=== PATIENT | female | born 1960 ===

== ENCOUNTER 2016-10-30 20:51 | Inpatient (IN) | payer OTHER ==
[2016-10-30 22:09] LABS: BASO % 0.5 % (0.0-2.0); EOS # 0.1 K/uL (0.0-0.7); EOS % 1.3 % (0.0-4.0); HEMATOCRIT 30.5 % (34.0-47.0); LYMPH # 2.3 K/uL (1.0-4.3); LYMPH % 34.3 % (20.0-40.0); MEAN CELL VOLUME 107.1 fl (81.0-99.0); MEAN CORPUSCULAR HEMOGLOBIN 36.2 pg (27.0-31.0); MEAN CORPUSCULAR HGB CONC 33.8 g/dL (33.0-37.0); MEAN PLATELET VOLUME 8.4 fl (7.2-11.7); MONO # 0.5 K/uL (0.0-0.8); MONO % 7.3 % (0.0-10.0); NEUT # 3.8 K/uL (1.8-7.0); NEUT % 56.6 % (50.0-75.0); NRBC % 0.1 % (0.0-0.0); RED CELL DISTRIBUTION WIDTH 16.8 % (11.5-14.5); WHITE BLOOD COUNT 6.7 K/uL (4.8-10.8)
[2016-10-30 22:13] LABS: RBC URINE 2 /hpf (0-3); URINE BACTERIA RARE (<OCC); URINE BILIRUBIN NEGATIVE (NEGATIVE); URINE BLOOD SMALL (NEGATIVE); URINE COLOR YELLOW (YELLOW); URINE GLUCOSE (UA) NEG (Normal); URINE KETONE NEGATIVE (NEGATIVE); URINE LEUKOCYTE ESTERASE NEG Leu/uL (Negative); URINE PROTEIN 30 mg/dL (NEGATIVE); URINE UROBILINOGEN 0.2-1.0 mg/dL (0.2-1.0); WBC URINE 1 /hpf (0-5)
[2016-10-30 22:21] LABS: ALB/GLOB RATIO 0.9 (1.0-2.1); ALCOHOL SERUM < 10 mg/dl (0-10); ALKALINE PHOSPHATASE 126 U/L (38-126); ALT/SGPT 53 U/L (9-52); AST/SGOT 69 U/L (14-36); BILIRUBIN,TOTAL 0.7 mg/dl (0.2-1.3); BLOOD UREA NITROGEN 9 mg/dl (7-17); CARBON DIOXIDE 21 mmol/L (22-30); CHLORIDE 108 mmol/L (98-107); GFR AFRICAN-AMERICAN > 60; GLUCOSE,RANDOM 104 mg/dL (65-105); POTASSIUM 3.1 MMOL/L (3.6-5.0); SODIUM 142 mmol/l (132-148); TOTAL PROTEIN 8.4 G/DL (6.3-8.2)
--- NOTE | 2016-10-30 22:58 | CT ---
EXAM: CT Head Without Intravenous Contrast CLINICAL HISTORY: 56 years old, female; Signs and symptoms; Other: Hallucinations, HX of CVA; Additional info: Hallucinations, HX of CVA TECHNIQUE: Axial computed tomography images of the head/brain without intravenous contrast. This CT exam was performed using one or more of the following dose reduction techniques: automated exposure control, adjustment of the mA and/or kV according to patient size, and/or use of iterative reconstruction technique. Coronal and sagittal reformatted images were created and reviewed. COMPARISON: No relevant prior studies available. FINDINGS: Brain: Atrophy. Large areas of encephalomalacia noted bilaterally involving the right frontal, parietal and temporal lobes as well as predominantly the left parietal and temporal lobes. No hemorrhage. No edema. Ventricles: No hydrocephalus. Bones: Skull is intact. Sinuses: No acute sinusitis. Mastoid air cells: No mastoid effusion. IMPRESSION: No CT evidence of acute intracranial abnormality. Atrophy. Large areas of encephalomalacia are noted bilaterally, correlate with history.
[2016-10-30] MEDS ORDERED: Potassium Chloride 20 mEq/15 ml LIQ UD PO ONE (23:12)
--- NOTE | 2016-10-30 23:31 | ED PDOC ---
HPI: Psych/Substance Abuse <Matt Swan Aston - Last Filed: 10/31/16 06:55> Chief Complaint (Provider): pysch eval Additional Complaint(s): 56yo F with hx of DM and CVA in ED with for eval of hallucinations- visual. no SI/HI. 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 Pt denies: abdominal pain, RANGEL, fever, chills, cough dysruia, hematuira, back pain, dizziness.no recent head injury <Cherelle Dueñas - Last Filed: 10/31/16 21:00> Time Seen by Provider: 10/30/16 21:30 Chief Complaint (Nursing): Psychiatric Evaluation Past Medical History Vital Signs: Last Vital Signs Temp 97.8 F 10/30/16 20:52 Pulse 90 10/30/16 20:52 Resp 22 10/30/16 20:52 BP 162/82 H 10/30/16 20:52 Pulse Ox 100 10/31/16 02:37 <StevopauljohnKamilahnuris Clancy - Last Filed: 10/31/16 06:55> Reviewed: Historical Data, Nursing Documentation, Vital Signs Vital Signs: Last Vital Signs Temp 97.8 F 10/30/16 20:52 Pulse 90 10/30/16 20:52 Resp 10/30/16 20:52 BP 162/82 H 10/30/16 20:52 Pulse Ox 100 10/30/16 20:52 - Medical History PMH: HTN (not currently on meds) - Family History Family History: States: No Known Family Hx <Cherelle Dueñas - Last Filed: 10/31/16 21:00> - Home Medications Home Medications: Ambulatory Orders Medication Instructions Recorded No Known Home Med 10/31/16 - Allergies Allergies/Adverse Reactions: Allergies Allergy/AdvReac Type Severity Reaction Status Date / Time No Known Allergies Allergy Verified 10/30/16 20:52 Review of Systems ROS Statement: Except As Marked, All Systems Reviewed And Found Negative Constitutional: Negative for: Fever, Chills, Weakness, Malaise Cardiovascular: Negative for: Chest Pain, Palpitations Respiratory: Negative for: Cough, Shortness of Breath Gastrointestinal: Negative for: Nausea, Vomiting, Abdominal Pain Genitourinary Female: Negative for: Dysuria, Frequency Skin: Negative for: Rash, Lesions <VeronicaomarCherelle - Last Filed: 10/31/16 21:00> Physical Exam - Reviewed Nursing Documentation Reviewed: Yes Vital Signs Reviewed: Yes - Physical Exam Appears: Positive for: Well, Non-toxic, No Acute Distress Head Exam: Positive for: ATRAUMATIC, NORMAL INSPECTION, NORMOCEPHALIC Skin: Positive for: Normal Color, Warm, DRY Eye Exam: Positive for: EOMI, Normal appearance, PERRL ENT: Positive for: Normal ENT Inspection Cardiovascular/Chest: Positive for: Regular Rate, Rhythm Respiratory: Positive for: CNT, Normal Breath Sounds Gastrointestinal/Abdominal: Positive for: Normal Exam, Bowel Sounds, Soft. Negative for: Tenderness Back: Positive for: Normal Inspection. Negative for: L CVA Tenderness, R CVA Tenderness Extremity: Positive for: Normal ROM Neurologic/Psych: Positive for: Alert, Oriented <Cherelle Dueñas - Last Filed: 10/31/16 21:00> - Laboratory Results Result Diagrams: 10/30/16 21:23 10/30/16 21:23 <Matt Swan - Last Filed: 10/31/16 06:55> - Laboratory Results Result Diagrams: 10/30/16 21:23 10/30/16 21:23 - ECG O2 Sat by Pulse Oximetry: 100 - Progress ED Course And Treament: Pt will be medically cleared-for crisis evaluation. pt is stable and well appearing. Re-evaluation Time: 23:33 Condition: Re-examined (pt with low K+- will be given Kdur) <Cherelle Dueñas - Last Filed: 10/31/16 21:00> Medical Decision Making Medical Decision Making: PT will be will be screened by [facility] dx with psychosis-MD Kareem <Cherelle Dueñas - Last Filed: 10/31/16 21:00> Disposition - Patient ED Disposition Is Patient to be Admitted: Transfer of Care - Disposition Disposition: Transfer of Care Disposition Time: 07:00 Patient Signed Over To: Jeet Cain Handoff Comments: Transfer pending [facility] screening <Matt Swan - Last Filed: 10/31/16 06:55> - Patient ED Disposition Is Patient to be Admitted: Transfer of Care - Disposition Disposition: Transfer of Care <Cherelle Dueñas - Last Filed: 10/31/16 21:00> - Clinical Impression Clinical Impression: Altered mental status - Disposition Condition: FAIR
[2016-10-30] MEDS ORDERED: Potassium Chloride 20 mEq ER Tab PO ONE ×2 (23:48→23:54)
--- NOTE | 2016-10-31 07:32 | ED PDOC ---
- Laboratory Results Result Diagrams: 10/30/16 21:23 10/30/16 21:23 - ECG O2 Sat by Pulse Oximetry: 100 (rA) Pulse Ox Interpretation: Normal Medical Decision Making Medical Decision Making: Receivign Sign Out: Patient signed out to me by Dr. Swan at 0700, awaiting [facility] screening. Scribe Attestation: Documented by Anastasia Smart acting as a scribe for Jeet Cain MD. Provider Attestation: All medical record entries made by the Scribe were at my direction and personally dictated by me. I have reviewed the chart and agree that the record accurately reflects my personal performance of the history, physical exam, medical decision making, and the department course for this patient. I have also personally directed, reviewed, and agree with the discharge instructions and disposition. Disposition - Disposition Condition: FAIR
--- NOTE | 2016-10-31 09:30 | CARD ---
APPROVED REPORT EKG Measurement Heart [id number] HI [id number] <Conclusion> Normal sinus rhythm Minimal voltage criteria for LVH, may be normal variant Borderline ECG
--- NOTE | 2016-10-31 15:56 | ED PDOC ---
- Laboratory Results Result Diagrams: 11/01/16 05:40 11/01/16 05:40 - ECG O2 Sat by Pulse Oximetry: 99 (RA) Medical Decision Making Medical Decision Making: Receiving sign out: Pt signed over to me by Dr. Cain pending screen from [facility] [place]. Scribe Attestation: Documented by Anastasia Smart acting as a scribe for Richa De La Vega MD. Provider Attestation: All medical record entries made by the Scribe were at my direction and personally dictated by me. I have reviewed the chart and agree that the record accurately reflects my personal performance of the history, physical exam, medical decision making, and the department course for this patient. I have also personally directed, reviewed, and agree with the discharge instructions and disposition. Disposition - Clinical Impression Clinical Impression: Altered mental status - POA Present On Arrival: None - Disposition Disposition: Admitted as In-Patient Disposition Time: 02:30 Condition: FAIR ED OBSERVATION Date of observation admission: 10/31/16 - Observation admission statement Patient is being placed in observation because:: Pt awaiting [facility] screening. - Goals of Observation Goals of observation are:: [facility] screen and final ED dispo. - Progress Note Progress Note: 10/31/16 16:10 Pt sleeping in room. Patient not accepted for possibility of acute medical condition. Reviewed patient's history: Pt had CVA 5 years ago. Prior to this, it seems pt's baseline mental ability was already poor due to lack of education, very poor cognitive ability. She had also had severe hearing loss from complications during a hernia surgery 6 years ago. After CVA, pt had speech impairment and never followed up with regular medical care or neurology due to insurance and immigration status (undocumented) . Therefore symptoms of low functioning persisted after CVA with no improvement , and five days prior to arrival started to report paranoid thoughts that people were watching her and started to hide under bed. (Refer to PES notes for collateral from [facility] worker and .) Labs taken thus far demonstrated hypokalemia and mild anemia, otherwise no clinically significant abnormalities. Accession No. : [id number] Patient Name / ID : GRADY SIMPSON / [id number] Exam Date : 10/30/2016 22:30:48 ( Approved ) Study Comment : Sex / Age : F / 56Y Creator : Bette Campos MD Dictator : Weight Inspector : Hide And Skin Colerer : Bette Campos MD Approver2 : Report Date : 10/30/2016 22:58:00 My Comment : [facility] Division of Radiology [address] [place] [address] Tel. no. Patient Name: ABHISHEK RASMUSSEN Pt. Address: [address] [place] [address] Rec #: [id number] [place] [id number]: Cherelle Dueñas PA-C Pt CELL Order Location: [facility] : 1960 Female Age: 56 Order #: [id number] Reason for exam: hallucinations, hx of CVA CT Scan HEAD W/O CONTRAST Exam Date: 10/30/16 This imaging exam was performed at [facility] EXAM: CT Head Without Intravenous Contrast CLINICAL HISTORY: 56 years old, female; Signs and symptoms; Other: Hallucinations, HX of CVA; Additional info: Hallucinations, HX of CVA TECHNIQUE: Axial computed tomography images of the head/brain without intravenous contrast. This CT exam was performed using one or more of the following dose reduction techniques: automated exposure control, adjustment of the mA and/or kV according to patient size, and/or use of iterative reconstruction technique. Coronal and sagittal reformatted images were created and reviewed. COMPARISON: No relevant prior studies available. FINDINGS: Brain: Atrophy. Large areas of encephalomalacia noted bilaterally involving the right frontal, parietal and temporal lobes as well as predominantly the left parietal and temporal lobes. No hemorrhage. No edema. Ventricles: No hydrocephalus. Bones: Skull is intact. Sinuses: No acute sinusitis. Mastoid air cells: No mastoid effusion. IMPRESSION: No CT evidence of acute intracranial abnormality. Atrophy. Large areas of encephalomalacia are noted bilaterally, correlate with history. Dictated By: Bette Campos MD Dictated Date/Time: 10/30/162257 Signed By: Bette Campos Date Signed: 2257 Transcribed By: REBECA Transcribe Date/Time : 10/30/162257 MICHAEL/RADHA EKG unremarkable as well. On my evaluation of pt, she is confused, difficult to determine if pt has receptive or expressive aphasia, even when speaking in macedonian. Has anxious affect but pleasant, with unintelligible speech. Most history was obtained from through [employer] worker who speaks macedonian. Ddx include CVA (frontal), metabolic encephalopathy, acute delirum, ischemic dementia, new onset schizophrenia. JOSEPH Atkinson Hospitalist.
--- NOTE | 2016-10-31 19:55 | CP.PCM.HP ---
History of Present Illness - History of Present Illness History of Present Illness: 56 yo female with low mental ability as her baseline due to lack of education and previous CVA 5 yrs ago brought in by because of further deterioration of mental status and cognitive ability. Pt also has baseline speech and hearing impairment secondary to previous CVA. claimed, as per ER physician's note, patient becoming more paranoid thinking people were watching her and started hiding underneath the bed. Present on Admission - Present on Admission Any Indicators Present on Admission: No History of DVT/PE: No History of Uncontrolled Diabetes: No Urinary Catheter: No Decubitus Ulcer Present: No Review of Systems - Review of Systems Systems not reviewed;Unavailable: Altered Mental Status, Language Barrier Past Patient History - Past Social History Smoking Status: Never Smoked - CARDIAC Hx Cardiac Disorders: No Hx Hypertension: Yes (not currently on meds) - PULMONARY Hx Tuberculosis: No - NEUROLOGICAL HX Cerebrovascular Accident: No Hx Seizures: No - HEENT Hx Deafness: Yes (Hx Hearing loss seconday to CVA) - HEMATOLOGICAL/ONCOLOGICAL Hx Cancer: No Hx Human Immunodeficiency Virus (HIV): No - GASTROINTESTINAL Hx Bowel Surgery: Yes Other/Comment: Hx Ventral Hernia - GENITOURINARY/GYNECOLOGICAL Hx Sexually Transmitted Disorders: No - PSYCHIATRIC Hx Substance Use: No - SURGICAL HISTORY Hx Herniorrhaphy: Yes - ANESTHESIA Hx Anesthesia: Yes Hx Anesthesia Reactions: No Hx Malignant Hyperthermia: No Meds Allergies/Adverse Reactions: Allergies Allergy/AdvReac Type Severity Reaction Status Date / Time No Known Allergies Allergy Verified 10/30/16 20:52 Physical Exam - Constitutional Appears: No Acute Distress - Head Exam Head Exam: ATRAUMATIC - Eye Exam Eye Exam: absent: Scleral icterus - ENT Exam ENT Exam: Mucous Membranes Moist - Neck Exam Neck exam: Negative for: Meningismus - Respiratory Exam Respiratory Exam: absent: Rhonchi, Wheezes, Respiratory Distress - Cardiovascular Exam Cardiovascular Exam: REGULAR RHYTHM, +S1, +S2 - GI/Abdominal Exam GI & Abdominal Exam: Soft. absent: Tenderness - Rectal Exam Rectal Exam: Deferred - Extremities Exam Extremities exam: Negative for: pedal edema - Neurological Exam Neurological exam: Altered - Psychiatric Exam Psychiatric exam: Flat Affect - Skin Skin Exam: Dry, Intact Results - Vital Signs Recent Vital Signs: Last Vital Signs Temp 97.9 F 10/31/16 13:31 Pulse 82 10/31/16 13:31 Resp 16 10/31/16 13:31 BP 138/85 10/31/16 13:31 Pulse Ox 99 10/31/16 19:44 - Labs Result Diagrams: 10/30/16 21:23 10/30/16 21:23 Assessment & Plan (1) Altered mental status Status: Acute Comment: admit to telemetry. Psyche consult with Dr Jones. Neurology consult with Dr Desir. Vit B12, Ammonia level, TSH, Folate level. one to one observation
[2016-10-31 21:14] LABS: BASO % 0.4 % (0.0-2.0); EOS # 0.1 K/uL (0.0-0.7); EOS % 0.6 % (0.0-4.0); HEMATOCRIT 33.1 % (34.0-47.0); LYMPH # 2.4 K/uL (1.0-4.3); LYMPH % 27.6 % (20.0-40.0); MEAN CELL VOLUME 107.8 fl (81.0-99.0); MEAN CORPUSCULAR HGB CONC 33.4 g/dL (33.0-37.0); MEAN PLATELET VOLUME 9.1 fl (7.2-11.7); MONO # 0.6 K/uL (0.0-0.8); MONO % 7.4 % (0.0-10.0); NEUT # 5.5 K/uL (1.8-7.0); NRBC % 0.2 % (0.0-0.0); RED CELL DISTRIBUTION WIDTH 16.9 % (11.5-14.5); WHITE BLOOD COUNT 8.7 K/uL (4.8-10.8)
[2016-10-31 21:31] LABS: ALB/GLOB RATIO 0.9 (1.0-2.1); ALKALINE PHOSPHATASE 124 U/L (38-126); ALT/SGPT 30 U/L (9-52); AST/SGOT 88 U/L (14-36); BILIRUBIN,TOTAL 1.5 mg/dl (0.2-1.3); BLOOD UREA NITROGEN 13 mg/dl (7-17); CALCIUM 9.1 mg/dL (8.4-10.2); CARBON DIOXIDE 21 mmol/L (22-30); CHLORIDE 106 mmol/L (98-107); GFR AFRICAN-AMERICAN > 60; GLUCOSE,RANDOM 102 mg/dL (65-105); SODIUM 140 mmol/l (132-148); TOTAL PROTEIN 9.6 G/DL (6.3-8.2)
[2016-10-31 21:32] LABS: POTASSIUM 5.2 MMOL/L (3.6-5.0)
[2016-10-31 21:37] LABS: PARTIAL THROMBOPLASTIN TIME 20.2 SECONDS (23.3-32.5)
[2016-10-31 22:01] LABS: THYROID STIMULATING HORMONE 2.19 mIU/ML (0.46-4.68)
[2016-11-01 06:55] LABS: BASO % 0.2 % (0.0-2.0); EOS # 0.1 K/uL (0.0-0.7); EOS % 1.2 % (0.0-4.0); HEMATOCRIT 33.6 % (34.0-47.0); LYMPH # 2.4 K/uL (1.0-4.3); LYMPH % 30.2 % (20.0-40.0); MEAN CORPUSCULAR HEMOGLOBIN 36.7 pg (27.0-31.0); MEAN PLATELET VOLUME 8.8 fl (7.2-11.7); MONO # 0.6 K/uL (0.0-0.8); MONO % 7.5 % (0.0-10.0); NEUT # 4.9 K/uL (1.8-7.0); NEUT % 60.9 % (50.0-75.0); NRBC % 0.2 % (0.0-0.0); RED CELL DISTRIBUTION WIDTH 16.9 % (11.5-14.5)
[2016-11-01 07:23] LABS: BLOOD UREA NITROGEN 12 mg/dl (7-17); CALCIUM 9.3 mg/dL (8.4-10.2); CARBON DIOXIDE 23 mmol/L (22-30); CHLORIDE 106 mmol/L (98-107); GFR AFRICAN-AMERICAN > 60; GLUCOSE,RANDOM 107 mg/dL (65-105); POTASSIUM 3.5 MMOL/L (3.6-5.0); SODIUM 142 mmol/l (132-148)
[2016-11-01] MEDS: Pantoprazole 40 mg EC Tab PO SCH (08:18)
[2016-11-01] MEDS: Enoxaparin 40 mg Syringe SC SCH (08:18)
[2016-11-01 08:27] LABS: MEAN CELL VOLUME 107.4 fl (81.0-99.0)
[2016-11-01] MEDS ORDERED: Potassium Chloride 20 mEq ER Tab PO STA (12:08)
--- NOTE | 2016-11-01 12:11 | CP.PCM.PN ---
Subjective - Date & Time of Evaluation Date of Evaluation: 11/01/16 Time of Evaluation: 11:45 - Subjective Subjective: Pt seen and examined. Still very much confused talking always about immigration. Objective - Vital Signs/Intake and Output Vital Signs (last 24 hours): Temp Pulse Resp BP Pulse Ox 98.3 F 82 18 170/87 H 100 11/01/16 11:47 11/01/16 11:47 11/01/16 11:47 11/01/16 11:47 11/01/16 11:47 - Medications Medications: Current Medications Enoxaparin Sodium (Lovenox) 40 mg SC DAILY [facility] PRN Reason: Protocol Last Admin: 11/01/16 08:18 Dose: 40 mg Pantoprazole Sodium (Protonix Ec Tab) 40 mg PO DAILY [facility] Last Admin: 11/01/16 08:18 Dose: 40 mg Potassium Chloride (K-Dur 20 Meq Er Tab) 20 meq PO STAT STA Stop: 11/01/16 12:09 - Labs Labs: 11/01/16 05:40 11/01/16 05:40 PT 11.4 SECONDS (9.6-11.2) H 10/31/16 19:26 INR 1.10 (0.92-1.08) H 10/31/16 19:26 APTT 20.2 SECONDS (23.3-32.5) L 10/31/16 19:26 - Constitutional Appears: Confused - Head Exam Head Exam: ATRAUMATIC - Eye Exam Eye Exam: absent: Scleral icterus - ENT Exam ENT Exam: Mucous Membranes Moist - Neck Exam Neck Exam: absent: Meningismus - Respiratory Exam Respiratory Exam: absent: Rhonchi, Wheezes, Respiratory Distress - Cardiovascular Exam Cardiovascular Exam: REGULAR RHYTHM, +S1, +S2 - GI/Abdominal Exam GI & Abdominal Exam: Soft. absent: Tenderness - Rectal Exam Rectal Exam: Deferred - Extremities Exam Extremities Exam: Normal Inspection - Neurological Exam Neurological Exam: Altered - Psychiatric Exam Psychiatric exam: Anxious - Skin Skin Exam: Dry, Intact Assessment and Plan (1) Altered mental status Status: Acute - Assessment and Plan (Free Text) Assessment: 56 yo female with low mental ability with previous CVA brought in because of further deterioration in mental status and cognitive ability. 1. Altered Mental Status patient probably demented secondary to CVA with large areas of encephalomacia on CT scan patient probably psychotic with increasing anxiety to her immigration status she was originally for admission to psyche but plate put in worker deduced that her mental deterioration might be neurological psyche consult with Dr Jones
--- NOTE | 2016-11-01 13:37 | CON ---
DATE: 11/01/2016 REASON FOR CONSULTATION: Acute delirium. HISTORY OF PRESENTING ILLNESS: The patient is a 56-year-old female who was brought by parmjit jacobo of deterioration of her mental status. The patient has a hearing impairment secondary to previous CVA and speech disturbance. Apparently, patient is having paranoia, thinking people are watching her and started hiding underneath the bed. The patient unable to give a reasonable history. REVIEW OF SYSTEMS: Denies any headache, dizziness, chest pain, shortness of breath, abdominal pain, constipation, diarrhea, dysuria, cough, sputum production. PAST MEDICAL HISTORY: Includes cerebrovascular accident. MEDICATIONS AT HOME: None. CURRENT MEDICATIONS: Include Protonix and Lovenox. ALLERGIES: No known drug allergies. SOCIAL HISTORY: Denies smoking, use of alcohol or illicit drugs. FAMILY HISTORY: Unknown. PHYSICAL EXAMINATION: GENERAL: The patient is an elderly female, sitting, in no acute distress. VITAL SIGNS: Her blood pressure is 161/83, heart rate is 105 per minute, breathing at a rate of 16 p er minute, temperature is 97.9 degrees Fahrenheit. HEENT: Head is normocephalic, atraumatic. NECK: Supple. There are no carotid bruits. LUNGS: Clear. CARDIOVASCULAR: S1, S2 audible. No murmurs. ABDOMEN: Soft, nontender. Bowel sounds present. NEUROLOGIC EXAMINATION: MENTAL STATUS: The patient is awake, alert. She follows simple commands. CRANIAL NERVES: Pupils 3 mm bilaterally, reactive to light. Visual miguel are full. There is sligh t decreased nasolabial fold on the right side. Her palate is upgoing bilaterally and tongue is midli ne. MOTOR: Tone is normal. Power is 5/5 bilaterally in all extremities. Reflexes +1 and symmetrical. Plantars downgoing bilaterally. CEREBELLAR: [id number] shows no dysmetria. LABORATORIES: Reviewed. CT scan of the head: No CT evidence of acute intracranial abnormality. At [facility], large area of encephalomalacia noted bilaterally. WBC is 8.0, hemoglobin 11.4, hematocrit 33. 6, platelets of 217. INR is 1.1. Sodium is 142, potassium 3.5, chloride 106, carbon dioxide 23, BUN of 12, creatinine 0.2 and glucose of 107. Her vitamin B12 is pending. IMPRESSION: 1. Altered mental status with paranoid ideation. 2. History of cerebrovascular accident. RECOMMENDATIONS: 1. The patient to have MRI of the brain without contrast. 2. The patient to have an electroencephalogram. 3. The patient to have psychiatric evaluation. 4. With her history of stroke in the past, consider starting patient on aspirin. 5. Please continue supportive care and other treatment. Thank you for the opportunity to participate in the care of this patient. Marla Desir MD cc: [id number] TT: 11/01/2016 13:37:08 Confirmation # [id number] Dictation # [id number]
--- NOTE | 2016-11-01 16:39 | CP.PCM.CON ---
History of Present Illness - History of Present Illness History of Present Illness: This is a 56 yr old female with no h/o prior psychiatric illness and medical h/ o DM and CVA 5 years ago and limited cognitive ability admitted for change in mental status and psych consult requested as pt has been reported to be having visual hallucinations and paranoid ideationtrying to hide from people.pt is also referred for neuro and dementia workup ordered. pt has been watching news and worried about her being deported by president raegan and when someone comes to house she is hiding under the bed Review of Systems - Review of Systems All systems: reviewed and no additional remarkable complaints except Past Patient History - Past Medical History & Family History Past Medical History?: Yes - Past Social History Smoking Status: Never Smoked - CARDIAC Hx Cardiac Disorders: No - PULMONARY Hx Respiratory Disorders: No Hx Tuberculosis: No - NEUROLOGICAL Hx Neurological Disorder: Yes - HEENT Hx HEENT Problems: Yes - RENAL Hx Chronic Kidney Disease: No - ENDOCRINE/METABOLIC Hx Endocrine Disorders: Yes Hx Diabetes Mellitus Type 2: Yes - HEMATOLOGICAL/ONCOLOGICAL Hx Blood Disorders: No Hx Cancer: No Hx Human Immunodeficiency Virus (HIV): No - INTEGUMENTARY Hx Dermatological Problems: No - MUSCULOSKELETAL/RHEUMATOLOGICAL Hx Musculoskeletal Disorders: No Hx Falls: No - GASTROINTESTINAL Hx Gastrointestinal Disorders: Yes Hx Bowel Surgery: Yes Other/Comment: Ventral Hernia - GENITOURINARY/GYNECOLOGICAL Hx Genitourinary Disorders: No Hx Sexually Transmitted Disorders: No - PSYCHIATRIC Hx Psychophysiologic Disorder: No Hx Substance Use: No - SURGICAL HISTORY Hx Surgeries: Yes Hx Herniorrhaphy: Yes - ANESTHESIA Hx Anesthesia: Yes Hx Anesthesia Reactions: No Hx Malignant Hyperthermia: No Meds Allergies/Adverse Reactions: Allergies Allergy/AdvReac Type Severity Reaction Status Date / Time No Known Allergies Allergy Verified 10/30/16 20:52 - Medications Medications: Current Medications Aspirin (Ecotrin) 81 mg PO DAILY [facility] Enoxaparin Sodium (Lovenox) 40 mg SC DAILY [facility] PRN Reason: Protocol Last Admin: 11/01/16 08:18 Dose: 40 mg Pantoprazole Sodium (Protonix Ec Tab) 40 mg PO DAILY [facility] Last Admin: 11/01/16 08:18 Dose: 40 mg Physical Exam - Constitutional Appears: Confused - Psychiatric Exam Psychiatric exam: Anxious, Flat Affect Additional comments: pt has significant impairment in receptive speech and cant comprehend questions asked in lebanese and gives wrong answers pt is alert but confused and disorganized 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 pt 's fears about immigration and deportation could be realistic and may not be attributed to psychosis.pt is not expressing suicidal ideation.mood is irritible and affect is labile at times.poor insight and poor judgement Results - Vital Signs Recent Vital Signs: Last Vital Signs Temp 97.9 F 11/01/16 15:38 Pulse 87 11/01/16 15:38 Resp 20 11/01/16 15:38 BP 174/84 H 11/01/16 15:38 Pulse Ox 100 11/01/16 15:38 - Labs Result Diagrams: 11/01/16 05:40 11/01/16 05:40 Labs: Laboratory Results - last 24 hr 10/31/16 10/31/16 10/31/16 19:26 19:26 19:26 WBC 8.7 RBC 3.07 L Hgb 11.0 L Hct 33.1 L MCV 107.8 H MCH 36.0 H MCHC 33.4 RDW 16.9 H Plt Count 251 MPV 9.1 Neut % (Auto) 64.0 Lymph % (Auto) 27.6 [place] % (Auto) 7.4 Eos % (Auto) 0.6 Baso % (Auto) 0.4 Neut # 5.5 Lymph # 2.4 [place] # 0.6 Eos # 0.1 Baso # 0.0 PT INR APTT Sodium 140 Potassium 5.2 H Chloride 106 Carbon Dioxide 21 L Anion Gap 18 BUN 13 Creatinine 0.9 Est GFR ( Amer) > 60 Est GFR (Non-Af Amer) > 60 Random Glucose 102 Lactic Acid 2.1 Calcium 9.1 Phosphorus 3.0 Magnesium 2.0 Total Bilirubin 1.5 H AST 88 H D ALT 30 Alkaline Phosphatase 124 Ammonia Troponin I 0.0210 Total Protein 9.6 H Albumin 4.6 Globulin 5.0 H Albumin/Globulin Ratio 0.9 L TSH 3rd Generation 2.19 10/31/16 10/31/16 11/01/16 19:26 19:26 05:40 WBC 8.0 RBC 3.11 L Hgb 11.4 L Hct 33.6 L MCV 107.4 H MCH 36.7 H MCHC 34.0 RDW 16.9 H Plt Count 217 MPV 8.8 Neut % (Auto) 60.9 Lymph % (Auto) 30.2 [place] % (Auto) 7.5 Eos % (Auto) 1.2 Baso % (Auto) 0.2 Neut # 4.9 Lymph # 2.4 [place] # 0.6 Eos # 0.1 Baso # 0.0 PT 11.4 H INR 1.10 H APTT 20.2 L Sodium Potassium Chloride Carbon Dioxide Anion Gap BUN Creatinine Est GFR ( Amer) Est GFR (Non-Af Amer) Random Glucose Lactic Acid Calcium Phosphorus Magnesium Total Bilirubin AST ALT Alkaline Phosphatase Ammonia 26 Troponin I Total Protein Albumin Globulin Albumin/Globulin Ratio TSH 3rd Generation 11/01/16 05:40 WBC RBC Hgb Hct MCV MCH MCHC RDW Plt Count MPV Neut % (Auto) Lymph % (Auto) [place] % (Auto) Eos % (Auto) Baso % (Auto) Neut # Lymph # [place] # Eos # Baso # PT INR APTT Sodium 142 Potassium 3.5 L Chloride 106 Carbon Dioxide 23 Anion Gap 17 BUN 12 Creatinine 0.9 Est GFR ( Amer) > 60 Est GFR (Non-Af Amer) > 60 Random Glucose 107 H Lactic Acid Calcium 9.3 Phosphorus Magnesium Total Bilirubin AST ALT Alkaline Phosphatase Ammonia Troponin I Total Protein Albumin Globulin Albumin/Globulin Ratio TSH 3rd Generation Assessment & Plan (1) Adjustment disorder with anxious mood Status: Acute Comment: A/P : Adjustment disorder with anxiety. neurocognitive disorder due to stroke. r/o psychotic disorder. plan ; continue clodse observation. ativan 1 mg q6 hr prn severe anxiety and agitation. neuro work up for dementia. treat the pt for medical issues. supportive therapy and reassurance. follow up with psychiatry if worsening of anxiety and agitation or new psychotic symptoms.
[2016-11-01 17:07] LABS: FOLATE > 20.0 ng/mL
[2016-11-01] MEDS ORDERED: Dextrose 50% SYRINGE Inj (50 ml) IV PRN (20:38)
[2016-11-01] MEDS ORDERED: Glucagon Recombinant 1 mg Inj IM PRN (20:38)
[2016-11-01] MEDS: Insulin Regular 100 units/ml SC SCH (23:00)
[2016-11-02] MEDS: Insulin Regular 100 units/ml SC SCH ×4 (06:52→21:57)
[2016-11-02 07:36] LABS: BLOOD UREA NITROGEN 13 mg/dl (7-17); CALCIUM 9.8 mg/dL (8.4-10.2); CARBON DIOXIDE 25 mmol/L (22-30); CHLORIDE 104 mmol/L (98-107); GFR AFRICAN-AMERICAN > 60; GLUCOSE,RANDOM 102 mg/dL (65-105); SODIUM 144 mmol/l (132-148)
[2016-11-02] MEDS: Enoxaparin 40 mg Syringe SC SCH (08:44)
[2016-11-02] MEDS: Pantoprazole 40 mg EC Tab PO SCH (08:45)
--- NOTE | 2016-11-02 11:43 | CP.PCM.DIS ---
Provider - Provider Date of Admission: 10/31/16 02:38 Attending physician: Juan Atkinson MD Time Spent in preparation of Discharge (in minutes): 30 Hospital Course - Lab Results Lab Results: Most Recent Lab Values WBC 8.0 K/uL (4.8-10.8) 11/01/16 05:40 RBC 3.11 Mil/uL (3.80-5.20) L 11/01/16 05:40 Hgb 11.4 g/dL (12.0-16.0) L 11/01/16 05:40 Hct 33.6 % (34.0-47.0) L 11/01/16 05:40 MCV 107.4 fl (81.0-99.0) H 11/01/16 05:40 MCH 36.7 pg (27.0-31.0) H 11/01/16 05:40 MCHC 34.0 g/dL (33.0-37.0) 11/01/16 05:40 RDW 16.9 % (11.5-14.5) H 11/01/16 05:40 Plt Count 217 K/uL (130-400) 11/01/16 05:40 MPV 8.8 fl (7.2-11.7) 11/01/16 05:40 Neut % (Auto) 60.9 % (50.0-75.0) 11/01/16 05:40 Lymph % (Auto) 30.2 % (20.0-40.0) 11/01/16 05:40 [place] % (Auto) 7.5 % (0.0-10.0) 11/01/16 05:40 Eos % (Auto) 1.2 % (0.0-4.0) 11/01/16 05:40 Baso % (Auto) 0.2 % (0.0-2.0) 11/01/16 05:40 Neut # 4.9 K/uL (1.8-7.0) 11/01/16 05:40 Lymph # 2.4 K/uL (1.0-4.3) 11/01/16 05:40 [place] # 0.6 K/uL (0.0-0.8) 11/01/16 05:40 Eos # 0.1 K/uL (0.0-0.7) 11/01/16 05:40 Baso # 0.0 K/uL (0.0-0.2) 11/01/16 05:40 PT 11.4 SECONDS (9.6-11.2) H 10/31/16 19:26 INR 1.10 (0.92-1.08) H 10/31/16 19:26 APTT 20.2 SECONDS (23.3-32.5) L 10/31/16 19:26 Sodium 144 mmol/l (132-148) 11/02/16 06:15 Potassium 4.0 MMOL/L (3.6-5.0) 11/02/16 06:15 Chloride 104 mmol/L (98-107) 11/02/16 06:15 Carbon Dioxide 25 mmol/L (22-30) 11/02/16 06:15 Anion Gap 18 (10-20) 11/02/16 06:15 BUN 13 mg/dl (7-17) 11/02/16 06:15 Creatinine 1.0 mg/dL (0.7-1.2) 11/02/16 06:15 Est GFR ( Amer) > 60 11/02/16 06:15 Est GFR (Non-Af Amer) 57 11/02/16 06:15 POC Glucose (mg/dL) 177 mg/dL (65-110) H 11/02/16 10:51 Random Glucose 102 mg/dL (65-105) 11/02/16 06:15 Lactic Acid 2.1 MMOL/L (0.7-2.1) 10/31/16 19:26 Calcium 9.8 mg/dL (8.4-10.2) 11/02/16 06:15 Phosphorus 3.0 mg/dl (2.5-4.5) 10/31/16 19:26 Magnesium 2.0 MG/DL (1.6-2.3) 10/31/16 19:26 Total Bilirubin 1.5 mg/dl (0.2-1.3) H 10/31/16 19:26 AST 88 U/L (14-36) H D 10/31/16 19:26 ALT 30 U/L (9-52) 10/31/16 19:26 Alkaline Phosphatase 124 U/L (38-126) 10/31/16 19:26 Ammonia 26 umo/L (11-51) 10/31/16 19:26 Troponin I 0.0210 ng/mL (0.00-0.120) 10/31/16 19:26 Total Protein 9.6 G/DL (6.3-8.2) H 10/31/16 19:26 Albumin 4.6 g/dL (3.5-5.0) 10/31/16 19:26 Globulin 5.0 gm/dL (2.2-3.9) H 10/31/16 19:26 Albumin/Globulin Ratio 0.9 (1.0-2.1) L 10/31/16 19:26 Folate > 20.0 ng/mL 10/31/16 19: TSH 3rd Generation 2.19 mIU/ML (0.46-4.68) 10/31/16 19:26 Urine Color Yellow (YELLOW) 10/30/16 21:23 Urine Clarity Clear (Clear) 10/30/16 21: Urine pH 6.0 (5.0-8.0) 10/30/16 21:23 Ur Specific [place] 1.006 (1.003-1.030) 10/30/16 21:23 Urine Protein 30 mg/dL (NEGATIVE) 10/30/16 21:23 Urine Glucose (UA) Neg mg/dL (Normal) 10/30/16 21: Urine Ketones Negative mg/dL (NEGATIVE) 10/30/16 21:23 Urine Blood Small (NEGATIVE) 10/30/16 21:23 Urine Nitrate Negative (NEGATIVE) 10/30/16 21: Urine Bilirubin Negative (NEGATIVE) 10/30/16 21:23 Urine Urobilinogen 0.2-1.0 mg/dL (0.2-1.0) 10/30/16 21:23 Ur Leukocyte Esterase Neg Jani/uL (Negative) 10/30/16 21:23 Urine RBC (Auto) 2 /hpf (0-3) 10/30/16 21:23 Urine Microscopic WBC 1 /hpf (0-5) 10/30/16 21:23 Ur Squamous Epith Cells 1 /hpf (0-5) 10/30/16 21:23 Urine Bacteria Rare (<OCC) 10/30/16 21:23 Urine Opiates Screen Negative (NEGATIVE) 10/30/16 21:23 Urine Methadone Screen Negative (NEGATIVE) 10/30/16 21:23 Ur Barbiturates Screen Negative (NEGATIVE) 10/30/16 21:23 Ur Phencyclidine Scrn Negative (NEGATIVE) 10/30/16 21:23 Ur Amphetamines Screen Negative (NEGATIVE) 10/30/16 21:23 U Benzodiazepines Scrn Negative (NEGATIVE) 10/30/16 21:23 U Oth Cocaine Metabols Negative (NEGATIVE) 10/30/16 21:23 U Cannabinoids Screen Negative (NEGATIVE) 10/30/16 21:23 Alcohol, Quantitative < 10 mg/dl (0-10) 10/30/16 21:23 Discharge Exam - Head Exam Head Exam: ATRAUMATIC Discharge Plan - Follow Up Plan Condition: FAIR Disposition: HOME/ ROUTINE
--- NOTE | 2016-11-02 15:50 | CP.PCM.PN ---
Subjective - Date & Time of Evaluation Date of Evaluation: 11/02/16 Time of Evaluation: 15:48 - Subjective Subjective: Patient seen and examined at bedside, continues to be paranoid and confused. Pt was screened by [facility] and did not meet criteria. hangs up phone when called. Will request re-screen as patient continues to be psychotic. Has no other complaints, denies cp sob. Vitals are stable, no acute distress. Objective - Vital Signs/Intake and Output Vital Signs (last 24 hours): Temp Pulse Resp BP Pulse Ox 98.1 F 78 20 136/73 96 11/02/16 15:35 11/02/16 15:35 11/02/16 15:35 11/02/16 15:35 11/02/16 15:35 - Medications Medications: Current Medications Amlodipine Besylate (Norvasc) [address] [facility] Aspirin (Ecotrin) [address] [facility] Last Admin: 11/02/16 08:44 Dose: 81 mg Dextrose (Dextrose 50% Inj) 0 ml IV STAT PRN; Protocol PRN Reason: Hyglycemia Protocol Dextrose (Glutose 15) 0 gm PO ONCE PRN; Protocol PRN Reason: Hypoglycemia Protocol Enoxaparin Sodium (Lovenox) 40 mg SC DAILY [facility] PRN Reason: Protocol Last Admin: 11/02/16 08:44 Dose: 40 mg Glucagon (Glucagen Diagnostic Kit) 0 mg IM STAT PRN; Protocol PRN Reason: Hypoglycemia Protocol Insulin Human Regular (Humulin R) 0 units SC ACHS [facility] PRN Reason: Protocol Last Admin: 11/02/16 11:30 Dose: 2 u Lorazepam (Ativan) 1 mg PO Q6 PRN PRN Reason: Agitation Pantoprazole Sodium (Protonix Ec Tab) [address] [facility] Last Admin: 11/02/16 08:45 Dose: 40 mg - Labs Labs: 11/01/16 05:40 11/02/16 06:15 PT 11.4 SECONDS (9.6-11.2) H 10/31/16 19:26 INR 1.10 (0.92-1.08) H 10/31/16 19:26 APTT 20.2 SECONDS (23.3-32.5) L 10/31/16 19:26 - Constitutional Appears: Non-toxic, No Acute Distress - Head Exam Head Exam: ATRAUMATIC, NORMOCEPHALIC - Eye Exam Eye Exam: EOMI, Normal appearance, PERRL Pupil Exam: NORMAL ACCOMODATION - ENT Exam ENT Exam: Mucous Membranes Moist, Normal Oropharynx - Neck Exam Neck Exam: Full ROM, Normal Inspection - Respiratory Exam Respiratory Exam: Clear to Ausculation Bilateral, NORMAL BREATHING PATTERN - Cardiovascular Exam Cardiovascular Exam: RRR, +S1, +S2 - GI/Abdominal Exam GI & Abdominal Exam: Soft. absent: Mass, Normal Bowel Sounds, Organomegaly - Extremities Exam Extremities Exam: Normal Capillary Refill, Normal Inspection - Back Exam Back Exam: absent: CVA tenderness (L), CVA tenderness (R) - Neurological Exam Neurological Exam: Alert, Awake - Psychiatric Exam Psychiatric exam: Normal Affect, Normal Mood - Skin Skin Exam: Dry, Warm Assessment and Plan - Assessment and Plan (Free Text) Plan: 56 year old female with hx of CVA 5 years ago, was initially brought to the hospital by the for worsening mental status, confusion and paranoia. Altered Mental Status with Paranoia Neurology consult appreciated Psych consult appreciated Patient refused MRI and EEG today She is medically stable for admission to psychiatric unit, however patient is confused and unable to sign at this time. Attempted to reach , however does not answer or hangs up phone immediately. Patient to be re-referred for [facility] screen again tomorrow. Hx CVA residual speech disturbance and hearing impairment Neuro consult appreciated and followed Pt on ASA 81 mg po daily
[2016-11-03] MEDS: Insulin Regular 100 units/ml SC SCH ×4 (06:38→21:48)
[2016-11-03] MEDS: Enoxaparin 40 mg Syringe SC SCH (09:11)
[2016-11-03] MEDS: Pantoprazole 40 mg EC Tab PO SCH (09:12)
--- NOTE | 2016-11-03 10:55 | CP.PCM.PN ---
Subjective - Date & Time of Evaluation Date of Evaluation: 11/03/16 Time of Evaluation: 09:00 - Subjective Subjective: No fever pt is confused denies CP no SOB no abd pain Per 1:1 - pt has good appetite refused MRI and EEG yesterday Screened by [facility] for Involuntary admission last night and was denied- they would like pt to have the MRI of the brain and EEG done first Objective - Vital Signs/Intake and Output Vital Signs (last 24 hours): Temp Pulse Resp BP Pulse Ox 97.9 F 85 20 153/84 H 100 11/03/16 04:31 11/03/16 09:12 11/03/16 04:31 11/03/16 09:12 11/03/16 04:31 - Medications Medications: Current Medications Amlodipine Besylate (Norvasc) 10 mg PO DAILY [facility] Last Admin: 11/03/16 09:12 Dose: 10 mg Aspirin (Ecotrin) 81 mg PO DAILY [facility] Last Admin: 11/03/16 09:13 Dose: 81 mg Cyanocobalamin (Vitamin B12 1000 Mcg/Ml Inj) 1,000 mcg IM DAILY [facility] Stop: 11/05/16 09:01 Last Admin: 11/03/16 09:12 Dose: 1,000 mcg Dextrose (Dextrose 50% Inj) 0 ml IV STAT PRN; Protocol PRN Reason: Hyglycemia Protocol Dextrose (Glutose 15) 0 gm PO ONCE PRN; Protocol PRN Reason: Hypoglycemia Protocol Enoxaparin Sodium (Lovenox) 40 mg SC DAILY [facility] PRN Reason: Protocol Last Admin: 11/03/16 09:11 Dose: 40 mg Glucagon (Glucagen Diagnostic Kit) 0 mg IM STAT PRN; Protocol PRN Reason: Hypoglycemia Protocol Insulin Human Regular (Humulin R) 0 units SC ACHS [facility] PRN Reason: Protocol Last Admin: 11/03/16 06:38 Dose: Not Given Lorazepam (Ativan) 1 mg PO Q6 PRN PRN Reason: Agitation Pantoprazole Sodium (Protonix Ec Tab) 40 mg PO DAILY [facility] Last Admin: 11/03/16 09:12 Dose: 40 mg - Labs Labs: 11/01/16 05:40 11/02/16 06:15 PT 11.4 SECONDS (9.6-11.2) H 10/31/16 19:26 INR 1.10 (0.92-1.08) H 10/31/16 19:26 APTT 20.2 SECONDS (23.3-32.5) L 10/31/16 19:26 - Constitutional Appears: No Acute Distress - Head Exam Head Exam: NORMAL INSPECTION, NORMOCEPHALIC - Eye Exam Eye Exam: EOMI, Normal appearance Pupil Exam: NORMAL ACCOMODATION - ENT Exam ENT Exam: Mucous Membranes Moist, Normal External Ear Exam - Neck Exam Neck Exam: Full ROM. absent: Meningismus - Respiratory Exam Respiratory Exam: NORMAL BREATHING PATTERN. absent: Respiratory Distress - Cardiovascular Exam Cardiovascular Exam: REGULAR RHYTHM, +S1, +S2 - GI/Abdominal Exam GI & Abdominal Exam: Soft, Normal Bowel Sounds. absent: Tenderness - Extremities Exam Extremities Exam: Full ROM, Normal Capillary Refill. absent: Calf Tenderness, Pedal Edema - Back Exam Back Exam: Full ROM. absent: CVA tenderness (L), CVA tenderness (R) - Neurological Exam Neurological Exam: Alert, Awake. absent: Oriented x3 Additional comments: disoriented moves all extremities does not follow commands - Psychiatric Exam Psychiatric exam: Flat Affect - Skin Skin Exam: Dry, Normal Color, Warm Assessment and Plan (1) Altered mental status Status: Acute (2) Psychosis Status: Acute (3) HTN (hypertension) Status: Chronic (4) History of CVA (cerebrovascular accident) Status: Chronic (5) DVT prophylaxis Status: Acute - Assessment and Plan (Free Text) Assessment: 56 y/o lady with hx of HTN, CVA, was brought in because of behavioral changes - pt has been very confused for the past [address] of head negative - unable to do MRI bec pt uncooperative (1) Altered mental status unclear etiology Status: Acute CT of head: negative Neurology consulted EEG MRI of the brain - will sedate pt prior to the exam RPR,B12 level pending Drug screen : negative alcohol level : neg folate: normal TSH : normal (2) Psychosis ? etiology Status: Acute Psych consulted- Dr Jones (3) HTN (hypertension) Status: Chronic cont Norvasc (4) History of CVA (cerebrovascular accident) Status: Chronic Hx of CVA cont ASA, check lipid panel, start statin if elevated (5) Abn LFT Normal Ammonia level will rpt LFT in am (6) DVT prophylaxis Status: Acute Lovenox
--- NOTE | 2016-11-03 15:19 | MRI ---
PROCEDURE: MRI BRAIN WITHOUT CONTRAST HISTORY: Altered mental status COMPARISON: Comparison is made to the previous noncontrast CT dated 10/30/2016 TECHNIQUE: Multiplanar, multisequence MR images of the brain were obtained without intravenous contrast enhancement. FINDINGS: HEMORRHAGE: None DWI: No evidence of an acute or early subacute infarction. BRAIN PARENCHYMA: Foci of encephalomalacia are seen at the left posterior parietal and right temporal frontal lobe suggestive of old infarcts. Moderate atrophy is noted. [id number] white matter changes are also seen. VENTRICLES: Unremarkable. No hydrocephalus. CRANIUM: Unremarkable. ORBITS: Grossly unremarkable. PARANASAL SINUSES/MASTOIDS: Clear VASCULAR SYSTEM: Skull base flow voids intact. OTHER FINDINGS: None. IMPRESSION: No evidence of acute infarct or acute intracranial pathology. Moderate size foci of encephalomalacia at the left posterior parietal and right temporal frontal lobes suggestive of old infarcts. Moderate atrophy.
[2016-11-03] MEDS ORDERED: Sodium Chloride 0.9% 500 ML IV ONE (16:03)
[2016-11-03] MEDS ORDERED: Dextrose 50% SYRINGE Inj (50 ml) IVP ONE (16:10)
[2016-11-04 07:15] LABS: BASO % 0.3 % (0.0-2.0); EOS # 0.1 K/uL (0.0-0.7); EOS % 1.2 % (0.0-4.0); HEMATOCRIT 32.4 % (34.0-47.0); LYMPH # 2.7 K/uL (1.0-4.3); LYMPH % 36.5 % (20.0-40.0); MEAN CELL VOLUME 109.5 fl (81.0-99.0); MEAN CORPUSCULAR HGB CONC 32.9 g/dL (33.0-37.0); MEAN PLATELET VOLUME 8.9 fl (7.2-11.7); MONO # 0.6 K/uL (0.0-0.8); MONO % 8.1 % (0.0-10.0); NEUT % 53.9 % (50.0-75.0); RED CELL DISTRIBUTION WIDTH 17.7 % (11.5-14.5); WHITE BLOOD COUNT 7.4 K/uL (4.8-10.8)
[2016-11-04 07:26] LABS: ALKALINE PHOSPHATASE 91 U/L (38-126); ALT/SGPT 41 U/L (9-52); AST/SGOT 38 U/L (14-36); BILIRUBIN,TOTAL 0.6 mg/dl (0.2-1.3); BLOOD UREA NITROGEN 21 mg/dl (7-17); CARBON DIOXIDE 26 mmol/L (22-30); CHLORIDE 104 mmol/L (98-107); GFR AFRICAN-AMERICAN > 60; GLUCOSE,RANDOM 85 mg/dL (65-105); SODIUM 143 mmol/l (132-148); TOTAL PROTEIN 8.1 G/DL (6.3-8.2)
[2016-11-04] MEDS: Insulin Regular 100 units/ml SC SCH ×3 (07:38→16:36)
[2016-11-04] MEDS: Enoxaparin 40 mg Syringe SC SCH (08:52)
[2016-11-04] MEDS: Pantoprazole 40 mg EC Tab PO SCH (08:53)
--- NOTE | 2016-11-04 10:48 | CP.PCM.PN ---
Objective - Vital Signs/Intake and Output Vital Signs (last 24 hours): Temp Pulse Resp BP Pulse Ox 98.1 F 89 18 118/79 99 11/04/16 08:20 11/04/16 08:53 11/04/16 08:20 11/04/16 08:53 11/04/16 08:20 - Medications Medications: Current Medications Amlodipine Besylate (Norvasc) 10 mg PO DAILY [facility] Last Admin: 11/04/16 08:53 Dose: 10 mg Aspirin (Ecotrin) 81 mg PO DAILY [facility] Last Admin: 11/04/16 08:52 Dose: 81 mg Cyanocobalamin (Vitamin B12 1000 Mcg/Ml Inj) 1,000 mcg IM DAILY [facility] Stop: 11/05/16 09:01 Last Admin: 11/04/16 08:54 Dose: 1,000 mcg Dextrose (Dextrose 50% Inj) 0 ml IV STAT PRN; Protocol PRN Reason: Hyglycemia Protocol Dextrose (Glutose 15) 0 gm PO ONCE PRN; Protocol PRN Reason: Hypoglycemia Protocol Enoxaparin Sodium (Lovenox) 40 mg SC DAILY [facility] PRN Reason: Protocol Last Admin: 11/04/16 08:52 Dose: 40 mg Folic Acid (Folic Acid) 1 mg PO DAILY [facility] Glucagon (Glucagen Diagnostic Kit) 0 mg IM STAT PRN; Protocol PRN Reason: Hypoglycemia Protocol Insulin Human Regular (Humulin R) 0 units SC ACHS [facility] PRN Reason: Protocol Last Admin: 11/04/16 07:38 Dose: Not Given Lorazepam (Ativan) 1 mg PO Q6 PRN PRN Reason: Agitation Pantoprazole Sodium (Protonix Ec Tab) 40 mg PO DAILY [facility] Last Admin: 11/04/16 08:53 Dose: 40 mg - Labs Labs: 11/04/16 05:15 11/04/16 05:15 PT 11.4 SECONDS (9.6-11.2) H 10/31/16 19:26 INR 1.10 (0.92-1.08) H 10/31/16 19:26 APTT 20.2 SECONDS (23.3-32.5) L 10/31/16 19:26 Assessment and Plan (1) Altered mental status Status: Acute (2) Psychosis Status: Acute (3) HTN (hypertension) Status: Chronic (4) History of CVA (cerebrovascular accident) Status: Chronic (5) DVT prophylaxis Status: Acute
--- NOTE | 2016-11-04 11:25 | PCM.PYCHPN ---
Psychiatric Progress Note - Psychiatric Progress Note Patient seen today, length of contact: Psychiatry follow-up note, patient evaluated, chart reviewed Patient Chief Complaint: "Can you send a letter to my kids" Problems Identified/Issues Discussed: Patient is only oriented to self. She can not state her current location/date/ reason for being in the hospital. She can not explain her medical condition. She does not answer questions linearly about mood. Denies hallucinations. She does reports feelings worried about president Trump and immigration issues when asked directly. Patient could not engage in a coherent, linear, conversation with the television script writer. Diagnostic Results: MRI brain 11/03/16: No evidence of acute infarct or acute intracranial pathology. Moderate size foci of encephalomalacia at the left posterior parietal and right temporal frontal lobes suggestive of old infarcts. Moderate atrophy. Medication Change: No Medical Record Reviewed: Yes Mental Status Examination - Cognitive Function Orientation: Person Memory: Impaired Attention: Poor Concentration: Poor Association: Loose Fund of Knowledge: Poor Decription of patient's judgement and insights: Poor insight/judgment - Mood Mood: Anxious - Affect Affect: Constricted - Speech Speech: Stammering - Formal Thought Process Formal Thought Process: Loosening of associations Psychotic Thoughts and Behaviors: Denies hallucinations - Suicidal Ideation Suicidal Ideation: No - Homicidal Ideation Homicidal Ideation: No Goal/Treatment Plan - Goal/Treatment Plan Need for Continued Stay: Severe functional impairment Progress Toward Problem(s) and Goals/Treatment Plan: 56 yo female w/ neurocognitive impairment, initially presented w/ paranoia, now only oriented x 1. Presentation is likely secondary to acute medical issues s/ p CVA, not a primary psychiatric illness. -Patient does NOT have capacity to make medical decisions or to sign into a voluntary psychiatry unit; she also would not likely meet criteria for involuntary admission -Can start low dose antipsychotic, such a Risperdal 0.5 mg PO Daily @1700 or Seroquel 25 or 50 mg PO Daily @1700 and titrate as clinically appropriate -Would avoid Ativan (and other benzos) at this point, as it may lead to worsening confusion -Recommend neurological follow-up -Contact w/ further questions, Dr. Mireles [id number]
--- NOTE | 2016-11-04 11:44 | CP.PCM.CON ---
History of Present Illness - History of Present Illness History of Present Illness: Cardiology Consult 56 y/o h/f admitted for Dementia 56 yo female with low mental ability as her baseline due to lack of education and previous CVA 5 yrs ago brought in by because of further deterioration of mental status and cognitive ability. Pt also has baseline speech and hearing impairment secondary to previous CVA. claimed, as per ER physician's note, patient becoming more paranoid thinking people were watching her and started hiding underneath the bed. Pt had a run of self limiting V Tach last night she was asymptomatic pt has no prior cardiac Hx Past Patient History - Past Medical History & Family History Past Medical History?: Yes - Past Social History Smoking Status: Never Smoked - CARDIAC Hx Cardiac Disorders: No - PULMONARY Hx Respiratory Disorders: No Hx Tuberculosis: No - NEUROLOGICAL Hx Neurological Disorder: Yes - HEENT Hx HEENT Problems: Yes - RENAL Hx Chronic Kidney Disease: No - ENDOCRINE/METABOLIC Hx Endocrine Disorders: Yes Hx Diabetes Mellitus Type 2: Yes - HEMATOLOGICAL/ONCOLOGICAL Hx Blood Disorders: No Hx Cancer: No Hx Human Immunodeficiency Virus (HIV): No - INTEGUMENTARY Hx Dermatological Problems: No - MUSCULOSKELETAL/RHEUMATOLOGICAL Hx Musculoskeletal Disorders: No Hx Falls: No - GASTROINTESTINAL Hx Gastrointestinal Disorders: Yes Hx Bowel Surgery: Yes Other/Comment: Ventral Hernia - GENITOURINARY/GYNECOLOGICAL Hx Genitourinary Disorders: No Hx Sexually Transmitted Disorders: No - PSYCHIATRIC Hx Psychophysiologic Disorder: No Hx Substance Use: No - SURGICAL HISTORY Hx Surgeries: Yes Hx Herniorrhaphy: Yes - ANESTHESIA Hx Anesthesia: Yes Hx Anesthesia Reactions: No Hx Malignant Hyperthermia: No Meds Allergies/Adverse Reactions: Allergies Allergy/AdvReac Type Severity Reaction Status Date / Time No Known Allergies Allergy Verified 10/30/16 20:52 - Medications Medications: Current Medications Amlodipine Besylate (Norvasc) 10 mg PO DAILY [facility] Last Admin: 11/04/16 08:53 Dose: 10 mg Aspirin (Ecotrin) 81 mg PO DAILY [facility] Last Admin: 11/04/16 08:52 Dose: 81 mg Cyanocobalamin (Vitamin B12 1000 Mcg/Ml Inj) 1,000 mcg IM DAILY [facility] Stop: 11/05/16 09:01 Last Admin: 11/04/16 08:54 Dose: 1,000 mcg Dextrose (Dextrose 50% Inj) 0 ml IV STAT PRN; Protocol PRN Reason: Hyglycemia Protocol Dextrose (Glutose 15) 0 gm PO ONCE PRN; Protocol PRN Reason: Hypoglycemia Protocol Enoxaparin Sodium (Lovenox) 40 mg SC DAILY [facility] PRN Reason: Protocol Last Admin: 11/04/16 08:52 Dose: 40 mg Folic Acid (Folic Acid) 1 mg PO DAILY [facility] Last Admin: 11/04/16 11:21 Dose: 1 mg Glucagon (Glucagen Diagnostic Kit) 0 mg IM STAT PRN; Protocol PRN Reason: Hypoglycemia Protocol Insulin Human Regular (Humulin R) 0 units SC ACHS [facility] PRN Reason: Protocol Last Admin: 11/04/16 07:38 Dose: Not Given Lorazepam (Ativan) 1 mg PO Q6 PRN PRN Reason: Agitation Pantoprazole Sodium (Protonix Ec Tab) 40 mg PO DAILY [facility] Last Admin: 11/04/16 08:53 Dose: 40 mg Results - Vital Signs Recent Vital Signs: Last Vital Signs Temp 98.1 F 11/04/16 08:20 Pulse 89 11/04/16 08:53 Resp 18 11/04/16 08:20 BP 118/79 11/04/16 08:53 Pulse Ox 99 11/04/16 08:20 - Labs Result Diagrams: 11/04/16 05:15 11/04/16 05:15 Labs: Laboratory Results - last 24 hr 10/31/16 11/03/16 11/03/16 19:26 09:10 11:24 WBC RBC Hgb Hct MCV MCH MCHC RDW Plt Count MPV Neut % (Auto) Lymph % (Auto) [place] % (Auto) Eos % (Auto) Baso % (Auto) Neut # Lymph # [place] # Eos # Baso # Sodium Potassium Chloride Carbon Dioxide Anion Gap BUN Creatinine Est GFR ( Amer) Est GFR (Non-Af Amer) POC Glucose (mg/dL) 175 H Random Glucose Calcium Total Bilirubin AST ALT Alkaline Phosphatase Total Protein Albumin Globulin Albumin/Globulin Ratio Vitamin B12 Cancelled > 1000 H RPR 11/03/16 11/03/16 11/03/16 13:05 15:40 21:16 WBC RBC Hgb Hct MCV MCH MCHC RDW Plt Count MPV Neut % (Auto) Lymph % (Auto) [place] % (Auto) Eos % (Auto) Baso % (Auto) Neut # Lymph # [place] # Eos # Baso # Sodium Potassium Chloride Carbon Dioxide Anion Gap BUN Creatinine Est GFR ( Amer) Est GFR (Non-Af Amer) POC Glucose (mg/dL) 93 83 Random Glucose Calcium Total Bilirubin AST ALT Alkaline Phosphatase Total Protein Albumin Globulin Albumin/Globulin Ratio Vitamin B12 RPR Nonreactive 11/04/16 11/04/16 11/04/16 05:13 05:15 05:15 WBC 7.4 RBC 2.96 L Hgb 10.7 L Hct 32.4 L MCV 109.5 H D MCH 36.0 H MCHC 32.9 L RDW 17.7 H Plt Count 212 MPV 8.9 Neut % (Auto) 53.9 Lymph % (Auto) 36.5 [place] % (Auto) 8.1 Eos % (Auto) 1.2 Baso % (Auto) 0.3 Neut # 4.0 Lymph # 2.7 [place] # 0.6 Eos # 0.1 Baso # 0.0 Sodium 143 Potassium 4.0 Chloride 104 Carbon Dioxide 26 Anion Gap 17 BUN 21 H Creatinine 1.0 Est GFR ( Amer) > 60 Est GFR (Non-Af Amer) 57 POC Glucose (mg/dL) 97 Random Glucose 85 Calcium 9.0 Total Bilirubin 0.6 AST 38 H D ALT 41 Alkaline Phosphatase 91 Total Protein 8.1 Albumin 4.1 Globulin 4.0 H Albumin/Globulin Ratio 1.0 Vitamin B12 RPR Assessment & Plan (1) Abnormal EKG Assessment and Plan: Pt had a self limiting V Tach one episode will no treat for now get Echo and observe Status: Acute (2) Abnormal EKG Status: Acute
--- NOTE | 2016-11-04 13:25 | CARD ---
APPROVED REPORT EKG Measurement Heart [id number] NH 156P35 [id number] <Conclusion> Normal sinus rhythm Moderate voltage criteria for LVH, may be normal variant Borderline ECG
--- NOTE | 2016-11-04 15:30 | CP.PCM.DIS ---
Provider - Provider Date of Admission: 10/31/16 02:38 Attending physician: Juan Atkinson MD Consults: Psych Dr Mireles Neurology: Dr Desir Cardio : Dr Ba Time Spent in preparation of Discharge (in minutes): 40 Diagnosis - Discharge Diagnosis (1) Altered mental status Status: Acute (2) Psychosis Status: Acute (3) HTN (hypertension) Status: Chronic (4) History of CVA (cerebrovascular accident) Status: Chronic (5) DVT prophylaxis Status: Acute (6) Ventral hernia Status: Chronic Hospital Course - Lab Results Lab Results: Most Recent Lab Values WBC 7.4 K/uL (4.8-10.8) 11/04/16 05:15 RBC 2.96 Mil/uL (3.80-5.20) L 11/04/16 05:15 Hgb 10.7 g/dL (12.0-16.0) L 11/04/16 05:15 Hct 32.4 % (34.0-47.0) L 11/04/16 05:15 MCV 109.5 fl (81.0-99.0) H D 11/04/16 05:15 MCH 36.0 pg (27.0-31.0) H 11/04/16 05:15 MCHC 32.9 g/dL (33.0-37.0) L 11/04/16 05:15 RDW 17.7 % (11.5-14.5) H 11/04/16 05:15 Plt Count 212 K/uL (130-400) 11/04/16 05:15 MPV 8.9 fl (7.2-11.7) 11/04/16 05:15 Neut % (Auto) 53.9 % (50.0-75.0) 11/04/16 05:15 Lymph % (Auto) 36.5 % (20.0-40.0) 11/04/16 05:15 [place] % (Auto) 8.1 % (0.0-10.0) 11/04/16 05:15 Eos % (Auto) 1.2 % (0.0-4.0) 11/04/16 05:15 Baso % (Auto) 0.3 % (0.0-2.0) 11/04/16 05:15 Neut # 4.0 K/uL (1.8-7.0) 11/04/16 05:15 Lymph # 2.7 K/uL (1.0-4.3) 11/04/16 05:15 [place] # 0.6 K/uL (0.0-0.8) 11/04/16 05:15 Eos # 0.1 K/uL (0.0-0.7) 11/04/16 05:15 Baso # 0.0 K/uL (0.0-0.2) 11/04/16 05:15 PT 11.4 SECONDS (9.6-11.2) H 10/31/16 19:26 INR 1.10 (0.92-1.08) H 10/31/16 19:26 APTT 20.2 SECONDS (23.3-32.5) L 10/31/16 19:26 Sodium 143 mmol/l (132-148) 11/04/16 05:15 Potassium 4.0 MMOL/L (3.6-5.0) 11/04/16 05:15 Chloride 104 mmol/L (98-107) 11/04/16 05:15 Carbon Dioxide 26 mmol/L (22-30) 11/04/16 05:15 Anion Gap 17 (10-20) 11/04/16 05:15 BUN 21 mg/dl (7-17) H 11/04/16 05:15 Creatinine 1.0 mg/dL (0.7-1.2) 11/04/16 05:15 Est GFR ( Amer) > 60 11/04/16 05:15 Est GFR (Non-Af Amer) 57 11/04/16 05:15 POC Glucose (mg/dL) 138 mg/dL (65-110) H 11/04/16 11:24 Random Glucose 85 mg/dL (65-105) 11/04/16 05:15 Lactic Acid 2.1 MMOL/L (0.7-2.1) 10/31/16 19:26 Calcium 9.0 mg/dL (8.4-10.2) 11/04/16 05:15 Phosphorus 3.0 mg/dl (2.5-4.5) 10/31/16 19:26 Magnesium 2.0 MG/DL (1.6-2.3) 11/04/16 05:00 Total Bilirubin 0.6 mg/dl (0.2-1.3) 11/04/16 05:15 AST 38 U/L (14-36) H D 11/04/16 05:15 ALT 41 U/L (9-52) 11/04/16 05:15 Alkaline Phosphatase 91 U/L (38-126) 11/04/16 05:15 Ammonia 26 umo/L (11-51) 10/31/16 19:26 Troponin I 0.0210 ng/mL (0.00-0.120) 10/31/16 19:26 Total Protein 8.1 G/DL (6.3-8.2) 11/04/16 05:15 Albumin 4.1 g/dL (3.5-5.0) 11/04/16 05:15 Globulin 4.0 gm/dL (2.2-3.9) H 11/04/16 05:15 Albumin/Globulin Ratio 1.0 (1.0-2.1) 11/04/16 05:15 Vitamin B12 > 1000 pg/mL (239-931) H 11/03/16 09:10 Folate > 20.0 ng/mL 10/31/16 19:26 TSH 3rd Generation 2.19 mIU/ML (0.46-4.68) 10/31/16 19:26 Urine Color Yellow (YELLOW) 10/30/16 21:23 Urine Clarity Clear (Clear) 10/30/16 21:23 Urine pH 6.0 (5.0-8.0) 10/30/16 21:23 Ur Specific Seltzer 1.006 (1.003-1.030) 10/30/16 21:23 Urine Protein 30 mg/dL (NEGATIVE) 10/30/16 21:23 Urine Glucose (UA) Neg mg/dL (Normal) 10/30/16 21:23 Urine Ketones Negative mg/dL (NEGATIVE) 10/30/16 21:23 Urine Blood Small (NEGATIVE) 10/30/16 21:23 Urine Nitrate Negative (NEGATIVE) 10/30/16 21:23 Urine Bilirubin Negative (NEGATIVE) 10/30/16 21:23 Urine Urobilinogen 0.2-1.0 mg/dL (0.2-1.0) 10/30/16 21:23 Ur Leukocyte Esterase Neg Jani/uL (Negative) 10/30/16 21:23 Urine RBC (Auto) 2 /hpf (0-3) 10/30/16 21:23 Urine Microscopic WBC 1 /hpf (0-5) 10/30/16 21:23 Ur Squamous Epith Cells 1 /hpf (0-5) 10/30/16 21:23 Urine Bacteria Rare (<OCC) 10/30/16 21:23 Urine Opiates Screen Negative (NEGATIVE) 10/30/16 21:23 Urine Methadone Screen Negative (NEGATIVE) 10/30/16 21:23 Ur Barbiturates Screen Negative (NEGATIVE) 10/30/16 21:23 Ur Phencyclidine Scrn Negative (NEGATIVE) 10/30/16 21:23 Ur Amphetamines Screen Negative (NEGATIVE) 10/30/16 21:23 U Benzodiazepines Scrn Negative (NEGATIVE) 10/30/16 21:23 U Oth Cocaine Metabols Negative (NEGATIVE) 10/30/16 21:23 U Cannabinoids Screen Negative (NEGATIVE) 10/30/16 21:23 Alcohol, Quantitative < 10 mg/dl (0-10) 10/30/16 21:23 RPR Nonreactive (NONREACTIVE) 11/03/16 13:05 - Hospital Course Hospital Course: 56 y/o lady with hx of HTN, CVA, was brought in because of behavioral changes - pt has been very confused for the past few weeks. Pt has been worked up for the AMS. MRI of brain showed Ecephalomalacia from previous CVA, no acute changes. Psychiatry and Neurology were consulted. TSH, B12, Folate, RPR were normal. No signs of infection. Pt is confused and cannot sign consent for In-patient Psych admission. Psych - Dr Mireles rec starting Seroquel. Neurology - Dr Desir felt that AMS likely due to Vascular Dementia. (1) Altered mental status likely due to Dementia with Behavioral changes Status: Acute likely due to the large Encephalomalacia due to previous CVA CT of head: negative Neurology consulted- DR Torres , discussed case - behavioral changes likely due to Dementia EEG MRI of the brain - Encephalomalacia RPR,B12 level : negative Drug screen : negative alcohol level : neg folate: normal TSH : normal will d/c home with family - pt would need 24 hour care by family (2) Psychosis sec to Dementia Status: Acute Psych consulted started on Seroquel as rec by Psych (3) HTN (hypertension) Status: Chronic cont Norvasc (4) History of CVA (cerebrovascular accident) Status: Chronic Hx of CVA cont ASA (5) Abn LFT improved Normal Ammonia level (6) Episode of Tachycardia unclear if VT or artifact ( nonsustained one episode ) Cardio consulted: Dr Ba ECHO; normal no further abn rhythm seen on Tele monitor electrolytes normal (7) Ventral Hernia no signs of incarcertation abd : soft, nontender (8) DVT prophylaxis Status: Acute Lovenox Discharge Exam - Head Exam Head Exam: ATRAUMATIC, NORMAL INSPECTION, NORMOCEPHALIC - Eye Exam Eye Exam: EOMI, Normal appearance Pupil Exam: NORMAL ACCOMODATION - ENT Exam ENT Exam: Mucous Membranes Moist, Normal External Ear Exam - Neck Exam Neck exam: Full Rom - Respiratory Exam Respiratory Exam: NORMAL BREATHING PATTERN. absent: Respiratory Distress - Cardiovascular Exam Cardiovascular Exam: REGULAR RHYTHM, +S1, +S2 - GI/Abdominal Exam GI & Abdominal Exam: Normal Bowel Sounds, Soft. absent: Tenderness Additional comments: ventral hernia - Extremities Exam Extremities exam: full ROM, normal capillary refill, pedal pulses present - Back Exam Back exam: FULL ROM. absent: CVA tenderness (L), CVA tenderness (R), paraspinal tenderness - Neurological Exam Neurological exam: Alert, CN II-XII Intact, Reflexes Normal Additional comments: oriented to person - Psychiatric Exam Psychiatric exam: Normal Mood Additional comments: confused - Skin Skin Exam: Normal Color, Warm Discharge Plan - Discharge Medications Prescriptions: amLODIPine [Norvasc] 5 mg PO DAILY #30 tab Cyanocobalamin (Vitamin B-12) [B-12] 1,000 mcg PO DAILY #100 tablet.er QUEtiapine [Seroquel] 25 mg PO DAILY #30 tab - Follow Up Plan Condition: IMPROVED Disposition: HOME/ ROUTINE Additional Instructions: ff up FP clinic in 1 wk needs 24 hour care by family Referrals: [facility] [Outside] [facility] [Outside]
[2016-11-04 15:45] VITALS: BP 122/73; PULSE 82; RESP 20; TEMP 99.2; O2SAT 98
--- NOTE | 2016-11-04 17:37 | CARD ---
APPROVED REPORT EXAM: Two-dimensional and M-mode echocardiogram with Doppler and color Doppler. Other Information Quality : AverageRhythm : NSR INDICATION Abnormal EKG/Arrhythmia Tachycardia 2D DIMENSIONS IVSd1.22 (0.7-1.1cm)LVDd4.43 (3.9-5.9cm) PWd1.04 (0.7-1.1cm)IVSs1.41 (0.8-1.2cm) LVDs2.54 (2.5-4.0cm)FS (%) 42.7 % PWs1.61 (0.8-1.2cm) M-Mode DIMENSIONS Left Atrium (MM)3.70 (2.5-4.0cm)Aortic Root3.29 (2.2-3.7cm) Aortic Cusp Exc.1.74 (1.5-2.0cm) Aortic Valve AoV Peak Qvmgvhcx389.2cm/Alyssa Peak GR.11mmHgLVOT Peak Oxytlzxv865.3cm/s Mitral Valve MV E Cobstdgg93.0cm/sMV DECEL [id number] A Kfnmvhno29.8cm/s MV UDA01alC/A ratio0.7MVA (PHT)4.58cm2 TDI Lateral E' Peak V10.07cm/sMedial E' Peak V7.33cm/sE/Lateral E'4.3 E/Medial E'5.9 Pulmonary Valve PV Peak Fhkcssnu711.7cm/s Tricuspid Valve TR Peak Dpmgquwo260ky/sTR Peak Gr.7tbImUUOV57asLj LEFT VENTRICLE The left ventricle is normal size. There is normal left ventricular wall thickness. The left ventricular function is normal. The left ventricular ejection fraction is - 70%. There is normal LV segmental wall motion. Transmitral Doppler flow pattern is Grade I-abnormal relaxation pattern. No left ventricle thrombus noted on this study. There is no ventricular septal defect visualized. There is no left ventricular aneurysm. There is no mass noted in the left ventricle. RIGHT VENTRICLE The right ventricle is normal size. There is normal right ventricular wall thickness. The right ventricular systolic function is normal. ATRIA The left atrium size is normal. There is no thrombus suspected in the left atrium. The right atrium size is normal. The interatrial septum is intact with no evidence for an atrial septal defect. AORTIC VALVE The aortic valve is normal in structure and function. No aortic regurgitation is present. There is no aortic valvular stenosis. MITRAL VALVE The mitral valve mildly thickened but not stenotic. There is no evidence of mitral valve prolapse. There is no mitral valve stenosis. There is no mitral valve regurgitation noted. TRICUSPID VALVE The tricuspid valve is normal in structure and function. There is no tricuspid valve regurgitation noted. There is no tricuspid valve prolapse or vegetation. There is no tricuspid valve stenosis. PULMONIC VALVE The pulmonic valve is not well visualized. There is no pulmonic valvular regurgitation. GREAT VESSELS The aortic root is normal in size. The IVC is normal in size and collapses >50% with inspiration. PERICARDIAL EFFUSION The pericardium appears normal. There is no pleural effusion. <Conclusion> The study is only of fair quality. The left ventricle is normal in size and wall thickness. The left ventricular function is normal. The left ventricular ejection fraction is - 70%. The left atrium, right ventricle and right atrium are normal in size. The mitral, aortic and tricuspid valves are normal.
== END 2016-11-04 18:40 | disposition home or self-care (01) | DRG 429 ==
LOC: H.ER 20:51 → H.ERHOLD 10-31 02:38 → H.EROBSV 10-31 02:38 → OBSVTOIN 10-31 02:38 → H.TEL 10-31 21:50
DX: F01.51 Vascular dementia, unspecified severity, with behavioral disturbance (principal); I47.2 Ventricular tachycardia; E11.9 Type 2 diabetes mellitus without complications; F43.22 Adjustment disorder with anxiety; K43.9 Ventral hernia without obstruction or gangrene; R23.4 Changes in skin texture; I69.318 Other symptoms and signs involving cognitive functions following cerebral infarction; I69.323 Fluency disorder following cerebral infarction; I69.398 Other sequelae of cerebral infarction; H91.90 Unspecified hearing loss, unspecified ear; G93.89 Other specified disorders of brain; I10 Essential (primary) hypertension; I69.319 Unspecified symptoms and signs involving cognitive functions following cerebral infarction; R79.89 Other specified abnormal findings of blood chemistry

== ENCOUNTER 2016-12-06 16:39 | Inpatient (IN) | payer MEDICAID, OTHER ==
[2016-12-06] MEDS ORDERED: ACETYLCYSTEINE IVPB STA ×2 (17:29→19:00)
[2016-12-06] MEDS ORDERED: DEXTROSE 5% IVPB STA ×2 (17:29→19:00)
[2016-12-06] MEDS ORDERED: WATER IVPB STA ×2 (17:29→19:00)
--- NOTE | 2016-12-06 17:46 | RAD ---
PROCEDURE: CHEST RADIOGRAPH, 1 VIEW HISTORY: apap overdose COMPARISON: None available. FINDINGS: LUNGS: Clear. PLEURA: No pneumothorax or pleural fluid seen. CARDIOVASCULAR: Normal. OSSEOUS STRUCTURES: No significant abnormalities. VISUALIZED UPPER ABDOMEN: Normal. OTHER FINDINGS: None. IMPRESSION: No active disease.
[2016-12-06 18:00] LABS: BASO % 0.7 % (0.0-2.0); EOS # 0.1 K/uL (0.0-0.7); EOS % 1.2 % (0.0-4.0); HEMOGLOBIN 10.1 g/dL (12.0-16.0); LYMPH % 29.8 % (20.0-40.0); MEAN CELL VOLUME 103.6 fl (81.0-99.0); MEAN CORPUSCULAR HEMOGLOBIN 33.3 pg (27.0-31.0); MEAN CORPUSCULAR HGB CONC 32.1 g/dL (33.0-37.0); MEAN PLATELET VOLUME 8.4 fl (7.2-11.7); MONO # 0.7 K/uL (0.0-0.8); MONO % 10.4 % (0.0-10.0); NEUT % 57.9 % (50.0-75.0); RBC 3.04 Mil/uL (3.80-5.20); RED CELL DISTRIBUTION WIDTH 15.5 % (11.5-14.5); WHITE BLOOD COUNT 6.9 K/uL (4.8-10.8)
[2016-12-06] MEDS ORDERED: Activated Charcoal/Sorbitol 25 GM/120 ML PO ONE ×2 (18:12)
[2016-12-06 18:15] LABS: ALB/GLOB RATIO 1.1 (1.0-2.1); ALBUMIN 4.3 g/dL (3.5-5.0); ALT/SGPT 46 U/L (9-52); AST/SGOT 36 U/L (14-36); BLOOD UREA NITROGEN 19 mg/dl (7-17); CALCIUM 8.9 mg/dL (8.4-10.2); GFR AFRICAN-AMERICAN > 60; GFR NON-AFRICAN AMERICAN > 60
[2016-12-06 18:19] LABS: VENOUS BLOOD GAS BASE EXCESS -6.8 mmol/L (0.0-2.0); VENOUS BLOOD GAS PCO2 32 mmHg (40-60); VENOUS BLOOD GAS PO2 64 mm/Hg (30-55); VENOUS BLOOD PH 7.35 (7.32-7.43)
[2016-12-06] MEDS ORDERED: Potassium Chloride 20 mEq ER Tab PO ONE ×2 (18:24→19:18)
[2016-12-06 18:25] LABS: SALICYLATE < 1.0 mg/dl
[2016-12-06 18:25] LABS: SQUAMOUS EPITHIAL 3 /hpf (0-5); URINE BACTERIA RARE (<OCC); URINE BILIRUBIN NEGATIVE (NEGATIVE); URINE BLOOD SMALL (NEGATIVE); URINE CALCIUM OXALATE CRYSTALS FEW /hpf (<OCC); URINE CLARITY SLIGHTY-CLOUDY (Clear); URINE COLOR YELLOW (YELLOW); URINE GLUCOSE (UA) NEG (Normal); URINE LEUKOCYTE ESTERASE NEG Leu/uL (Negative); URINE NITRATE NEGATIVE (NEGATIVE); URINE PROTEIN 100 mg/dL (NEGATIVE); URINE UROBILINOGEN 0.2-1.0 mg/dL (0.2-1.0)
[2016-12-06 18:26] LABS: BARBITURATES, UR NEGATIVE (NEGATIVE); BENZODIAZEPINES, UR NEGATIVE (NEGATIVE); OPIATES, UR NEGATIVE (NEGATIVE); PHENCYCLIDINE, UR NEGATIVE (NEGATIVE)
[2016-12-06] MEDS ORDERED: ACETYLCYSTEINE IVPB SCH ×2 (18:30→20:30)
[2016-12-06] MEDS ORDERED: DEXTROSE 5% IVPB SCH ×2 (18:30→20:30)
[2016-12-06] MEDS ORDERED: WATER IVPB SCH ×2 (18:30→20:30)
[2016-12-06] MEDS ORDERED: Potassium CL 10mEq/100ml 100 ML IVPB ONE (18:32)
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
[2016-12-06] MEDS ORDERED: K-Lyte 25meq EF Tab PO ONE ×2 (19:21→19:31)
[2016-12-06] MEDS ORDERED: Sodium Chloride 0.9% 1,000 ML IV SCH (19:30)
[2016-12-06 19:39] LABS: PARTIAL THROMBOPLASTIN TIME 29.8 Seconds (25.6-37.1); PROTHROMBIN TIME 11.2 Seconds (9.8-13.1)
--- NOTE | 2016-12-06 19:39 | CP.PCM.HP ---
History of Present Illness - History of Present Illness History of Present Illness: CC: tylenol overdose History per ER staff and family as patient is unable to provide any coherent information HPI: This is a 56 y/o female with MHx significant for cognitive deficiency due to multiple reasons including prior CVA who is brought in for tylenol overdose. Per family and ER, patient was acting as her usual self (which is somewhat abnormal at baseline). She was sitting in front of the family and took twenty- three 500 mg tabs of tylenol at around 430-5 PM. She was immediately brought in , activated charcoal was given, and acetadote was started as per poison control. Cannot obtain any other information from patient at this time. ROS: unable to perform as patient cannot answer questions MHx: CVA in past, HTN, cognitive deficits SHx: None found Allergies: NKDA Medications: Pending Family Hx: Cannot obtain due to mental status Social Hx: Lives with family, no tobacco, no EtOH Surrogate: , ; daughter, Present on Admission - Present on Admission Any Indicators Present on Admission: No Past Patient History - Past Medical History & Family History Past Medical History?: Yes - Past Social History Alcohol: None Drugs: Denies - CARDIAC Hx Hypertension: Yes - PULMONARY Hx Respiratory Disorders: No Hx Tuberculosis: No - NEUROLOGICAL Hx Seizures: No Hx Transient Ischemic Attacks (TIA): Yes - HEENT Hx HEENT Problems: Yes Hx Deafness: Yes - RENAL Hx Chronic Kidney Disease: No - ENDOCRINE/METABOLIC Hx Endocrine Disorders: Yes Hx Diabetes Mellitus Type 2: Yes - HEMATOLOGICAL/ONCOLOGICAL Hx Human Immunodeficiency Virus (HIV): No - INTEGUMENTARY Hx Dermatological Problems: No - MUSCULOSKELETAL/RHEUMATOLOGICAL Hx Musculoskeletal Disorders: No Hx Falls: No - GASTROINTESTINAL Hx Gastrointestinal Disorders: Yes Hx Bowel Surgery: Yes Other/Comment: Ventral Hernia - GENITOURINARY/GYNECOLOGICAL Hx Sexually Transmitted Disorders: No - PSYCHIATRIC Hx Psychophysiologic Disorder: No Hx Substance Use: No - SURGICAL HISTORY Hx Surgeries: Yes Hx Herniorrhaphy: Yes - ANESTHESIA Hx Anesthesia: Yes Hx Anesthesia Reactions: No Hx Malignant Hyperthermia: No Meds Allergies/Adverse Reactions: Allergies Allergy/AdvReac Type Severity Reaction Status Date / Time No Known Allergies Allergy Verified 12/06/16 16:43 Physical Exam - Constitutional Appears: No Acute Distress, Agitated, Confused - Head Exam Head Exam: ATRAUMATIC, NORMOCEPHALIC - Eye Exam Eye Exam: EOMI, PERRL - ENT Exam ENT Exam: Mucous Membranes Moist - Neck Exam Neck exam: Positive for: Full Rom - Respiratory Exam Respiratory Exam: Clear to Auscultation Bilateral, NORMAL BREATHING PATTERN - Cardiovascular Exam Cardiovascular Exam: REGULAR RHYTHM, +S1, +S2 - GI/Abdominal Exam GI & Abdominal Exam: Normal Bowel Sounds, Soft - Extremities Exam Extremities exam: Positive for: full ROM, normal inspection - Neurological Exam Neurological exam: Alert, Altered - Psychiatric Exam Psychiatric exam: Agitated - Skin Skin Exam: Dry, Warm Results - Vital Signs Recent Vital Signs: Last Vital Signs Temp 98.1 F 12/06/16 16:44 Pulse 92 H 12/06/16 19:10 Resp 16 12/06/16 19:10 BP 160/84 H 12/06/16 19:10 Pulse Ox 100 12/06/16 19:28 - Labs Result Diagrams: 12/06/16 17:55 12/06/16 17:55 Labs: Laboratory Results - last 24 hr 12/06/16 12/06/16 12/06/16 17:45 17:45 17:55 WBC RBC Hgb Hct MCV MCH MCHC RDW Plt Count MPV Neut % (Auto) Lymph % (Auto) [place] % (Auto) Eos % (Auto) Baso % (Auto) Neut # Lymph # [place] # Eos # Baso # pO2 VBG pH VBG pCO2 VBG HCO3 VBG Total CO2 VBG O2 Sat (Calc) VBG Base Excess VBG Potassium Glucose Lactate FiO2 Sodium Potassium Chloride Carbon Dioxide Anion Gap BUN Creatinine Est GFR ( Amer) Est GFR (Non-Af Amer) Random Glucose Calcium Total Bilirubin AST ALT Alkaline Phosphatase Total Protein Albumin Globulin Albumin/Globulin Ratio Venous Blood Potassium Urine Color Yellow Urine Clarity Slighty-cloudy Urine pH 6.0 Ur Specific [place] 1.017 Urine Protein 100 Urine Glucose (UA) Neg Urine Ketones Negative Urine Blood Small Urine Nitrate Negative Urine Bilirubin Negative Urine Urobilinogen 0.2-1.0 Ur Leukocyte Esterase Neg Urine RBC (Auto) 6 H Urine Microscopic WBC 3 Ur Squamous Epith Cells 3 Calcium Oxalate Crystal Few H Urine Bacteria Rare Salicylates < 1.0 Urine Opiates Screen Negative Urine Methadone Screen Negative Acetaminophen 84.0 H Ur Barbiturates Screen Negative Ur Phencyclidine Scrn Negative Ur Amphetamines Screen Negative U Benzodiazepines Scrn Negative U Oth Cocaine Metabols Negative U Cannabinoids Screen Negative Alcohol, Quantitative 12/06/16 12/06/16 12/06/16 17:55 17:55 18:00 WBC 6.9 RBC 3.04 L Hgb 10.1 L Hct 31.5 L MCV 103.6 H D MCH 33.3 H MCHC 32.1 L RDW 15.5 H Plt Count 239 MPV 8.4 Neut % (Auto) 57.9 Lymph % (Auto) 29.8 [place] % (Auto) 10.4 H Eos % (Auto) 1.2 Baso % (Auto) 0.7 Neut # 4.0 Lymph # 2.0 [place] # 0.7 Eos # 0.1 Baso # 0.0 pO2 64 H VBG pH 7.35 VBG pCO2 32 L VBG HCO3 19.4 VBG Total CO2 18.7 L VBG O2 Sat (Calc) 96.9 H VBG Base Excess -6.8 L VBG Potassium 3.2 L Glucose 121 H Lactate 2.4 H FiO2 21.0 Sodium 142 142.0 Potassium 3.3 L Chloride 112 H 115.0 H Carbon Dioxide 16 L Anion Gap 17 BUN 19 H Creatinine 0.9 Est GFR ( Amer) > 60 Est GFR (Non-Af Amer) > 60 Random Glucose 113 H Calcium 8.9 Total Bilirubin 0.3 AST 36 ALT 46 Alkaline Phosphatase 106 Total Protein 8.3 H Albumin 4.3 Globulin 4.0 H Albumin/Globulin Ratio 1.1 Venous Blood Potassium 3.2 L Urine Color Urine Clarity Urine pH Ur Specific [place] Urine Protein Urine Glucose (UA) Urine Ketones Urine Blood Urine Nitrate Urine Bilirubin Urine Urobilinogen Ur Leukocyte Esterase Urine RBC (Auto) Urine Microscopic WBC Ur Squamous Epith Cells Calcium Oxalate Crystal Urine Bacteria Salicylates Urine Opiates Screen Urine Methadone Screen Acetaminophen Ur Barbiturates Screen Ur Phencyclidine Scrn Ur Amphetamines Screen U Benzodiazepines Scrn U Oth Cocaine Metabols U Cannabinoids Screen Alcohol, Quantitative < 10 - Imaging and Cardiology Chest x-ray Status: Image reviewed by me (no acute findings) Assessment & Plan (1) Acetaminophen overdose Assessment and Plan: 56 y/o female with intentional tylenol overdose in setting of underlying cognitive/psychiatric disorders. -NPO, IVF for now -Continue acetadote IV as per poison control -IVF with K for hypokalemia -Repeat Tylenol level and LFTs ~ 4 hours -Psych consult in AM -SCDs for DVT PPx Status: Acute (2) DVT prophylaxis Status: Acute
[2016-12-06 22:01] LABS: ALB/GLOB RATIO 1.1 (1.0-2.1); ALBUMIN 4.2 g/dL (3.5-5.0); ALT/SGPT 41 U/L (9-52); AST/SGOT 31 U/L (14-36); BLOOD UREA NITROGEN 15 mg/dl (7-17); CALCIUM 8.7 mg/dL (8.4-10.2); GFR AFRICAN-AMERICAN > 60; GFR NON-AFRICAN AMERICAN > 60
[2016-12-07] MEDS ORDERED: Nitroglycerin 50mg in D5W 0 MG/0 ML BOTTLE IV ONE (02:18)
[2016-12-07 05:42] LABS: BASO % 0.6 % (0.0-2.0); EOS # 0.1 K/uL (0.0-0.7); EOS % 1.4 % (0.0-4.0); HEMOGLOBIN 10.2 g/dL (12.0-16.0); LYMPH # 2.2 K/uL (1.0-4.3); LYMPH % 35.3 % (20.0-40.0); MEAN CELL VOLUME 102.8 fl (81.0-99.0); MEAN CORPUSCULAR HEMOGLOBIN 33.7 pg (27.0-31.0); MEAN CORPUSCULAR HGB CONC 32.8 g/dL (33.0-37.0); MEAN PLATELET VOLUME 8.3 fl (7.2-11.7); MONO # 0.6 K/uL (0.0-0.8); MONO % 10.1 % (0.0-10.0); NEUT # 3.3 K/uL (1.8-7.0); NEUT % 52.6 % (50.0-75.0); RBC 3.03 Mil/uL (3.80-5.20); RED CELL DISTRIBUTION WIDTH 15.6 % (11.5-14.5); WHITE BLOOD COUNT 6.2 K/uL (4.8-10.8)
[2016-12-07 05:50] LABS: ALBUMIN 3.7 g/dL (3.5-5.0); ALT/SGPT 39 U/L (9-52); AST/SGOT 33 U/L (14-36); BLOOD UREA NITROGEN 12 mg/dl (7-17); CALCIUM 8.4 mg/dL (8.4-10.2); GFR AFRICAN-AMERICAN > 60; GFR NON-AFRICAN AMERICAN > 60
--- NOTE | 2016-12-07 11:10 | CP.CCUPN ---
CCU Subjective - Physician Review Subjective (Free Text): 56F with schizophrenia, legal deafness, HTN, admitted after suicide attempt with Tylenol ingestion; started on Acetadote, of 3rd portion o infusion, acetaminophen levels re appropriately decreasing an LFTs and coags are WNL. On 1:1, mildly disoriented to time, no distress. CCU Objective - Vital Signs / Intake & Output Vital Signs (Last 4 hours): Vital Signs Temp Pulse Resp BP Pulse Ox 12/07/16 10:00 54 L 15 128/81 100 12/07/16 08:00 97.9 F 47 L 19 147/82 100 Intake and Output (Last 8hrs): Intake & Output 12/06/16 12/07/16 12/07/16 22:59 06:59 14:59 Intake Total 1703 258 Output Total 600 Balance 1103 258 Intake: IV 1703 258 Output: Urine 600 Urine, Voided 600 Other: # Voids Urine, Voided 3 2 - Physical Exam Head: Positive for: Atraumatic, Normocephalic Pupils: Positive for: PERRL Conjunctiva: Positive for: Normal Mouth: Positive for: Moist Mucous Membranes, Normal Tounge Pharnyx: Positive for: Normal Neck: Positive for: Normal Range of Motion Respiratory/Chest: Positive for: Clear to Auscultation Cardiovascular: Positive for: Regular Rate and Rhythm Abdomen: Positive for: Normal Bowel Sounds Lower Extremity: Positive for: Normal Inspection - Medications Active Medications: Active Medications Generic Name Dose Route Start Last Admin Trade Name Freq PRN Reason Stop Dose Admin Acetylcysteine 3.2 gm/ 516 mls @ 129 mls/hr 12/06/16 18:30 Dextrose IVPB STAT FRANCHESKA Acetylcysteine 6.4 gm/ 1,032 mls @ 64.5 mls/hr 12/06/16 20:30 12/07/16 00:30 Dextrose IVPB 64.5 mls/hr STAT FRANCHESKA Administration Ondansetron HCl 4 mg 12/06/16 19:27 Zofran Inj IVP Q6H PRN Nausea/Vomiting - Patient Studies Lab Studies: Lab Studies 12/07/16 12/07/16 12/06/16 Range/Units 04:45 04:45 21:30 WBC 6.2 (4.8-10.8) K/uL RBC 3.03 L (3.80-5.20) Mil/uL Hgb 10.2 L (12.0-16.0) g/dL Hct 31.1 L (34.0-47.0) % MCV 102.8 H (81.0-99.0) fl MCH 33.7 H (27.0-31.0) pg MCHC 32.8 L (33.0-37.0) g/dL RDW 15.6 H (11.5-14.5) % Plt Count 209 (130-400) K/uL MPV 8.3 (7.2-11.7) fl Neut % (Auto) 52.6 (50.0-75.0) % Lymph % (Auto) 35.3 (20.0-40.0) % [place] % (Auto) 10.1 H (0.0-10.0) % Eos % (Auto) 1.4 (0.0-4.0) % Baso % (Auto) 0.6 (0.0-2.0) % Neut # 3.3 (1.8-7.0) K/uL Lymph # 2.2 (1.0-4.3) K/uL [place] # 0.6 (0.0-0.8) K/uL Eos # 0.1 (0.0-0.7) K/uL Baso # 0.0 (0.0-0.2) K/uL Sodium 143 (132-148) mmol/l Potassium 3.5 L (3.6-5.0) MMOL/L Chloride 114 H (98-107) mmol/L Carbon Dioxide 17 L (22-30) mmol/L Anion Gap 16 (10-20) BUN 12 (7-17) mg/dl Creatinine 0.7 (0.7-1.2) mg/dL Est GFR ( Amer) > 60 Est GFR (Non-Af Amer) > 60 Random Glucose 83 (65-105) mg/dL Calcium 8.4 (8.4-10.2) mg/dL Total Bilirubin 0.3 (0.2-1.3) mg/dl AST 33 (14-36) U/L ALT 39 (9-52) U/L Alkaline Phosphatase 66 (38-126) U/L Total Protein 7.4 (6.3-8.2) G/DL Albumin 3.7 (3.5-5.0) g/dL Globulin 3.8 (2.2-3.9) gm/dL Albumin/Globulin Ratio 1.0 (1.0-2.1) Acetaminophen 54.0 H (10.0-30.0) ug/ml 12/06/16 Range/Units 21:30 WBC (4.8-10.8) K/uL RBC (3.80-5.20) Mil/uL Hgb (12.0-16.0) g/dL Hct (34.0-47.0) % MCV (81.0-99.0) fl MCH (27.0-31.0) pg MCHC (33.0-37.0) g/dL RDW (11.5-14.5) % Plt Count (130-400) K/uL MPV (7.2-11.7) fl Neut % (Auto) (50.0-75.0) % Lymph % (Auto) (20.0-40.0) % [place] % (Auto) (0.0-10.0) % Eos % (Auto) (0.0-4.0) % Baso % (Auto) (0.0-2.0) % Neut # (1.8-7.0) K/uL Lymph # (1.0-4.3) K/uL [place] # (0.0-0.8) K/uL Eos # (0.0-0.7) K/uL Baso # (0.0-0.2) K/uL Sodium 144 (132-148) mmol/l Potassium 3.5 L (3.6-5.0) MMOL/L Chloride 112 H (98-107) mmol/L Carbon Dioxide 15 L (22-30) mmol/L Anion Gap 21 H (10-20) BUN 15 (7-17) mg/dl Creatinine 0.8 (0.7-1.2) mg/dL Est GFR ( Amer) > 60 Est GFR (Non-Af Amer) > 60 Random Glucose 130 H (65-105) mg/dL Calcium 8.7 (8.4-10.2) mg/dL Total Bilirubin 0.3 (0.2-1.3) mg/dl AST 31 (14-36) U/L ALT 41 (9-52) U/L Alkaline Phosphatase 23 L D (38-126) U/L Total Protein 8.2 (6.3-8.2) G/DL Albumin 4.2 (3.5-5.0) g/dL Globulin 4.0 H (2.2-3.9) gm/dL Albumin/Globulin Ratio 1.1 (1.0-2.1) Acetaminophen (10.0-30.0) ug/ml Laboratory Results - last 24 hr 12/06/16 12/06/16 12/07/16 21:30 21:30 04:45 WBC 6.2 RBC 3.03 L Hgb 10.2 L Hct 31.1 L MCV 102.8 H MCH 33.7 H MCHC 32.8 L RDW 15.6 H Plt Count 209 MPV 8.3 Neut % (Auto) 52.6 Lymph % (Auto) 35.3 [place] % (Auto) 10.1 H Eos % (Auto) 1.4 Baso % (Auto) 0.6 Neut # 3.3 Lymph # 2.2 [place] # 0.6 Eos # 0.1 Baso # 0.0 Sodium 144 Potassium 3.5 L Chloride 112 H Carbon Dioxide 15 L Anion Gap 21 H BUN 15 Creatinine 0.8 Est GFR ( Amer) > 60 Est GFR (Non-Af Amer) > 60 Random Glucose 130 H Calcium 8.7 Total Bilirubin 0.3 AST 31 ALT 41 Alkaline Phosphatase 23 L D Total Protein 8.2 Albumin 4.2 Globulin 4.0 H Albumin/Globulin Ratio 1.1 Acetaminophen 54.0 H 12/07/16 04:45 WBC RBC Hgb Hct MCV MCH MCHC RDW Plt Count MPV Neut % (Auto) Lymph % (Auto) [place] % (Auto) Eos % (Auto) Baso % (Auto) Neut # Lymph # [place] # Eos # Baso # Sodium 143 Potassium 3.5 L Chloride 114 H Carbon Dioxide 17 L Anion Gap 16 BUN 12 Creatinine 0.7 Est GFR ( Amer) > 60 Est GFR (Non-Af Amer) > 60 Random Glucose 83 Calcium 8.4 Total Bilirubin 0.3 AST 33 ALT 39 Alkaline Phosphatase 66 Total Protein 7.4 Albumin 3.7 Globulin 3.8 Albumin/Globulin Ratio 1.0 Acetaminophen Fingerstick Blood Sugar Results: 125 Review of Systems - Review of Systems All systems: reviewed and no additional remarkable complaints except - EENT Ears: absent: Tinnitus - Cardiovascular Cardiovascular: absent: Chest Pain - Respiratory Respiratory: absent: Dyspnea on Exertion - Gastrointestinal Gastrointestinal: absent: Abdominal Pain Critical Care Progress Note - Ventilator Checklist Head of Bed 30 Degrees: Yes PUD Prophalyxis: Yes DVT Prophylaxis: Yes - Extremities/Vascular Does the Patient have a Central Venous Catheter?: No Does the Patient need a Central Venous Catheter?: No - Prophylaxis GI Prophylaxis GI: Pepsid - Prophylaxis DVT Prophylaxis DVT: SCDs - Nutrition Nutrition: Nutrition Category Date Time Status NPO Diet [DIET] Diets 12/06/16 Breakfast Active Assessment/Plan - Assessment and Plan (Free Text) Assessment: Acetaminophen overdose Suicide attempt Chronic disease Anemia Hypokalemia Plan: - See orders. - maintain 1:1 suicide watch pending Psychiatry eval. - complete Acetadote infusion with repeat acetaminophen level pending as per Poison Control recommendations. - Check repeat LFTs, coags.
--- NOTE | 2016-12-07 14:01 | CARD ---
APPROVED REPORT EKG Measurement Heart [id number] <Conclusion> Normal sinus rhythm Minimal voltage criteria for LVH, may be normal variant Borderline ECG
[2016-12-07 14:40] LABS: ALT/SGPT 44 U/L (9-52); AST/SGOT 38 U/L (14-36); BLOOD UREA NITROGEN 11 mg/dl (7-17); CALCIUM 8.8 mg/dL (8.4-10.2); GFR AFRICAN-AMERICAN > 60; GFR NON-AFRICAN AMERICAN > 60
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
--- NOTE | 2016-12-07 15:25 | CP.PCM.PN ---
Subjective - Date & Time of Evaluation Date of Evaluation: 12/07/16 Time of Evaluation: 15:00 - Subjective Subjective: Patient seen and examined beside. Currently in ICU , on 1:1 for safety. Awake , alert and oriented to place and person. Hemodynamically stable, afebrile. On acetadote infusion. Denies any pain , CP, abdominal pain , SOB, palpitations. Complains of her abdominal hernia and asking for surgical correction but denies any pain. with right facial droop and slurred speech with expressive aphasia and cognitive decline from her CVA in the past Objective - Vital Signs/Intake and Output Vital Signs (last 24 hours): Temp Pulse Resp BP Pulse Ox 98.4 F 52 L 14 125/69 100 12/07/16 12:00 12/07/16 12:00 12/07/16 12:00 12/07/16 12:00 12/07/16 12:00 Intake and Output: 12/07/16 12/07/16 06:59 18:59 Intake Total 1703 387 Output Total 600 Balance 1103 387 - Medications Medications: Current Medications Famotidine (Pepcid) 20 mg IVP Q12 FRANCHESKA Haloperidol (Haldol) 2 mg PO HS FRANCHESKA Acetylcysteine 3.2 gm/ (Dextrose) 516 mls @ 129 mls/hr IVPB STAT FRANCHESKA Acetylcysteine 6.4 gm/ (Dextrose) 1,032 mls @ 64.5 mls/hr IVPB STAT FRANCHESKA Last Admin: 12/07/16 00:30 Dose: 64.5 mls/hr Ondansetron HCl (Zofran Inj) 4 mg IVP Q6H PRN PRN Reason: Nausea/Vomiting - Labs Labs: 12/07/16 04:45 12/07/16 14:22 PT 11.2 Seconds (9.8-13.1) 12/06/16 18:58 INR 1.0 (0.9-1.2) 12/06/16 18:58 APTT 29.8 Seconds (25.6-37.1) 12/06/16 18:58 - Constitutional Appears: Non-toxic, No Acute Distress - Head Exam Head Exam: ATRAUMATIC, NORMAL INSPECTION, NORMOCEPHALIC - Eye Exam Eye Exam: EOMI, Normal appearance, PERRL Pupil Exam: NORMAL ACCOMODATION - ENT Exam ENT Exam: Mucous Membranes Moist, Normal Exam - Neck Exam Neck Exam: Full ROM, Normal Inspection - Respiratory Exam Respiratory Exam: Clear to Ausculation Bilateral, NORMAL BREATHING PATTERN. absent: Rales, Rhonchi, Wheezes - Cardiovascular Exam Cardiovascular Exam: REGULAR RHYTHM, RRR, +S1, +S2. absent: JVD - GI/Abdominal Exam GI & Abdominal Exam: Soft, Hernia (Left lower quadrant abdominal hernia, reducible ,soft ,not tender,overlying dry skin with 1x 1cm open wound with clean base), Normal Bowel Sounds. absent: Distended, Guarding, Tenderness, Rebound - Rectal Exam Rectal Exam: Deferred - Extremities Exam Extremities Exam: Full ROM, Normal Capillary Refill, Normal Inspection. absent : Pedal Edema - Back Exam Back Exam: NORMAL INSPECTION - Neurological Exam Neurological Exam: Alert, Awake Additional comments: right facial droop expressive aphasia? awake . alert , oriented to place and person No motor deficit - Psychiatric Exam Psychiatric exam: Normal Affect - Skin Skin Exam: Dry, Normal Color, Warm Additional comments: small 1 x 1 cm open wound to left lower quadrant abdominal hernia with clean base Assessment and Plan - Assessment and Plan (Free Text) Assessment: 56 y/o female with PMHx significant for cognitive deficiency due to multiple reasons including prior CVA, recent admission for psychosis and persecutory delusions ( her family wants to hurt her),brought in by family for intentional tylenol overdose. Per family patient was acting as her usual self (which is somewhat abnormal at baseline). She was sitting in front of the family and took twenty-three 500 mg tabs of tylenol at around 430-5 PM. She was immediately brought in, activated charcoal was given, and acetadote was started as per poison control. 1.Intentional Acetaminophen overdose Received Acetadote IV Poison control consulted Tylenol levels < 10 at present, LFT-s andcoag -wnl. Will d/c acetadote Transfer to med/surg patient is medically stable for psych admission 2. Cognitive / psychiatric disorder /Suicidal maintain 1:1 for safety psychiatry consult appreciated . Will need to call crisis eval for involuntary psych admission [facility] Patient can not give informed consent for psychiatric admission Haldol PRN 3. History CVA in the past with cognitive problems possible vascular dementia with hearing ,speech and cognitive problems since the stroke 5 years ago 4. Ventral hernia reducible no surgical intervention necessary Wound care for wound over hernia 5. Anemia most likely anemia of chronic disease continue monitoring 6.Hypokalemia replaced with KCl PO 7. DVT prophylaxis SCD
[2016-12-07 15:41] LABS: INR 1.2 (0.9-1.2); PROTHROMBIN TIME 13.8 Seconds (9.8-13.1)
[2016-12-08 06:38] LABS: HEMOGLOBIN 11.6 g/dL (12.0-16.0); MEAN CELL VOLUME 102.9 fl (81.0-99.0); MEAN CORPUSCULAR HEMOGLOBIN 33.4 pg (27.0-31.0); MEAN CORPUSCULAR HGB CONC 32.5 g/dL (33.0-37.0); RBC 3.46 Mil/uL (3.80-5.20); RED CELL DISTRIBUTION WIDTH 15.4 % (11.5-14.5); WHITE BLOOD COUNT 7.4 K/uL (4.8-10.8)
[2016-12-08 06:56] LABS: ALBUMIN 4.4 g/dL (3.5-5.0); ALT/SGPT 44 U/L (9-52); AST/SGOT 41 U/L (14-36); BLOOD UREA NITROGEN 13 mg/dl (7-17); CALCIUM 9.4 mg/dL (8.4-10.2); GFR AFRICAN-AMERICAN > 60; GFR NON-AFRICAN AMERICAN > 60
--- NOTE | 2016-12-08 13:23 | CP.PCM.PN ---
Subjective - Date & Time of Evaluation Date of Evaluation: 12/08/16 Time of Evaluation: 13:30 - Subjective Subjective: Patient seen bedside. pacing in room and worried. Speech is dysarhric. Wants to go home and is worried that somebody will contact the police or immigration complaining that she hit somebody. tried to redirect and clam patient. Does not want to go to psych unit. Hemodynamically stable, afebrile No acute issues overnight maintain 1;1 for safety Objective - Vital Signs/Intake and Output Vital Signs (last 24 hours): Temp Pulse Resp BP Pulse Ox 97.9 F 71 20 138/83 100 12/08/16 08:00 12/08/16 08:00 12/08/16 08:00 12/08/16 08:00 12/08/16 08:00 Intake and Output: 12/08/16 12/08/16 06:59 18:59 Intake Total 244 110 Output Total 200 100 Balance 44 10 - Medications Medications: Current Medications Famotidine (Pepcid) 20 mg PO DAILY [facility] Haloperidol (Haldol) 2 mg PO HS [facility] Last Admin: 12/07/16 22:09 Dose: 2 mg Ondansetron HCl (Zofran Inj) 4 mg IVP Q6H PRN PRN Reason: Nausea/Vomiting Last Admin: 12/07/16 22:10 Dose: 4 mg - Labs Labs: 12/08/16 06:15 12/08/16 06:15 PT 13.8 Seconds (9.8-13.1) H 12/07/16 14:22 INR 1.2 (0.9-1.2) 12/07/16 14:22 APTT 29.8 Seconds (25.6-37.1) 12/06/16 18:58 - Constitutional Appears: Non-toxic, No Acute Distress, Agitated, Confused - Head Exam Head Exam: ATRAUMATIC, NORMOCEPHALIC - Eye Exam Eye Exam: EOMI, Normal appearance, PERRL Pupil Exam: NORMAL ACCOMODATION - ENT Exam ENT Exam: Mucous Membranes Moist, Normal Exam - Neck Exam Neck Exam: Normal Inspection - Respiratory Exam Respiratory Exam: Clear to Ausculation Bilateral, NORMAL BREATHING PATTERN. absent: Rales, Rhonchi, Wheezes - Cardiovascular Exam Cardiovascular Exam: REGULAR RHYTHM, RRR, +S1, +S2. absent: JVD - GI/Abdominal Exam GI & Abdominal Exam: Soft, Hernia (left reducible ventral hernia with smalll 1 x1 skin wound with clean base ), Normal Bowel Sounds. absent: Distended, Guarding, Tenderness, Rebound - Rectal Exam Rectal Exam: Deferred - Extremities Exam Extremities Exam: Full ROM, Normal Capillary Refill, Normal Inspection. absent : Calf Tenderness, Pedal Edema - Back Exam Back Exam: NORMAL INSPECTION - Neurological Exam Neurological Exam: Alert, Awake Additional comments: right facial droop dysarthria confused - Psychiatric Exam Psychiatric exam: Agitated, Anxious - Skin Skin Exam: Dry, Normal Color, Warm Assessment and Plan - Assessment and Plan (Free Text) Assessment: 56 y/o female with PMHx significant for cognitive decline due to multiple reasons including prior CVA - 5 years ago, recent admission for psychosis and persecutory delusions ( her family wants to hurt her),brought in by family for intentional tylenol overdose. Per family patient was acting as her usual self ( which is somewhat abnormal at baseline). She was sitting in front of the family and took twenty-three 500 mg tabs of tylenol at around 430-5 PM. She was immediately brought in, activated charcoal was given, and acetadote was started as per poison control. At present patient is medically stable. Acetadote infusion discontinued, LFT-s and coagulation profile normal. Psychiatry consulted and recommended involuntary admission since patient can not consent for voluntary admission. [facility] crisis [place] contacted and waiting on acceptance. Patient is medically and neurologically cleaaed for discharge to psych 1.Intentional Acetaminophen overdose Received Acetadote IV Poison control consulted Tylenol levels < 10 at present, LFT-s and coag -wnl. Acetadote discontinued patient is medically stable for psych admission 2. Cognitive / psychiatric disorder /Suicidal maintain 1:1 for safety psychiatry consult appreciated . Patient can not give informed consent for psychiatric admission. Called crisis eval for involuntary psych admission to [facility] and waiting on acdeptance Haldol PRN Patient is both neurologically and medically cleared for psych admission 3. History CVA in the past with cognitive problems possible vascular dementia with hearing ,speech and cognitive problems since the stroke 5 years ago No new neuro deficits Neurology consulted and case discussed. patient is cleared for psych admission No imaging is necessary 4. Ventral hernia reducible no surgical intervention necessary Wound care for wound over hernia 5. Anemia most likely anemia of chronic disease continue monitoring 6.Hypokalemia replaced with KCl PO 7. DVT prophylaxis SCD
--- NOTE | 2016-12-08 16:09 | CON ---
DATE: 12/08/2016 CHIEF COMPLAINT: Evaluation for cognition. HISTORY OF PRESENT ILLNESS: This is a 56-year-old woman with past medical history of vascular frances ia from prior CVA with her last MRI on 11/03/2016 showing moderate size of focal encephalomalacia at the left posterior parietal and right temporal frontal lobe suggestive of old infarcts with moderate atrophy who was initially brought to the hospital for Tylenol overdose and was stabilized in the ICU with activated charcoal and Acetadote which was started for poison control. Currently she is walking around. She is alert, oriented to person and place, not much of month or year. Recall after 5 milagros garret is 0/3. Poor attention span. No focal weakness or paresthesias at this time. She has disorgani zed thoughts and loose association. Her judgment is not intact. PAST MEDICAL HISTORY: History of CVA in the past, history of hypertension, dementia. REVIEW OF SYSTEMS: A 14-point review of systems difficult to obtain due to the patient's underlying demented status. FAMILY HISTORY: Noncontributory. ALLERGIES: No known drug allergies. MEDICATIONS: Reviewed via nurse's reconciliation sheet. SOCIAL HISTORY: No illicit drug use, smoking, or ETOH abuse. FAMILY HISTORY: Noncontributory. PHYSICAL EXAMINATION: VITAL SIGNS: Temperature 97.9, pulse rate of 71, blood pressure 138/82, respiratory rate of 20, oxyg en saturation 100% by room air. GENERAL: The patient is sitting up in bed in no acute distress. HEENT: Atraumatic, normocephalic. PERRLA. Extraocular muscles intact. NECK: Supple, no JVD, no adenopathy noted. LUNGS: Clear to auscultation. No adventitious sounds. HEART: S1, S2, normal rate and rhythm. No murmurs, rubs, or gallops. ABDOMEN: Soft, nontender, nondistended. Bowel sounds are present. EXTREMITIES: No clubbing, no cyanosis. Peripheral pulses 2+ felt bilaterally. NEUROLOGIC: The patient is alert, oriented to person and place, not much of month or year. Recall a fter 5 minutes is 0/3. Poor attention span. Slow thought process, loose association, disorganized t hinking, delusional, paranoid. Judgment is poor. Insight is poor. Cranial nerves II-XII intact. MOTOR: Slight increased tone throughout. Moves all extremities equally. No pronator drift seen. SENSORY: Light touch, pinprick, proprioception, vibration is intact. DTRs are 1+ throughout. COORDINATION: Mbplbx-on-wdir intact. GAIT: Wide based, but Romberg is negative. LABORATORY DATA: Sodium is 143, potassium 2.9, chloride of 112, carbon dioxide 18, BUN of 13, creati nine 0.8. Random glucose of 86. ASSESSMENT AND PLAN: A 56-year-old woman with history of hypertension, history of cerebrovascular accident with evidence o f prior cerebrovascular accidents in terms of focal encephalomalacia in the left posterior parietal a nd right temporal frontal lobes consistent with old infarcts from the MRI of brain on 11/03/2016 who was brought into the hospital for psychosis and persecutory delusions, wanting to hurt herself and altamirano d Tylenol overdose, status post activated charcoal and Acetadote stabilized. Currently, she is on th e general medical floor walking around and psychiatry has seen the patient and recommended involuntar y psych admission to get her cognitive decline as well as suicidal thoughts stabilized. There is no need for a newer CAT scan so she had an MRI back last month in 2017 and her EEG which just showed min or diffuse slowing, but no epileptiform activity from her prior EEG which was done in 10/2016. At this time, I agree that she has underlying cognitive impairment from vascular dementia from multi ple strokes in the past, but she is clinically stable from my standpoint and cleared to go to [facility] psych admission at [facility]. Continue with psychiatric medications and she should be on Pepcid 20 m g p.o. daily for GI prophylaxis and continue with current present medical management. No further urbano rological workup needed at this time. We will sign off. She is clinically stable for transfer. Ankit Madison MD cc: [id number] TT: 12/08/2016 16:08:33 Confirmation # [id number] Dictation # [id number] mitzi
--- NOTE | 2016-12-09 07:54 | CP.PCM.DIS ---
Provider - Provider Date of Admission: 12/06/16 19:24 Attending physician: Parvez Daly MD Primary care physician: None Consults: neurology psychiatry consult Time Spent in preparation of Discharge (in minutes): 15 Hospital Course - Lab Results Lab Results: Most Recent Lab Values WBC 7.4 K/uL (4.8-10.8) 12/08/16 06:15 RBC 3.46 Mil/uL (3.80-5.20) L 12/08/16 06:15 Hgb 11.6 g/dL (12.0-16.0) L 12/08/16 06:15 Hct 35.6 % (34.0-47.0) 12/08/16 06:15 MCV 102.9 fl (81.0-99.0) H 12/08/16 06:15 MCH 33.4 pg (27.0-31.0) H 12/08/16 06:15 MCHC 32.5 g/dL (33.0-37.0) L 12/08/16 06:15 RDW 15.4 % (11.5-14.5) H 12/08/16 06:15 Plt Count 240 K/uL (130-400) 12/08/16 06:15 MPV 8.3 fl (7.2-11.7) 12/07/16 04:45 Neut % (Auto) 52.6 % (50.0-75.0) 12/07/16 04:45 Lymph % (Auto) 35.3 % (20.0-40.0) 12/07/16 04:45 [place] % (Auto) 10.1 % (0.0-10.0) H 12/07/16 04:45 Eos % (Auto) 1.4 % (0.0-4.0) 12/07/16 04:45 Baso % (Auto) 0.6 % (0.0-2.0) 12/07/16 04:45 Neut # 3.3 K/uL (1.8-7.0) 12/07/16 04:45 Lymph # 2.2 K/uL (1.0-4.3) 12/07/16 04:45 [place] # 0.6 K/uL (0.0-0.8) 12/07/16 04:45 Eos # 0.1 K/uL (0.0-0.7) 12/07/16 04:45 Baso # 0.0 K/uL (0.0-0.2) 12/07/16 04:45 PT 13.8 Seconds (9.8-13.1) H 12/07/16 14:22 INR 1.2 (0.9-1.2) 12/07/16 14:22 APTT 29.8 Seconds (25.6-37.1) 12/06/16 18:58 pO2 64 mm/Hg (30-55) H 12/06/16 18:00 VBG pH 7.35 (7.32-7.43) 12/06/16 18:00 VBG pCO2 32 mmHg (40-60) L 12/06/16 18:00 VBG HCO3 19.4 mmol/L 12/06/16 18:00 VBG Total CO2 18.7 mmol/L (22-28) L 12/06/16 18:00 VBG O2 Sat (Calc) 96.9 % (40-65) H 12/06/16 18:00 VBG Base Excess -6.8 mmol/L (0.0-2.0) L 12/06/16 18:00 VBG Potassium 3.2 mmol/L (3.6-5.2) L 12/06/16 18:00 Sodium 142.0 mmol/L (132-148) 12/06/16 18:00 Chloride 115.0 mmol/L (98-107) H 12/06/16 18:00 Glucose 121 mg/dL (65-105) H 12/06/16 18:00 Lactate 2.4 mmol/L (0.7-2.1) H 12/06/16 18:00 FiO2 21.0 % 12/06/16 18:00 Sodium 143 mmol/l (132-148) 12/08/16 06:15 Potassium 3.9 MMOL/L (3.6-5.0) 12/08/16 06:15 Chloride 112 mmol/L (98-107) H 12/08/16 06:15 Carbon Dioxide 18 mmol/L (22-30) L 12/08/16 06:15 Anion Gap 17 (10-20) 12/08/16 06:15 BUN 13 mg/dl (7-17) 12/08/16 06:15 Creatinine 0.8 mg/dL (0.7-1.2) 12/08/16 06:15 Est GFR ( Amer) > 60 12/08/16 06:15 Est GFR (Non-Af Amer) > 60 12/08/16 06:15 POC Glucose (mg/dL) 125 mg/dL (65-110) H 12/06/16 17:29 Random Glucose 86 mg/dL (65-105) 12/08/16 06:15 Calcium 9.4 mg/dL (8.4-10.2) 12/08/16 06:15 Total Bilirubin 0.5 mg/dl (0.2-1.3) 12/08/16 06:15 AST 41 U/L (14-36) H 12/08/16 06:15 ALT 44 U/L (9-52) 12/08/16 06:15 Alkaline Phosphatase 125 U/L (38-126) 12/08/16 06:15 Total Protein 8.8 G/DL (6.3-8.2) H 12/08/16 06:15 Albumin 4.4 g/dL (3.5-5.0) 12/08/16 06:15 Globulin 4.4 gm/dL (2.2-3.9) H 12/08/16 06:15 Albumin/Globulin Ratio 1.0 (1.0-2.1) 12/08/16 06:15 Venous Blood Potassium 3.2 mmol/L (3.6-5.2) L 12/06/16 18:00 Urine Color Yellow (YELLOW) 12/06/16 17:45 Urine Clarity Slighty-cloudy (Clear) 12/06/16 17:45 Urine pH 6.0 (5.0-8.0) 12/06/16 17:45 Ur Specific [place] 1.017 (1.003-1.030) 12/06/16 17:45 Urine Protein 100 mg/dL (NEGATIVE) 12/06/16 17:45 Urine Glucose (UA) Neg mg/dL (Normal) 12/06/16 17:45 Urine Ketones Negative mg/dL (NEGATIVE) 12/06/16 17:45 Urine Blood Small (NEGATIVE) 12/06/16 17:45 Urine Nitrate Negative (NEGATIVE) 12/06/16 17:45 Urine Bilirubin Negative (NEGATIVE) 12/06/16 17:45 Urine Urobilinogen 0.2-1.0 mg/dL (0.2-1.0) 12/06/16 17:45 Ur Leukocyte Esterase Neg Jani/uL (Negative) 12/06/16 17:45 Urine RBC (Auto) 6 /hpf (0-3) H 12/06/16 17:45 Urine Microscopic WBC 3 /hpf (0-5) 12/06/16 17:45 Ur Squamous Epith Cells 3 /hpf (0-5) 12/06/16 17:45 Calcium Oxalate Crystal Few /hpf (<OCC) H 12/06/16 17:45 Urine Bacteria Rare (<OCC) 12/06/16 17:45 Salicylates < 1.0 mg/dl 12/06/16 17:55 Urine Opiates Screen Negative (NEGATIVE) 12/06/16 17:45 Urine Methadone Screen Negative (NEGATIVE) 12/06/16 17:45 Acetaminophen < 10.0 ug/ml (10.0-30.0) L 12/07/16 14:22 Ur Barbiturates Screen Negative (NEGATIVE) 12/06/16 17:45 Ur Phencyclidine Scrn Negative (NEGATIVE) 12/06/16 17:45 Ur Amphetamines Screen Negative (NEGATIVE) 12/06/16 17:45 U Benzodiazepines Scrn Negative (NEGATIVE) 12/06/16 17:45 U Oth Cocaine Metabols Negative (NEGATIVE) 12/06/16 17:45 U Cannabinoids Screen Negative (NEGATIVE) 12/06/16 17:45 Alcohol, Quantitative < 10 mg/dl (0-10) 12/06/16 17:55 - Hospital Course Hospital Course: 56 y/o female with PMHx significant for cognitive decline due to multiple reasons including prior CVA - 5 years ago, recent admission for psychosis and persecutory delusions ( her family wants to hurt her),brought in by family for intentional tylenol overdose. Per family patient was acting as her usual self ( which is somewhat abnormal at baseline). She was sitting in front of the family and took twenty-three 500 mg tabs of tylenol at around 430-5 PM. She was immediately brought in, activated charcoal was given, and acetadote was started as per poison control. At present patient is medically stable. Acetadote infusion discontinued, LFT-s and coagulation profile normal. Psychiatry consulted and recommended involuntary admission since patient can not consent for voluntary admission. [facility] crisis eval contacted and waiting on acceptance. Patient is medically and neurologically cleared for discharge to psych 1.Intentional Acetaminophen overdose Received Acetadote IV Poison control consulted Tylenol levels < 10 at present, LFT-s and coag -wnl. Acetadote discontinued patient is medically stable for psych admission 2. Cognitive / psychiatric disorder /Suicidal maintain 1:1 for safety psychiatry consult appreciated . Patient can not give informed consent for psychiatric admission. Called crisis eval for involuntary psych admission to [facility] and waiting on acdeptance Haldol PRN Patient is both neurologically and medically cleared for psych admission will d/c to [facility] psych unit 3. History CVA in the past with cognitive problems possible vascular dementia with hearing ,speech and cognitive problems since the stroke 5 years ago No new neuro deficits Neurology consulted and case discussed. patient is cleared for psych admission No imaging is necessary 4. Ventral hernia reducible no surgical intervention necessary Wound care for wound over hernia 5. Anemia most likely anemia of chronic disease continue monitoring 6.Hypokalemia replaced with KCl PO 7. DVT prophylaxis SCD Discharge Exam - Head Exam Head Exam: ATRAUMATIC, NORMOCEPHALIC Discharge Plan - Follow Up Plan Condition: STABLE Disposition: DISCHARGE TO PSYCH HOSPITAL Patient education suggested?: No
--- NOTE | 2016-12-09 18:34 | CP.PCM.PN ---
Subjective - Date & Time of Evaluation Date of Evaluation: 12/09/16 Time of Evaluation: 17:00 - Subjective Subjective: Patient seen and evaluated . Hemodynamically stable, afebrile.No acute issues overnight. Denies any pain. Asking to be discharged, does not want to go to [facility] hospital. States that will get her passport and go back to [facility] if we leave her to go. As per screener from [facility] patient does not need psychiatric admission but is unsafe to discharge home.As per screener she will need supervision and to leave in a retirement Objective - Vital Signs/Intake and Output Vital Signs (last 24 hours): Temp Pulse Resp BP Pulse Ox 98.4 F 83 20 163/96 H 99 12/09/16 16:00 12/09/16 16:00 12/09/16 16:00 12/09/16 16:00 12/09/16 16:00 Intake and Output: 12/09/16 12/09/16 06:59 18:59 Intake Total 600 Output Total 400 Balance 200 - Medications Medications: Current Medications Famotidine (Pepcid) 20 mg PO DAILY [facility] Last Admin: 12/09/16 08:32 Dose: 20 mg Haloperidol (Haldol) 2 mg PO HS [facility] Last Admin: 12/08/16 21:47 Dose: 2 mg Ondansetron HCl (Zofran Inj) 4 mg IVP Q6H PRN PRN Reason: Nausea/Vomiting Last Admin: 12/07/16 22:10 Dose: 4 mg - Labs Labs: 12/08/16 06:15 12/08/16 06:15 PT 13.8 Seconds (9.8-13.1) H 12/07/16 14:22 INR 1.2 (0.9-1.2) 12/07/16 14:22 APTT 29.8 Seconds (25.6-37.1) 12/06/16 18:58 - Constitutional Appears: Non-toxic, No Acute Distress, Confused - Head Exam Head Exam: ATRAUMATIC, NORMOCEPHALIC - Eye Exam Eye Exam: EOMI, PERRL Pupil Exam: NORMAL ACCOMODATION - ENT Exam ENT Exam: Normal Exam - Neck Exam Neck Exam: Full ROM, Normal Inspection - Respiratory Exam Respiratory Exam: Clear to Ausculation Bilateral, NORMAL BREATHING PATTERN. absent: Rales, Rhonchi, Wheezes - Cardiovascular Exam Cardiovascular Exam: REGULAR RHYTHM, RRR, +S1, +S2. absent: JVD - GI/Abdominal Exam GI & Abdominal Exam: Soft, Normal Bowel Sounds. absent: Guarding, Tenderness, Rebound - Rectal Exam Rectal Exam: Deferred - Extremities Exam Extremities Exam: Full ROM, Normal Capillary Refill, Normal Inspection. absent : Calf Tenderness, Pedal Edema - Back Exam Back Exam: NORMAL INSPECTION - Neurological Exam Neurological Exam: Alert, Awake Additional comments: with some dysarthria confused disorganized thought process right facial droop - Psychiatric Exam Psychiatric exam: Anxious - Skin Skin Exam: Dry, Intact, Normal Color, Warm Assessment and Plan - Assessment and Plan (Free Text) Assessment: 56 y/o female with PMHx significant for cognitive decline due to multiple reasons including prior CVA - 5 years ago, recent admission for psychosis and persecutory delusions ( her family wants to hurt her),brought in by family for intentional tylenol overdose. Per family patient was acting as her usual self ( which is somewhat abnormal at baseline). She was sitting in front of the family and took twenty-three 500 mg tabs of tylenol at around 430-5 PM. She was immediately brought in, activated charcoal was given, and acetadote was started as per poison control. At present patient is medically stable. Acetadote infusion discontinued, LFT-s and coagulation profile normal. Psychiatry consulted and recommended involuntary admission since patient can not consent for voluntary admission.As per [facility] crisis eval patient does not need psych admission but supervision Patient is medically and neurologically cleared for discharge 1.Intentional Acetaminophen overdose Received Acetadote IV Poison control consulted Tylenol levels < 10 at present, LFT-s and coag -wnl. Acetadote discontinued patient is medically stable 2. Cognitive / psychiatric disorder /Suicidal maintain 1:1 for safety psychiatry consult appreciated . Patient can not give informed consent for psychiatric admission. Called crisis eval for involuntary psych admission to [facility]. As per crisis eval patient does not need psych admission but it is unsafe to discharge and will need supervision and a retirement placement Haldol PRN Patient is both neurologically and medically cleared 3. History CVA in the past with cognitive problems possible vascular dementia with hearing ,speech and cognitive problems since the stroke 5 years ago No new neuro deficits Neurology consulted and case discussed. patient is cleared for psych admission No imaging is necessary 4. Ventral hernia reducible no surgical intervention necessary Wound care for wound over hernia 5. Anemia most likely anemia of chronic disease continue monitoring 6.Hypokalemia replaced with KCl PO 7. DVT prophylaxis SCD
--- NOTE | 2016-12-10 14:22 | CP.PCM.PN ---
Subjective - Date & Time of Evaluation Date of Evaluation: 12/10/16 Time of Evaluation: 13:00 - Subjective Subjective: Pt seen and examined Pt is alert, oriented to person and place She answers questions appropriately ambulates around in her room has poor hearing- [facility] [place] came and deemed her not meeting criteria for Involuntary Psych admission- rec supervised treatment preferably in a long term Pt denies CP no SOB no fever no abd pain good PO intake Objective - Vital Signs/Intake and Output Vital Signs (last 24 hours): Temp Pulse Resp BP Pulse Ox 97.9 F 80 18 149/90 98 12/10/16 08:16 12/10/16 08:16 12/10/16 08:16 12/10/16 08:16 12/10/16 08:16 - Medications Medications: Current Medications Famotidine (Pepcid) 20 mg PO DAILY [facility] Last Admin: 12/10/16 08:33 Dose: 20 mg Haloperidol (Haldol) 2 mg PO HS [facility] Last Admin: 12/09/16 21:22 Dose: Not Given Ondansetron HCl (Zofran Inj) 4 mg IVP Q6H PRN PRN Reason: Nausea/Vomiting Last Admin: 12/07/16 22:10 Dose: 4 mg - Labs Labs: 12/08/16 06:15 12/08/16 06:15 PT 13.8 Seconds (9.8-13.1) H 12/07/16 14:22 INR 1.2 (0.9-1.2) 12/07/16 14:22 APTT 29.8 Seconds (25.6-37.1) 12/06/16 18:58 - Constitutional Appears: No Acute Distress - Head Exam Head Exam: ATRAUMATIC, NORMAL INSPECTION, NORMOCEPHALIC - Eye Exam Eye Exam: EOMI, Normal appearance, PERRL Pupil Exam: NORMAL ACCOMODATION - ENT Exam ENT Exam: Mucous Membranes Moist, Normal External Ear Exam Additional comments: decreased hearing acuity - Neck Exam Neck Exam: Full ROM. absent: Meningismus - Respiratory Exam Respiratory Exam: NORMAL BREATHING PATTERN. absent: Rales, Wheezes, Respiratory Distress - Cardiovascular Exam Cardiovascular Exam: REGULAR RHYTHM, +S1, +S2 - GI/Abdominal Exam GI & Abdominal Exam: Soft, Normal Bowel Sounds. absent: Tenderness Additional comments: large ventral hernia - Extremities Exam Extremities Exam: Full ROM, Normal Capillary Refill. absent: Calf Tenderness, Pedal Edema - Back Exam Back Exam: Full ROM. absent: CVA tenderness (L), CVA tenderness (R) - Neurological Exam Neurological Exam: Alert, Awake, CN II-XII Intact, Normal Gait Neuro motor strength exam: Left Upper Extremity: 5, Right Upper Extremity: 5, Left Lower Extremity: 5, Right Lower Extremity: 5 - Psychiatric Exam Psychiatric exam: Normal Affect, Normal Mood - Skin Skin Exam: Dry, Normal Color, Warm Assessment and Plan - Assessment and Plan (Free Text) Assessment: 56 y/o female with PMHx significant for cognitive decline due to multiple reasons including prior CVA - 5 years ago, recent admission for psychosis and persecutory delusions ( her family wants to hurt her),brought in by family for intentional tylenol overdose. Per family patient was acting as her usual self ( which is somewhat abnormal at baseline). She was sitting in front of the family and took twenty-three 500 mg tabs of tylenol at around 430-5 PM. She was immediately brought in, activated charcoal was given, and acetadote was started as per poison control. At present patient is medically stable. Acetadote infusion discontinued, LFT-s and coagulation profile normal. Psychiatry consulted and recommended involuntary admission since patient can not consent for voluntary admission. As per [facility] crisis eval patient does not need psych admission but supervision. Patient is medically and neurologically cleared for discharge. 1.Intentional Acetaminophen overdose Received Acetadote IV Poison control consulted Tylenol levels < 10 at present, LFT-s and coag -wnl. Acetadote discontinued patient is medically stable 2. Cognitive / psychiatric disorder /Suicidal maintain 1:1 for safety psychiatry consult appreciated . Patient can not give informed consent for psychiatric admission. Called crisis eval for involuntary psych admission to [facility]. As per crisis eval patient does not need psych admission but will need supervision - rec long term placement Haldol PRN Patient is both neurologically and medically cleared 3. History CVA in the past with cognitive problems vascular dementia with hearing ,speech and cognitive problems since the stroke 5 years ago No new neuro deficits Neurology consulted and case discussed. patient is cleared for psych admission No imaging is necessary 4. Ventral hernia reducible no surgical intervention necessary Wound care for wound over hernia 5. Anemia most likely anemia of chronic disease continue monitoring 6.Hypokalemia replaced with KCl PO 7. DVT prophylaxis SCD
--- NOTE | 2016-12-11 09:39 | CP.PCM.PN ---
Subjective - Date & Time of Evaluation Date of Evaluation: 12/11/16 Time of Evaluation: 09:34 - Subjective Subjective: psychiatry follow up met with pt along with dk delcid (bruneian speaking sw from step unit) who communicated with pt in bruneian speaking and writing. hpi: pt is stating she did not take the bottle of medication with intent to kill herself and mentions her hernia (pain?) was a problem. she states she feels better and feels comfortable going home. she is directing team to call her family. have spoken to dr. holguin who has been in contact with pt's son and indicates pt will be with family around the clock. mse: pt is alert, she is oriented to self, circumstances. thoughts are more organized, but she still have evident cognitive challenges. she makes fair eye contact and is making efforts to communicate. she apparently does not know sign language. she is denying any a/v hallucinations. no delusional thoughts elicited or expressed at this time. she denies any suicidal or homicidal thoughts. poor i/j. assessment: cognitive impairment secondary to a cva r/o psychotic disorder recommendation: pt is not expressing thoughts to harm self and can be discharged to care of family who is expressing capability to provide around the clock supervision can be referred to access program at [facility] [phone] (mental health treatment for hearing impaired) for assessment/services would consider alerting adult protective services to assess safety in the home Objective - Vital Signs/Intake and Output Vital Signs (last 24 hours): Temp Pulse Resp BP Pulse Ox 98.0 F 78 18 158/95 H 98 12/11/16 07:26 12/11/16 07:26 12/11/16 07:26 12/11/16 07:26 12/11/16 07:26 - Medications Medications: Current Medications Famotidine (Pepcid) 20 mg PO DAILY [facility] Last Admin: 12/11/16 08:51 Dose: 20 mg Haloperidol (Haldol) 2 mg PO HS [facility] Last Admin: 12/10/16 22:14 Dose: Not Given Ondansetron HCl (Zofran Inj) 4 mg IVP Q6H PRN PRN Reason: Nausea/Vomiting Last Admin: 12/07/16 22:10 Dose: 4 mg - Labs Labs: 12/08/16 06:15 12/08/16 06:15 PT 13.8 Seconds (9.8-13.1) H 12/07/16 14:22 INR 1.2 (0.9-1.2) 12/07/16 14:22 APTT 29.8 Seconds (25.6-37.1) 12/06/16 18:58
--- NOTE | 2016-12-11 12:45 | CP.PCM.DIS ---
Provider - Provider Date of Admission: 12/06/16 19:24 Attending physician: Parvez Daly MD Hospital Course - Lab Results Lab Results: Micro Results 12/08/16 07:00 Naris MRSA Culture (Admit) - Final MRSA NOT DETECTED Most Recent Lab Values WBC 7.4 K/uL (4.8-10.8) 12/08/16 06:15 RBC 3.46 Mil/uL (3.80-5.20) L 12/08/16 06:15 Hgb 11.6 g/dL (12.0-16.0) L 12/08/16 06:15 Hct 35.6 % (34.0-47.0) 12/08/16 06:15 MCV 102.9 fl (81.0-99.0) H 12/08/16 06:15 MCH 33.4 pg (27.0-31.0) H 12/08/16 06:15 MCHC 32.5 g/dL (33.0-37.0) L 12/08/16 06:15 RDW 15.4 % (11.5-14.5) H 12/08/16 06:15 Plt Count 240 K/uL (130-400) 12/08/16 06:15 MPV 8.3 fl (7.2-11.7) 12/07/16 04:45 Neut % (Auto) 52.6 % (50.0-75.0) 12/07/16 04:45 Lymph % (Auto) 35.3 % (20.0-40.0) 12/07/16 04:45 Hughes % (Auto) 10.1 % (0.0-10.0) H 12/07/16 04:45 Eos % (Auto) 1.4 % (0.0-4.0) 12/07/16 04:45 Baso % (Auto) 0.6 % (0.0-2.0) 12/07/16 04:45 Neut # 3.3 K/uL (1.8-7.0) 12/07/16 04:45 Lymph # 2.2 K/uL (1.0-4.3) 12/07/16 04:45 Hughes # 0.6 K/uL (0.0-0.8) 12/07/16 04:45 Eos # 0.1 K/uL (0.0-0.7) 12/07/16 04:45 Baso # 0.0 K/uL (0.0-0.2) 12/07/16 04:45 PT 13.8 Seconds (9.8-13.1) H 12/07/16 14:22 INR 1.2 (0.9-1.2) 12/07/16 14:22 APTT 29.8 Seconds (25.6-37.1) 12/06/16 18:58 pO2 64 mm/Hg (30-55) H 12/06/16 18:00 VBG pH 7.35 (7.32-7.43) 12/06/16 18:00 VBG pCO2 32 mmHg (40-60) L 12/06/16 18:00 VBG HCO3 19.4 mmol/L 12/06/16 18:00 VBG Total CO2 18.7 mmol/L (22-28) L 12/06/16 18:00 VBG O2 Sat (Calc) 96.9 % (40-65) H 12/06/16 18:00 VBG Base Excess -6.8 mmol/L (0.0-2.0) L 12/06/16 18:00 VBG Potassium 3.2 mmol/L (3.6-5.2) L 12/06/16 18:00 Sodium 142.0 mmol/L (132-148) 12/06/16 18:00 Chloride 115.0 mmol/L (98-107) H 12/06/16 18:00 Glucose 121 mg/dL (65-105) H 12/06/16 18:00 Lactate 2.4 mmol/L (0.7-2.1) H 12/06/16 18:00 FiO2 21.0 % 12/06/16 18:00 Sodium 143 mmol/l (132-148) 12/08/16 06:15 Potassium 3.9 MMOL/L (3.6-5.0) 12/08/16 06:15 Chloride 112 mmol/L (98-107) H 12/08/16 06:15 Carbon Dioxide 18 mmol/L (22-30) L 12/08/16 06:15 Anion Gap 17 (10-20) 12/08/16 06:15 BUN 13 mg/dl (7-17) 12/08/16 06:15 Creatinine 0.8 mg/dL (0.7-1.2) 12/08/16 06:15 Est GFR ( Amer) > 60 12/08/16 06:15 Est GFR (Non-Af Amer) > 60 12/08/16 06:15 POC Glucose (mg/dL) 125 mg/dL (65-110) H 12/06/16 17:29 Random Glucose 86 mg/dL (65-105) 12/08/16 06:15 Calcium 9.4 mg/dL (8.4-10.2) 12/08/16 06:15 Total Bilirubin 0.5 mg/dl (0.2-1.3) 12/08/16 06:15 AST 41 U/L (14-36) H 12/08/16 06:15 ALT 44 U/L (9-52) 12/08/16 06:15 Alkaline Phosphatase 125 U/L (38-126) 12/08/16 06:15 Total Protein 8.8 G/DL (6.3-8.2) H 12/08/16 06:15 Albumin 4.4 g/dL (3.5-5.0) 12/08/16 06:15 Globulin 4.4 gm/dL (2.2-3.9) H 12/08/16 06:15 Albumin/Globulin Ratio 1.0 (1.0-2.1) 12/08/16 06:15 Venous Blood Potassium 3.2 mmol/L (3.6-5.2) L 12/06/16 18:00 Urine Color Yellow (YELLOW) 12/06/16 17:45 Urine Clarity Slighty-cloudy (Clear) 12/06/16 17:45 Urine pH 6.0 (5.0-8.0) 12/06/16 17:45 Ur Specific Liberty 1.017 (1.003-1.030) 12/06/16 17:45 Urine Protein 100 mg/dL (NEGATIVE) 12/06/16 17:45 Urine Glucose (UA) Neg mg/dL (Normal) 12/06/16 17:45 Urine Ketones Negative mg/dL (NEGATIVE) 12/06/16 17:45 Urine Blood Small (NEGATIVE) 12/06/16 17:45 Urine Nitrate Negative (NEGATIVE) 12/06/16 17:45 Urine Bilirubin Negative (NEGATIVE) 12/06/16 17:45 Urine Urobilinogen 0.2-1.0 mg/dL (0.2-1.0) 12/06/16 17:45 Ur Leukocyte Esterase Neg Jani/uL (Negative) 12/06/16 17:45 Urine RBC (Auto) 6 /hpf (0-3) H 12/06/16 17:45 Urine Microscopic WBC 3 /hpf (0-5) 12/06/16 17:45 Ur Squamous Epith Cells 3 /hpf (0-5) 12/06/16 17:45 Calcium Oxalate Crystal Few /hpf (<OCC) H 12/06/16 17:45 Urine Bacteria Rare (<OCC) 12/06/16 17:45 Salicylates < 1.0 mg/dl 12/06/16 17:55 Urine Opiates Screen Negative (NEGATIVE) 12/06/16 17:45 Urine Methadone Screen Negative (NEGATIVE) 12/06/16 17:45 Acetaminophen < 10.0 ug/ml (10.0-30.0) L 12/07/16 14:22 Ur Barbiturates Screen Negative (NEGATIVE) 12/06/16 17:45 Ur Phencyclidine Scrn Negative (NEGATIVE) 12/06/16 17:45 Ur Amphetamines Screen Negative (NEGATIVE) 12/06/16 17:45 U Benzodiazepines Scrn Negative (NEGATIVE) 12/06/16 17:45 U Oth Cocaine Metabols Negative (NEGATIVE) 12/06/16 17:45 U Cannabinoids Screen Negative (NEGATIVE) 12/06/16 17:45 Alcohol, Quantitative < 10 mg/dl (0-10) 12/06/16 17:55 Discharge Exam - Head Exam Head Exam: ATRAUMATIC, NORMAL INSPECTION, NORMOCEPHALIC Discharge Plan - Discharge Medications Prescriptions: QUEtiapine [SEROquel] 25 mg PO DAILY #30 tab - Follow Up Plan Condition: STABLE Disposition: HOME/ ROUTINE Additional Instructions: Referral to [facility] Program 18/01 Home supervision by family appt FP clininic in 1 wk Referrals: [facility] [Outside]
--- NOTE | 2016-12-11 15:46 | CP.PCM.PN ---
Subjective - Date & Time of Evaluation Date of Evaluation: 12/11/16 Time of Evaluation: 10:30 - Subjective Subjective: Met with the patient several times today. Pt is alert , oriented to person and place. She is calm , pleasant, has a hearing problem but when when you speak louder , she understands simple questions and follows simple commands. She names of her children written on a piece of paper with their telephone numbers and gave them to me. She denies any suicidal ideation. Denies CP, no SOB, no abd pain. Good PO intake. Today, I was able to reach her daughter Bing . Bing is 18y and is a student. She states that her mother has been in the [place] for more than 23yrs. She had no previous Psych hx until after she had her Stroke. Daughter said that pt has 24hour care majority of the time however occasionally she is left unsupervised. Since school is over , daughter states that she and her 3 other siblings can take turns taking care of their mother 18/01. SW had spoken with pt's who stated that the family would not be able to provide 24hr care for the pt. Objective - Vital Signs/Intake and Output Vital Signs (last 24 hours): Temp Pulse Resp BP Pulse Ox 98.0 F 78 18 158/95 H 98 12/11/16 07:26 12/11/16 07:26 12/11/16 07:26 12/11/16 07:26 12/11/16 07:26 Intake and Output: 12/11/16 12/11/16 06:59 18:59 Intake Total 250 Output Total 250 Balance 0 - Medications Medications: Current Medications Famotidine (Pepcid) 20 mg PO DAILY [facility] Last Admin: 12/11/16 08:51 Dose: 20 mg Haloperidol (Haldol) 2 mg PO HS [facility] Last Admin: 12/10/16 22:14 Dose: Not Given Ondansetron HCl (Zofran Inj) 4 mg IVP Q6H PRN PRN Reason: Nausea/Vomiting Last Admin: 12/07/16 22:10 Dose: 4 mg - Labs Labs: 12/08/16 06:15 12/08/16 06:15 PT 13.8 Seconds (9.8-13.1) H 12/07/16 14:22 INR 1.2 (0.9-1.2) 12/07/16 14:22 APTT 29.8 Seconds (25.6-37.1) 12/06/16 18:58 - Constitutional Appears: No Acute Distress - Head Exam Head Exam: ATRAUMATIC, NORMAL INSPECTION, NORMOCEPHALIC - Eye Exam Eye Exam: EOMI, Normal appearance, PERRL Pupil Exam: NORMAL ACCOMODATION - ENT Exam ENT Exam: Mucous Membranes Moist, Normal External Ear Exam Additional comments: decreased hearing acuity - Neck Exam Neck Exam: Full ROM. absent: Meningismus - Respiratory Exam Respiratory Exam: NORMAL BREATHING PATTERN. absent: Rales, Wheezes, Respiratory Distress - Cardiovascular Exam Cardiovascular Exam: REGULAR RHYTHM, +S1, +S2 - GI/Abdominal Exam GI & Abdominal Exam: Soft, Normal Bowel Sounds. absent: Tenderness Additional comments: large ventral hernia, nontender, no signs of incarceration. - Extremities Exam Extremities Exam: Full ROM, Normal Capillary Refill. absent: Calf Tenderness, Pedal Edema - Back Exam Back Exam: Full ROM. absent: CVA tenderness (L), CVA tenderness (R) - Neurological Exam Neurological Exam: Alert, Awake, CN II-XII Intact, Normal Gait Neuro motor strength exam: Left Upper Extremity: 5, Right Upper Extremity: 5, Left Lower Extremity: 5, Right Lower Extremity: 5 - Psychiatric Exam Psychiatric exam: Normal Affect, Normal Mood - Skin S Assessment and Plan - Assessment and Plan (Free Text) Assessment: 56 y/o female with PMHx significant for cognitive decline due to multiple reasons including prior CVA - 5 years ago, recent admission for psychosis and persecutory delusions ( her family wants to hurt her),brought in by family for intentional tylenol overdose. Per family, pt was sitting in front of the family and took twenty-three 500 mg tabs of tylenol . She was immediately brought in, activated charcoal was given, and acetadote was started as per poison control. At present patient is medically stable. Acetadote infusion completed , LFT-s and coagulation profile normal. Psychiatry consulted and recommended involuntary admission since patient cannot consent for voluntary admission. As per [facility] [place] Crisis eval patient does not need psych admission but supervision. Patient is medically and neurologically cleared for discharge. SW/Case Mgt consulted for Safe discharge planning. 1.Intentional Acetaminophen overdose Received Acetadote IV Poison control consulted Tylenol levels < 10 at present, LFT-s and coag -wnl. Acetadote discontinued patient is medically stable 2. Cognitive / psychiatric disorder /Suicidal maintain 1:1 for safety psychiatry consult appreciated Patient can not give informed consent for psychiatric admission. Called crisis eval for involuntary psych admission to [facility] [place] [place]. As per crisis eval patient does not need psych admission but will need supervision - rec jail placement Luz GOETZ I spoke with pt's daughter ( Bnig) who stated that the family will provide 24/7 care kandi now that school is over , she and her siblings will take turns taking care of her however KRZYSZTOF Jackson spoke with pt's who stated that the family will not be able to supervise pt 24hrs/day. Psych reconsulted -discussed case with Dr Mejía Psych reattempted to get consent for Voluntary Inpt Psych admission ( in the hope that pt will get better to be safely discharged home ) however pt refused to sign. Will keep pt for now - start Seroquel , hoping she will be better so she could be safely discharged home DYCS and APS referral 3. History CVA in the past with cognitive problems vascular dementia with hearing ,speech and cognitive problems since the stroke 5 years ago No new neuro deficits Neurology consulted and case discussed. patient is cleared for psych admission No imaging is necessary 4. Ventral hernia reducible no surgical intervention necessary Wound care for wound over hernia 5. Anemia most likely anemia of chronic disease continue monitoring 6.Hypokalemia replaced with KCl PO 7. DVT prophylaxis SCD
[2016-12-12 06:08] LABS: MEAN CELL VOLUME 102.7 fl (81.0-99.0); MEAN CORPUSCULAR HEMOGLOBIN 33.7 pg (27.0-31.0); MEAN CORPUSCULAR HGB CONC 32.8 g/dL (33.0-37.0); RBC 3.27 Mil/uL (3.80-5.20); RED CELL DISTRIBUTION WIDTH 15.3 % (11.5-14.5); WHITE BLOOD COUNT 7.1 K/uL (4.8-10.8)
[2016-12-12 06:09] LABS: BLOOD UREA NITROGEN 22 mg/dl (7-17); CALCIUM 9.1 mg/dL (8.4-10.2); GFR AFRICAN-AMERICAN > 60; GFR NON-AFRICAN AMERICAN 57
--- NOTE | 2016-12-12 12:42 | CP.PCM.PN ---
Subjective - Date & Time of Evaluation Date of Evaluation: 12/12/16 Time of Evaluation: 12:39 - Subjective Subjective: pt seen examined at bedside. patient difficult to redirect today, preoccupied with taking 1 pill. admits to hearing voices, and would like help oriented to person and place. unable to get in touch with family today, left messages. vitals stable no acute distress. Objective - Vital Signs/Intake and Output Vital Signs (last 24 hours): Temp Pulse Resp BP Pulse Ox 98.3 F 71 20 153/72 H 100 12/12/16 08:13 12/12/16 08:13 12/12/16 08:13 12/12/16 08:13 12/12/16 08:13 Intake and Output: 12/12/16 12/12/16 06:59 18:59 Intake Total 250 250 Balance 250 250 - Medications Medications: Current Medications Famotidine (Pepcid) 20 mg PO DAILY [facility] Last Admin: 12/12/16 10:45 Dose: 20 mg Haloperidol (Haldol) 2 mg PO HS [facility] Last Admin: 12/11/16 22:50 Dose: Not Given Ondansetron HCl (Zofran Inj) 4 mg IVP Q6H PRN PRN Reason: Nausea/Vomiting Last Admin: 12/07/16 22:10 Dose: 4 mg Quetiapine Fumarate (Seroquel) 25 mg PO DAILY [facility] Last Admin: 12/12/16 10:45 Dose: 25 mg - Labs Labs: 12/12/16 04:45 12/12/16 04:45 PT 13.8 Seconds (9.8-13.1) H 12/07/16 14:22 INR 1.2 (0.9-1.2) 12/07/16 14:22 APTT 29.8 Seconds (25.6-37.1) 12/06/16 18:58 - Constitutional Appears: Non-toxic, No Acute Distress - Head Exam Head Exam: ATRAUMATIC, NORMOCEPHALIC - Eye Exam Eye Exam: EOMI, Normal appearance, PERRL Pupil Exam: NORMAL ACCOMODATION - ENT Exam ENT Exam: Mucous Membranes Moist, Normal Oropharynx - Respiratory Exam Respiratory Exam: Clear to Ausculation Bilateral, NORMAL BREATHING PATTERN. absent: Rhonchi, Wheezes - Cardiovascular Exam Cardiovascular Exam: RRR, +S1, +S2. absent: Murmur - GI/Abdominal Exam GI & Abdominal Exam: Soft, Normal Bowel Sounds. absent: Tenderness, Mass, Organomegaly - Extremities Exam Extremities Exam: Full ROM, Normal Capillary Refill - Back Exam Back Exam: absent: CVA tenderness (L), CVA tenderness (R) - Neurological Exam Neurological Exam: Alert, Awake - Psychiatric Exam Psychiatric exam: Normal Affect, Normal Mood Additional comments: auditory hallucinations - Skin Skin Exam: Dry, Warm Assessment and Plan - Assessment and Plan (Free Text) Plan: daughter Mario Alberto Smart is 18y and is a student. She states that her mother has been in the [place] for more than 23yrs. She had no previous Psych hx until after she had her Stroke. Daughter said that pt has 24hour care majority of the time however occasionally she is left unsupervised. Since school is over , daughter states that she and her 3 other siblings can take turns taking care of their mother 18/01. SW had spoken with pt's who stated that the family would not be able to provide 24hr care for the pt. 56 y/o female with PMHx significant for cognitive decline due to multiple reasons including prior CVA - 5 years ago, recent admission for psychosis and persecutory delusions ( her family wants to hurt her),brought in by family for intentional tylenol overdose. Per family, pt was sitting in front of the family and took twenty-three 500 mg tabs of tylenol . She was immediately brought in, activated charcoal was given, and acetadote was started as per poison control. At present patient is medically stable. Acetadote infusion completed , LFT-s and coagulation profile normal. Psychiatry consulted and recommended involuntary admission since patient cannot consent for voluntary admission. [place] [facility] [place] patient does not need psych admission but supervision. Patient is medically and neurologically cleared for discharge. KRZYSZTOF/Donal Mgt consulted for Safe discharge planning. 1.Intentional Acetaminophen overdose Received Acetadote IV Poison control consulted Tylenol levels < 10 at present, LFT-s and coag -wnl. Acetadote discontinued patient is medically stable 2. Cognitive / psychiatric disorder /Suicidal maintain 1:1 for safety psychiatry consult appreciated Patient can not give informed consent for psychiatric admission. Called crisis eval [place] [facility] As per crisis eval patient does not need psych admission but will need supervision - rec [facility] placement Haldol PRN Hospitalist team spoke with pt's daughter (Bing ) yesterday who stated that the family will provide 24/7 care kandi now that school is over , she and her siblings will take turns taking care of her however KRZYSZTOF Jackson spoke with pt's who stated that the family will not be able to supervise pt 24hrs/day. Psych reconsulted -discussed case with Dr Mejía Psych reattempted to get consent for Voluntary Inpt Psych admission ( in the hope that pt will get better to be safely discharged home ) however pt refused to sign. Will keep pt for now - start Seroquel , hoping she will be better so she could be safely discharged home DYCS and APS referral 12/12/16 - attempted to call daughter and today, left message. Will continue psych meds so patient may be safe discharge home. patient currently waxing and waning in orientation to both places and time. 3. History CVA in the past with cognitive problems vascular dementia with hearing ,speech and cognitive problems since the stroke 5 years ago No new neuro deficits Neurology consulted and case discussed. patient is cleared for psych admission No imaging is necessary 4. Ventral hernia reducible no surgical intervention necessary Wound care for wound over hernia 5. Anemia most likely anemia of chronic disease continue monitoring 6.Hypokalemia replaced with KCl PO 7. DVT prophylaxis SCD
--- NOTE | 2016-12-13 09:48 | CP.PCM.PN ---
Subjective - Date & Time of Evaluation Date of Evaluation: 12/13/16 Time of Evaluation: 09:45 - Subjective Subjective: patient medically stable this morning preoccupied with hearing voices in her head unclear what the voices are telling her will continue antipsychotic therapy vss nad Objective - Vital Signs/Intake and Output Vital Signs (last 24 hours): Temp Pulse Resp BP Pulse Ox 98.1 F 64 18 123/67 99 12/13/16 08:18 12/13/16 08:18 12/13/16 08:18 12/13/16 08:18 12/13/16 08:18 - Medications Medications: Current Medications Famotidine (Pepcid) 20 mg PO DAILY [facility] Last Admin: 12/13/16 08:25 Dose: 20 mg Haloperidol (Haldol) 2 mg PO HS [facility] Last Admin: 12/12/16 21:00 Dose: 2 mg Ondansetron HCl (Zofran Inj) 4 mg IVP Q6H PRN PRN Reason: Nausea/Vomiting Last Admin: 12/07/16 22:10 Dose: 4 mg Quetiapine Fumarate (Seroquel) 25 mg PO DAILY [facility] Last Admin: 12/13/16 08:25 Dose: 25 mg - Labs Labs: 12/12/16 04:45 12/12/16 04:45 PT 13.8 Seconds (9.8-13.1) H 12/07/16 14:22 INR 1.2 (0.9-1.2) 12/07/16 14:22 APTT 29.8 Seconds (25.6-37.1) 12/06/16 18:58 - Constitutional Appears: Non-toxic, No Acute Distress - Head Exam Head Exam: ATRAUMATIC, NORMOCEPHALIC - Eye Exam Eye Exam: EOMI, Normal appearance, PERRL Pupil Exam: NORMAL ACCOMODATION - ENT Exam ENT Exam: Mucous Membranes Moist, Normal Oropharynx - Neck Exam Neck Exam: Full ROM, Normal Inspection - Respiratory Exam Respiratory Exam: Clear to Ausculation Bilateral, NORMAL BREATHING PATTERN - Cardiovascular Exam Cardiovascular Exam: RRR, +S1, +S2 - GI/Abdominal Exam GI & Abdominal Exam: Soft, Normal Bowel Sounds. absent: Tenderness, Mass, Organomegaly - Extremities Exam Extremities Exam: Full ROM, Normal Capillary Refill - Back Exam Back Exam: absent: CVA tenderness (L), CVA tenderness (R) - Neurological Exam Neurological Exam: Alert, Awake - Psychiatric Exam Psychiatric exam: Anxious Additional comments: auditory hallucinations - Skin Skin Exam: Dry, Warm Assessment and Plan - Assessment and Plan (Free Text) Plan: 56 y/o female with PMHx significant for cognitive decline due to multiple reasons including prior CVA - 5 years ago, recent admission for psychosis and persecutory delusions ( her family wants to hurt her),brought in by family for intentional tylenol overdose. Per family, pt was sitting in front of the family and took twenty-three 500 mg tabs of tylenol . She was immediately brought in, activated charcoal was given, and acetadote was started as per poison control. At present patient is medically stable. Acetadote infusion completed , LFT-s and coagulation profile normal. Psychiatry consulted and recommended involuntary admission since patient cannot consent for voluntary admission. As per [facility] Crisis eval patient does not need psych admission but supervision. Patient is medically and neurologically cleared for discharge. KRZYSZTOF/Donal Mgt consulted for Safe discharge planning. 1.Intentional Acetaminophen overdose Received Acetadote IV Poison control consulted Tylenol levels < 10 at present, LFT-s and coag -wnl. Acetadote discontinued patient is medically stable 2. Cognitive / psychiatric disorder /Suicidal maintain 1:1 for safety psychiatry consult appreciated Patient can not give informed consent for psychiatric admission. Called crisis eval for involuntary psych admission to [facility]. As per crisis eval patient does not need psych admission but will need supervision - rec senior living placement [facility] Hospitalist team spoke with pt's daughter (Bing ) yesterday who stated that the family will provide 24/7 care kandi now that school is over , she and her siblings will take turns taking care of her however KRZYSZTOF Jackson spoke with pt's who stated that the family will not be able to supervise pt 24hrs/day. Psych reconsulted -discussed case with Dr Alfonzo June reattempted to get consent for Voluntary Inpt Psych admission ( in the hope that pt will get better to be safely discharged home ) however pt refused to sign. Will keep pt for now - start Seroquel , hoping she will be better so she could be safely discharged home DYCS and APS referral 12/12/16 - attempted to call daughter and today, left message. Will continue psych meds so patient may be safe discharge home. patient currently waxing and waning in orientation to both places and time. 12/13/16 - message left with daughter. Continue psych meds, for reevaluation by psych team tomorrow. Will work towards a safe discharge with social work and psych team tomorrow. At this time, patient is not a safe discharge, as she requires 24 hour supervision. 3. History CVA in the past with cognitive problems vascular dementia with hearing, speech and cognitive problems since the stroke 5 years ago No new neuro deficits Neurology consulted and case discussed. patient is cleared for psych admission No imaging is necessary 4. Ventral hernia reducible no surgical intervention necessary Wound care for wound over hernia 5. Anemia most likely anemia of chronic disease continue monitoring 6.Hypokalemia replaced with KCl PO 7. DVT prophylaxis SCD
--- NOTE | 2016-12-14 14:45 | PCM.PYCHPN ---
Psychiatric Progress Note - Psychiatric Progress Note Patient seen today, length of contact: Patient evaluated, case discussed with team Problems Identified/Issues Discussed: Patient unable to explain why she is in the hospital, nor the date. She is able to state she is in the "hospital" but can not provide any other information. Patient can not engage in simple conversations. She just keeps stating that the technical publications writer should call the patient's daughter. Mental Status Examination - Cognitive Function Orientation: Person Memory: Impaired Attention: Poor Concentration: Poor Association: Loose Fund of Knowledge: Poor - Mood Mood: Neutral - Affect Affect: Constricted - Speech Speech: Loud, Stammering - Formal Thought Process Formal Thought Process: Loosening of associations Psychotic Thoughts and Behaviors: NO AH/VH/paranoia - Suicidal Ideation Suicidal Ideation: No - Homicidal Ideation Homicidal Ideation: No Goal/Treatment Plan - Goal/Treatment Plan Need for Continued Stay: Severe functional impairment Progress Toward Problem(s) and Goals/Treatment Plan: 56 yo female w/ neurocognitive impairment, 2/2 CVA. -Patient does NOT have capacity to make medical decisions or to sign into a voluntary psychiatry unit; she will not meet criteria for involuntary admission -Continue Haldol 2 mg PO HS -Would avoid Ativan (and other benzos) at this point, as it may lead to worsening confusion
--- NOTE | 2016-12-14 16:14 | CP.PCM.PN ---
Subjective - Date & Time of Evaluation Date of Evaluation: 12/14/16 Time of Evaluation: 16:08 - Subjective Subjective: patient seen examined bedside. also seen alongside Dr. Mireles psychiatrist. Patient unable to answer questions, only oriented to self. Unable to answer any questions and difficult to redirect. Patient has no other complaints other than her reducible hernia. no cp, no sob. vitals are stable no acute distress Objective - Vital Signs/Intake and Output Vital Signs (last 24 hours): Temp Pulse Resp BP Pulse Ox 97.9 F 73 18 119/71 100 12/14/16 07:31 12/14/16 07:31 12/14/16 07:31 12/14/16 07:31 12/14/16 07:31 Exam: GEN: +psychotic. alert HEENT: NCAT, PERRL, EOMI NECK: supple, no JVD, no lymphadenopathy CARDIAC: +S1S2 RRR LUNG: CTAB No WRR ABD: SOFT NT ND BSX4 +++reducible hernia. EXT: +pedal pulses, equal strength NEURO: incoherent. +psychosis. barely follows simple commands. SKIN warm, dry PSYCH: incoherent. +psychosis Intake and Output: 12/14/16 12/14/16 06:59 18:59 Intake Total 200 Balance 200 - Medications Medications: Current Medications Famotidine (Pepcid) 20 mg PO DAILY [facility] Last Admin: 12/14/16 08:28 Dose: 20 mg Haloperidol (Haldol) 2 mg PO HS [facility] Last Admin: 12/13/16 22:04 Dose: 2 mg Ondansetron HCl (Zofran Inj) 4 mg IVP Q6H PRN PRN Reason: Nausea/Vomiting Last Admin: 12/07/16 22:10 Dose: 4 mg Quetiapine Fumarate (Seroquel) 25 mg PO DAILY [facility] Last Admin: 12/14/16 08:28 Dose: 25 mg - Labs Labs: 12/12/16 04:45 12/12/16 04:45 PT 13.8 Seconds (9.8-13.1) H 12/07/16 14:22 INR 1.2 (0.9-1.2) 12/07/16 14:22 APTT 29.8 Seconds (25.6-37.1) 12/06/16 18:58 Assessment and Plan - Assessment and Plan (Free Text) Plan: 56 y/o female with PMHx significant for cognitive decline due to multiple reasons including prior CVA - 5 years ago, recent admission for psychosis and persecutory delusions ( her family wants to hurt her),brought in by family for intentional tylenol overdose. Per family, pt was sitting in front of the family and took twenty-three 500 mg tabs of tylenol . She was immediately brought in, activated charcoal was given, and acetadote was started as per poison control. At present patient is medically stable. Acetadote infusion completed , LFT-s and coagulation profile normal. Psychiatry consulted and recommended involuntary admission since patient cannot consent for voluntary admission. As per [facility] Crisis eval patient does not need psych admission but supervision. Patient is medically and neurologically cleared for discharge. KRZYSZTOF/Donal Mgt consulted for Safe discharge planning. 12/14/16 Discussed extensively with Psychiatry physician as well as social work team. Patient's significant other's phone is currently not accepting calls. Patient's daughter was called and messages have been left. Patient does not have capacity to sign into psychiatric floor. She also does not meet criteria for voluntary or involuntary psychiatric admission. However she does require 24 hour supervision. Will continue to attempt getting in touch with family. 1.Intentional Acetaminophen overdose Received Acetadote IV Poison control consulted Tylenol levels < 10 at present, LFT-s and coag -wnl. Acetadote discontinued patient is medically stable 2. Cognitive / psychiatric disorder /Suicidal maintain 1:1 for safety psychiatry consult appreciated Patient can not give informed consent for psychiatric admission. Called crisis evnv for involuntary psych admission to [facility]. As per crisis eval patient does not need psych admission but will need supervision - rec senior care placement [facility] Hospitalist team spoke with pt's daughter (Bing ) yesterday who stated that the family will provide 24/7 care kandi now that school is over , she and her siblings will take turns taking care of her however KRZYSZTOF Jackson spoke with pt's who stated that the family will not be able to supervise pt 24hrs/day. Psych reconsulted -discussed case with Dr Mejía Psych reattempted to get consent for Voluntary Inpt Psych admission ( in the hope that pt will get better to be safely discharged home ) however pt refused to sign. Will keep pt for now - start Seroquel , hoping she will be better so she could be safely discharged home DYCS and APS referral 12/12/16 - attempted to call daughter and today, left message. Will continue psych meds so patient may be safe discharge home. patient currently waxing and waning in orientation to both places and time. 12/13/16 - message left with daughter. Continue psych meds, for reevaluation by psych team tomorrow. Will work towards a safe discharge with social work and psych team tomorrow. At this time, patient is not a safe discharge, as she requires 24 hour supervision. 3. History CVA in the past with cognitive problems vascular dementia with hearing, speech and cognitive problems since the stroke 5 years ago No new neuro deficits Neurology consulted and case discussed. patient is cleared for psych admission No imaging is necessary 4. Ventral hernia reducible no surgical intervention necessary Wound care for wound over hernia 5. Anemia most likely anemia of chronic disease continue monitoring 6.Hypokalemia replaced with KCl PO 7. DVT prophylaxis SCD
--- NOTE | 2016-12-15 11:43 | CP.PCM.PN ---
Subjective - Date & Time of Evaluation Date of Evaluation: 12/15/16 Time of Evaluation: 11:40 - Subjective Subjective: seen examined bedside crying because pt states she wants to go home, unable to sleep pt given anxiolytic vitals are stable no acute distress calls placed to family, however no answer Objective - Vital Signs/Intake and Output Vital Signs (last 24 hours): Temp Pulse Resp BP Pulse Ox 98.0 F 87 18 164/96 H 100 12/15/16 07:35 12/15/16 07:35 12/15/16 07:35 12/15/16 09:08 12/15/16 09:08 EXAM: Vitals stable and reviewed GEN: alert, crying, difficult to redirect HEENT: NCAT, PERRL, EOMI Neck: supple, no lymphadenopathy CARDIO: +S1S2, RRR, NO M/R/G LUNG: CTAB, NO W/R/R ABD: soft, NT, ND, no masses, no HSM EXT: no edema, pedal pulses Neuro: AAOx1, Strength equal, bilateral UE/LE Psych:pt crying + auditory hallucinations - Medications Medications: Current Medications Famotidine (Pepcid) 20 mg PO DAILY [facility] Last Admin: 12/15/16 08:18 Dose: Not Given Haloperidol (Haldol) 2 mg PO HS [facility] Last Admin: 12/14/16 21:53 Dose: 2 mg Ondansetron HCl (Zofran Inj) 4 mg IVP Q6H PRN PRN Reason: Nausea/Vomiting Last Admin: 12/07/16 22:10 Dose: 4 mg Quetiapine Fumarate (Seroquel) 25 mg PO DAILY [facility] Last Admin: 12/15/16 08:18 Dose: 25 mg Sertraline HCl (Zoloft) 50 mg PO DAILY [facility] - Labs Labs: 12/12/16 04:45 12/12/16 04:45 PT 13.8 Seconds (9.8-13.1) H 12/07/16 14:22 INR 1.2 (0.9-1.2) 12/07/16 14:22 APTT 29.8 Seconds (25.6-37.1) 12/06/16 18:58 Assessment and Plan - Assessment and Plan (Free Text) Plan: 56 y/o female with PMHx significant for cognitive decline due to multiple reasons including prior CVA - 5 years ago, recent admission for psychosis and persecutory delusions ( her family wants to hurt her),brought in by family for intentional tylenol overdose. Per family, pt was sitting in front of the family and took twenty-three 500 mg tabs of tylenol . She was immediately brought in, activated charcoal was given, and acetadote was started as per poison control. At present patient is medically stable. Acetadote infusion completed , LFT-s and coagulation profile normal. Psychiatry consulted and recommended involuntary admission since patient cannot consent for voluntary admission. As per [facility] Crisis eval patient does not need psych admission but supervision. Patient is medically and neurologically cleared for discharge. KRZYSZTOF/Donal Mgt consulted for Safe discharge planning. 12/14/16 Discussed extensively with Psychiatry physician as well as social work team. Patient's significant other's phone is currently not accepting calls. Patient's daughter was called and messages have been left. Patient does not have capacity to sign into psychiatric floor. She also does not meet criteria for voluntary or involuntary psychiatric admission. However she does require 24 hour supervision. Will continue to attempt getting in touch with family. 12/15/16 According to nursing reports, patient's family was here yesterday. Since then patient has been crying and difficult to redirect. Discussed with psychiatry. Patient may benefit from antidepressant, started Zoloft 50 mg today. Calls were placed to eldest daughter and without return. 1.Intentional Acetaminophen overdose Received Acetadote IV Poison control consulted Tylenol levels < 10 at present, LFT-s and coag -wnl. Acetadote discontinued patient is medically stable 2. Cognitive / psychiatric disorder /Suicidal maintain 1:1 for safety psychiatry consult appreciated Patient can not give informed consent for psychiatric admission. Called crisis eval for involuntary psych admission to [facility]. As per crisis eval patient does not need psych admission but will need supervision - rec long-term placement [facility] Hospitalist team spoke with pt's daughter (Bing ) yesterday who stated that the family will provide 24/7 care kandi now that school is over , she and her siblings will take turns taking care of her however KRZYSZTOF Jackson spoke with pt's who stated that the family will not be able to supervise pt 24hrs/day. Psych reconsulted -discussed case with Dr Mejía Psych reattempted to get consent for Voluntary Inpt Psych admission ( in the hope that pt will get better to be safely discharged home ) however pt refused to sign. Will keep pt for now - start Seroquel , hoping she will be better so she could be safely discharged home DYCS and APS referral 12/12/16 - attempted to call daughter and today, left message. Will continue psych meds so patient may be safe discharge home. patient currently waxing and waning in orientation to both places and time. 12/13/16 - message left with daughter. Continue psych meds, for reevaluation by psych team tomorrow. Will work towards a safe discharge with social work and psych team tomorrow. At this time, patient is not a safe discharge, as she requires 24 hour supervision. 3. History CVA in the past with cognitive problems vascular dementia with hearing, speech and cognitive problems since the stroke 5 years ago No new neuro deficits Neurology consulted and case discussed. patient is cleared for psych admission No imaging is necessary 4. Ventral hernia reducible no surgical intervention necessary Wound care for wound over hernia 5. Anemia most likely anemia of chronic disease continue monitoring 6.Hypokalemia replaced with KCl PO 7. DVT prophylaxis SCD
[2016-12-16 07:12] LABS: HEMOGLOBIN 11.5 g/dL (12.0-16.0); MEAN CELL VOLUME 102.7 fl (81.0-99.0); MEAN CORPUSCULAR HEMOGLOBIN 32.9 pg (27.0-31.0); MEAN CORPUSCULAR HGB CONC 32.1 g/dL (33.0-37.0); RBC 3.49 Mil/uL (3.80-5.20); RED CELL DISTRIBUTION WIDTH 15.2 % (11.5-14.5); WHITE BLOOD COUNT 6.2 K/uL (4.8-10.8)
[2016-12-16 07:20] LABS: BLOOD UREA NITROGEN 21 mg/dl (7-17); CALCIUM 9.4 mg/dL (8.4-10.2); GFR AFRICAN-AMERICAN > 60; GFR NON-AFRICAN AMERICAN > 60
--- NOTE | 2016-12-16 15:09 | PCM.PYCHPN ---
Psychiatric Progress Note - Psychiatric Progress Note Patient seen today, length of contact: Patient evaluated, case discussed with team Problems Identified/Issues Discussed: Patient continues to be unable to explain why she is in the hospital, nor the date. Patient can not engage in simple conversations. She just keeps stating that the ticket writer should call the patient's daughter. Medication Change: Yes (Seroquel 50 mg PO TID, Depakote 125 mg PO BID) Medical Record Reviewed: Yes Mental Status Examination - Cognitive Function Orientation: Person Memory: Impaired Attention: Poor Concentration: Poor Association: Loose Fund of Knowledge: Poor Decription of patient's judgement and insights: Poor insight/judgment - Mood Mood: Neutral - Affect Affect: Constricted - Speech Speech: Loud, Stammering - Formal Thought Process Formal Thought Process: Loosening of associations Psychotic Thoughts and Behaviors: NO AH/VH/paranoia - Suicidal Ideation Suicidal Ideation: No - Homicidal Ideation Homicidal Ideation: No Goal/Treatment Plan - Goal/Treatment Plan Need for Continued Stay: Severe functional impairment Progress Toward Problem(s) and Goals/Treatment Plan: 56 yo female w/ neurocognitive impairment, 2/2 CVA. -Patient does NOT have capacity to make medical decisions or to sign into a voluntary psychiatry unit; she will not meet criteria for involuntary admission -Modify medications: Seroquel 50 mg PO TID, Depakote 125 mg PO BID (check VPA level in 5 days)
--- NOTE | 2016-12-16 16:03 | CP.PCM.PN ---
Subjective - Date & Time of Evaluation Date of Evaluation: 12/16/16 Time of Evaluation: 09:00 - Subjective Subjective: Pt is sitted on a chair follows simple commands wants to go home , states she is fine and her Hernia is not bothering her, she is showing me phome numbers of her children written on paper and is asking me to call them up. oriented to person and place poor hearing - need to talk to her really loud walks around her room, 1:1 at bedside denies pain no SOB no CP' no abd pain Objective - Vital Signs/Intake and Output Vital Signs (last 24 hours): Temp Pulse Resp BP Pulse Ox 98.2 F 61 18 126/80 99 12/16/16 07:40 12/16/16 07:40 12/16/16 07:40 12/16/16 07:40 12/16/16 07:40 Intake and Output: 12/16/16 12/16/16 06:59 18:59 Intake Total 240 240 Balance 240 240 - Medications Medications: Current Medications Divalproex Sodium (Depakote Sprinkles) 125 mg PO BID [facility] Famotidine (Pepcid) 20 mg PO DAILY [facility] Last Admin: 12/16/16 09:02 Dose: Not Given Ondansetron HCl (Zofran Inj) 4 mg IVP Q6H PRN PRN Reason: Nausea/Vomiting Last Admin: 12/07/16 22:10 Dose: 4 mg Quetiapine Fumarate (Seroquel) 50 mg PO TID [facility] - Labs Labs: 12/16/16 06:10 12/16/16 06:10 PT 13.8 Seconds (9.8-13.1) H 12/07/16 14:22 INR 1.2 (0.9-1.2) 12/07/16 14:22 APTT 29.8 Seconds (25.6-37.1) 12/06/16 18:58 - Constitutional Appears: No Acute Distress - Head Exam Head Exam: ATRAUMATIC, NORMAL INSPECTION, NORMOCEPHALIC - Eye Exam Eye Exam: EOMI, Normal appearance, PERRL Pupil Exam: NORMAL ACCOMODATION - ENT Exam ENT Exam: Mucous Membranes Moist, Normal External Ear Exam Additional comments: decreased hearing acuity - Neck Exam Neck Exam: Full ROM. absent: Meningismus - Respiratory Exam Respiratory Exam: NORMAL BREATHING PATTERN. absent: Rales, Wheezes, Respiratory Distress - Cardiovascular Exam Cardiovascular Exam: REGULAR RHYTHM, +S1, +S2 - GI/Abdominal Exam GI & Abdominal Exam: Soft, Normal Bowel Sounds. absent: Tenderness Additional comments: large ventral hernia, nontender, no signs of incarceration. - Extremities Exam Extremities Exam: Full ROM, Normal Capillary Refill. absent: Calf Tenderness, Pedal Edema - Back Exam Back Exam: Full ROM. absent: CVA tenderness (L), CVA tenderness (R) - Neurological Exam Neurological Exam: Alert, Awake, CN II-XII Intact, Normal Gait Neuro motor strength exam: Left Upper Extremity: 5, Right Upper Extremity: 5, Left Lower Extremity: 5, Right Lower Extremity: 5 follows simple commands oriented to person and place - Psychiatric Exam Psychiatric exam: Normal Affect, Normal Mood - Skin no active skin lesions, war, dry Assessment and Plan - Assessment and Plan (Free Text) Assessment: 56 y/o female with PMHx significant for cognitive decline due to multiple reasons including prior CVA - 5 years ago, recent admission for psychosis and persecutory delusions ( her family wants to hurt her),brought in by family for intentional tylenol overdose. Per family, pt was sitting in front of the family and took twenty-three 500 mg tabs of tylenol . She was immediately brought in, activated charcoal was given, and acetadote was started as per poison control. At present patient is medically stable. Acetadote infusion completed , LFT-s and coagulation profile normal. Psychiatry consulted and recommended involuntary admission since patient cannot consent for voluntary admission. As per [facility] Crisis eval patient does not need psych admission but supervision. Patient is medically and neurologically cleared for discharge. SW/Case Mgt consulted for Safe discharge planning. Attempted to call pt's family several times to meet with them to formulate a safe discharge plan however , no one is picking up call. 1.Intentional Acetaminophen overdose Received Acetadote IV Poison control consulted Tylenol levels < 10 at present, LFT-s and coag -wnl. Acetadote discontinued patient is medically stable 2. Cognitive / psychiatric disorder /Suicidal maintain 1:1 for safety psychiatry consult appreciated Patient can not give informed consent for psychiatric admission. Called crisis eval for involuntary psych admission to [facility]. As per crisis eval patient does not need psych admission but will need supervision - rec retirement placement cont Haldol and Seroquel I spoke with pt's daughter (Bing) last Wednesday who stated that the family will provide 24/7 care kandi now that school is over , she and her siblings will take turns taking care of her however KRZYSZTOF Jackson spoke with pt's who stated that the family will not be able to supervise pt 24hrs/ day. Awaiting call back from family to come for a meeting to plan for a safe discharge 3. History CVA in the past with cognitive problems vascular dementia with hearing, speech and cognitive problems since the stroke 5 years ago No new neuro deficits Neurology consulted and case discussed. patient is cleared for psych admission No imaging is necessary 4. Ventral hernia reducible no surgical intervention necessary Wound care for wound over hernia 5. Anemia most likely anemia of chronic disease continue monitoring 6.Hypokalemia replaced with KCl PO 7. DVT prophylaxis SCD
[2016-12-16] MEDS: Divalproex 125 mg Sprinkle Capsule PO SCH (16:51)
[2016-12-17] MEDS: Promethazine/Cod 6.25mg-10mg/5ml Syr UD PO STA ×2 (06:07→06:10)
[2016-12-17] MEDS: Divalproex 125 mg Sprinkle Capsule PO SCH ×2 (08:34→16:59)
--- NOTE | 2016-12-17 12:20 | CP.PCM.PN ---
Subjective - Date & Time of Evaluation Date of Evaluation: 12/17/16 Time of Evaluation: 11:45 - Subjective Subjective: Pt seen and examined- on a piece of paper - she wrote down in Romanian to call her son and that his son should be home bec school is over. she is alert, oriented to person and place ambulatory accdg to FRONT OFFICE COORDINATOR doing 1:1 , she is calm most of the time , occasionally talking to herself stating that the IRS are coming for her. denies CP no SOB denies abd pain Objective - Vital Signs/Intake and Output Vital Signs (last 24 hours): Temp Pulse Resp BP Pulse Ox 98.1 F 65 18 123/75 100 12/17/16 07:31 12/17/16 07:31 12/17/16 07:31 12/17/16 07:31 12/17/16 07:31 Intake and Output: 12/17/16 12/17/16 06:59 18:59 Intake Total 240 240 Balance 240 240 - Medications Medications: Current Medications Divalproex Sodium (Depakote Sprinkles) 125 mg PO BID [facility] Last Admin: 12/17/16 08:34 Dose: 125 mg Famotidine (Pepcid) 20 mg PO DAILY [facility] Last Admin: 12/17/16 08:34 Dose: 20 mg Ondansetron HCl (Zofran Inj) 4 mg IVP Q6H PRN PRN Reason: Nausea/Vomiting Last Admin: 12/07/16 22:10 Dose: 4 mg Quetiapine Fumarate (Seroquel) 50 mg PO TID [facility] Last Admin: 12/17/16 08:34 Dose: 50 mg - Labs Labs: 12/16/16 06:10 12/16/16 06:10 PT 13.8 Seconds (9.8-13.1) H 12/07/16 14:22 INR 1.2 (0.9-1.2) 12/07/16 14:22 APTT 29.8 Seconds (25.6-37.1) 12/06/16 18:58 - Constitutional Appears: No Acute Distress - Head Exam Head Exam: ATRAUMATIC, NORMAL INSPECTION, NORMOCEPHALIC - Eye Exam Eye Exam: EOMI, Normal appearance, PERRL Pupil Exam: NORMAL ACCOMODATION - ENT Exam ENT Exam: Mucous Membranes Moist, Normal External Ear Exam Additional comments: decreased hearing acuity - Neck Exam Neck Exam: Full ROM. absent: Meningismus - Respiratory Exam Respiratory Exam: NORMAL BREATHING PATTERN. absent: Rales, Wheezes, Respiratory Distress - Cardiovascular Exam Cardiovascular Exam: REGULAR RHYTHM, +S1, +S2 - GI/Abdominal Exam GI & Abdominal Exam: Soft, Normal Bowel Sounds. absent: Tenderness Additional comments: large ventral hernia, nontender, no signs of incarceration. - Extremities Exam Extremities Exam: Full ROM, Normal Capillary Refill. absent: Calf Tenderness, Pedal Edema - Back Exam Back Exam: Full ROM. absent: CVA tenderness (L), CVA tenderness (R) - Neurological Exam Neurological Exam: Alert, Awake, CN II-XII Intact, Normal Gait Neuro motor strength exam: Left Upper Extremity: 5, Right Upper Extremity: 5, Left Lower Extremity: 5, Right Lower Extremity: 5 follows simple commands oriented to person and place - Psychiatric Exam Psychiatric exam: Normal Affect, Normal Mood answers simple questions appropriately - Skin no active skin lesions, war, dry Assessment and Plan - Assessment and Plan (Free Text) Assessment: 56 y/o female with PMHx significant for cognitive decline due to multiple reasons including prior CVA - 5 years ago, recent admission for psychosis and persecutory delusions ( her family wants to hurt her),brought in by family for intentional tylenol overdose. Per family, pt was sitting in front of the family and took twenty-three 500 mg tabs of tylenol . She was immediately brought in, activated charcoal was given, and acetadote was started as per poison control. At present patient is medically stable. Acetadote infusion completed , LFT-s and coagulation profile normal. Psychiatry consulted and recommended involuntary admission since patient cannot consent for voluntary admission. As per [facility] Crisis eval patient does not need psych admission but supervision. Patient is medically and neurologically cleared for discharge. SW/Case Mgt consulted for Safe discharge planning. Attempted to call pt's family several times to meet with them to formulate a safe discharge plan however , no one is picking up call. 1.Intentional Acetaminophen overdose Received Acetadote IV Poison control consulted Tylenol levels < 10 at present, LFT-s and coag -wnl. Acetadote discontinued patient is medically stable 2. Cognitive / psychiatric disorder /Suicidal maintain 1:1 for safety psychiatry consult appreciated Patient can not give informed consent for psychiatric admission. Called crisis eval for involuntary psych admission to [facility]. As per crisis eval patient does not need psych admission but will need supervision - rec long-term placement cont Haldol and Seroquel . Awaiting family to come for a meeting to plan for a safe discharge 3. History CVA in the past with cognitive problems vascular dementia with hearing, speech and cognitive problems since the stroke 5 years ago No new neuro deficits Neurology consulted and case discussed. patient is cleared for psych admission No imaging is necessary 4. Ventral hernia reducible no surgical intervention necessary Wound care for wound over hernia 5. Anemia most likely anemia of chronic disease continue monitoring 6.Hypokalemia replaced with KCl PO 7. DVT prophylaxis SCD
[2016-12-18] MEDS: Divalproex 125 mg Sprinkle Capsule PO SCH ×2 (08:51→17:56)
--- NOTE | 2016-12-18 12:52 | CP.PCM.PN ---
Subjective - Date & Time of Evaluation Date of Evaluation: 12/18/16 Time of Evaluation: 12:30 - Subjective Subjective: Pt is alert , oriented to person and place and seem better today no episodes of agitation today She wrote down on a piece of paper her address and names and numbers of all her children and wants me to call them bec she wants to go home goo Po intake + BM and good urin output denies abd pain, no N/V no CP no SOB Per staff - no family member came yesterday nor today still awaiting for family to come so we could plan safe discharge Objective - Vital Signs/Intake and Output Vital Signs (last 24 hours): Temp Pulse Resp BP Pulse Ox 98.9 F 77 20 111/68 98 12/18/16 09:00 12/18/16 09:00 12/18/16 09:00 12/18/16 09:00 12/18/16 09:00 Intake and Output: 12/18/16 12/18/16 06:59 18:59 Intake Total 360 Balance 360 - Medications Medications: Current Medications Divalproex Sodium (Depakote Sprinkles) 125 mg PO BID [facility] Last Admin: 12/18/16 08:51 Dose: 125 mg Famotidine (Pepcid) 20 mg PO DAILY [facility] Last Admin: 12/18/16 08:52 Dose: Not Given Ondansetron HCl (Zofran Inj) 4 mg IVP Q6H PRN PRN Reason: Nausea/Vomiting Last Admin: 12/07/16 22:10 Dose: 4 mg Quetiapine Fumarate (Seroquel) 50 mg PO TID [facility] Last Admin: 12/18/16 08:53 Dose: Not Given - Labs Labs: 12/16/16 06:10 12/16/16 06:10 PT 13.8 Seconds (9.8-13.1) H 12/07/16 14:22 INR 1.2 (0.9-1.2) 12/07/16 14:22 APTT 29.8 Seconds (25.6-37.1) 12/06/16 18:58 - Constitutional Appears: No Acute Distress - Head Exam Head Exam: ATRAUMATIC, NORMAL INSPECTION, NORMOCEPHALIC - Eye Exam Eye Exam: EOMI, Normal appearance, PERRL Pupil Exam: NORMAL ACCOMODATION - ENT Exam ENT Exam: Mucous Membranes Moist, Normal External Ear Exam Additional comments: decreased hearing acuity - Neck Exam Neck Exam: Full ROM. absent: Meningismus - Respiratory Exam Respiratory Exam: NORMAL BREATHING PATTERN. absent: Rales, Wheezes, Respiratory Distress - Cardiovascular Exam Cardiovascular Exam: REGULAR RHYTHM, +S1, +S2 - GI/Abdominal Exam GI & Abdominal Exam: Soft, Normal Bowel Sounds. absent: Tenderness Additional comments: large ventral hernia, nontender, no signs of incarceration. - Extremities Exam Extremities Exam: Full ROM, Normal Capillary Refill. absent: Calf Tenderness, Pedal Edema - Back Exam Back Exam: Full ROM. absent: CVA tenderness (L), CVA tenderness (R) - Neurological Exam Neurological Exam: Alert, Awake, CN II-XII Intact, Normal Gait Neuro motor strength exam: Left Upper Extremity: 5, Right Upper Extremity: 5, Left Lower Extremity: 5, Right Lower Extremity: 5 follows simple commands oriented to person and place - Psychiatric Exam Psychiatric exam: Normal Affect, Normal Mood answers simple questions appropriately - Skin no active skin lesions, war, dry Assessment and Plan - Assessment and Plan (Free Text) Assessment: 56 y/o female with PMHx significant for cognitive decline due to multiple reasons including prior CVA - 5 years ago, recent admission for psychosis and persecutory delusions ( her family wants to hurt her),brought in by family for intentional tylenol overdose. Per family, pt was sitting in front of the family and took twenty-three 500 mg tabs of tylenol . She was immediately brought in, activated charcoal was given, and acetadote was started as per poison control. At present patient is medically stable. Acetadote infusion completed , LFT-s and coagulation profile normal. Psychiatry consulted and recommended involuntary admission since patient cannot consent for voluntary admission. As per [facility] [place] Crisis eval patient does not need psych admission but supervision. Patient is medically and neurologically cleared for discharge. SW/Case Mgt consulted for Safe discharge planning. Attempted to call pt's family several times to meet with them to formulate a safe discharge plan however , no one is picking up call. 1.Intentional Acetaminophen overdose Received Acetadote IV Poison control consulted Tylenol levels < 10 at present, LFT-s and coag -wnl. Acetadote discontinued patient is medically stable 2. Cognitive / psychiatric disorder /Suicidal maintain 1:1 for safety psychiatry consult appreciated Patient can not give informed consent for psychiatric admission. Called crisis eval for involuntary psych admission to [facility] [place]. As per crisis eval patient does not need psych admission but will need supervision - recommended [facility] placement cont Luz and Oswaldo . Awaiting family to come for a meeting to plan for a safe discharge- no family has come the past few days and several attempts were made to call them without success 3. History CVA in the past with cognitive problems vascular dementia with hearing, speech and cognitive problems since the stroke 5 years ago No new neuro deficits Neurology consulted and case discussed. patient is cleared for psych admission No imaging is necessary 4. Ventral hernia reducible no surgical intervention necessary Wound care for wound over hernia 5. Anemia most likely anemia of chronic disease continue monitoring 6.Hypokalemia replaced with KCl PO 7. DVT prophylaxis SCD
--- NOTE | 2016-12-19 07:16 | CP.PCM.PN ---
Subjective - Date & Time of Evaluation Date of Evaluation: 12/19/16 Time of Evaluation: 09:00 - Subjective Subjective: Patient was seen and evaluated .Sitting in chair in NAD. Hemodynamically stable , afebrile. No acute issues overnight. oin 1;1 for safety. has baseline expressive aphasia. She is awake, alert , oriented to person, place . Persistently writing down ( with very nice handwriting )name of her son, ex , other family members, their phone numbers and addresses and asking physician to call them because shoe wants to go home. keep complaining of her abdominal hernia. Called one of the phone numbers provided by patient [phone] , the father of her son ,Manual and spoke to him asking that her son ( Jeet who is 22 years old) give a call to physician about his mom. Objective - Vital Signs/Intake and Output Vital Signs (last 24 hours): Temp Pulse Resp BP Pulse Ox 97.9 F 77 18 118/78 99 12/18/16 16:05 12/18/16 16:05 12/18/16 16:05 12/18/16 16:05 12/18/16 16:05 - Medications Medications: Current Medications Divalproex Sodium (Depakote Sprinkles) 125 mg PO BID [facility] Last Admin: 12/18/16 17:56 Dose: 125 mg Famotidine (Pepcid) 20 mg PO DAILY [facility] Last Admin: 12/18/16 08:52 Dose: Not Given Ondansetron HCl (Zofran Inj) 4 mg IVP Q6H PRN PRN Reason: Nausea/Vomiting Last Admin: 12/07/16 22:10 Dose: 4 mg Quetiapine Fumarate (Seroquel) 50 mg PO TID [facility] Last Admin: 12/18/16 20:25 Dose: 50 mg - Labs Labs: 12/16/16 06:10 12/16/16 06:10 PT 13.8 Seconds (9.8-13.1) H 12/07/16 14:22 INR 1.2 (0.9-1.2) 12/07/16 14:22 APTT 29.8 Seconds (25.6-37.1) 12/06/16 18:58 - Constitutional Appears: Non-toxic, No Acute Distress - Head Exam Head Exam: ATRAUMATIC, NORMOCEPHALIC - Eye Exam Eye Exam: EOMI, PERRL Pupil Exam: NORMAL ACCOMODATION - ENT Exam ENT Exam: Mucous Membranes Moist, Normal Exam - Neck Exam Neck Exam: Full ROM, Normal Inspection - Respiratory Exam Respiratory Exam: Clear to Ausculation Bilateral, NORMAL BREATHING PATTERN. absent: Rales, Rhonchi, Wheezes - Cardiovascular Exam Cardiovascular Exam: REGULAR RHYTHM, RRR, +S1, +S2. absent: JVD - GI/Abdominal Exam GI & Abdominal Exam: Soft, Hernia (abdominal hernia), Normal Bowel Sounds. absent: Distended, Guarding, Tenderness, Rebound - Rectal Exam Rectal Exam: Deferred - Extremities Exam Extremities Exam: Full ROM, Normal Capillary Refill, Normal Inspection. absent : Calf Tenderness, Pedal Edema - Back Exam Back Exam: NORMAL INSPECTION - Neurological Exam Neurological Exam: Alert, Awake, Oriented x3 Additional comments: with dysarthria right facial droop some disorganized thought process - Psychiatric Exam Psychiatric exam: Anxious - Skin Skin Exam: Dry, Warm Assessment and Plan - Assessment and Plan (Free Text) Assessment: 56 y/o female with PMHx significant for cognitive decline due to multiple reasons including prior CVA - 5 years ago, recent admission for psychosis and persecutory delusions ( her family wants to hurt her),brought in by family for intentional tylenol overdose. Per family, pt was sitting in front of the family and took twenty-three 500 mg tabs of tylenol . She was immediately brought in, activated charcoal was given, and acetadote was started as per poison control. At present patient is medically stable. Acetadote infusion completed , LFT-s and coagulation profile normal. Psychiatry consulted and recommended involuntary admission since patient cannot consent for voluntary admission. As per [facility] [place] Crisis eval patient does not need psych admission but supervision. Patient is medically and neurologically cleared for discharge. SW/Case Mgt consulted for Safe discharge planning.At present no family members has come to hospital despite several attempts to contact them. *Unable to discharge patient at present due to unsafe discharge 1.Intentional Acetaminophen overdose Received Acetadote IV Poison control consulted Tylenol levels < 10 at present, LFT-s and coag -wnl. Acetadote discontinued patient is medically stable 2. Cognitive / psychiatric disorder /Suicidal maintain 1:1 for safety psychiatry consult appreciated Patient can not give informed consent for psychiatric admission. Called crisis eval for involuntary psych admission to [facility] [place]. As per crisis eval patient does not need psych admission but will need supervision - recommended penitentiary placement on depakote and Seroquel Awaiting family to come for a meeting to plan for a safe discharge- no family has come the past few days and several attempts were made to call them without success 3. History CVA in the past with cognitive problems vascular dementia with hearing, speech and cognitive problems since the stroke 5 years ago No new neuro deficits Neurology consulted and case discussed. Patient is neurologically stable No imaging is necessary 4. Ventral hernia reducible no surgical intervention necessary Wound care for wound over hernia 5. Anemia most likely anemia of chronic disease continue monitoring 6.Hypokalemia resolved 7. DVT prophylaxis SCD
[2016-12-19] MEDS: Divalproex 125 mg Sprinkle Capsule PO SCH ×2 (08:23→17:06)
[2016-12-20] MEDS: Divalproex 125 mg Sprinkle Capsule PO SCH ×2 (08:20→17:24)
--- NOTE | 2016-12-20 08:43 | CP.PCM.PN ---
Subjective - Date & Time of Evaluation Date of Evaluation: 12/20/16 Time of Evaluation: 09:00 - Subjective Subjective: Hemodynamically stable, afebrile No acute issues overnight Still on 1 ;1 for safety. No family members visiting and son did not call back SW will need to try tyo get in touch with her family members by calling all the numbers provided by the patient . Objective - Vital Signs/Intake and Output Vital Signs (last 24 hours): Temp Pulse Resp BP Pulse Ox 97.8 F 62 20 114/72 100 12/20/16 07:50 12/20/16 07:50 12/20/16 07:50 12/20/16 07:50 12/20/16 07:50 - Medications Medications: Current Medications Divalproex Sodium (Depakote Sprinkles) 125 mg PO BID [facility] Last Admin: 12/20/16 08:20 Dose: 125 mg Famotidine (Pepcid) 20 mg PO DAILY [facility] Last Admin: 12/20/16 08:21 Dose: Not Given Ondansetron HCl (Zofran Inj) 4 mg IVP Q6H PRN PRN Reason: Nausea/Vomiting Last Admin: 12/07/16 22:10 Dose: 4 mg Quetiapine Fumarate (Seroquel) 50 mg PO TID [facility] Last Admin: 12/20/16 08:21 Dose: Not Given - Labs Labs: 12/16/16 06:10 12/16/16 06:10 PT 13.8 Seconds (9.8-13.1) H 12/07/16 14:22 INR 1.2 (0.9-1.2) 12/07/16 14:22 APTT 29.8 Seconds (25.6-37.1) 12/06/16 18:58 - Constitutional Appears: Non-toxic, No Acute Distress - Head Exam Head Exam: ATRAUMATIC, NORMAL INSPECTION, NORMOCEPHALIC - Eye Exam Eye Exam: EOMI, Normal appearance, PERRL Pupil Exam: NORMAL ACCOMODATION - ENT Exam ENT Exam: Mucous Membranes Moist, Normal Exam - Neck Exam Neck Exam: Full ROM, Normal Inspection - Respiratory Exam Respiratory Exam: Clear to Ausculation Bilateral, NORMAL BREATHING PATTERN. absent: Rhonchi, Wheezes, Respiratory Distress - Cardiovascular Exam Cardiovascular Exam: REGULAR RHYTHM. absent: JVD - GI/Abdominal Exam GI & Abdominal Exam: Soft, Normal Bowel Sounds. absent: Rebound - Rectal Exam Rectal Exam: Deferred - Extremities Exam Extremities Exam: Full ROM, Normal Capillary Refill, Normal Inspection. absent : Calf Tenderness, Pedal Edema - Back Exam Back Exam: NORMAL INSPECTION - Neurological Exam Neurological Exam: Alert, Awake, Normal Gait Additional comments: right facial droop with dysarthria - Psychiatric Exam Psychiatric exam: Anxious - Skin Skin Exam: Dry, Normal Color, Warm Assessment and Plan - Assessment and Plan (Free Text) Assessment: 56 y/o female with PMHx significant for cognitive decline due to multiple reasons including prior CVA - 5 years ago, recent admission for psychosis and persecutory delusions ( her family wants to hurt her),brought in by family for intentional tylenol overdose. Per family, pt was sitting in front of the family and took twenty-three 500 mg tabs of tylenol . She was immediately brought in, activated charcoal was given, and acetadote was started as per poison control. At present patient is medically stable. Acetadote infusion completed , LFT-s and coagulation profile normal. Psychiatry consulted and recommended involuntary admission since patient cannot consent for voluntary admission. [place] [facility] [place] patient does not need psych admission but supervision. Patient is medically and neurologically cleared for discharge. SW/Case Mgt consulted for Safe discharge planning.At present no family members has come to hospital despite several attempts to contact them. *Unable to discharge patient at present due to unsafe discharge 1.Intentional Acetaminophen overdose Received Acetadote IV Poison control consulted Tylenol levels < 10 at present, LFT-s and coag -wnl. Acetadote discontinued patient is medically stable 2. Cognitive / psychiatric disorder /Suicidal maintain 1:1 for safety psychiatry consult appreciated Patient can not give informed consent for psychiatric admission. Called crisis eval [place] involuntary [place] [facility] As per crisis eval patient does not need psych admission but will need supervision - recommended shelter placement on depakote and Seroquel Awaiting family to come for a meeting to plan for a safe discharge- no family has come the past few days and several attempts were made to call them without success 3. History CVA in the past with cognitive problems vascular dementia with hearing, speech and cognitive problems since the stroke 5 years ago No new neuro deficits Neurology consulted and case discussed. Patient is neurologically stable No imaging is necessary 4. Ventral hernia reducible no surgical intervention necessary Wound care for wound over hernia 5. Anemia most likely anemia of chronic disease continue monitoring 6.Hypokalemia resolved 7. DVT prophylaxis SCD
[2016-12-21] MEDS: Divalproex 125 mg Sprinkle Capsule PO SCH ×2 (08:43→17:40)
--- NOTE | 2016-12-21 14:22 | CP.PCM.PN ---
Subjective - Date & Time of Evaluation Date of Evaluation: 12/21/16 Time of Evaluation: 11:30 - Subjective Subjective: Hemodynamically stable, afebrile. No acute issues overnight on for safety. Ambulating in unit Denies any pain Objective - Vital Signs/Intake and Output Vital Signs (last 24 hours): Temp Pulse Resp BP Pulse Ox 98.6 F 71 20 143/75 100 12/21/16 09:00 12/21/16 09:00 12/21/16 09:00 12/21/16 09:00 12/21/16 09:00 - Medications Medications: Current Medications Divalproex Sodium (Depakote Sprinkles) 125 mg PO BID [facility] Last Admin: 12/21/16 08:43 Dose: 125 mg Famotidine (Pepcid) 20 mg PO DAILY [facility] Last Admin: 12/21/16 08:43 Dose: 20 mg Ondansetron HCl (Zofran Inj) 4 mg IVP Q6H PRN PRN Reason: Nausea/Vomiting Last Admin: 12/07/16 22:10 Dose: 4 mg Quetiapine Fumarate (Seroquel) 50 mg PO TID [facility] Last Admin: 12/21/16 13:40 Dose: 50 mg - Labs Labs: 12/16/16 06:10 12/16/16 06:10 PT 13.8 Seconds (9.8-13.1) H 12/07/16 14:22 INR 1.2 (0.9-1.2) 12/07/16 14:22 APTT 29.8 Seconds (25.6-37.1) 12/06/16 18:58 - Constitutional Appears: Non-toxic, No Acute Distress - Head Exam Head Exam: ATRAUMATIC, NORMAL INSPECTION, NORMOCEPHALIC - Eye Exam Eye Exam: EOMI, Normal appearance, PERRL Pupil Exam: NORMAL ACCOMODATION - ENT Exam ENT Exam: Mucous Membranes Moist, Normal Exam - Neck Exam Neck Exam: Full ROM, Normal Inspection - Respiratory Exam Respiratory Exam: Clear to Ausculation Bilateral, NORMAL BREATHING PATTERN. absent: Rales, Rhonchi, Wheezes - Cardiovascular Exam Cardiovascular Exam: REGULAR RHYTHM, RRR, +S1, +S2. absent: JVD - GI/Abdominal Exam GI & Abdominal Exam: Soft, Normal Bowel Sounds. absent: Distended, Guarding, Tenderness, Rebound - Rectal Exam Rectal Exam: Deferred - Extremities Exam Extremities Exam: Full ROM, Normal Capillary Refill, Normal Inspection. absent : Calf Tenderness, Pedal Edema - Back Exam Back Exam: NORMAL INSPECTION - Neurological Exam Neurological Exam: Alert, Awake, Oriented x3 Additional comments: dysarthria right facial droop - Skin Skin Exam: Dry, Intact, Normal Color, Warm Assessment and Plan - Assessment and Plan (Free Text) Assessment: 56 y/o female with PMHx significant for cognitive decline due to multiple reasons including prior CVA - 5 years ago, recent admission for psychosis and persecutory delusions ( her family wants to hurt her),brought in by family for intentional tylenol overdose. Per family, pt was sitting in front of the family and took twenty-three 500 mg tabs of tylenol . She was immediately brought in, activated charcoal was given, and acetadote was started as per poison control. At present patient is medically stable. Acetadote infusion completed , LFT-s and coagulation profile normal. Psychiatry consulted and recommended involuntary admission since patient cannot consent for voluntary admission. [place] [facility] [place] patient does not need psych admission but supervision. Patient is medically and neurologically cleared for discharge. SW/Case Mgt consulted for Safe discharge planning.At present no family members has come to hospital despite several attempts to contact them. *Unable to discharge patient at present due to unsafe discharge Social hold until safe discharge planning 1.Intentional Acetaminophen overdose Received Acetadote IV Poison control consulted Tylenol levels < 10 at present, LFT-s and coag -wnl. Acetadote discontinued patient is medically stable 2. Cognitive / psychiatric disorder /Suicidal maintain 1:1 for safety psychiatry consult appreciated Patient can not give informed consent for psychiatric admission. Called crisis eval [place] involuntary [place] [facility] As per crisis eval patient does not need psych admission but will need supervision - recommended detention placement on depakote and Seroquel Awaiting family to come for a meeting to plan for a safe discharge- no family has come the past few days and several attempts were made to call them without success 3. History CVA in the past with cognitive problems vascular dementia with hearing, speech and cognitive problems since the stroke 5 years ago No new neuro deficits Neurology consulted and case discussed. Patient is neurologically stable No imaging is necessary 4. Ventral hernia reducible no surgical intervention necessary Wound care for wound over hernia 5. Anemia most likely anemia of chronic disease continue monitoring 6.Hypokalemia resolved 7. DVT prophylaxis SCD
--- NOTE | 2016-12-22 08:40 | CP.PCM.PN ---
Subjective - Date & Time of Evaluation Date of Evaluation: 12/22/16 Time of Evaluation: 09:00 - Subjective Subjective: Patient seen and evaluated bedside.No acute issues overnight. Still with 2 episodes of diarrhea today and some fresh blood in the toilet. Hemodynamically stable, afebrile Denies any pain.Preoccupied with writing down the names, phone numbers and address of her and cousin asking that we get in touch with them so they can come to hospital. Worried that her family, her kids have been deported out of the country Unable to answer where she is , date and why she is here. Preoccupied with her abdominal hernia and asking if she can get [facility] care to have surgical repair of hernia . Objective - Vital Signs/Intake and Output Vital Signs (last 24 hours): Temp Pulse Resp BP Pulse Ox 98.3 F 76 18 132/78 99 12/22/16 08:25 12/22/16 08:25 12/22/16 08:25 12/22/16 08:25 12/22/16 08:25 - Medications Medications: Current Medications Divalproex Sodium (Depakote Sprinkles) 125 mg PO BID [facility] Last Admin: 12/21/16 17:40 Dose: 125 mg Famotidine (Pepcid) 20 mg PO DAILY [facility] Last Admin: 12/21/16 08:43 Dose: 20 mg Quetiapine Fumarate (Seroquel) 50 mg PO TID [facility] Last Admin: 12/21/16 17:40 Dose: 50 mg - Labs Labs: 12/16/16 06:10 12/16/16 06:10 PT 13.8 Seconds (9.8-13.1) H 12/07/16 14:22 INR 1.2 (0.9-1.2) 12/07/16 14:22 APTT 29.8 Seconds (25.6-37.1) 12/06/16 18:58 - Constitutional Appears: Non-toxic, No Acute Distress - Head Exam Head Exam: ATRAUMATIC, NORMAL INSPECTION, NORMOCEPHALIC - Eye Exam Eye Exam: EOMI, Normal appearance, PERRL Pupil Exam: NORMAL ACCOMODATION - ENT Exam ENT Exam: Mucous Membranes Moist, Normal Exam - Neck Exam Neck Exam: Full ROM, Normal Inspection - Respiratory Exam Respiratory Exam: Clear to Ausculation Bilateral, NORMAL BREATHING PATTERN. absent: Rhonchi, Wheezes - Cardiovascular Exam Cardiovascular Exam: REGULAR RHYTHM, RRR, +S1, +S2. absent: JVD - GI/Abdominal Exam GI & Abdominal Exam: Soft, Hernia (Left side venral hernia, reducible ), Normal Bowel Sounds. absent: Distended, Guarding, Tenderness, Rebound - Rectal Exam Rectal Exam: Deferred - Extremities Exam Extremities Exam: Full ROM, Normal Capillary Refill. absent: Pedal Edema - Back Exam Back Exam: NORMAL INSPECTION - Neurological Exam Neurological Exam: Alert, Awake Additional comments: right facial droop dysarthria not oriented to place and time - Psychiatric Exam Psychiatric exam: Anxious - Skin Skin Exam: Dry, Normal Color Assessment and Plan - Assessment and Plan (Free Text) Assessment: 56 y/o female with PMHx significant for cognitive decline due to multiple reasons including prior CVA - 5 years ago, recent admission for psychosis and persecutory delusions ( her family wants to hurt her),brought in by family for intentional tylenol overdose. Per family, pt was sitting in front of the family and took twenty-three 500 mg tabs of tylenol . She was immediately brought in, activated charcoal was given, and acetadote was started as per poison control. At present patient is medically stable. Acetadote infusion completed , LFT-s and coagulation profile normal. Psychiatry consulted and recommended involuntary admission since patient cannot consent for voluntary admission. As per [facility] [place] patient does not need psych admission but supervision. Patient is medically and neurologically cleared for discharge. SW/Case Mgt consulted for Safe discharge planning.At present no family members has come to hospital despite several attempts to contact them. *Unable to discharge patient at present due to unsafe discharge Social hold until safe discharge planning 1.Intentional Acetaminophen overdose Received Acetadote IV Poison control consulted Tylenol levels < 10 at present, LFT-s and coag -wnl. Acetadote discontinued patient is medically stable 2. Cognitive / psychiatric disorder /Suicidal maintain 1:1 for safety psychiatry consult appreciated Patient can not give informed consent for psychiatric admission. Called crisis eval for involuntary psych admission to [facility]. As per crisis eval patient does not need psych admission but will need supervision - recommended long term placement on depakote and Seroquel Awaiting family to come for a meeting to plan for a safe discharge- no family has come the past few days and several attempts were made to call them without success 3. History CVA in the past with cognitive problems vascular dementia with hearing, speech and cognitive problems since the stroke 5 years ago No new neuro deficits Neurology consulted and case discussed. Patient is neurologically stable No imaging is necessary 4. Ventral hernia reducible no surgical intervention necessary Wound care for wound over hernia 5. Anemia most likely anemia of chronic disease continue monitoring 6.Hypokalemia resolved 7. DVT prophylaxis SCD
[2016-12-22] MEDS: Divalproex 125 mg Sprinkle Capsule PO SCH ×3 (08:59→18:40)
--- NOTE | 2016-12-22 09:51 | PCM.PYCHPN ---
Psychiatric Progress Note - Psychiatric Progress Note Patient seen today, length of contact: Patient evaluated, case discussed with team Problems Identified/Issues Discussed: Patient continues to be unable to explain where she is, why she is in the hospital, nor the date. Patient can not engage in simple conversations. Diagnostic Results: 12/22/16- VPA 11.5 Medication Change: Yes (Increase Depakote to 250 mg PO BID) Medical Record Reviewed: Yes Mental Status Examination - Cognitive Function Orientation: Person Memory: Impaired Attention: Poor Concentration: Poor Association: Loose Fund of Knowledge: Poor Decription of patient's judgement and insights: Poor insight/judgment - Mood Mood: Neutral - Affect Affect: Constricted - Speech Speech: Stammering - Formal Thought Process Formal Thought Process: Loosening of associations Psychotic Thoughts and Behaviors: NO AH/VH/paranoia reported, patient not observed to internally preoccupied - Suicidal Ideation Suicidal Ideation: No - Homicidal Ideation Homicidal Ideation: No Goal/Treatment Plan - Goal/Treatment Plan Need for Continued Stay: Severe functional impairment Progress Toward Problem(s) and Goals/Treatment Plan: 56 yo female w/ neurocognitive impairment. -Patient does NOT have capacity to make medical decisions or to sign into a voluntary psychiatry unit; she will not meet criteria for involuntary admission -Modify medications: Seroquel 50 mg PO TID, Depakote 250 mg PO BID (VPA 11.5 on 12/22/16) -Re-consult with further questions
[2016-12-23] MEDS: Divalproex 125 mg Sprinkle Capsule PO SCH ×2 (09:51→17:58)
[2016-12-23 12:10] LABS: BASO % 0.7 % (0.0-2.0); EOS # 0.1 K/uL (0.0-0.7); HEMOGLOBIN 11.1 g/dL (12.0-16.0); LYMPH # 1.7 K/uL (1.0-4.3); LYMPH % 31.9 % (20.0-40.0); MEAN PLATELET VOLUME 8.5 fl (7.2-11.7); MONO # 0.5 K/uL (0.0-0.8); MONO % 9.5 % (0.0-10.0); NEUT % 56.9 % (50.0-75.0); RBC 3.36 Mil/uL (3.80-5.20); RED CELL DISTRIBUTION WIDTH 14.7 % (11.5-14.5); WHITE BLOOD COUNT 5.2 K/uL (4.8-10.8)
[2016-12-23 12:16] LABS: ALBUMIN 4.7 g/dL (3.5-5.0); ALT/SGPT 48 U/L (9-52); AST/SGOT 46 U/L (14-36); BLOOD UREA NITROGEN 17 mg/dl (7-17); CALCIUM 9.3 mg/dL (8.4-10.2); GFR AFRICAN-AMERICAN > 60; GFR NON-AFRICAN AMERICAN > 60
--- NOTE | 2016-12-23 15:30 | CP.PCM.PN ---
Subjective - Date & Time of Evaluation Date of Evaluation: 12/23/16 Time of Evaluation: 13:00 - Subjective Subjective: No fever denies CP no SOB no abdominal pain no further rectal bleeding no N/V ambulatory oriented to person and place and follows simple commands Objective - Vital Signs/Intake and Output Vital Signs (last 24 hours): Temp Pulse Resp BP Pulse Ox 98.4 F 73 20 147/92 H 100 12/23/16 08:02 12/23/16 08:02 12/23/16 08:02 12/23/16 08:02 12/23/16 08:02 - Medications Medications: Current Medications Divalproex Sodium (Depakote Sprinkles) 250 mg PO BID [facility] Last Admin: 12/23/16 09:51 Dose: 250 mg Famotidine (Pepcid) 20 mg PO DAILY [facility] Last Admin: 12/23/16 09:51 Dose: 20 mg Quetiapine Fumarate (Seroquel) 50 mg PO TID [facility] Last Admin: 12/23/16 13:57 Dose: 50 mg - Labs Labs: 12/23/16 11:50 12/23/16 11:50 PT 13.8 Seconds (9.8-13.1) H 12/07/16 14:22 INR 1.2 (0.9-1.2) 12/07/16 14:22 APTT 29.8 Seconds (25.6-37.1) 12/06/16 18:58 - Constitutional Appears: No Acute Distress - Head Exam Head Exam: ATRAUMATIC, NORMAL INSPECTION, NORMOCEPHALIC - Eye Exam Eye Exam: EOMI, Normal appearance, PERRL Pupil Exam: NORMAL ACCOMODATION - ENT Exam ENT Exam: Mucous Membranes Moist, Normal External Ear Exam Additional comments: decreased hearing acuity - Neck Exam Neck Exam: Full ROM. absent: Meningismus - Respiratory Exam Respiratory Exam: NORMAL BREATHING PATTERN. absent: Rales, Wheezes, Respiratory Distress - Cardiovascular Exam Cardiovascular Exam: REGULAR RHYTHM, +S1, +S2 - GI/Abdominal Exam GI & Abdominal Exam: Soft, Normal Bowel Sounds. absent: Tenderness Additional comments: large ventral hernia, nontender, no signs of incarceration. - Extremities Exam Extremities Exam: Full ROM, Normal Capillary Refill. absent: Calf Tenderness, Pedal Edema - Back Exam Back Exam: Full ROM. absent: CVA tenderness (L), CVA tenderness (R) - Neurological Exam Neurological Exam: Alert, Awake, CN II-XII Intact, Normal Gait Neuro motor strength exam: Left Upper Extremity: 5, Right Upper Extremity: 5, Left Lower Extremity: 5, Right Lower Extremity: 5 follows simple commands oriented to person and place - Psychiatric Exam Psychiatric exam: Normal Affect, Normal Mood answers simple questions appropriately - Skin no active skin lesions, war, dry Assessment and Plan - Assessment and Plan (Free Text) Assessment: 56 y/o female with PMHx significant for cognitive decline due to multiple reasons including prior CVA - 5 years ago, recent admission for psychosis and persecutory delusions ( her family wants to hurt her),brought in by family for intentional tylenol overdose. Per family, pt was sitting in front of the family and took twenty-three 500 mg tabs of tylenol . She was immediately brought in, activated charcoal was given, and acetadote was started as per poison control. At present patient is medically stable. Acetadote infusion completed , LFT-s and coagulation profile normal. Psychiatry consulted and recommended involuntary admission since patient cannot consent for voluntary admission. As per [facility] Crisis eval patient does not need psych admission but supervision. Patient is medically and neurologically cleared for discharge. SW/Case Mgt consulted for Safe discharge planning.At present no family members has come to hospital despite several attempts to contact them. *Unable to discharge patient at present due to unsafe discharge Social hold until safe discharge planning . Had episode of rectal bleed yesterday- GI consulted 1.Intentional Acetaminophen overdose Received Acetadote IV Poison control consulted Tylenol levels < 10 at present, LFT-s and coag -wnl. Acetadote discontinued patient is medically stable 2. Cognitive / psychiatric disorder /Suicidal maintain 1:1 for safety psychiatry consult appreciated Patient can not give informed consent for psychiatric admission. Called crisis evak for involuntary psych admission to [facility]. As per crisis eval patient does not need psych admission but will need supervision - recommended long-term placement on depakote and Seroquel Awaiting family to come for a meeting to plan for a safe discharge- no family has come the past few days and several attempts were made to call them without success 3. History CVA in the past with cognitive problems vascular dementia with hearing, speech and cognitive problems since the stroke 5 years ago No new neuro deficits Neurology consulted and case discussed. Patient is neurologically stable No imaging is necessary 4. Ventral hernia reducible Surgery consulted- dr Mckeon- rec outpt ff up for elective repair Wound care for wound over hernia Abd binder 5. Anemia most likely anemia of chronic disease continue monitoring 6. Rectal Bleed likely sec to Hemorrhoids stable H/H - GI consulted- discussed with dr Arteaga - bleed likely hemorrhoids - rec Surgery consult for the Ventral hernia and abd binder 7. DVT prophylaxis SCD
[2016-12-23] MEDS ORDERED: Chlorhexidine Gluconate 1 APPL/PKT TP ONE (15:33)
--- NOTE | 2016-12-23 16:10 | CP.PCM.CON ---
<Africa Martinez - Last Filed: 12/23/16 16:21> History of Present Illness - History of Present Illness History of Present Illness: General Surgery consult note for Dr. Mckeon Consulted for: ventral hernia, rectal bleeding Patient is mostly non-verbal during interview and no family is present so history and ROS is greatly limited Patient is a 56 y/o female with PMH of cognitive impairment, CVA, DM, deafness, and extensive psychiatric history and PSH of and possible history of ventral hernia repair. Patient was admitted a couple weeks ago for tylenol overdose and is staying as inpatient currently due to social issues. Per primary and nursing, patient had streaks of bright red blood in the toilet bowl yesterday after her bowel movement. Patient has also been witnessed applying cream to her rectum. Per nursing patient does not have any nausea and is tolerating diet well without vomiting, does not have any diarrhea or constipation, fevers, chills, or any other symptoms. Patient has a large ventral hernia with overlying skin breakdown which appears to be very distressing to her but not actually symptomatic. Hemoglobin has been low but stable since admit with no tachycardia and no leukocytosis PMH: HTN, DM2, CVA, cognitive impairment, ventral hernia, chronic anemia, extensive psychiatric history PSH: , possible ventral hernia repair All: NKDA Social: lives with family but family has not responded to contact attempts from hospital staff Review of Systems - Review of Systems Systems not reviewed;Unavailable: Altered Mental Status, Language Barrier - Gastrointestinal Gastrointestinal: As Per HPI. absent: Diarrhea Additional comments: hematochezia, rectal pain, ventral hernia Past Patient History - Past Medical History & Family History Past Medical History?: Yes - Past Social History Alcohol: None Drugs: Denies - CARDIAC Hx Hypertension: Yes - PULMONARY Hx Respiratory Disorders: No - NEUROLOGICAL Hx Seizures: No Hx Transient Ischemic Attacks (TIA): Yes - HEENT Hx HEENT Problems: Yes - RENAL Hx Chronic Kidney Disease: No - ENDOCRINE/METABOLIC Hx Endocrine Disorders: Yes - HEMATOLOGICAL/ONCOLOGICAL Hx Human Immunodeficiency Virus (HIV): No - INTEGUMENTARY Hx Dermatological Problems: No - MUSCULOSKELETAL/RHEUMATOLOGICAL Hx Musculoskeletal Disorders: No - GASTROINTESTINAL Hx Gastrointestinal Disorders: Yes Hx Bowel Surgery: Yes Other/Comment: Ventral Hernia - GENITOURINARY/GYNECOLOGICAL Hx Sexually Transmitted Disorders: No - PSYCHIATRIC Hx Psychophysiologic Disorder: No - SURGICAL HISTORY Hx Surgeries: Yes Hx Herniorrhaphy: Yes - ANESTHESIA Hx Anesthesia: Yes Hx Anesthesia Reactions: No Hx Malignant Hyperthermia: No Meds Home Medications: Home Medication List Medication Instructions Recorded Confirmed Type QUEtiapine [SEROquel] 25 mg PO DAILY #30 tab 12/11/16 Rx Allergies/Adverse Reactions: Allergies Allergy/AdvReac Type Severity Reaction Status Date / Time No Known Allergies Allergy Verified 12/06/16 16:43 - Medications Medications: Current Medications Divalproex Sodium (Depakote Sprinkles) 250 mg PO BID [facility] Last Admin: 12/23/16 09:51 Dose: 250 mg Famotidine (Pepcid) 20 mg PO DAILY [facility] Last Admin: 12/23/16 09:51 Dose: 20 mg Quetiapine Fumarate (Seroquel) 50 mg PO TID [facility] Last Admin: 12/23/16 13:57 Dose: 50 mg Physical Exam - Constitutional Appears: Well, Non-toxic, No Acute Distress - Head Exam Head Exam: ATRAUMATIC, NORMOCEPHALIC - Eye Exam Eye Exam: Normal appearance. absent: Conjunctival injection, Scleral icterus - ENT Exam ENT Exam: Mucous Membranes Moist, Normal Oropharynx - Respiratory Exam Respiratory Exam: NORMAL BREATHING PATTERN. absent: Accessory Muscle Use, Respiratory Distress - Cardiovascular Exam Cardiovascular Exam: RRR - GI/Abdominal Exam GI & Abdominal Exam: Hernia (large ventral hernia in the lower abdomen with superficial overlying skin breakdown. Hernia contents are soft, non-tender), Soft. absent: Guarding, Rebound, Tenderness - Rectal Exam Rectal Exam: Hemorrhoids (posterior external hemorroid without erythema, discoloration, or active bleeding. Severely tender to palpation) Additional comments: normal sphincter tone, no gross blood - Extremities Exam Extremities exam: Negative for: calf tenderness, pedal edema, tenderness Additional comments: Old scars in the skin of the right upper and lower leg of unknown origin - Back Exam Back exam: NORMAL INSPECTION. absent: CVA tenderness (L), CVA tenderness (R), rash noted - Neurological Exam Neurological exam: Alert, Altered, Normal Gait Additional comments: unable to assess orientation - Psychiatric Exam Psychiatric exam: Anxious, Normal Affect - Skin Skin Exam: Dry, Normal Color, Warm Additional comments: superficial skin breakdown approximately 5cm in circumference over the ventral hernia with no active bleeding or discharge Results - Vital Signs Recent Vital Signs: Last Vital Signs Temp 98.4 F 12/23/16 08:02 Pulse 73 12/23/16 08:02 Resp 20 12/23/16 08:02 BP 147/92 H 12/23/16 08:02 Pulse Ox 100 12/23/16 08:02 - Labs Result Diagrams: 12/23/16 11:50 12/23/16 11:50 Labs: Laboratory Results - last 24 hr 12/23/16 12/23/16 11:50 11:50 WBC 5.2 RBC 3.36 L Hgb 11.1 L Hct 33.6 L MCV 100.0 H D MCH 33.0 H MCHC 33.0 RDW 14.7 H Plt Count 217 MPV 8.5 Neut % (Auto) 56.9 Lymph % (Auto) 31.9 [place] % (Auto) 9.5 Eos % (Auto) 1.0 Baso % (Auto) 0.7 Neut # 3.0 Lymph # 1.7 [place] # 0.5 Eos # 0.1 Baso # 0.0 Sodium 143 Potassium 4.3 Chloride 105 Carbon Dioxide 25 Anion Gap 17 BUN 17 Creatinine 0.9 Est GFR ( Amer) > 60 Est GFR (Non-Af Amer) > 60 Random Glucose 103 Calcium 9.3 Total Bilirubin 0.4 AST 46 H ALT 48 Alkaline Phosphatase 116 Total Protein 9.1 H Albumin 4.7 Globulin 4.5 H Albumin/Globulin Ratio 1.0 Assessment & Plan - Assessment and Plan (Free Text) Assessment: 56F with PMH of impaired cognition, CVA, DM2 and PSH of admitted for tylenol overdose who developed bright red blood per rectum yesterday Chronic anemic, hgb stable this admission No abdominal pain, ventral hernia asymptomatic, external hemorrhoid appreciated Plan: -No indication for surgical intervention this admission--no sign of incarceration or strangulation of the hernia. Hemorrhoid likely cause of hematochezia -Patient should follow up wiparminder Mckeon at the [facility] regarding hernia and hemorrhoid if patient desires -Hemorroidal cream, stool softeners -Follow GI recs -Continue to trend H/H -continue medical care per primary team Thank you for this consult. Please reach out to the surgery team again for further questions or concerns Discussed with Dr. Linda Martinez, PGY1 <Aditya Mckeon - Last Filed: 01/03/17 16:47> Meds - Medications Medications: Current Medications Acetaminophen (Tylenol 325mg Tab) 650 mg PO Q6 PRN PRN Reason: Pain, moderate (4-7) Last Admin: 01/03/17 15:04 Dose: 650 mg Divalproex Sodium (Depakote Sprinkles) 250 mg PO TID [facility] Last Admin: 01/03/17 12:10 Dose: Not Given Haloperidol (Haldol) 5 mg PO Q6 PRN PRN Reason: Agitation Haloperidol Lactate (Haldol) 5 mg IM Q6 PRN PRN Reason: agitation/refusing oral meds Hydrocortisone (Anusol-Hc) 1 applic [place] BID PRN PRN Reason: Pain, moderate (4-7) Last Admin: 12/30/16 08:31 Dose: 1 applic Loperamide HCl (Imodium) 2 mg PO QID PRN PRN Reason: Diarrhea Last Admin: 12/27/16 13:00 Dose: 2 mg Olanzapine (Zyprexa Zydis) 5 mg PO DAILY [facility] Last Admin: 01/03/17 09:26 Dose: Not Given Results - Vital Signs Recent Vital Signs: Last Vital Signs Temp 97.9 F 01/03/17 16:27 Pulse 67 01/03/17 16:27 Resp 20 01/03/17 16:27 BP 122/76 01/03/17 16:27 Pulse Ox 96 01/03/17 16:27 - Labs Result Diagrams: 12/27/16 09:30 12/27/16 09:30 Attending/Attestation - Attestation I have personally seen and examined this patient.: Yes I have fully participated in the care of the patient.: Yes I have reviewed all pertinent clinical information: Yes Notes (Text): 01/03/17 16:44 Pt was seen and examined at bedside on 12/24/16 Agree with above note and assessment Pt with reducible Ventral hernia and intermittent rectal bleed GI consult for colonoscopy Conservative mx for Hemorrhoid at present F.u as outpt for Ventral hernia repair Plan d/w pt and primary team in detail Risk and benefit explained in detail.
--- NOTE | 2016-12-23 18:08 | CP.PCM.CON ---
History of Present Illness - History of Present Illness History of Present Illness: 56 yo female admitted after observed acetaminophen overdose . Was given antidote immediately and never had any elevation of liver enzymes. Patient most concerned about ventral abdominal hernia. Consultation requested after observed blood in bowel movement yesterday. No bleeding since.. Review of Systems - Constitutional Constitutional: absent: Chills - EENT Eyes: absent: Blurred Vision Ears: absent: Decreased Hearing Nose/Mouth/Throat: absent: Epistaxis - Cardiovascular Cardiovascular: absent: Chest Pain - Respiratory Respiratory: absent: Dyspnea - Gastrointestinal Gastrointestinal: As Per HPI Past Patient History - Past Medical History & Family History Past Medical History?: Yes - Past Social History Alcohol: None Drugs: Denies - CARDIAC Hx Hypertension: Yes - PULMONARY Hx Respiratory Disorders: No - NEUROLOGICAL Hx Seizures: No Hx Transient Ischemic Attacks (TIA): Yes - HEENT Hx HEENT Problems: Yes - RENAL Hx Chronic Kidney Disease: No - ENDOCRINE/METABOLIC Hx Endocrine Disorders: Yes - HEMATOLOGICAL/ONCOLOGICAL Hx Human Immunodeficiency Virus (HIV): No - INTEGUMENTARY Hx Dermatological Problems: No - MUSCULOSKELETAL/RHEUMATOLOGICAL Hx Musculoskeletal Disorders: No - GASTROINTESTINAL Hx Gastrointestinal Disorders: Yes Hx Bowel Surgery: Yes Other/Comment: Ventral Hernia - GENITOURINARY/GYNECOLOGICAL Hx Sexually Transmitted Disorders: No - PSYCHIATRIC Hx Psychophysiologic Disorder: No - SURGICAL HISTORY Hx Surgeries: Yes Hx Herniorrhaphy: Yes - ANESTHESIA Hx Anesthesia: Yes Hx Anesthesia Reactions: No Hx Malignant Hyperthermia: No Meds Home Medications: Home Medication List Medication Instructions Recorded Confirmed Type QUEtiapine [SEROquel] 25 mg PO DAILY #30 tab 12/11/16 Rx Allergies/Adverse Reactions: Allergies Allergy/AdvReac Type Severity Reaction Status Date / Time No Known Allergies Allergy Verified 12/06/16 16:43 - Medications Medications: Current Medications Divalproex Sodium (Depakote Sprinkles) 250 mg PO BID [facility] Last Admin: 12/23/16 17:58 Dose: 250 mg Famotidine (Pepcid) 20 mg PO DAILY [facility] Last Admin: 12/23/16 09:51 Dose: 20 mg Quetiapine Fumarate (Seroquel) 50 mg PO TID [facility] Last Admin: 12/23/16 13:57 Dose: 50 mg Physical Exam - Head Exam Head Exam: ATRAUMATIC - Eye Exam Eye Exam: PERRL - ENT Exam ENT Exam: Mucous Membranes Moist - Neck Exam Neck exam: Positive for: Normal Inspection - Respiratory Exam Respiratory Exam: Clear to Auscultation Bilateral - Cardiovascular Exam Cardiovascular Exam: REGULAR RHYTHM, +S1, +S2 - GI/Abdominal Exam GI & Abdominal Exam: Normal Bowel Sounds, Soft Additional comments: LLQ abdominal wall hernia with absent muscle tone. Reducible and no bowel strangulation. Results - Vital Signs Recent Vital Signs: Last Vital Signs Temp 97.8 F 12/23/16 16:14 Pulse 66 12/23/16 16:14 Resp 20 12/23/16 16:14 BP 120/70 12/23/16 16:14 Pulse Ox 100 12/23/16 16:14 - Labs Result Diagrams: 12/23/16 11:50 12/23/16 11:50 Labs: Laboratory Results - last 24 hr 12/23/16 12/23/16 11:50 11:50 WBC 5.2 RBC 3.36 L Hgb 11.1 L Hct 33.6 L MCV 100.0 H D MCH 33.0 H MCHC 33.0 RDW 14.7 H Plt Count 217 MPV 8.5 Neut % (Auto) 56.9 Lymph % (Auto) 31.9 [place] % (Auto) 9.5 Eos % (Auto) 1.0 Baso % (Auto) 0.7 Neut # 3.0 Lymph # 1.7 [place] # 0.5 Eos # 0.1 Baso # 0.0 Sodium 143 Potassium 4.3 Chloride 105 Carbon Dioxide 25 Anion Gap 17 BUN 17 Creatinine 0.9 Est GFR ( Amer) > 60 Est GFR (Non-Af Amer) > 60 Random Glucose 103 Calcium 9.3 Total Bilirubin 0.4 AST 46 H ALT 48 Alkaline Phosphatase 116 Total Protein 9.1 H Albumin 4.7 Globulin 4.5 H Albumin/Globulin Ratio 1.0 Assessment & Plan (1) GI bleed Assessment and Plan: Likely GI bleed from hemorrhoid. No ongoing bleeding and Hgb is stable. Will follow clinically. Abdominal binder for abdominal discomfort and ventral hernia. Appreciate surgical input. Status: Acute
[2016-12-24] MEDS: Divalproex 125 mg Sprinkle Capsule PO SCH ×2 (08:24→16:20)
--- NOTE | 2016-12-24 10:18 | CP.PCM.PN ---
Subjective - Date & Time of Evaluation Date of Evaluation: 12/24/16 Time of Evaluation: 10:20 - Subjective Subjective: Hemodynamically stable, afebrile. Pacing up and down in the room. No acute issues overnight. No more episodes of rectal bleeding H& H stable Still agitated , chatty as soon as sees physician, asking to go home Over concerned with her hernia Objective - Vital Signs/Intake and Output Vital Signs (last 24 hours): Temp Pulse Resp BP Pulse Ox 98.5 F 69 19 125/69 100 12/24/16 07:58 12/24/16 07:58 12/24/16 07:58 12/24/16 07:58 12/24/16 07:58 - Medications Medications: Current Medications Divalproex Sodium (Depakote Sprinkles) 250 mg PO BID [facility] Last Admin: 12/24/16 08:24 Dose: 250 mg Quetiapine Fumarate (Seroquel) 50 mg PO TID [facility] Last Admin: 12/24/16 08:25 Dose: 50 mg - Labs Labs: 12/23/16 11:50 12/23/16 11:50 PT 13.8 Seconds (9.8-13.1) H 12/07/16 14:22 INR 1.2 (0.9-1.2) 12/07/16 14:22 APTT 29.8 Seconds (25.6-37.1) 12/06/16 18:58 - Constitutional Appears: Non-toxic, No Acute Distress - Head Exam Head Exam: ATRAUMATIC, NORMAL INSPECTION, NORMOCEPHALIC - Eye Exam Eye Exam: EOMI, Normal appearance, PERRL Pupil Exam: NORMAL ACCOMODATION - ENT Exam ENT Exam: Mucous Membranes Moist, Normal Exam - Neck Exam Neck Exam: Full ROM, Normal Inspection - Respiratory Exam Respiratory Exam: Clear to Ausculation Bilateral. absent: Rales, Rhonchi, Wheezes, Respiratory Distress - Cardiovascular Exam Cardiovascular Exam: REGULAR RHYTHM, +S1, +S2. absent: JVD - GI/Abdominal Exam GI & Abdominal Exam: Soft, Hernia (ventral hernia with overlying skin breakdown) , Normal Bowel Sounds. absent: Distended, Rebound - Rectal Exam Rectal Exam: Deferred - Extremities Exam Extremities Exam: Full ROM, Normal Capillary Refill, Normal Inspection. absent : Pedal Edema - Neurological Exam Neurological Exam: Alert, Awake. absent: Oriented x3 Additional comments: right facial droop - Psychiatric Exam Psychiatric exam: Agitated, Anxious - Skin Skin Exam: Dry, Normal Color, Warm Assessment and Plan - Assessment and Plan (Free Text) Assessment: 56 y/o female with PMHx significant for cognitive decline due to multiple reasons including prior CVA - 5 years ago, recent admission for psychosis and persecutory delusions ( her family wants to hurt her),brought in by family for intentional tylenol overdose. She was immediately brought in, activated charcoal was given, and acetadote was started as per poison control. At present patient is medically stable. Acetadote infusion completed , LFT-s and coagulation profile normal. Psychiatry consulted and recommended involuntary admission since patient cannot consent for voluntary admission. As per [facility] Crisis eval patient does not need psych admission but supervision. Patient is medically and neurologically cleared for discharge. SW/Case Mgt consulted for Safe discharge planning.At present no family members has come to hospital despite several attempts to contact them. *Unable to discharge patient at present due to unsafe discharge Social hold until safe discharge planning . Had episode of rectal bleed yesterday- GI consulted 1.Intentional Acetaminophen overdose Received Acetadote IV Poison control consulted Tylenol levels < 10 at present, LFT-s and coag -wnl. Acetadote discontinued patient is medically stable 2. Cognitive / psychiatric disorder /Suicidal maintain 1:1 for safety psychiatry consult appreciated Patient can not give informed consent for psychiatric admission. Called crisis eval for involuntary psych admission to [facility]. As per crisis eval patient does not need psych admission but will need supervision - recommended [facility] placement on depakote and Seroquel Awaiting family to come for a meeting to plan for a safe discharge- no family has come the past few days and several attempts were made to call them without success 3. History CVA in the past with cognitive problems vascular dementia with hearing, speech and cognitive problems since the stroke 5 years ago No new neuro deficits Neurology consulted and case discussed. Patient is neurologically stable No imaging is necessary 4. Ventral hernia reducible Surgery consulted- Dr Mckeon- rec outpt ff up for elective repair Wound care for wound over hernia Abd binder 5. Anemia most likely anemia of chronic disease continue monitoring 6. Rectal Bleed likely sec to Hemorrhoids stable H/H GI consulted- bleed likely secondary to hemorrhoids 7. DVT prophylaxis SCD
[2016-12-24 16:47] VITALS: BMI 27.3
--- NOTE | 2016-12-25 07:49 | CP.PCM.PN ---
Subjective - Date & Time of Evaluation Date of Evaluation: 12/25/16 Time of Evaluation: 09:30 - Subjective Subjective: Hemodynamically stable, afebrile With episodes of agitation on and off , refusing meds at times. No acute issues overnight Continues to complain of her ventral hernia and asking for soo care and surgery Objective - Vital Signs/Intake and Output Vital Signs (last 24 hours): Temp Pulse Resp BP Pulse Ox 97.5 F L 68 18 117/69 100 12/25/16 07:31 12/25/16 07:31 12/25/16 07:31 12/25/16 07:31 12/25/16 07:31 - Medications Medications: Current Medications Acetaminophen (Tylenol 325mg Tab) 650 mg PO Q6 PRN PRN Reason: Pain, moderate (4-7) Last Admin: 12/24/16 18:26 Dose: 650 mg Divalproex Sodium (Depakote Sprinkles) 250 mg PO BID [facility] Last Admin: 12/24/16 16:20 Dose: 250 mg Quetiapine Fumarate (Seroquel) 50 mg PO TID [facility] Last Admin: 12/24/16 16:19 Dose: 50 mg - Labs Labs: 12/23/16 11:50 12/23/16 11:50 PT 13.8 Seconds (9.8-13.1) H 12/07/16 14:22 INR 1.2 (0.9-1.2) 12/07/16 14:22 APTT 29.8 Seconds (25.6-37.1) 12/06/16 18:58 - Constitutional Appears: Non-toxic, No Acute Distress - Head Exam Head Exam: ATRAUMATIC, NORMAL INSPECTION, NORMOCEPHALIC - Eye Exam Eye Exam: EOMI, Normal appearance, PERRL Pupil Exam: NORMAL ACCOMODATION - ENT Exam ENT Exam: Mucous Membranes Moist, Normal Exam - Neck Exam Neck Exam: Full ROM, Normal Inspection - Respiratory Exam Respiratory Exam: Clear to Ausculation Bilateral, NORMAL BREATHING PATTERN. absent: Rales, Rhonchi, Wheezes - Cardiovascular Exam Cardiovascular Exam: REGULAR RHYTHM, RRR, +S1, +S2. absent: JVD - GI/Abdominal Exam GI & Abdominal Exam: Soft, Hernia (ventral ), Normal Bowel Sounds. absent: Distended, Guarding, Tenderness, Rebound - Extremities Exam Extremities Exam: Normal Capillary Refill, Normal Inspection. absent: Calf Tenderness, Pedal Edema - Back Exam Back Exam: NORMAL INSPECTION - Neurological Exam Neurological Exam: Alert, Awake, Normal Gait. absent: Oriented x3 Additional comments: right facial droop cognitive impairment - Psychiatric Exam Psychiatric exam: Anxious - Skin Skin Exam: Dry, Warm Additional comments: ventral hernia overlying skin wound appears dry , not infected Assessment and Plan - Assessment and Plan (Free Text) Assessment: 56 y/o female with PMHx significant for cognitive decline due to multiple reasons including prior CVA - 5 years ago, recent admission for psychosis and persecutory delusions ( her family wants to hurt her),brought in by family for intentional tylenol overdose. She was immediately brought in, activated charcoal was given, and acetadote was started as per poison control. At present patient is medically stable. Acetadote infusion completed , LFT-s and coagulation profile normal. Psychiatry consulted and recommended involuntary admission since patient cannot consent for voluntary admission. As per [facility] Crisis eval patient does not need psych admission but supervision. Patient is medically and neurologically cleared for discharge. SW/Case Mgt consulted for Safe discharge planning.At present no family members has come to hospital despite several attempts to contact them. *Unable to discharge patient at present due to unsafe discharge Social hold until safe discharge planning . 1.Intentional Acetaminophen overdose Received Acetadote IV Poison control consulted Tylenol levels < 10 at present, LFT-s and coag -wnl. Acetadote discontinued patient is medically stable 2. Cognitive / psychiatric disorder /Suicidal maintain 1:1 for safety psychiatry consult appreciated Patient can not give informed consent for psychiatric admission. Called crisis eval for involuntary psych admission to [facility]. As per crisis eval patient does not need psych admission but will need supervision - recommended custodial placement on depakote and Seroquel Awaiting family to come for a meeting to plan for a safe discharge- no family has come the past few days and several attempts were made to call them without success 3. History CVA in the past with cognitive problems vascular dementia with hearing, speech and cognitive problems since the stroke 5 years ago No new neuro deficits Neurology consulted and case discussed. Patient is neurologically stable No imaging is necessary 4. Ventral hernia reducible Surgery consulted- Dr Mckeon- rec outpt ff up for elective repair Wound care for wound over hernia Abd binder pain management PRN 5. Anemia most likely anemia of chronic disease continue monitoring 6. Rectal Bleed likely sec to Hemorrhoids stable H/H GI consulted- bleed likely secondary to hemorrhoids 7. DVT prophylaxis SCD
[2016-12-25] MEDS: Divalproex 125 mg Sprinkle Capsule PO SCH ×2 (09:05→17:00)
[2016-12-26] MEDS ORDERED: Divalproex 250 mg DR(BID formulation) PO ONE (09:00)
[2016-12-26] MEDS ORDERED: Anusol Suppository ONE (09:00)
[2016-12-26] MEDS: Divalproex 125 mg Sprinkle Capsule PO SCH (09:25)
[2016-12-26] MEDS: Hydrocortisone 2.5% (Rectal) CREAM PR PRN (23:56)
[2016-12-27] MEDS: Hydrocortisone 2.5% (Rectal) CREAM PR PRN ×2 (08:56→16:20)
[2016-12-27] MEDS: Divalproex 125 mg Sprinkle Capsule PO SCH ×2 (08:57→16:42)
[2016-12-27 10:30] LABS: HEMOGLOBIN 11.2 g/dL (12.0-16.0); MEAN CELL VOLUME 99.7 fl (81.0-99.0); MEAN CORPUSCULAR HEMOGLOBIN 33.1 pg (27.0-31.0); MEAN CORPUSCULAR HGB CONC 33.2 g/dL (33.0-37.0); RBC 3.4 Mil/uL (3.80-5.20); RED CELL DISTRIBUTION WIDTH 14.8 % (11.5-14.5); WHITE BLOOD COUNT 6.3 K/uL (4.8-10.8)
[2016-12-27 10:45] LABS: BLOOD UREA NITROGEN 15 mg/dl (7-17); CALCIUM 9.5 mg/dL (8.4-10.2); GFR AFRICAN-AMERICAN > 60; GFR NON-AFRICAN AMERICAN > 60
--- NOTE | 2016-12-27 11:55 | CP.PCM.PN ---
Subjective - Date & Time of Evaluation Date of Evaluation: 12/27/16 Time of Evaluation: 11:30 - Subjective Subjective: Progress note 12/26/16- please see paper chrt as MEDITECH was down today pt is seen walking around the unit alert, oriented to person and place had diarrhea yesterday, better today no abd pain no fever no CP no SOB Objective - Vital Signs/Intake and Output Vital Signs (last 24 hours): Temp Pulse Resp BP Pulse Ox 98.5 F 72 20 129/66 100 12/27/16 08:22 12/27/16 08:22 12/27/16 08:22 12/27/16 08:22 12/27/16 08:22 Intake and Output: 12/27/16 12/27/16 06:59 18:59 Intake Total 300 Balance 300 - Medications Medications: Current Medications Acetaminophen (Tylenol 325mg Tab) 650 mg PO Q6 PRN PRN Reason: Pain, moderate (4-7) Last Admin: 12/24/16 18:26 Dose: 650 mg Divalproex Sodium (Depakote Sprinkles) 250 mg PO BID [facility] Last Admin: 12/27/16 08:57 Dose: 250 mg Hydrocortisone (Anusol-Hc) 1 applic [place] BID PRN PRN Reason: Pain, moderate (4-7) Last Admin: 12/27/16 08:56 Dose: 1 applic Loperamide HCl (Imodium) 2 mg PO QID PRN PRN Reason: Diarrhea Last Admin: 12/26/16 22:05 Dose: 2 mg Quetiapine Fumarate (Seroquel) 50 mg PO TID [facility] Last Admin: 12/27/16 08:57 Dose: 50 mg - Labs Labs: 12/27/16 09:30 12/27/16 09:30 PT 13.8 Seconds (9.8-13.1) H 12/07/16 14:22 INR 1.2 (0.9-1.2) 12/07/16 14:22 APTT 29.8 Seconds (25.6-37.1) 12/06/16 18:58 - Constitutional Appears: No Acute Distress - Head Exam Head Exam: ATRAUMATIC, NORMAL INSPECTION, NORMOCEPHALIC - Eye Exam Eye Exam: EOMI, Normal appearance, PERRL Pupil Exam: NORMAL ACCOMODATION - ENT Exam ENT Exam: Mucous Membranes Moist, Normal External Ear Exam Additional comments: decreased hearing acuity - Neck Exam Neck Exam: Full ROM. absent: Meningismus - Respiratory Exam Respiratory Exam: NORMAL BREATHING PATTERN. absent: Rales, Wheezes, Respiratory Distress - Cardiovascular Exam Cardiovascular Exam: REGULAR RHYTHM, +S1, +S2 - GI/Abdominal Exam GI & Abdominal Exam: Soft, Normal Bowel Sounds. absent: Tenderness Additional comments: large ventral hernia, nontender, no signs of incarceration. - Extremities Exam Extremities Exam: Full ROM, Normal Capillary Refill. absent: Calf Tenderness, Pedal Edema - Back Exam Back Exam: Full ROM. absent: CVA tenderness (L), CVA tenderness (R) - Neurological Exam Neurological Exam: Alert, Awake, CN II-XII Intact, Normal Gait Neuro motor strength exam: Left Upper Extremity: 5, Right Upper Extremity: 5, Left Lower Extremity: 5, Right Lower Extremity: 5 follows simple commands oriented to person and place - Psychiatric Exam Psychiatric exam: Normal Affect, Normal Mood answers simple questions appropriately - Skin no active skin lesions, war, dry Assessment and Plan - Assessment and Plan (Free Text) Assessment: 56 y/o female with PMHx significant for cognitive decline due to multiple reasons including prior CVA - 5 years ago, recent admission for psychosis and persecutory delusions ( her family wants to hurt her),brought in by family for intentional tylenol overdose. She was immediately brought in, activated charcoal was given, and acetadote was started as per poison control. At present patient is medically stable. Acetadote given , LFT-s and coagulation profile normal. Psychiatry consulted and recommended involuntary admission since patient cannot consent for voluntary admission. As per [facility] Crisis eval patient does not need psych admission but supervision. Patient is medically and neurologically cleared for discharge. SW/Case Mgt consulted for Safe discharge planning.At present no family members has come to hospital despite several attempts to contact them. *Unable to discharge patient at present due to unsafe discharge Social hold until safe discharge planning . 1.Intentional Acetaminophen overdose Received Acetadote IV Poison control consulted Tylenol levels < 10 at present, LFT-s and coag -wnl. Acetadote discontinued patient is medically stable 2. Cognitive / psychiatric disorder /Suicidal maintain 1:1 for safety psychiatry consult appreciated Patient can not give informed consent for psychiatric admission. Called crisis evmo for involuntary psych admission to [facility]. As per crisis eval patient does not need psych admission but will need supervision - recommended [facility] placement on depakote and Seroquel Awaiting family to come for a meeting to plan for a safe discharge- no family has come the past few days and several attempts were made to call them without success 3. History CVA in the past with cognitive problems vascular dementia with hearing, speech and cognitive problems since the stroke 5 years ago No new neuro deficits Neurology consulted and case discussed. Patient is neurologically stable No imaging is necessary 4. Ventral hernia reducible Surgery consulted- Dr Mckeon- rec outpt ff up for elective repair Wound care for wound over hernia Abd binder ordered however pt refused to wear it pain management PRN 5. Anemia most likely anemia of chronic disease continue monitoring 6. Rectal Bleed likely sec to Hemorrhoids stable H/H GI consulted- bleed likely secondary to hemorrhoids 7. Diarrhea C diff negative Stool c/s, Ova/Parasite Imodium prn DVT prophylaxis SCD
[2016-12-28] MEDS: Divalproex 125 mg Sprinkle Capsule PO SCH ×5 (09:23→20:03)
[2016-12-28] MEDS: Hydrocortisone 2.5% (Rectal) CREAM PR PRN ×2 (09:23→20:03)
--- NOTE | 2016-12-28 10:34 | CP.PCM.PN ---
Subjective - Date & Time of Evaluation Date of Evaluation: 12/28/16 Time of Evaluation: 10:30 - Subjective Subjective: Patient seen and evaluated .Hemodynamically stable, afebrile. No acute issues overnight. No diarrhea With cognitive impairment , expressive aphasia/ dysarthria, right facial droop , hard on hearing Getting agitated while talking to physician requesting to be discharged from hospital or be transferred to another hospital for hernia repair. Refusing some of her medications.Insisting that her cousin , Jeanna ,from [facility] will be coming soon and wants to leave the hospital. Objective - Vital Signs/Intake and Output Vital Signs (last 24 hours): Temp Pulse Resp BP Pulse Ox 98.7 F 67 18 104/62 96 12/28/16 08:21 12/28/16 08:21 12/28/16 08:21 12/28/16 08:21 12/28/16 08:21 - Medications Medications: Current Medications Acetaminophen (Tylenol 325mg Tab) 650 mg PO Q6 PRN PRN Reason: Pain, moderate (4-7) Last Admin: 12/24/16 18:26 Dose: 650 mg Divalproex Sodium (Depakote Sprinkles) 250 mg PO BID [facility] Last Admin: 12/28/16 09:23 Dose: 250 mg Hydrocortisone (Anusol-Hc) 1 applic [place] BID PRN PRN Reason: Pain, moderate (4-7) Last Admin: 12/28/16 09:23 Dose: 1 applic Loperamide HCl (Imodium) 2 mg PO QID PRN PRN Reason: Diarrhea Last Admin: 12/27/16 13:00 Dose: 2 mg Quetiapine Fumarate (Seroquel) 50 mg PO TID [facility] Last Admin: 12/28/16 09:23 Dose: 50 mg - Labs Labs: 12/27/16 09:30 12/27/16 09:30 PT 13.8 Seconds (9.8-13.1) H 12/07/16 14:22 INR 1.2 (0.9-1.2) 12/07/16 14:22 APTT 29.8 Seconds (25.6-37.1) 12/06/16 18:58 - Constitutional Appears: Non-toxic, No Acute Distress, Agitated - Head Exam Head Exam: ATRAUMATIC, NORMAL INSPECTION, NORMOCEPHALIC - Eye Exam Eye Exam: EOMI, Normal appearance, PERRL Pupil Exam: NORMAL ACCOMODATION - ENT Exam ENT Exam: Mucous Membranes Moist, Normal Exam - Neck Exam Neck Exam: Full ROM, Normal Inspection - Respiratory Exam Respiratory Exam: Clear to Ausculation Bilateral. absent: Accessory Muscle Use , Respiratory Distress - Cardiovascular Exam Cardiovascular Exam: REGULAR RHYTHM, RRR, +S1, +S2. absent: JVD - GI/Abdominal Exam GI & Abdominal Exam: Hernia (ventral hernia with overlying skin wound). absent : Distended, Guarding, Rebound - Rectal Exam Rectal Exam: Deferred - Extremities Exam Extremities Exam: Full ROM, Normal Inspection. absent: Pedal Edema - Back Exam Back Exam: NORMAL INSPECTION - Neurological Exam Neurological Exam: Alert, Awake. absent: Oriented x3 Additional comments: right facial droop dysarthria, expressive aphasia - Psychiatric Exam Psychiatric exam: Agitated, Anxious Additional comments: cognitive impairment - Skin Skin Exam: Dry, Normal Color, Warm Assessment and Plan - Assessment and Plan (Free Text) Assessment: 56 y/o female with PMHx significant for cognitive decline due to multiple reasons including prior CVA - 5 years ago, recent admission for psychosis and persecutory delusions ( her family wants to hurt her),brought in by family for intentional tylenol overdose. She was immediately brought in, activated charcoal was given, and acetadote was started as per poison control. At present patient is medically stable. Acetadote given , LFT-s and coagulation profile normal. Psychiatry consulted and recommended involuntary admission since patient cannot consent for voluntary admission. [place] [facility] [place] patient does not need psych admission but supervision. Patient is medically and neurologically cleared for discharge. SW/Case Mgt consulted for Safe discharge planning.At present no family members has come to hospital despite several attempts to contact them. *Unable to discharge patient at present due to unsafe discharge Social hold until safe discharge planning . 1.Intentional Acetaminophen overdose Received Acetadote IV Poison control consulted Tylenol levels < 10 at present, LFT-s and coag -wnl. Acetadote discontinued patient is medically stable 2. Cognitive / psychiatric disorder /Suicidal maintain 1:1 for safety psychiatry consult appreciated Patient can not give informed consent for psychiatric admission. Called crisis evsd for involuntary [place] [facility] As per crisis eval patient does not need psych admission but will need supervision - recommended [facility] placement on depakote and Seroquel Awaiting family to come for a meeting to plan for a safe discharge- no family has come the past few days and several attempts were made to call them without success 3. History CVA in the past with cognitive problems vascular dementia with hearing, speech and cognitive problems since the stroke 5 years ago No new neuro deficits Neurology consulted and case discussed. Patient is neurologically stable No imaging is necessary 4. Ventral hernia reducible Surgery consulted- Dr Mckeon- rec outpt ff up for elective repair Wound care for wound over hernia Abd binder ordered however pt refused to wear it pain management PRN 5. Anemia most likely anemia of chronic disease continue monitoring 6. Rectal Bleed likely sec to Hemorrhoids stable H/H GI consulted- bleed likely secondary to hemorrhoids 7. Diarrhea C diff negative Stool c/s, Ova/Parasite Imodium prn DVT prophylaxis SCD
[2016-12-29] MEDS: Divalproex 125 mg Sprinkle Capsule PO SCH ×3 (09:00→16:15)
--- NOTE | 2016-12-29 11:43 | CP.PCM.PN ---
Subjective - Date & Time of Evaluation Date of Evaluation: 12/29/16 Time of Evaluation: 10:00 - Subjective Subjective: Patient seen and examined .Hemodfynamically stable, afebrile. No acute issues overnight On 1:1 for safety. With cognitive impairment , delusions , agitated at times. Asking persistently for her ventral hernia repair, discharge home and not to be sent to the hospital for crazy people. With dyarthria, and expressive aphasia, episodes of agitation on and off, hard on hearing As peer staff refusing medications at times, refusing abdominal binder Family present , visiting : her 3 daughters and domestic partner of 23 years . Family very interested in assisting with her care. Discussed at length with 18 year old daughter and domestic partner need for getting legal POA since patient can not make any decisions for self. Family agree with plan as well as need for psych admission for management of her behavioral problems and delusions. Advised daughter to reach out to social sciences research scientist department for help with the process Will inform SW to reach out to daughter to assist with the process. Objective - Vital Signs/Intake and Output Vital Signs (last 24 hours): Temp Pulse Resp BP Pulse Ox 97.9 F 74 18 144/78 99 12/29/16 08:11 12/29/16 08:11 12/29/16 08:11 12/29/16 08:11 12/29/16 08:11 - Medications Medications: Current Medications Acetaminophen (Tylenol 325mg Tab) 650 mg PO Q6 PRN PRN Reason: Pain, moderate (4-7) Last Admin: 12/24/16 18:26 Dose: 650 mg Divalproex Sodium (Depakote Sprinkles) 250 mg PO BID [facility] Last Admin: 12/29/16 09:03 Dose: Not Given Hydrocortisone (Anusol-Hc) 1 applic [place] BID PRN PRN Reason: Pain, moderate (4-7) Last Admin: 12/28/16 20:03 Dose: 1 applic Loperamide HCl (Imodium) 2 mg PO QID PRN PRN Reason: Diarrhea Last Admin: 12/27/16 13:00 Dose: 2 mg Quetiapine Fumarate (Seroquel) 50 mg PO TID [facility] Last Admin: 12/29/16 09:00 Dose: 50 mg - Labs Labs: 12/27/16 09:30 12/27/16 09:30 PT 13.8 Seconds (9.8-13.1) H 12/07/16 14:22 INR 1.2 (0.9-1.2) 12/07/16 14:22 APTT 29.8 Seconds (25.6-37.1) 12/06/16 18:58 - Constitutional Appears: Non-toxic, No Acute Distress, Agitated, Other (cognitive impairment, hard on hearing, dysarthric , expressive aphasia) - Head Exam Head Exam: ATRAUMATIC, NORMOCEPHALIC Additional comments: right facial droop - Eye Exam Eye Exam: EOMI, Normal appearance, PERRL - ENT Exam ENT Exam: Mucous Membranes Moist, Normal Exam - Neck Exam Neck Exam: Full ROM, Normal Inspection - Respiratory Exam Respiratory Exam: Clear to Ausculation Bilateral, NORMAL BREATHING PATTERN. absent: Rhonchi, Wheezes - Cardiovascular Exam Cardiovascular Exam: REGULAR RHYTHM, RRR, +S1, +S2. absent: JVD - GI/Abdominal Exam GI & Abdominal Exam: Soft, Hernia (large soft ventral hernia with overlying skin wound), Normal Bowel Sounds. absent: Distended, Guarding, Tenderness - Rectal Exam Rectal Exam: Deferred - Extremities Exam Extremities Exam: Calf Tenderness, Normal Capillary Refill, Pedal Edema. absent : Normal Inspection - Back Exam Back Exam: NORMAL INSPECTION - Neurological Exam Neurological Exam: Alert, Awake Additional comments: right facial droop oriented to place and person, knows all her family members and their names, knows she is in hospital and taht has been here 1 month - Psychiatric Exam Psychiatric exam: Agitated - Skin Skin Exam: Normal Color, Warm Assessment and Plan - Assessment and Plan (Free Text) Assessment: 56 y/o female with PMHx significant for cognitive decline due to multiple reasons including prior CVA - 5 years ago, recent admission for psychosis and persecutory delusions ( her family wants to hurt her),brought in by family for intentional tylenol overdose. She was immediately brought in, activated charcoal was given, and acetadote was started as per poison control. At present patient is medically stable. Acetadote given , LFT-s and coagulation profile normal. Psychiatry consulted and recommended involuntary admission since patient cannot consent for voluntary admission. As per [facility] [place] patient does not need psych admission but supervision. Patient is medically and neurologically cleared for discharge. SW/Case Mgt consulted for Safe discharge planning.At present family can not provide 24 hour supervision for patient and 3 of the children are underage. Patient has cognitive impairment with behavioral problems and needs more psychiatric management . Family ( daughter and domestic partner) will pursue getting legal POA over patient in basis that patient is not competent and can not make decisions for self Social hold until safe discharge planning . 1.Intentional Acetaminophen overdose Received Acetadote IV Poison control consulted Tylenol levels < 10 at present, LFT-s and coag -wnl. Acetadote discontinued patient is medically stable 2. Cognitive / psychiatric disorder /Suicidal / behavioral problems maintain 1:1 for safety psychiatry on consult patient is not competent to make her own decisions unsafe discharge since family can not provide 24 hour supervision Continue seroquel , depakote.Patient keeps refsuing meds 3. History CVA in the past with cognitive problems vascular dementia with hearing, speech and cognitive problems since the stroke 5 years ago No new neuro deficits Neurology consulted and case discussed. Patient is neurologically stable No imaging is necessary 4. Ventral hernia reducible Surgery consulted- Dr Mckeon- rec outpt ff up for elective repair Wound care for wound over hernia Abd binder ordered however pt refused to wear it pain management PRN 5. Anemia most likely anemia of chronic disease continue monitoring 6. Rectal Bleed likely sec to Hemorrhoids stable H/H GI consulted- bleed likely secondary to hemorrhoids 7. Diarrhea C diff negative Stool c/s, Ova/Parasite Imodium prn DVT prophylaxis SCD
[2016-12-29] MEDS: Hydrocortisone 2.5% (Rectal) CREAM PR PRN ×2 (16:20→19:25)
--- NOTE | 2016-12-30 07:57 | CP.PCM.PN ---
Subjective - Date & Time of Evaluation Date of Evaluation: 12/30/16 Time of Evaluation: 10:00 - Subjective Subjective: Patient seen and examined .Hemodynamically stable, afebrile. No acute issues overnight On 1:1 for safety. With cognitive impairment , delusions , agitated at times. Asking persistently for her ventral hernia repair, to be discharged home or sent back to [facility] where she has family . Does not want to be sent to the hospital for crazy people. With dyarthria, and expressive aphasia, episodes of agitation on and off, hard on hearing As per staff refusing medications at times, refusing abdominal binder Objective - Vital Signs/Intake and Output Vital Signs (last 24 hours): Temp Pulse Resp BP Pulse Ox 97.7 F 71 18 136/83 99 12/30/16 07:22 12/30/16 07:22 12/30/16 07:22 12/30/16 07:22 12/30/16 07:22 - Medications Medications: Current Medications Acetaminophen (Tylenol 325mg Tab) 650 mg PO Q6 PRN PRN Reason: Pain, moderate (4-7) Last Admin: 12/24/16 18:26 Dose: 650 mg Divalproex Sodium (Depakote Sprinkles) 250 mg PO BID [facility] Last Admin: 12/29/16 16:15 Dose: 250 mg Hydrocortisone (Anusol-Hc) 1 applic [place] BID PRN PRN Reason: Pain, moderate (4-7) Last Admin: 12/29/16 19:25 Dose: 1 applic Loperamide HCl (Imodium) 2 mg PO QID PRN PRN Reason: Diarrhea Last Admin: 12/27/16 13:00 Dose: 2 mg Quetiapine Fumarate (Seroquel) 50 mg PO TID [facility] Last Admin: 12/29/16 19:24 Dose: 50 mg - Labs Labs: 12/27/16 09:30 12/27/16 09:30 PT 13.8 Seconds (9.8-13.1) H 12/07/16 14:22 INR 1.2 (0.9-1.2) 12/07/16 14:22 APTT 29.8 Seconds (25.6-37.1) 12/06/16 18:58 - Constitutional Appears: Agitated, Other (with cognitive impairment, dysarthria, expressive aphasia) - Head Exam Head Exam: ATRAUMATIC, NORMOCEPHALIC Additional comments: right facial droop - Eye Exam Eye Exam: EOMI, PERRL Pupil Exam: NORMAL ACCOMODATION - ENT Exam ENT Exam: Mucous Membranes Moist, Normal Exam - Neck Exam Neck Exam: Full ROM, Normal Inspection - Respiratory Exam Respiratory Exam: Clear to Ausculation Bilateral, NORMAL BREATHING PATTERN. absent: Accessory Muscle Use, Wheezes, Respiratory Distress - Cardiovascular Exam Cardiovascular Exam: REGULAR RHYTHM, RRR, +S1, +S2. absent: JVD - GI/Abdominal Exam GI & Abdominal Exam: Hernia (ventral hernia,soft.withoverlying skin wound). absent: Distended, Rigid, Tenderness, Rebound - Rectal Exam Rectal Exam: Deferred - Extremities Exam Extremities Exam: Normal Inspection. absent: Pedal Edema - Back Exam Back Exam: NORMAL INSPECTION - Neurological Exam Neurological Exam: Alert, Awake, Normal Gait Additional comments: oriented to person and place agiated with expressive aphasia and dysarthria hard on hearing - Psychiatric Exam Psychiatric exam: Agitated, Anxious - Skin Skin Exam: Normal Color, Warm Assessment and Plan - Assessment and Plan (Free Text) Assessment: 56 y/o female with PMHx significant for cognitive decline due to multiple reasons including prior CVA - 5 years ago, recent admission for psychosis and persecutory delusions ( her family wants to hurt her),brought in by family for intentional tylenol overdose. She was immediately brought in, activated charcoal was given, and acetadote was started as per poison control. At present patient is medically stable. Acetadote given , LFT-s and coagulation profile normal. Psychiatry consulted and recommended involuntary admission since patient cannot consent for voluntary admission. [place] per [facility] [place] patient does not need psych admission but supervision. Patient is medically and neurologically cleared for discharge. SW/Case Mgt consulted for Safe discharge planning.At present family can not provide 24 hour supervision for patient and 3 of the children are underage. Patient has cognitive impairment with behavioral problems, delusions and needs more psychiatric management . Family ( daughter and domestic partner) will pursue getting legal POA in basis that patient is not competent and can not make decisions for self Social hold until safe discharge planning . 1.Intentional Acetaminophen overdose Received Acetadote IV Poison control consulted Tylenol levels < 10 at present, LFT-s and coag -wnl. Acetadote discontinued patient is medically stable 2. Cognitive / psychiatric disorder /Suicidal / behavioral problems maintain 1:1 for safety psychiatry on consult patient is not competent to make her own decisions unsafe discharge since family can not provide 24 hour supervision Continue radha starr.Patient keeps refusing meds 3. History CVA in the past with cognitive problems vascular dementia with hearing, speech and cognitive problems since the stroke 5 years ago No new neuro deficits Neurology consulted and case discussed. Patient is neurologically stable No imaging is necessary 4. Ventral hernia reducible Surgery consulted- Dr Mckeon- rec outpt ff up for elective repair Wound care for wound over hernia Abd binder ordered however pt refused to wear it pain management PRN 5. Anemia most likely anemia of chronic disease continue monitoring 6. Rectal Bleed likely sec to Hemorrhoids stable H/H GI consulted- bleed likely secondary to hemorrhoids 7. Diarrhea C diff negative Stool c/s, Ova/Parasite Imodium prn DVT prophylaxis SCD
[2016-12-30] MEDS: Hydrocortisone 2.5% (Rectal) CREAM PR PRN (08:31)
[2016-12-30] MEDS: Divalproex 125 mg Sprinkle Capsule PO SCH ×2 (08:31→17:19)
[2016-12-31] MEDS: Divalproex 125 mg Sprinkle Capsule PO SCH ×2 (09:49→17:49)
--- NOTE | 2016-12-31 11:42 | CP.PCM.PN ---
Subjective - Date & Time of Evaluation Date of Evaluation: 12/31/16 Time of Evaluation: 11:40 - Subjective Subjective: pt seen and examined at bedside currently at baseline, cognitive impairment s/p CVA, mild agitation at times, with expressive aphasia as well as dysarthria in combination with hard of hearing she is preoccupied with getting her hernia repaired today on 1:1, refusing abdominal binder, PO meds at times. vss, nad. no acute events overnight. Objective - Vital Signs/Intake and Output Vital Signs (last 24 hours): Temp Pulse Resp BP Pulse Ox 98.2 F 56 L 20 129/76 100 12/31/16 08:11 12/31/16 08:11 12/31/16 08:11 12/31/16 08:11 12/31/16 08:11 - Medications Medications: Current Medications Acetaminophen (Tylenol 325mg Tab) 650 mg PO Q6 PRN PRN Reason: Pain, moderate (4-7) Last Admin: 12/30/16 08:32 Dose: 650 mg Divalproex Sodium (Depakote Sprinkles) 250 mg PO BID [facility] Last Admin: 12/30/16 17:19 Dose: 250 mg Hydrocortisone (Anusol-Hc) 1 applic [place] BID PRN PRN Reason: Pain, moderate (4-7) Last Admin: 12/30/16 08:31 Dose: 1 applic Loperamide HCl (Imodium) 2 mg PO QID PRN PRN Reason: Diarrhea Last Admin: 12/27/16 13:00 Dose: 2 mg Quetiapine Fumarate (Seroquel) 50 mg PO TID [facility] Last Admin: 12/30/16 17:24 Dose: 50 mg - Labs Labs: 12/27/16 09:30 12/27/16 09:30 PT 13.8 Seconds (9.8-13.1) H 12/07/16 14:22 INR 1.2 (0.9-1.2) 12/07/16 14:22 APTT 29.8 Seconds (25.6-37.1) 12/06/16 18:58 - Constitutional Appears: Non-toxic, No Acute Distress - Head Exam Head Exam: ATRAUMATIC, NORMOCEPHALIC - Eye Exam Eye Exam: EOMI, Normal appearance, PERRL - ENT Exam ENT Exam: Mucous Membranes Moist, Normal Exam - Neck Exam Neck Exam: Normal Inspection - Respiratory Exam Respiratory Exam: Clear to Ausculation Bilateral, NORMAL BREATHING PATTERN - Cardiovascular Exam Cardiovascular Exam: RRR, +S1, +S2 - GI/Abdominal Exam GI & Abdominal Exam: Soft, Hernia, Normal Bowel Sounds. absent: Mass, Organomegaly - Extremities Exam Extremities Exam: Full ROM, Normal Capillary Refill - Back Exam Back Exam: absent: CVA tenderness (L), CVA tenderness (R) - Neurological Exam Neurological Exam: Alert, Awake - Psychiatric Exam Psychiatric exam: Normal Affect, Normal Mood - Skin Skin Exam: Dry, Normal Color, Warm Assessment and Plan - Assessment and Plan (Free Text) Plan: 56 y/o female with PMHx significant for cognitive decline due to multiple reasons including prior CVA - 5 years ago, recent admission for psychosis and persecutory delusions ( her family wants to hurt her),brought in by family for intentional tylenol overdose. She was immediately brought in, activated charcoal was given, and acetadote was started as per poison control. At present patient is medically stable. Acetadote given , LFT-s and coagulation profile normal. Psychiatry consulted and recommended involuntary admission since patient cannot consent for voluntary admission. As per [facility] Crisis eval patient does not need psych admission but supervision. Patient is medically and neurologically cleared for discharge. SW/Case Mgt consulted for Safe discharge planning.At present family can not provide 24 hour supervision for patient and 3 of the children are underage. Patient has cognitive impairment with behavioral problems, delusions and needs more psychiatric management . Family ( daughter and domestic partner) will pursue getting legal POA on basis that patient is not competent and can not make decisions for self Social hold until safe discharge planning . 1.Intentional Acetaminophen overdose Received Acetadote IV Poison control consulted Tylenol levels < 10 at present, LFT-s and coag -wnl. Acetadote discontinued patient is medically stable 2. Cognitive / psychiatric disorder /Suicidal / behavioral problems maintain 1:1 for safety psychiatry on consult patient is not competent to make her own decisions unsafe discharge since family can not provide 24 hour supervision Continue seroquel depakote.Patient keeps refusing meds 3. History CVA in the past with cognitive problems vascular dementia with hearing, speech and cognitive problems since the stroke 5 years ago No new neuro deficits Neurology consulted and case discussed. Patient is neurologically stable No imaging is necessary 4. Ventral hernia reducible Surgery consulted- Dr Mckeon- rec outpt ff up for elective repair Wound care for wound over hernia Abd binder ordered however pt refused to wear it pain management PRN 5. Anemia most likely anemia of chronic disease continue monitoring 6. Rectal Bleed likely sec to Hemorrhoids stable H/H GI consulted- bleed likely secondary to hemorrhoids 7. Diarrhea C diff negative Stool c/s, Ova/Parasite Imodium prn DVT prophylaxis SCD
[2017-01-01] MEDS: Divalproex 125 mg Sprinkle Capsule PO SCH ×2 (09:13→17:27)
--- NOTE | 2017-01-01 13:13 | CP.PCM.PN ---
Subjective - Date & Time of Evaluation Date of Evaluation: 01/01/17 Time of Evaluation: 13:13 - Subjective Subjective: pt calm today, reading newspaper. +hard of hearing, dysarthric, aphasia vitals stable no acute distress. Objective - Vital Signs/Intake and Output Vital Signs (last 24 hours): Temp Pulse Resp BP Pulse Ox 98 F 63 18 123/78 100 01/01/17 08:44 01/01/17 08:44 01/01/17 08:44 01/01/17 08:44 01/01/17 08:44 - Medications Medications: Current Medications Acetaminophen (Tylenol 325mg Tab) 650 mg PO Q6 PRN PRN Reason: Pain, moderate (4-7) Last Admin: 12/31/16 21:41 Dose: 650 mg Divalproex Sodium (Depakote Sprinkles) 250 mg PO BID [facility] Last Admin: 01/01/17 09:13 Dose: 250 mg Hydrocortisone (Anusol-Hc) 1 applic [place] BID PRN PRN Reason: Pain, moderate (4-7) Last Admin: 12/30/16 08:31 Dose: 1 applic Loperamide HCl (Imodium) 2 mg PO QID PRN PRN Reason: Diarrhea Last Admin: 12/27/16 13:00 Dose: 2 mg - Labs Labs: 12/27/16 09:30 12/27/16 09:30 PT 13.8 Seconds (9.8-13.1) H 12/07/16 14:22 INR 1.2 (0.9-1.2) 12/07/16 14:22 APTT 29.8 Seconds (25.6-37.1) 12/06/16 18:58 - Constitutional Appears: Non-toxic, No Acute Distress - Head Exam Head Exam: ATRAUMATIC, NORMOCEPHALIC - Eye Exam Eye Exam: EOMI, Normal appearance, PERRL - Neck Exam Neck Exam: Full ROM, Normal Inspection - Respiratory Exam Respiratory Exam: Clear to Ausculation Bilateral, NORMAL BREATHING PATTERN - Cardiovascular Exam Cardiovascular Exam: RRR - GI/Abdominal Exam GI & Abdominal Exam: Soft, Normal Bowel Sounds. absent: Tenderness, Organomegaly - Extremities Exam Extremities Exam: Full ROM, Normal Capillary Refill - Back Exam Back Exam: absent: CVA tenderness (L), CVA tenderness (R) - Neurological Exam Neurological Exam: Alert, Awake - Psychiatric Exam Psychiatric exam: Normal Affect, Normal Mood - Skin Skin Exam: Dry, Warm Assessment and Plan - Assessment and Plan (Free Text) Plan: 56 y/o female with PMHx significant for cognitive decline due to multiple reasons including prior CVA - 5 years ago, recent admission for psychosis and persecutory delusions ( her family wants to hurt her),brought in by family for intentional tylenol overdose. She was immediately brought in, activated charcoal was given, and acetadote was started as per poison control. At present patient is medically stable. Acetadote given , LFT-s and coagulation profile normal. Psychiatry consulted and recommended involuntary admission since patient cannot consent for voluntary admission. As per [facility] Crisis eval patient does not need psych admission but supervision. Patient is medically and neurologically cleared for discharge. SW/Case Mgt consulted for Safe discharge planning.At present family can not provide 24 hour supervision for patient and 3 of the children are underage. Patient has cognitive impairment with behavioral problems, delusions and needs more psychiatric management . Family ( daughter and domestic partner) will pursue getting legal POA on basis that patient is not competent and can not make decisions for self Social hold until safe discharge planning . 1.Intentional Acetaminophen overdose Received Acetadote IV Poison control consulted Tylenol levels < 10 at present, LFT-s and coag -wnl. Acetadote discontinued patient is medically stable 2. Cognitive / psychiatric disorder /Suicidal / behavioral problems maintain 1:1 for safety psychiatry on consult patient is not competent to make her own decisions unsafe discharge since family can not provide 24 hour supervision Continue seroquel , depakote.Patient keeps refusing meds 3. History CVA in the past with cognitive problems vascular dementia with hearing, speech and cognitive problems since the stroke 5 years ago No new neuro deficits Neurology consulted and case discussed. Patient is neurologically stable No imaging is necessary 4. Ventral hernia reducible Surgery consulted- Dr Mckeon- rec outpt ff up for elective repair Wound care for wound over hernia Abd binder ordered however pt refused to wear it pain management PRN 5. Anemia most likely anemia of chronic disease continue monitoring 6. Rectal Bleed likely sec to Hemorrhoids stable H/H GI consulted- bleed likely secondary to hemorrhoids 7. Diarrhea C diff negative Stool c/s, Ova/Parasite Imodium prn DVT prophylaxis SCD
[2017-01-02] MEDS: Divalproex 125 mg Sprinkle Capsule PO SCH ×3 (10:05→18:52)
--- NOTE | 2017-01-02 11:12 | CP.PCM.PN ---
Subjective - Date & Time of Evaluation Date of Evaluation: 01/02/17 Time of Evaluation: 11:10 - Subjective Subjective: psychiatry follow up cc: no c/o hpi: staff reports pt is not taking meds. pt seems more agitated and confused in the morning. family cannot take pt home. mse: alert, oriented to self. anxious. pt without current agitation or aggression. remains confused. poor i/j. assessment: neurocognitive impairment plan: change seroquel to zydis prn haldol for agiation increase depakote- can open cap and mix with food Objective - Vital Signs/Intake and Output Vital Signs (last 24 hours): Temp Pulse Resp BP Pulse Ox 98.5 F 75 18 138/85 100 01/02/17 07:26 01/02/17 07:26 01/02/17 07:26 01/02/17 07:26 01/02/17 07:26 - Medications Medications: Current Medications Acetaminophen (Tylenol 325mg Tab) 650 mg PO Q6 PRN PRN Reason: Pain, moderate (4-7) Last Admin: 12/31/16 21:41 Dose: 650 mg Divalproex Sodium (Depakote Sprinkles) 250 mg PO TID [facility] Haloperidol (Haldol) 5 mg PO Q6 PRN PRN Reason: Agitation Haloperidol Lactate (Haldol) 5 mg IM Q6 PRN PRN Reason: agitation/refusing oral meds Hydrocortisone (Anusol-Hc) 1 applic [place] BID PRN PRN Reason: Pain, moderate (4-7) Last Admin: 12/30/16 08:31 Dose: 1 applic Loperamide HCl (Imodium) 2 mg PO QID PRN PRN Reason: Diarrhea Last Admin: 12/27/16 13:00 Dose: 2 mg Olanzapine (Zyprexa Zydis) 5 mg PO DAILY [facility] - Labs Labs: 12/27/16 09:30 12/27/16 09:30 PT 13.8 Seconds (9.8-13.1) H 12/07/16 14:22 INR 1.2 (0.9-1.2) 12/07/16 14:22 APTT 29.8 Seconds (25.6-37.1) 12/06/16 18:58
--- NOTE | 2017-01-02 12:40 | CP.PCM.PN ---
Subjective - Date & Time of Evaluation Date of Evaluation: 01/02/17 Time of Evaluation: 09:00 - Subjective Subjective: Patient seen in the floor. Very agitated today . Persistently asking to leave the hospital , with disorganized thought process. Hemodynamically stable, afebrile. Refusing to take her meds on 1 : 1 for safety Hard on hearing with dysarthria nad expressive aphasia Objective - Vital Signs/Intake and Output Vital Signs (last 24 hours): Temp Pulse Resp BP Pulse Ox 98.5 F 75 18 138/85 100 01/02/17 07:26 01/02/17 07:26 01/02/17 07:26 01/02/17 07:26 01/02/17 07:26 - Medications Medications: Current Medications Acetaminophen (Tylenol 325mg Tab) 650 mg PO Q6 PRN PRN Reason: Pain, moderate (4-7) Last Admin: 12/31/16 21:41 Dose: 650 mg Divalproex Sodium (Depakote Sprinkles) 250 mg PO TID [facility] Haloperidol (Haldol) 5 mg PO Q6 PRN PRN Reason: Agitation Haloperidol Lactate (Haldol) 5 mg IM Q6 PRN PRN Reason: agitation/refusing oral meds Hydrocortisone (Anusol-Hc) 1 applic [place] BID PRN PRN Reason: Pain, moderate (4-7) Last Admin: 12/30/16 08:31 Dose: 1 applic Loperamide HCl (Imodium) 2 mg PO QID PRN PRN Reason: Diarrhea Last Admin: 12/27/16 13:00 Dose: 2 mg Olanzapine (Zyprexa Zydis) 5 mg PO DAILY [facility] - Labs Labs: 12/27/16 09:30 12/27/16 09:30 PT 13.8 Seconds (9.8-13.1) H 12/07/16 14:22 INR 1.2 (0.9-1.2) 12/07/16 14:22 APTT 29.8 Seconds (25.6-37.1) 12/06/16 18:58 - Constitutional Appears: Non-toxic, No Acute Distress, Agitated - Head Exam Head Exam: NORMOCEPHALIC - Eye Exam Eye Exam: EOMI, PERRL - ENT Exam ENT Exam: Mucous Membranes Moist, Normal Exam - Neck Exam Neck Exam: Normal Inspection - Respiratory Exam Respiratory Exam: absent: Accessory Muscle Use, Respiratory Distress - Cardiovascular Exam Cardiovascular Exam: RRR. absent: JVD, Murmur - GI/Abdominal Exam GI & Abdominal Exam: Hernia (LLQ ventral hernia, soft ), Normal Bowel Sounds. absent: Tenderness, Rebound - Rectal Exam Rectal Exam: Deferred - Extremities Exam Extremities Exam: Normal Inspection. absent: Pedal Edema - Back Exam Back Exam: CVA tenderness (L) - Neurological Exam Neurological Exam: Alert, Awake. absent: Oriented x3 Additional comments: agitated , with disorganized thought process hard on hearing cognitive dysfunction right facial droop dysarthria and expressive aphasia - Psychiatric Exam Psychiatric exam: Agitated, Anxious - Skin Skin Exam: Normal Color, Warm Assessment and Plan - Assessment and Plan (Free Text) Assessment: 56 y/o female with PMHx significant for cognitive decline due to multiple reasons including prior CVA - 5 years ago, recent admission for psychosis and persecutory delusions ( her family wants to hurt her),brought in by family for intentional tylenol overdose. She was immediately brought in, activated charcoal was given, and acetadote was started as per poison control. At present patient is medically stable. Acetadote given , LFT-s and coagulation profile normal. Psychiatry consulted and recommended involuntary admission since patient cannot consent for voluntary admission. As per [facility] Crisis eval patient does not need psych admission but supervision. Patient is medically and neurologically cleared for discharge. SW/Case Mgt consulted for Safe discharge planning.At present family can not provide 24 hour supervision for patient and 3 of the children are underage. Patient has cognitive impairment with behavioral problems, delusions and needs more psychiatric management . Family ( daughter and domestic partner) will pursue getting legal POA on basis that patient is not competent and can not make decisions for self Social hold until safe discharge planning . Today patient very agitated , refusing to take meds . Psych re consulted for management 1.Intentional Acetaminophen overdose Received Acetadote IV Poison control consulted Tylenol levels < 10 at present, LFT-s and coag -wnl. Acetadote discontinued patient is medically stable 2. Cognitive / psychiatric disorder /Suicidal / behavioral problems maintain 1:1 for safety psychiatry on consult patient is not competent to make her own decisions unsafe discharge since family can not provide 24 hour supervision Patient very agitated today. As per staff has been refusing her meds. psych reconsulted and meds adjusted today Continue Haldol IM pRN , increase Depakote dose and changes seroquel to Zydis 3. History CVA in the past with cognitive problems vascular dementia with hearing, speech and cognitive problems since the stroke 5 years ago No new neuro deficits Neurology consulted and case discussed. Patient is neurologically stable No imaging is necessary 4. Ventral hernia reducible Surgery consulted- Dr Mckeon- rec outpt ff up for elective repair Wound care for wound over hernia Abd binder ordered however pt refused to wear it pain management PRN 5. Anemia most likely anemia of chronic disease continue monitoring 6. Rectal Bleed likely sec to Hemorrhoids stable H/H GI consulted- bleed likely secondary to hemorrhoids 7. Diarrhea C diff negative Stool c/s, Ova/Parasite Imodium prn 8.DVT prophylaxis SCD
[2017-01-02] MEDS: OLANZapine 5 mg Disintegrating Tab PO SCH (13:17)
[2017-01-03] MEDS: OLANZapine 5 mg Disintegrating Tab PO SCH ×2 (09:25→09:26)
[2017-01-03] MEDS: Divalproex 125 mg Sprinkle Capsule PO SCH ×4 (09:26→17:00)
--- NOTE | 2017-01-03 10:31 | CP.PCM.PN ---
Subjective - Date & Time of Evaluation Date of Evaluation: 01/03/17 Time of Evaluation: 10:00 - Subjective Subjective: Patient was seen. Again agitated and anxious. .Hemodynamically stable, afebrile. Refusing to take her medson 1 : 1 for safety Hard on hearing with dysarthria and expressive aphasia Objective - Vital Signs/Intake and Output Vital Signs (last 24 hours): Temp Pulse Resp BP Pulse Ox 97.7 F 55 L 18 103/60 100 01/03/17 07:42 01/03/17 07:42 01/03/17 07:42 01/03/17 07:42 01/03/17 07:42 - Medications Medications: Current Medications Acetaminophen (Tylenol 325mg Tab) 650 mg PO Q6 PRN PRN Reason: Pain, moderate (4-7) Last Admin: 01/03/17 06:42 Dose: 650 mg Divalproex Sodium (Depakote Sprinkles) 250 mg PO TID [facility] Last Admin: 01/03/17 09:26 Dose: 250 mg Haloperidol (Haldol) 5 mg PO Q6 PRN PRN Reason: Agitation Haloperidol Lactate (Haldol) 5 mg IM Q6 PRN PRN Reason: agitation/refusing oral meds Hydrocortisone (Anusol-Hc) 1 applic [place] BID PRN PRN Reason: Pain, moderate (4-7) Last Admin: 12/30/16 08:31 Dose: 1 applic Loperamide HCl (Imodium) 2 mg PO QID PRN PRN Reason: Diarrhea Last Admin: 12/27/16 13:00 Dose: 2 mg Olanzapine (Zyprexa Zydis) 5 mg PO DAILY [facility] Last Admin: 01/03/17 09:25 Dose: 5 mg - Labs Labs: 12/27/16 09:30 12/27/16 09:30 PT 13.8 Seconds (9.8-13.1) H 12/07/16 14:22 INR 1.2 (0.9-1.2) 12/07/16 14:22 APTT 29.8 Seconds (25.6-37.1) 12/06/16 18:58 - Constitutional Appears: Non-toxic, No Acute Distress, Agitated - Head Exam Head Exam: ATRAUMATIC, NORMAL INSPECTION, NORMOCEPHALIC - Eye Exam Eye Exam: EOMI, Normal appearance, PERRL Pupil Exam: NORMAL ACCOMODATION - ENT Exam ENT Exam: Mucous Membranes Moist, Normal Exam - Neck Exam Neck Exam: Full ROM, Normal Inspection - Respiratory Exam Respiratory Exam: Clear to Ausculation Bilateral, NORMAL BREATHING PATTERN. absent: Rales, Rhonchi, Wheezes - Cardiovascular Exam Cardiovascular Exam: REGULAR RHYTHM, RRR, +S1, +S2. absent: JVD - GI/Abdominal Exam GI & Abdominal Exam: Soft, Hernia (LLQ ventral hernia with overlying open wound) , Normal Bowel Sounds. absent: Distended, Guarding, Tenderness, Rebound - Rectal Exam Rectal Exam: Deferred - Extremities Exam Extremities Exam: Full ROM, Normal Capillary Refill, Normal Inspection. absent : Pedal Edema - Back Exam Back Exam: NORMAL INSPECTION - Neurological Exam Neurological Exam: Alert Additional comments: agitated and anxious dysarthria, expressive aphasia right facial droop - Psychiatric Exam Psychiatric exam: Agitated, Anxious - Skin Skin Exam: Dry, Normal Color, Warm Assessment and Plan - Assessment and Plan (Free Text) Assessment: 56 y/o female with PMHx significant for cognitive decline due to multiple reasons including prior CVA - 5 years ago, recent admission for psychosis and persecutory delusions ( her family wants to hurt her),brought in by family for intentional tylenol overdose. She was immediately brought in, activated charcoal was given, and acetadote was started as per poison control. At present patient is medically stable. Acetadote given , LFT-s and coagulation profile normal. Psychiatry consulted and recommended involuntary admission since patient cannot consent for voluntary admission. As per [facility] Crisis eval patient does not need psych admission but supervision. Patient is medically and neurologically cleared for discharge. SW/Case Mgt consulted for Safe discharge planning.At present family can not provide 24 hour supervision for patient and 3 of the children are underage. Patient has cognitive impairment with behavioral problems, delusions and needs more psychiatric management . Family ( daughter and domestic partner) will pursue getting legal POA on basis that patient is not competent and can not make decisions for self Social hold until safe discharge planning . Patient is agitated , refusing to take meds . Psych re consulted for management and her medications were changed 1.Intentional Acetaminophen overdose Received Acetadote IV Poison control consulted Tylenol levels < 10 at present, LFT-s and coag -wnl. Acetadote discontinued patient is medically stable 2. Cognitive / psychiatric disorder /Suicidal / behavioral problems maintain 1:1 for safety psychiatry on consult patient is not competent to make her own decisions unsafe discharge since family can not provide 24 hour supervision Patient very agitated today. As per staff has been refusing her meds. psych reconsulted and meds adjusted today Continue Haldol IM pRN , increase Depakote dose and changes seroquel to Zydis 3. History CVA in the past with cognitive problems vascular dementia with hearing, speech and cognitive problems since the stroke 5 years ago No new neuro deficits Neurology consulted and case discussed. Patient is neurologically stable No imaging is necessary 4. Ventral hernia reducible Surgery consulted- Dr Mckeon- rec outpt ff up for elective repair Wound care for wound over hernia Abd binder ordered however pt refused to wear it pain management PRN 5. Anemia most likely anemia of chronic disease continue monitoring 6. Rectal Bleed likely sec to Hemorrhoids stable H/H GI consulted- bleed likely secondary to hemorrhoids 7. Diarrhea C diff negative Stool c/s, Ova/Parasite Imodium prn 8.DVT prophylaxis SCD
[2017-01-04] MEDS: OLANZapine 5 mg Disintegrating Tab PO SCH (08:30)
[2017-01-04] MEDS: Divalproex 125 mg Sprinkle Capsule PO SCH ×3 (08:30→16:42)
--- NOTE | 2017-01-04 12:06 | CP.PCM.PN ---
Subjective - Date & Time of Evaluation Date of Evaluation: 01/04/17 Time of Evaluation: 11:30 - Subjective Subjective: Pt seen walking around the unit refused to take her am meds denies CP no SOB no abd pain refuses to use abd binder tolerating PO diet oriented to person and place Objective - Vital Signs/Intake and Output Vital Signs (last 24 hours): Temp Pulse Resp BP Pulse Ox 97.8 F 103 H 20 103/70 95 01/04/17 09:00 01/04/17 09:00 01/04/17 09:00 01/04/17 09:00 01/04/17 09:00 - Medications Medications: Current Medications Acetaminophen (Tylenol 325mg Tab) 650 mg PO Q6 PRN PRN Reason: Pain, moderate (4-7) Last Admin: 01/03/17 15:04 Dose: 650 mg Divalproex Sodium (Depakote Sprinkles) 250 mg PO TID [facility] Last Admin: 01/04/17 08:30 Dose: 250 mg Haloperidol (Haldol) 5 mg PO Q6 PRN PRN Reason: Agitation Last Admin: 01/04/17 02:58 Dose: 5 mg Haloperidol Lactate (Haldol) 5 mg IM Q6 PRN PRN Reason: agitation/refusing oral meds Hydrocortisone (Anusol-Hc) 1 applic NC BID PRN PRN Reason: Pain, moderate (4-7) Last Admin: 12/30/16 08:31 Dose: 1 applic Loperamide HCl (Imodium) 2 mg PO QID PRN PRN Reason: Diarrhea Last Admin: 12/27/16 13:00 Dose: 2 mg Olanzapine (Zyprexa Zydis) 5 mg PO DAILY [facility] Last Admin: 01/04/17 08:30 Dose: 5 mg - Labs Labs: 12/27/16 09:30 12/27/16 09:30 PT 13.8 Seconds (9.8-13.1) H 12/07/16 14:22 INR 1.2 (0.9-1.2) 12/07/16 14:22 APTT 29.8 Seconds (25.6-37.1) 12/06/16 18:58 - Constitutional Appears: No Acute Distress - Head Exam Head Exam: ATRAUMATIC, NORMAL INSPECTION, NORMOCEPHALIC - Eye Exam Eye Exam: EOMI, Normal appearance, PERRL Pupil Exam: NORMAL ACCOMODATION - ENT Exam ENT Exam: Mucous Membranes Moist, Normal External Ear Exam Additional comments: decreased hearing acuity - Neck Exam Neck Exam: Full ROM. absent: Meningismus - Respiratory Exam Respiratory Exam: NORMAL BREATHING PATTERN. absent: Rales, Wheezes, Respiratory Distress - Cardiovascular Exam Cardiovascular Exam: REGULAR RHYTHM, +S1, +S2 - GI/Abdominal Exam GI & Abdominal Exam: Soft, Normal Bowel Sounds. absent: Tenderness Additional comments: large ventral hernia, nontender, no signs of incarceration. - Extremities Exam Extremities Exam: Full ROM, Normal Capillary Refill. absent: Calf Tenderness, Pedal Edema - Back Exam Back Exam: Full ROM. absent: CVA tenderness (L), CVA tenderness (R) - Neurological Exam Neurological Exam: Alert, Awake, CN II-XII Intact, Normal Gait Neuro motor strength exam: Left Upper Extremity: 5, Right Upper Extremity: 5, Left Lower Extremity: 5, Right Lower Extremity: 5 follows simple commands oriented to person and place - Psychiatric Exam Psychiatric exam: Normal Affect, Normal Mood answers simple questions appropriately - Skin no active skin lesions, war, dry Assessment and Plan - Assessment and Plan (Free Text) Assessment: 56 y/o female with PMHx significant for cognitive decline due to multiple reasons including prior CVA - 5 years ago, recent admission for psychosis and persecutory delusions ( her family wants to hurt her),brought in by family for intentional tylenol overdose. She was immediately brought in, activated charcoal was given, and acetadote was started as per poison control. At present patient is medically stable. Acetadote given , LFT-s and coagulation profile normal. Psychiatry consulted and recommended involuntary admission since patient cannot consent for voluntary admission. As per [facility] [place] patient does not need psych admission but supervision. Patient is medically and neurologically cleared for discharge. SW/Case Mgt consulted for Safe discharge planning.At present family can not provide 24 hour supervision for patient and 3 of the children are underage. Patient has cognitive impairment with behavioral problems, delusions and needs more psychiatric management . Family ( daughter and domestic partner) will pursue getting legal POA on basis that patient is not competent and can not make decisions for self Social hold until safe discharge planning . Patient is agitated , refusing to take meds . Psych re consulted for management and her medications were changed 1.Intentional Acetaminophen overdose Received Acetadote IV Poison control consulted Tylenol levels < 10 at present, LFT-s and coag -wnl. Acetadote discontinued patient is medically stable 2. Cognitive / psychiatric disorder /Suicidal / behavioral problems maintain 1:1 for safety psychiatry on consult patient is not competent to make her own decisions unsafe discharge since family can not provide 24 hour supervision Patient very agitated today. As per staff has been refusing her meds. psych reconsulted and meds adjusted today Continue Haldol IM pRN , increase Depakote dose and changed seroquel to Zydis 3. History CVA in the past with cognitive problems vascular dementia with hearing, speech and cognitive problems since the stroke 5 years ago No new neuro deficits Neurology consulted and case discussed. Patient is neurologically stable No imaging is necessary 4. Ventral hernia reducible Surgery consulted- Dr Mckeon- rec outpt ff up for elective repair Wound care for wound over hernia Abd binder ordered however pt refused to wear it pain management PRN 5. Anemia most likely anemia of chronic disease continue monitoring 6. Rectal Bleed likely sec to Hemorrhoids stable H/H GI consulted- bleed likely secondary to hemorrhoids 7. Diarrhea C diff negative Stool c/s, Ova/Parasite Imodium prn 8.DVT prophylaxis SCD
[2017-01-05] MEDS: Divalproex 125 mg Sprinkle Capsule PO SCH ×3 (09:21→16:48)
[2017-01-05] MEDS: OLANZapine 5 mg Disintegrating Tab PO SCH (09:22)
--- NOTE | 2017-01-05 12:13 | CP.PCM.PN ---
Subjective - Date & Time of Evaluation Date of Evaluation: 01/12/17 Time of Evaluation: 12:00 - Subjective Subjective: Pt seen walking around unit - was following me around bec she wanted me to call up her niece Randi- handed me Randi's phone number refuses to take Psych meds - stating she is not crazy but says she'll take if its antibiotics denies abd pain tolerating PO diet no CP no SOB Objective - Vital Signs/Intake and Output Vital Signs (last 24 hours): Temp Pulse Resp BP Pulse Ox 98.2 F 61 20 139/83 100 01/05/17 08:09 01/05/17 08:09 01/05/17 08:09 01/05/17 08:09 01/05/17 08:09 - Medications Medications: Current Medications Acetaminophen (Tylenol 325mg Tab) 650 mg PO Q6 PRN PRN Reason: Pain, moderate (4-7) Last Admin: 01/04/17 21:20 Dose: 650 mg Divalproex Sodium (Depakote Sprinkles) 250 mg PO TID [facility] Last Admin: 01/05/17 09:21 Dose: 250 mg Haloperidol (Haldol) 5 mg PO Q6 PRN PRN Reason: Agitation Last Admin: 01/04/17 02:58 Dose: 5 mg Haloperidol Lactate (Haldol) 5 mg IM Q6 PRN PRN Reason: agitation/refusing oral meds Hydrocortisone (Anusol-Hc) 1 applic IN BID PRN PRN Reason: Pain, moderate (4-7) Last Admin: 12/30/16 08:31 Dose: 1 applic Loperamide HCl (Imodium) 2 mg PO QID PRN PRN Reason: Diarrhea Last Admin: 12/27/16 13:00 Dose: 2 mg Olanzapine (Zyprexa Zydis) 5 mg PO DAILY [facility] Last Admin: 01/05/17 09:22 Dose: 5 mg - Labs Labs: 12/27/16 09:30 12/27/16 09:30 PT 13.8 Seconds (9.8-13.1) H 12/07/16 14:22 INR 1.2 (0.9-1.2) 12/07/16 14:22 APTT 29.8 Seconds (25.6-37.1) 12/06/16 18:58 - Constitutional Appears: No Acute Distress - Head Exam Head Exam: ATRAUMATIC, NORMAL INSPECTION, NORMOCEPHALIC - Eye Exam Eye Exam: EOMI, Normal appearance, PERRL Pupil Exam: NORMAL ACCOMODATION - ENT Exam ENT Exam: Mucous Membranes Moist, Normal External Ear Exam Additional comments: decreased hearing acuity - Neck Exam Neck Exam: Full ROM. absent: Meningismus - Respiratory Exam Respiratory Exam: NORMAL BREATHING PATTERN. absent: Rales, Wheezes, Respiratory Distress - Cardiovascular Exam Cardiovascular Exam: REGULAR RHYTHM, +S1, +S2 - GI/Abdominal Exam GI & Abdominal Exam: Soft, Normal Bowel Sounds. absent: Tenderness Additional comments: large ventral hernia, nontender, no signs of incarceration. - Extremities Exam Extremities Exam: Full ROM, Normal Capillary Refill. absent: Calf Tenderness, Pedal Edema - Back Exam Back Exam: Full ROM. absent: CVA tenderness (L), CVA tenderness (R) - Neurological Exam Neurological Exam: Alert, Awake, CN II-XII Intact, Normal Gait Neuro motor strength exam: Left Upper Extremity: 5, Right Upper Extremity: 5, Left Lower Extremity: 5, Right Lower Extremity: 5 follows simple commands oriented to person and place - Psychiatric Exam Psychiatric exam: Normal Affect, Normal Mood answers simple questions appropriately - Skin no active skin lesions, war, dry Assessment and Plan - Assessment and Plan (Free Text) Assessment: 56 y/o female with PMHx significant for cognitive decline due to multiple reasons including prior CVA - 5 years ago, recent admission for psychosis and persecutory delusions ( her family wants to hurt her),brought in by family for intentional tylenol overdose. She was immediately brought in, activated charcoal was given, and acetadote was started as per poison control. At present patient is medically stable. Acetadote given , LFT-s and coagulation profile normal. Psychiatry consulted and recommended involuntary admission since patient cannot consent for voluntary admission. [place] [facility] [place] does not need psych admission but supervision. Patient is medically and neurologically cleared for discharge. SW/Case Mgt consulted for Safe discharge planning.At present family can not provide 24 hour supervision for patient and 3 of the children are underage. Patient has cognitive impairment with behavioral problems, delusions and needs more psychiatric management . Family ( daughter and domestic partner) will pursue getting legal POA on basis that patient is not competent and can not make decisions for self Social hold until safe discharge planning . Patient refusing to take meds at times . Psych re consulted for management and her medications were changed 1.Intentional Acetaminophen overdose Received Acetadote IV Poison control consulted Tylenol levels < 10 at present, LFT-s and coag -wnl. Acetadote discontinued patient is medically stable 2. Cognitive / psychiatric disorder /Suicidal / behavioral problems maintain 1:1 for safety psychiatry on consult patient is not competent to make her own decisions unsafe discharge since family can not provide 24 hour supervision Patient very agitated today. As per staff has been refusing her meds. psych reconsulted and meds adjusted today Continue Haldol IM pRN , increase Depakote dose and changed seroquel to Zydis 3. History CVA in the past with cognitive problems vascular dementia with hearing, speech and cognitive problems since the stroke 5 years ago No new neuro deficits Neurology consulted and case discussed. Patient is neurologically stable No imaging is necessary 4. Ventral hernia reducible Surgery consulted- Dr Mckeon- rec outpt ff up for elective repair Wound care for wound over hernia Abd binder ordered however pt refused to wear it pain management PRN 5. Anemia most likely anemia of chronic disease continue monitoring 6. Rectal Bleed likely sec to Hemorrhoids stable H/H GI consulted- bleed likely secondary to hemorrhoids 7. Diarrhea C diff negative Stool c/s, Ova/Parasite Imodium prn 8.DVT prophylaxis SCD
[2017-01-06 07:09] LABS: HEMOGLOBIN 10.6 g/dL (12.0-16.0); MEAN CELL VOLUME 98.7 fl (81.0-99.0); MEAN CORPUSCULAR HEMOGLOBIN 32.6 pg (27.0-31.0); RBC 3.26 Mil/uL (3.80-5.20); RED CELL DISTRIBUTION WIDTH 14.6 % (11.5-14.5); WHITE BLOOD COUNT 6.1 K/uL (4.8-10.8)
[2017-01-06 07:28] LABS: BLOOD UREA NITROGEN 16 mg/dl (7-17); CALCIUM 9.2 mg/dL (8.4-10.2); GFR AFRICAN-AMERICAN > 60; GFR NON-AFRICAN AMERICAN > 60
[2017-01-06] MEDS: Divalproex 125 mg Sprinkle Capsule PO SCH ×3 (09:16→18:13)
[2017-01-06] MEDS: OLANZapine 5 mg Disintegrating Tab PO SCH (09:16)
--- NOTE | 2017-01-06 13:15 | CP.PCM.PN ---
Subjective - Date & Time of Evaluation Date of Evaluation: 01/06/17 Time of Evaluation: 12:00 - Subjective Subjective: No fever pt is walking around the unit very inconsistent with medication intake - takes only when she wants to tolerating Po diet denies abd pain oriented to person an place and answers simple questions appropriately Objective - Vital Signs/Intake and Output Vital Signs (last 24 hours): Temp Pulse Resp BP Pulse Ox 98.2 F 62 20 129/82 100 01/06/17 08:15 01/06/17 08:15 01/06/17 08:15 01/06/17 08:15 01/06/17 08:15 - Medications Medications: Current Medications Acetaminophen (Tylenol 325mg Tab) 650 mg PO Q6 PRN PRN Reason: Pain, moderate (4-7) Last Admin: 01/04/17 21:20 Dose: 650 mg Divalproex Sodium (Depakote Sprinkles) 250 mg PO TID [facility] Last Admin: 01/06/17 12:35 Dose: Not Given Haloperidol (Haldol) 5 mg PO Q6 PRN PRN Reason: Agitation Last Admin: 01/04/17 02:58 Dose: 5 mg Haloperidol Lactate (Haldol) 5 mg IM Q6 PRN PRN Reason: agitation/refusing oral meds Hydrocortisone (Anusol-Hc) [address] BID PRN PRN Reason: Pain, moderate (4-7) Last Admin: 12/30/16 08:31 Dose: 1 applic Loperamide HCl (Imodium) 2 mg PO QID PRN PRN Reason: Diarrhea Last Admin: 12/27/16 13:00 Dose: 2 mg Olanzapine (Zyprexa Zydis) 5 mg PO DAILY [facility] Last Admin: 01/06/17 09:16 Dose: 5 mg - Labs Labs: 01/06/17 05:20 01/06/17 05:20 PT 13.8 Seconds (9.8-13.1) H 12/07/16 14:22 INR 1.2 (0.9-1.2) 12/07/16 14:22 APTT 29.8 Seconds (25.6-37.1) 12/06/16 18:58 - Constitutional Appears: No Acute Distress - Head Exam Head Exam: ATRAUMATIC, NORMAL INSPECTION, NORMOCEPHALIC - Eye Exam Eye Exam: EOMI, Normal appearance, PERRL Pupil Exam: NORMAL ACCOMODATION - ENT Exam ENT Exam: Mucous Membranes Moist, Normal External Ear Exam Additional comments: decreased hearing acuity - Neck Exam Neck Exam: Full ROM. absent: Meningismus - Respiratory Exam Respiratory Exam: NORMAL BREATHING PATTERN. absent: Rales, Wheezes, Respiratory Distress - Cardiovascular Exam Cardiovascular Exam: REGULAR RHYTHM, +S1, +S2 - GI/Abdominal Exam GI & Abdominal Exam: Soft, Normal Bowel Sounds. absent: Tenderness Additional comments: large ventral hernia, nontender, no signs of incarceration. - Extremities Exam Extremities Exam: Full ROM, Normal Capillary Refill. absent: Calf Tenderness, Pedal Edema - Back Exam Back Exam: Full ROM. absent: CVA tenderness (L), CVA tenderness (R) - Neurological Exam Neurological Exam: Alert, Awake, CN II-XII Intact, Normal Gait Neuro motor strength exam: Left Upper Extremity: 5, Right Upper Extremity: 5, Left Lower Extremity: 5, Right Lower Extremity: 5 follows simple commands oriented to person and place - Psychiatric Exam Psychiatric exam: Normal Affect, Normal Mood answers simple questions appropriately - Skin no active skin lesions, war, dry Assessment and Plan - Assessment and Plan (Free Text) Assessment: 56 y/o female with PMHx significant for cognitive decline due to multiple reasons including prior CVA - 5 years ago, recent admission for psychosis and persecutory delusions ( her family wants to hurt her),brought in by family for intentional tylenol overdose. She was immediately brought in, activated charcoal was given, and acetadote was started as per poison control. At present patient is medically stable. Acetadote given , LFT-s and coagulation profile normal. Psychiatry consulted and recommended involuntary admission since patient cannot consent for voluntary admission. As per [facility] [place] patient does not need psych admission but supervision. Patient is medically and neurologically cleared for discharge. SW/Case Mgt consulted for Safe discharge planning.At present family can not provide 24 hour supervision for patient and 3 of the children are underage. Patient has cognitive impairment with behavioral problems, delusions and needs more psychiatric management . Family ( daughter and domestic partner) will pursue getting legal POA on basis that patient is not competent and can not make decisions for self Social hold until safe discharge planning . Patient refusing to take meds at times . Psych re consulted for management and her medications were changed 1.Intentional Acetaminophen overdose Received Acetadote IV Poison control consulted Tylenol levels < 10 at present, LFT-s and coag -wnl. Acetadote discontinued patient is medically stable 2. Cognitive / psychiatric disorder /Suicidal / behavioral problems maintain 1:1 for safety psychiatry on consult patient is not competent to make her own decisions unsafe discharge since family can not provide 24 hour supervision Patient very agitated today. As per staff has been refusing her meds. psych reconsulted and meds adjusted today Continue Haldol IM pRN , increase Depakote dose and changed seroquel to Zydis 3. History CVA in the past with cognitive problems vascular dementia with hearing, speech and cognitive problems since the stroke 5 years ago No new neuro deficits Neurology consulted and case discussed. Patient is neurologically stable No imaging is necessary 4. Ventral hernia reducible Surgery consulted- Dr Mckeon- rec outpt ff up for elective repair Wound care for wound over hernia Abd binder ordered however pt refused to wear it pain management PRN 5. Anemia most likely anemia of chronic disease continue monitoring 6. Rectal Bleed likely sec to Hemorrhoids stable H/H GI consulted- bleed likely secondary to hemorrhoids 7. Diarrhea C diff negative Stool c/s, Ova/Parasite Imodium prn 8.DVT prophylaxis SCD
[2017-01-07] MEDS: Divalproex 125 mg Sprinkle Capsule PO SCH ×3 (08:51→17:16)
[2017-01-07] MEDS: OLANZapine 5 mg Disintegrating Tab PO SCH (08:52)
--- NOTE | 2017-01-07 14:29 | CP.PCM.PN ---
Subjective - Date & Time of Evaluation Date of Evaluation: 01/07/17 Time of Evaluation: 14:00 - Subjective Subjective: Patient seen in unit.Hemodynamically stable, afebrile. No acute issues overnight. Ambulating in unit.As per staff not taking all her medications. With expressive aphasia and dysarthria , persistently asking to leave the hospital getting agitated Objective - Vital Signs/Intake and Output Vital Signs (last 24 hours): Temp Pulse Resp BP Pulse Ox 98.1 F 61 20 137/80 99 01/07/17 08:10 01/07/17 08:10 01/07/17 08:10 01/07/17 08:10 01/07/17 08:10 - Medications Medications: Current Medications Acetaminophen (Tylenol 325mg Tab) 650 mg PO Q6 PRN PRN Reason: Pain, moderate (4-7) Last Admin: 01/07/17 08:26 Dose: 650 mg Divalproex Sodium (Depakote Sprinkles) 250 mg PO TID [facility] Last Admin: 01/07/17 08:51 Dose: 250 mg Haloperidol (Haldol) 5 mg PO Q6 PRN PRN Reason: Agitation Last Admin: 01/04/17 02:58 Dose: 5 mg Haloperidol Lactate (Haldol) 5 mg IM Q6 PRN PRN Reason: agitation/refusing oral meds Hydrocortisone (Anusol-Hc) 1 applic NM BID PRN PRN Reason: Pain, moderate (4-7) Last Admin: 12/30/16 08:31 Dose: 1 applic Loperamide HCl (Imodium) 2 mg PO QID PRN PRN Reason: Diarrhea Last Admin: 12/27/16 13:00 Dose: 2 mg Olanzapine (Zyprexa Zydis) 5 mg PO DAILY [facility] Last Admin: 01/07/17 08:52 Dose: 5 mg - Labs Labs: 01/06/17 05:20 01/06/17 05:20 PT 13.8 Seconds (9.8-13.1) H 12/07/16 14:22 INR 1.2 (0.9-1.2) 12/07/16 14:22 APTT 29.8 Seconds (25.6-37.1) 12/06/16 18:58 - Constitutional Appears: Non-toxic, No Acute Distress, Agitated - Head Exam Head Exam: ATRAUMATIC, NORMOCEPHALIC - Eye Exam Eye Exam: EOMI, PERRL Pupil Exam: NORMAL ACCOMODATION - ENT Exam ENT Exam: Mucous Membranes Moist, Normal Exam - Neck Exam Neck Exam: Full ROM, Normal Inspection - Respiratory Exam Respiratory Exam: Clear to Ausculation Bilateral. absent: Prolonged Expiratory Phase, Rhonchi, Wheezes, Respiratory Distress - Cardiovascular Exam Cardiovascular Exam: REGULAR RHYTHM. absent: JVD - GI/Abdominal Exam GI & Abdominal Exam: Soft, Hernia (LLQ ventral hernia ), Normal Bowel Sounds. absent: Guarding, Tenderness, Rebound - Rectal Exam Rectal Exam: Deferred - Extremities Exam Extremities Exam: Full ROM, Normal Capillary Refill, Normal Inspection. absent : Pedal Edema - Back Exam Back Exam: NORMAL INSPECTION - Neurological Exam Neurological Exam: Alert, Awake Additional comments: oriented to place and person - Psychiatric Exam Psychiatric exam: Agitated - Skin Skin Exam: Dry, Normal Color, Warm Assessment and Plan - Assessment and Plan (Free Text) Assessment: 56 y/o female with PMHx significant for cognitive decline due to multiple reasons including prior CVA - 5 years ago, recent admission for psychosis and persecutory delusions ( her family wants to hurt her),brought in by family for intentional tylenol overdose. She was immediately brought in, activated charcoal was given, and acetadote was started as per poison control. At present patient is medically stable. Acetadote given , LFT-s and coagulation profile normal. Psychiatry consulted and recommended involuntary admission since patient cannot consent for voluntary admission. [place] [facility] [place] does not need psych admission but supervision. Patient is medically and neurologically cleared for discharge. SW/Case Mgt consulted for Safe discharge planning.At present family can not provide 24 hour supervision for patient and 3 of the children are underage. Patient has cognitive impairment with behavioral problems, delusions and needs more psychiatric management . Family ( daughter and domestic partner) will pursue getting legal POA on basis that patient is not competent and can not make decisions for self Social hold until safe discharge planning . Patient refusing to take meds at times . Psych re consulted for management and her medications were changed 1.Intentional Acetaminophen overdose Received Acetadote IV Poison control consulted Tylenol levels < 10 at present, LFT-s and coag -wnl. Acetadote discontinued patient is medically stable 2. Cognitive / psychiatric disorder /Suicidal / behavioral problems maintain 1:1 for safety psychiatry on consult patient is not competent to make her own decisions unsafe discharge since family can not provide 24 hour supervision Patient very agitated today. As per staff has been refusing her meds. psych re consulted and meds adjusted today Continue Haldol IM pRN , increase Depakote dose and changed seroquel to Zydis 3. History CVA in the past with cognitive problems vascular dementia with hearing, speech and cognitive problems since the stroke 5 years ago No new neuro deficits Neurology consulted and case discussed. Patient is neurologically stable No imaging is necessary 4. Ventral hernia reducible Surgery consulted- Dr Mckeon- rec outpt ff up for elective repair Wound care for wound over hernia Abd binder ordered however pt refused to wear it pain management PRN 5. Anemia most likely anemia of chronic disease continue monitoring 6. Rectal Bleed likely sec to Hemorrhoids stable H/H GI consulted- bleed likely secondary to hemorrhoids 7. Diarrhea improved C diff negative Imodium prn 8.DVT prophylaxis SCD
[2017-01-08] MEDS: Divalproex 125 mg Sprinkle Capsule PO SCH ×2 (08:56→13:00)
[2017-01-08] MEDS: OLANZapine 5 mg Disintegrating Tab PO SCH (08:56)
--- NOTE | 2017-01-08 15:27 | CP.PCM.PN ---
Subjective - Date & Time of Evaluation Date of Evaluation: 01/08/17 Time of Evaluation: 14:00 - Subjective Subjective: Patient seen in unit.Hemodynamically stable, afebrile. No acute issues overnight. Ambulating in unit.As per staff not taking all her medications. With expressive aphasia and dysarthria , persistently asking to leave the hospital and getting agitated Objective - Vital Signs/Intake and Output Vital Signs (last 24 hours): Temp Pulse Resp BP Pulse Ox 98 F 65 18 167/77 H 100 01/08/17 08:38 01/08/17 08:38 01/08/17 08:38 01/08/17 08:38 01/08/17 08:38 - Medications Medications: Current Medications Acetaminophen (Tylenol 325mg Tab) 650 mg PO Q6 PRN PRN Reason: Pain, moderate (4-7) Last Admin: 01/07/17 20:10 Dose: 650 mg Divalproex Sodium (Depakote Sprinkles) 250 mg PO TID [facility] Last Admin: 01/08/17 13:00 Dose: 250 mg Haloperidol (Haldol) 5 mg PO Q6 PRN PRN Reason: Agitation Last Admin: 01/04/17 02:58 Dose: 5 mg Haloperidol Lactate (Haldol) 5 mg IM Q6 PRN PRN Reason: agitation/refusing oral meds Hydrocortisone (Anusol-Hc) 1 applic [place] BID PRN PRN Reason: Pain, moderate (4-7) Last Admin: 12/30/16 08:31 Dose: 1 applic Loperamide HCl (Imodium) 2 mg PO QID PRN PRN Reason: Diarrhea Last Admin: 12/27/16 13:00 Dose: 2 mg Olanzapine (Zyprexa Zydis) 5 mg PO DAILY [facility] Last Admin: 01/08/17 08:56 Dose: 5 mg - Labs Labs: 01/06/17 05:20 01/06/17 05:20 PT 13.8 Seconds (9.8-13.1) H 12/07/16 14:22 INR 1.2 (0.9-1.2) 12/07/16 14:22 APTT 29.8 Seconds (25.6-37.1) 12/06/16 18:58 - Constitutional Appears: Non-toxic, No Acute Distress, Agitated, Other (with dysarthria, exzpressive aphasia ) - Head Exam Head Exam: ATRAUMATIC - Eye Exam Eye Exam: PERRL Pupil Exam: NORMAL ACCOMODATION - ENT Exam ENT Exam: Mucous Membranes Moist, Normal Exam - Neck Exam Neck Exam: Full ROM, Normal Inspection - Respiratory Exam Respiratory Exam: Clear to Ausculation Bilateral. absent: Accessory Muscle Use , Prolonged Expiratory Phase, Respiratory Distress - Cardiovascular Exam Cardiovascular Exam: REGULAR RHYTHM. absent: JVD - GI/Abdominal Exam GI & Abdominal Exam: Soft, Hernia (ventral ) - Rectal Exam Rectal Exam: Deferred - Extremities Exam Extremities Exam: Normal Inspection. absent: Pedal Edema - Back Exam Back Exam: NORMAL INSPECTION - Neurological Exam Neurological Exam: Alert, Awake Additional comments: oriented to place and person - Psychiatric Exam Psychiatric exam: Agitated, Anxious - Skin Skin Exam: Dry, Warm Assessment and Plan - Assessment and Plan (Free Text) Assessment: 56 y/o female with PMHx significant for cognitive decline due to multiple reasons including prior CVA - 5 years ago, recent admission for psychosis and persecutory delusions ( her family wants to hurt her),brought in by family for intentional tylenol overdose. She was immediately brought in, activated charcoal was given, and acetadote was started as per poison control. At present patient is medically stable. Acetadote given , LFT-s and coagulation profile normal. Psychiatry consulted and recommended involuntary admission since patient cannot consent for voluntary admission. As per [facility] Crisis eval patient does not need psych admission but supervision. Patient is medically and neurologically cleared for discharge. SW/Case Mgt consulted for Safe discharge planning.At present family can not provide 24 hour supervision for patient and 3 of the children are underage. Patient has cognitive impairment with behavioral problems, delusions and needs more psychiatric management . Family ( daughter and domestic partner) will pursue getting legal POA on basis that patient is not competent and can not make decisions for self Social hold until safe discharge planning . Patient refusing to take meds at times . Psych re consulted for management and her medications were changed 1.Intentional Acetaminophen overdose Received Acetadote IV Poison control consulted Tylenol levels < 10 at present, LFT-s and coag -wnl. Acetadote discontinued patient is medically stable 2. Cognitive / psychiatric disorder /Suicidal / behavioral problems maintain 1:1 for safety psychiatry on consult patient is not competent to make her own decisions unsafe discharge since family can not provide 24 hour supervision Patient very agitated today. As per staff has been refusing her meds. psych re consulted and meds adjusted today Continue Haldol IM pRN , increase Depakote dose and changed seroquel to Zydis 3. History CVA in the past with cognitive problems vascular dementia with hearing, speech and cognitive problems since the stroke 5 years ago No new neuro deficits Neurology consulted and case discussed. Patient is neurologically stable No imaging is necessary 4. Ventral hernia reducible Surgery consulted- Dr Mckeon- rec outpt ff up for elective repair Wound care for wound over hernia Abd binder ordered however pt refused to wear it pain management PRN 5. Anemia most likely anemia of chronic disease continue monitoring 6. Rectal Bleed likely sec to Hemorrhoids stable H/H GI consulted- bleed likely secondary to hemorrhoids 7. Diarrhea improved C diff negative Imodium prn 8.DVT prophylaxis SCD
[2017-01-09] MEDS: OLANZapine 5 mg Disintegrating Tab PO SCH ×3 (08:55→13:40)
[2017-01-09] MEDS: Divalproex 125 mg Sprinkle Capsule PO SCH ×4 (08:57→17:06)
--- NOTE | 2017-01-09 10:20 | CP.PCM.PN ---
Subjective - Date & Time of Evaluation Date of Evaluation: 01/09/17 Time of Evaluation: 10:15 - Subjective Subjective: No fever no RANGEL no abd pain tolerating PO diet walking around the unit Sofía Meeks is at bedside visiting pt Objective - Vital Signs/Intake and Output Vital Signs (last 24 hours): Temp Pulse Resp BP Pulse Ox 98 F 62 20 140/76 100 01/09/17 08:48 01/09/17 08:48 01/09/17 08:48 01/09/17 08:48 01/09/17 08:48 - Medications Medications: Current Medications Acetaminophen (Tylenol 325mg Tab) 650 mg PO Q6 PRN PRN Reason: Pain, moderate (4-7) Last Admin: 01/09/17 09:02 Dose: 650 mg Divalproex Sodium (Depakote Sprinkles) 250 mg PO TID [facility] Last Admin: 01/09/17 08:57 Dose: Not Given Haloperidol (Haldol) 5 mg PO Q6 PRN PRN Reason: Agitation Last Admin: 01/04/17 02:58 Dose: 5 mg Haloperidol Lactate (Haldol) 5 mg IM Q6 PRN PRN Reason: agitation/refusing oral meds Hydrocortisone (Anusol-Hc) 1 applic [place] BID PRN PRN Reason: Pain, moderate (4-7) Last Admin: 12/30/16 08:31 Dose: 1 applic Loperamide HCl (Imodium) 2 mg PO QID PRN PRN Reason: Diarrhea Last Admin: 12/27/16 13:00 Dose: 2 mg Olanzapine (Zyprexa Zydis) 5 mg PO DAILY [facility] Last Admin: 01/09/17 09:03 Dose: Not Given - Labs Labs: 01/06/17 05:20 01/06/17 05:20 PT 13.8 Seconds (9.8-13.1) H 12/07/16 14:22 INR 1.2 (0.9-1.2) 12/07/16 14:22 APTT 29.8 Seconds (25.6-37.1) 12/06/16 18:58 Assessment and Plan - Assessment and Plan (Free Text) Assessment: - Constitutional Appears: No Acute Distress - Head Exam Head Exam: ATRAUMATIC, NORMAL INSPECTION, NORMOCEPHALIC - Eye Exam Eye Exam: EOMI, Normal appearance, PERRL Pupil Exam: NORMAL ACCOMODATION - ENT Exam ENT Exam: Mucous Membranes Moist, Normal External Ear Exam Additional comments: decreased hearing acuity - Neck Exam Neck Exam: Full ROM. absent: Meningismus - Respiratory Exam Respiratory Exam: NORMAL BREATHING PATTERN. absent: Rales, Wheezes, Respiratory Distress - Cardiovascular Exam Cardiovascular Exam: REGULAR RHYTHM, +S1, +S2 - GI/Abdominal Exam GI & Abdominal Exam: Soft, Normal Bowel Sounds. absent: Tenderness Additional comments: large ventral hernia, nontender, no signs of incarceration. - Extremities Exam Extremities Exam: Full ROM, Normal Capillary Refill. absent: Calf Tenderness, Pedal Edema - Back Exam Back Exam: Full ROM. absent: CVA tenderness (L), CVA tenderness (R) - Neurological Exam Neurological Exam: Alert, Awake, CN II-XII Intact, Normal Gait Neuro motor strength exam: Left Upper Extremity: 5, Right Upper Extremity: 5, Left Lower Extremity: 5, Right Lower Extremity: 5 follows simple commands oriented to person and place - Psychiatric Exam Psychiatric exam: Normal Affect, Normal Mood answers simple questions appropriately - Skin no active skin lesions, war, dry Assessment and Plan - Assessment and Plan (Free Text) Assessment: 56 y/o female with PMHx significant for cognitive decline due to multiple reasons including prior CVA - 5 years ago, recent admission for psychosis and persecutory delusions ( her family wants to hurt her),brought in by family for intentional tylenol overdose. She was immediately brought in, activated charcoal was given, and acetadote was started as per poison control. At present patient is medically stable. Acetadote given , LFT-s and coagulation profile normal. Psychiatry consulted and recommended involuntary admission since patient cannot consent for voluntary admission. [place] [facility] [place] patient does not need psych admission but supervision. Patient is medically and neurologically cleared for discharge. SW/Case Mgt consulted for Safe discharge planning.At present family can not provide 24 hour supervision for patient and 3 of the children are underage. Patient has cognitive impairment with behavioral problems, delusions and needs more psychiatric management . Family ( daughter and domestic partner) will pursue getting legal POA on basis that patient is not competent and can not make decisions for self Social hold until safe discharge planning . Patient refusing to take meds at times . Psych re consulted for management and her medications were changed 1.Intentional Acetaminophen overdose Received Acetadote IV Poison control consulted Tylenol levels , LFT-s and coag -wnl. Acetadote discontinued patient is medically stable 2. Cognitive / psychiatric disorder /Suicidal / behavioral problems maintain 1:1 for safety psychiatry on consult patient is not competent to make her own decisions unsafe discharge since family can not provide 24 hour supervision Patient very agitated today. As per staff has been refusing her meds. psych reconsulted and meds adjusted today Continue Haldol IM pRN , increase Depakote dose and changed seroquel to Zydis 3. History CVA in the past with cognitive problems vascular dementia with hearing, speech and cognitive problems since the stroke 5 years ago No new neuro deficits Neurology consulted and case discussed. Patient is neurologically stable No imaging is necessary 4. Ventral hernia reducible Surgery consulted- Dr Mckoen- rec outpt ff up for elective repair Wound care for wound over hernia Abd binder ordered however pt refused to wear it pain management PRN 5. Anemia most likely anemia of chronic disease continue monitoring 6. Rectal Bleed likely sec to Hemorrhoids stable H/H GI consulted- bleed likely secondary to hemorrhoids 7. Diarrhea C diff negative Stool c/s, Ova/Parasite Imodium prn 8.DVT prophylaxis SCD
[2017-01-10] MEDS: Divalproex 125 mg Sprinkle Capsule PO SCH ×3 (09:00→17:10)
[2017-01-10] MEDS: OLANZapine 5 mg Disintegrating Tab PO SCH (09:01)
--- NOTE | 2017-01-10 09:54 | CP.PCM.PN ---
Subjective - Date & Time of Evaluation Date of Evaluation: 01/10/17 Time of Evaluation: 10:00 - Subjective Subjective: Patient was seen in unit. Hemodynamically stable, afebrile. No acute issues overnight. Ambulating in unit with stable gait .With expressive aphasia and dysarthria , persistently asking to leave the hospital , be discharged and at times getting agitated Objective - Vital Signs/Intake and Output Vital Signs (last 24 hours): Temp Pulse Resp BP Pulse Ox 98.2 F 62 18 142/75 100 01/10/17 07:26 01/10/17 07:26 01/10/17 07:26 01/10/17 07:26 01/10/17 07:26 - Medications Medications: Current Medications Acetaminophen (Tylenol 325mg Tab) 650 mg PO Q6 PRN PRN Reason: Pain, moderate (4-7) Last Admin: 01/10/17 09:05 Dose: 650 mg Divalproex Sodium (Depakote Sprinkles) 250 mg PO TID [facility] Last Admin: 01/10/17 09:00 Dose: 250 mg Haloperidol (Haldol) 5 mg PO Q6 PRN PRN Reason: Agitation Last Admin: 01/04/17 02:58 Dose: 5 mg Haloperidol Lactate (Haldol) 5 mg IM Q6 PRN PRN Reason: agitation/refusing oral meds Hydrocortisone (Anusol-Hc) 1 applic [place] BID PRN PRN Reason: Pain, moderate (4-7) Last Admin: 12/30/16 08:31 Dose: 1 applic Olanzapine (Zyprexa Zydis) 5 mg PO DAILY [facility] Last Admin: 01/10/17 09:01 Dose: 5 mg - Labs Labs: 01/06/17 05:20 01/06/17 05:20 PT 13.8 Seconds (9.8-13.1) H 12/07/16 14:22 INR 1.2 (0.9-1.2) 12/07/16 14:22 APTT 29.8 Seconds (25.6-37.1) 12/06/16 18:58 - Constitutional Appears: Non-toxic, Agitated - Head Exam Head Exam: ATRAUMATIC, NORMOCEPHALIC - Eye Exam Eye Exam: EOMI, PERRL Pupil Exam: NORMAL ACCOMODATION - ENT Exam ENT Exam: Mucous Membranes Moist, Normal Exam - Neck Exam Neck Exam: Normal Inspection - Respiratory Exam Respiratory Exam: NORMAL BREATHING PATTERN. absent: Respiratory Distress - Cardiovascular Exam Cardiovascular Exam: REGULAR RHYTHM. absent: JVD - GI/Abdominal Exam GI & Abdominal Exam: Hernia (ventral hernia, soft) - Rectal Exam Rectal Exam: Deferred - Extremities Exam Extremities Exam: absent: Pedal Edema - Back Exam Back Exam: NORMAL INSPECTION - Neurological Exam Neurological Exam: Alert, Awake, CN II-XII Intact Additional comments: oriented to place and person dysarthria and expressive aphasia cognitive impairment - Psychiatric Exam Psychiatric exam: Agitated, Anxious - Skin Skin Exam: Normal Color, Warm Assessment and Plan - Assessment and Plan (Free Text) Assessment: 56 y/o female with PMHx significant for cognitive decline due to multiple reasons including prior CVA - 5 years ago, recent admission for psychosis and persecutory delusions ( her family wants to hurt her),brought in by family for intentional tylenol overdose. She was immediately brought in, activated charcoal was given, and acetadote was started as per poison control. At present patient is medically stable. Acetadote given , LFT-s and coagulation profile normal. Psychiatry consulted and recommended involuntary admission since patient cannot consent for voluntary admission. [place] [facility] [place] patient does not need psych admission but supervision. Patient is medically and neurologically cleared for discharge. SW/Case Mgt consulted for Safe discharge planning.At present family can not provide 24 hour supervision for patient and 3 of the children are underage. Patient has cognitive impairment with behavioral problems, delusions and needs more psychiatric management . Family ( daughter and domestic partner) will pursue getting legal POA on basis that patient is not competent and can not make decisions for self Social hold until safe discharge planning . Patient refusing to take meds at times . Psych re consulted for management and her medications were changed 1.Intentional Acetaminophen overdose Received Acetadote IV Poison control consulted Tylenol levels , LFT-s and coag -wnl. Acetadote discontinued patient is medically stable 2. Cognitive / psychiatric disorder /Suicidal / behavioral problems maintain 1:1 for safety psychiatry on consult patient is not competent to make her own decisions unsafe discharge since family can not provide 24 hour supervision Patient very agitated today. As per staff has been refusing her meds. psych reconsulted and meds adjusted today Continue Haldol IM pRN , increase Depakote dose and changed seroquel to Zydis 3. History CVA in the past with cognitive problems vascular dementia with hearing, speech and cognitive problems since the stroke 5 years ago No new neuro deficits Neurology consulted and case discussed. Patient is neurologically stable No imaging is necessary 4. Ventral hernia reducible Surgery consulted- Dr Mckeon- rec outpt ff up for elective repair Wound care for wound over hernia Abd binder ordered however pt refused to wear it pain management PRN 5. Anemia most likely anemia of chronic disease continue monitoring 6. Rectal Bleed likely sec to Hemorrhoids stable H/H GI consulted- bleed likely secondary to hemorrhoids 7. Diarrhea C diff negative Stool c/s, Ova/Parasite Imodium prn 8.DVT prophylaxis SCD
[2017-01-11] MEDS: OLANZapine 5 mg Disintegrating Tab PO SCH (09:11)
[2017-01-11] MEDS: Divalproex 125 mg Sprinkle Capsule PO SCH ×3 (09:11→16:31)
--- NOTE | 2017-01-11 15:50 | CP.PCM.PN ---
Subjective - Date & Time of Evaluation Date of Evaluation: 01/11/17 Time of Evaluation: 11:00 - Subjective Subjective: Hemodynamically stable, afebrile. No acute issues overnight. walking in unit family visiting bedside. had long discussion with son and SW about patient's cponditoion and need for POA. Objective - Vital Signs/Intake and Output Vital Signs (last 24 hours): Temp Pulse Resp BP Pulse Ox 98.7 F 67 20 138/81 100 01/11/17 07:49 01/11/17 07:49 01/11/17 07:49 01/11/17 07:49 01/11/17 07:49 - Medications Medications: Current Medications Acetaminophen (Tylenol 325mg Tab) 650 mg PO Q6 PRN PRN Reason: Pain, moderate (4-7) Last Admin: 01/10/17 19:03 Dose: 650 mg Divalproex Sodium (Depakote Sprinkles) 250 mg PO TID [facility] Last Admin: 01/11/17 13:24 Dose: Not Given Haloperidol (Haldol) 5 mg PO Q6 PRN PRN Reason: Agitation Last Admin: 01/10/17 17:09 Dose: 5 mg Haloperidol Lactate (Haldol) 5 mg IM Q6 PRN PRN Reason: agitation/refusing oral meds Hydrocortisone (Anusol-Hc) 1 applic [place] BID PRN PRN Reason: Pain, moderate (4-7) Last Admin: 12/30/16 08:31 Dose: 1 applic Olanzapine (Zyprexa Zydis) 5 mg PO DAILY [facility] Last Admin: 01/11/17 09:11 Dose: 5 mg - Labs Labs: 01/06/17 05:20 01/06/17 05:20 PT 13.8 Seconds (9.8-13.1) H 12/07/16 14:22 INR 1.2 (0.9-1.2) 12/07/16 14:22 APTT 29.8 Seconds (25.6-37.1) 12/06/16 18:58 - Constitutional Appears: Non-toxic, No Acute Distress, Agitated - Head Exam Head Exam: ATRAUMATIC, NORMOCEPHALIC - Eye Exam Eye Exam: EOMI, PERRL - ENT Exam ENT Exam: Mucous Membranes Moist, Normal Exam - Neck Exam Neck Exam: Normal Inspection - Respiratory Exam Respiratory Exam: Clear to Ausculation Bilateral. absent: Wheezes, Respiratory Distress - Cardiovascular Exam Cardiovascular Exam: REGULAR RHYTHM. absent: JVD - GI/Abdominal Exam GI & Abdominal Exam: Soft, Hernia (ventral ). absent: Tenderness - Rectal Exam Rectal Exam: Deferred - Extremities Exam Extremities Exam: Normal Capillary Refill. absent: Pedal Edema - Back Exam Back Exam: NORMAL INSPECTION - Neurological Exam Neurological Exam: Alert, Awake Additional comments: oriented to place and person hard on hearing agitated at times with dysarthria and expressive aphasia - Psychiatric Exam Psychiatric exam: Agitated, Anxious - Skin Skin Exam: Dry, Warm Assessment and Plan - Assessment and Plan (Free Text) Assessment: 56 y/o female with PMHx significant for cognitive decline due to prior CVA - 5 years ago, hearing problems recent admission for psychosis and persecutory delusions ( her family wants to hurt her),brought in by family for intentional tylenol overdose. She was immediately brought in, activated charcoal was given, and acetadote was started as per poison control. At present patient is medically stable. Psychiatry consulted and recommended involuntary admission since patient cannot consent for voluntary admission. As per [facility] Crisis eval patient does not need psych admission but supervision.Patient refusing to take meds at times . Psych on consult helping with management Patient is medically and neurologically cleared for discharge. SW/Case Mgt consulted for Safe discharge planning.At present family can not provide 24 hour supervision for patient and 3 of the children are underage. Patient has cognitive impairment with behavioral problems, delusions and needs more psychiatric management . Family needs to pursue getting legal POA on basis that patient is not competent and can not make decisions for self Social hold until safe discharge planning . 1. Cognitive / psychiatric disorder /Suicidal / behavioral problems maintain 1:1 for safety psychiatry on consult patient is not competent to make her own decisions unsafe discharge since family can not provide 24 hour supervision Continue Haldol IM pRN , increase Depakote dose and changed seroquel to Zydis long discussion today with her eldest son , SW and patient advocate about POA. Information provided to son 2. History CVA in the past with cognitive problems, hearing loss vascular dementia with hearing, speech and cognitive problems since the stroke 5 years ago No new neuro deficits Neurology consulted and case discussed. Patient is neurologically stable No imaging is necessary 3. Ventral hernia reducible Surgery consulted- Dr Mckeon- rec outpt ff up for elective repair Wound care for wound over hernia Abd binder ordered however pt refused to wear it pain management PRN 4. Anemia most likely anemia of chronic disease continue monitoring 5. Rectal Bleed likely sec to Hemorrhoids resolved , H& H stable GI consulted- bleed likely secondary to hemorrhoids 6. Diarrhea resolved C diff negative Imodium prn 7. Tylenol overdose was treated [facility] acetadote, IVF 8.DVT prophylaxis SCD
[2017-01-12] MEDS: OLANZapine 5 mg Disintegrating Tab PO SCH (08:31)
[2017-01-12] MEDS: Divalproex 125 mg Sprinkle Capsule PO SCH ×4 (08:31→18:12)
--- NOTE | 2017-01-12 10:50 | CP.PCM.PN ---
Subjective - Date & Time of Evaluation Date of Evaluation: 01/12/17 Time of Evaluation: 10:15 - Subjective Subjective: with help of a furnace feeder- Patient Advocate Shelly- explained to pt treatement plan. And that we will treat her whatever her Immigration status is- she thinks that we are not releasing her from the hospital bec she is illegal No fever Pt is walking around the unit with 1:1 no CP no SOB no abd pain good PO intake Objective - Vital Signs/Intake and Output Vital Signs (last 24 hours): Temp Pulse Resp BP Pulse Ox 98.5 F 88 18 137/81 100 01/12/17 07:50 01/12/17 07:50 01/12/17 07:50 01/12/17 07:50 01/12/17 07:50 - Medications Medications: Current Medications Acetaminophen (Tylenol 325mg Tab) 650 mg PO Q6 PRN PRN Reason: Pain, moderate (4-7) Last Admin: 01/11/17 23:15 Dose: 650 mg Divalproex Sodium (Depakote Sprinkles) 250 mg PO TID [facility] Last Admin: 01/12/17 08:31 Dose: 250 mg Haloperidol (Haldol) 5 mg PO Q6 PRN PRN Reason: Agitation Last Admin: 01/10/17 17:09 Dose: 5 mg Haloperidol Lactate (Haldol) 5 mg IM Q6 PRN PRN Reason: agitation/refusing oral meds Hydrocortisone (Anusol-Hc) 1 applic [place] BID PRN PRN Reason: Pain, moderate (4-7) Last Admin: 12/30/16 08:31 Dose: 1 applic Olanzapine (Zyprexa Zydis) 5 mg PO DAILY [facility] Last Admin: 01/12/17 08:31 Dose: 5 mg - Labs Labs: 01/06/17 05:20 01/06/17 05:20 PT 13.8 Seconds (9.8-13.1) H 12/07/16 14:22 INR 1.2 (0.9-1.2) 12/07/16 14:22 APTT 29.8 Seconds (25.6-37.1) 12/06/16 18:58 - Constitutional Appears: No Acute Distress - Head Exam Head Exam: ATRAUMATIC, NORMAL INSPECTION, NORMOCEPHALIC - Eye Exam Eye Exam: EOMI, Normal appearance, PERRL Pupil Exam: NORMAL ACCOMODATION - ENT Exam ENT Exam: Mucous Membranes Moist, Normal External Ear Exam Additional comments: decreased hearing acuity - Neck Exam Neck Exam: Full ROM. absent: Meningismus - Respiratory Exam Respiratory Exam: NORMAL BREATHING PATTERN. absent: Rales, Wheezes, Respiratory Distress - Cardiovascular Exam Cardiovascular Exam: REGULAR RHYTHM, +S1, +S2 - GI/Abdominal Exam GI & Abdominal Exam: Soft, Normal Bowel Sounds. absent: Tenderness Additional comments: large ventral hernia, nontender, no signs of incarceration. - Extremities Exam Extremities Exam: Full ROM, Normal Capillary Refill. absent: Calf Tenderness, Pedal Edema - Back Exam Back Exam: Full ROM. absent: CVA tenderness (L), CVA tenderness (R) - Neurological Exam Neurological Exam: Alert, Awake, CN II-XII Intact, Normal Gait Neuro motor strength exam: Left Upper Extremity: 5, Right Upper Extremity: 5, Left Lower Extremity: 5, Right Lower Extremity: 5 follows simple commands oriented to person and place - Psychiatric Exam Psychiatric exam: Normal Affect, Normal Mood answers simple questions appropriately - Skin no active skin lesions, war, dry Assessment and Plan - Assessment and Plan (Free Text) Assessment: 56 y/o female with PMHx significant for cognitive decline due to prior CVA - 5 years ago, hearing problems recent admission for psychosis and persecutory delusions ( her family wants to hurt her),brought in by family for intentional tylenol overdose. She was immediately brought in, activated charcoal was given, and acetadote was started as per poison control. At present patient is medically stable. Psychiatry consulted and recommended involuntary admission since patient cannot consent for voluntary admission. As per [facility] [place] Crisis eval patient does not need psych admission but supervision.Patient refusing to take meds at times . Psych on consult helping with management Patient is medically and neurologically cleared for discharge. SW/Case Mgt consulted for Safe discharge planning.At present family can not provide 24 hour supervision for patient and 3 of the children are underage. Patient has cognitive impairment with behavioral problems, delusions and needs more psychiatric management . Family needs to pursue getting legal POA on basis that patient is not competent and cannot make decisions for self Social hold until safe discharge planning . 1. Cognitive / psychiatric disorder /Suicidal / behavioral problems maintain 1:1 for safety psychiatry on consult patient is not competent to make her own decisions unsafe discharge since family can not provide 24 hour supervision Continue Haldol IM pRN , increase Depakote dose and changed seroquel to [place] Family informed of need to get POA 2. History CVA in the past with cognitive problems, hearing loss vascular dementia with hearing, speech and cognitive problems since the stroke 5 years ago No new neuro deficits Neurology consulted and case discussed. Patient is neurologically stable No imaging is necessary 3. Ventral hernia reducible Surgery consulted- Dr Mckeon- rec outpt ff up for elective repair Wound care for wound over hernia Abd binder ordered however pt refused to wear it pain management PRN 4. Anemia most likely anemia of chronic disease continue monitoring 5. Rectal Bleed likely sec to Hemorrhoids resolved , H& H stable GI consulted- bleed likely secondary to hemorrhoids 6. Diarrhea resolved C diff negative Imodium prn 7. Tylenol overdose was treated [facility] acetadote, IVF 8.DVT prophylaxis SCD
--- NOTE | 2017-01-13 09:13 | CP.PCM.PN ---
Subjective - Date & Time of Evaluation Date of Evaluation: 01/13/17 Time of Evaluation: 09:00 - Subjective Subjective: No fever ambulatory oriented to person and place unable to comprehend explanation regarding medical condition even when explained in [place] no CP no SOB no abd pain tolerating PO diet Objective - Vital Signs/Intake and Output Vital Signs (last 24 hours): Temp Pulse Resp BP Pulse Ox 98.0 F 60 18 146/84 100 01/13/17 07:58 01/13/17 07:58 01/13/17 07:58 01/13/17 07:58 01/13/17 07:58 - Medications Medications: Current Medications Acetaminophen (Tylenol 325mg Tab) 650 mg PO Q6 PRN PRN Reason: Pain, moderate (4-7) Last Admin: 01/12/17 18:58 Dose: 650 mg Divalproex Sodium (Depakote Sprinkles) 250 mg PO TID [facility] Last Admin: 01/12/17 18:12 Dose: 250 mg Haloperidol (Haldol) 5 mg PO Q6 PRN PRN Reason: Agitation Last Admin: 01/10/17 17:09 Dose: 5 mg Haloperidol Lactate (Haldol) 5 mg IM Q6 PRN PRN Reason: agitation/refusing oral meds Hydrocortisone (Anusol-Hc) 1 applic [place] BID PRN PRN Reason: Pain, moderate (4-7) Last Admin: 12/30/16 08:31 Dose: 1 applic Olanzapine (Zyprexa Zydis) 5 mg PO DAILY [facility] Last Admin: 01/12/17 08:31 Dose: 5 mg - Labs Labs: 01/06/17 05:20 01/06/17 05:20 PT 13.8 Seconds (9.8-13.1) H 12/07/16 14:22 INR 1.2 (0.9-1.2) 12/07/16 14:22 APTT 29.8 Seconds (25.6-37.1) 12/06/16 18:58 - Constitutional Appears: No Acute Distress - Head Exam Head Exam: ATRAUMATIC, NORMAL INSPECTION, NORMOCEPHALIC - Eye Exam Eye Exam: EOMI, Normal appearance, PERRL Pupil Exam: NORMAL ACCOMODATION - ENT Exam ENT Exam: Mucous Membranes Moist, Normal External Ear Exam Additional comments: decreased hearing acuity - Neck Exam Neck Exam: Full ROM. absent: Meningismus - Respiratory Exam Respiratory Exam: NORMAL BREATHING PATTERN. absent: Rales, Wheezes, Respiratory Distress - Cardiovascular Exam Cardiovascular Exam: REGULAR RHYTHM, +S1, +S2 - GI/Abdominal Exam GI & Abdominal Exam: Soft, Normal Bowel Sounds. absent: Tenderness Additional comments: large ventral hernia, nontender, reducible, no signs of incarceration - Extremities Exam Extremities Exam: Full ROM, Normal Capillary Refill. absent: Calf Tenderness, Pedal Edema - Back Exam Back Exam: Full ROM. absent: CVA tenderness (L), CVA tenderness (R) - Neurological Exam Neurological Exam: Alert, Awake, CN II-XII Intact, Normal Gait Neuro motor strength exam: Left Upper Extremity: 5, Right Upper Extremity: 5, Left Lower Extremity: 5, Right Lower Extremity: 5 follows simple commands oriented to person and place - Psychiatric Exam Psychiatric exam: Normal Affect, Normal Mood answers simple questions appropriately - Skin no active skin lesions, dry Assessment and Plan - Assessment and Plan (Free Text) Assessment: 56 y/o female with PMHx significant for cognitive decline due to prior CVA - 5 years ago, hearing problems recent admission for psychosis and persecutory delusions ( her family wants to hurt her),brought in by family for intentional tylenol overdose. She was immediately brought in, activated charcoal was given, and acetadote was started as per poison control. At present patient is medically stable. Psychiatry consulted and recommended involuntary admission since patient cannot consent for voluntary admission. As per [facility] Crisis eval patient does not need psych admission but supervision.Patient refusing to take meds at times . Psych on consult helping with management Patient is medically and neurologically cleared for discharge. SW/Case Mgt consulted for Safe discharge planning.At present family can not provide 24 hour supervision for patient and 3 of the children are underage. Patient has cognitive impairment with behavioral problems, delusions and needs more psychiatric management . Family needs to pursue getting legal POA on basis that patient is not competent and cannot make decisions for self Social hold until safe discharge planning . 1. Cognitive / psychiatric disorder /Suicidal / behavioral problems maintain 1:1 for safety psychiatry on consult patient is not competent to make her own decisions unsafe discharge since family cannot provide 24 hour supervision Continue Haldol IM pRN , increased Depakote dose and changed seroquel to Zydis Family informed of need to get POA 2. History CVA in the past with cognitive problems, hearing loss vascular dementia with hearing, speech and cognitive problems since the stroke 5 years ago No new neuro deficits Neurology consulted and case discussed. Patient is neurologically stable No imaging is necessary 3. Ventral hernia reducible Surgery consulted- Dr Mckeon- rec outpt ff up for elective repair Wound care for wound over hernia Abd binder ordered however pt refused to wear it 4. Anemia most likely anemia of chronic disease continue monitoring 5. Rectal Bleed likely sec to Hemorrhoids resolved , H& H stable GI consulted- bleed likely secondary to hemorrhoids 6. Diarrhea resolved C diff negative Imodium prn 7. Tylenol overdose was treated [facility] acetadote, IVF 8.DVT prophylaxis SCD
[2017-01-13] MEDS: Divalproex 125 mg Sprinkle Capsule PO SCH ×3 (09:44→17:05)
[2017-01-13] MEDS: OLANZapine 5 mg Disintegrating Tab PO SCH (09:44)
[2017-01-14] MEDS: OLANZapine 5 mg Disintegrating Tab PO SCH (09:19)
[2017-01-14] MEDS: Divalproex 125 mg Sprinkle Capsule PO SCH ×4 (09:19→20:08)
--- NOTE | 2017-01-14 09:29 | CP.PCM.PN ---
Subjective - Date & Time of Evaluation Date of Evaluation: 01/14/17 Time of Evaluation: 11:30 - Subjective Subjective: Patient seen in the unit. Hemodynamically stable, afebrile. No acute issues overnight. Ambulating in the floor with stable gait. Had long conversation with patient via developer relations manager by writing every question and answer on the paper for patient , explaining why she is here and that for her safety she can not be allowed to leave the hospital until her family takes responsibility for her. Objective - Vital Signs/Intake and Output Vital Signs (last 24 hours): Temp Pulse Resp BP Pulse Ox 97.7 F 58 L 18 113/75 100 01/14/17 08:16 01/14/17 08:16 01/14/17 08:16 01/14/17 08:16 01/14/17 08:16 - Medications Medications: Current Medications Acetaminophen (Tylenol 325mg Tab) 650 mg PO Q6 PRN PRN Reason: Pain, moderate (4-7) Last Admin: 01/13/17 22:29 Dose: 650 mg Divalproex Sodium (Depakote Sprinkles) 250 mg PO TID [facility] Last Admin: 01/14/17 09:19 Dose: 250 mg Haloperidol (Haldol) 5 mg PO Q6 PRN PRN Reason: Agitation Last Admin: 01/10/17 17:09 Dose: 5 mg Haloperidol Lactate (Haldol) 5 mg IM Q6 PRN PRN Reason: agitation/refusing oral meds Hydrocortisone (Anusol-Hc) 1 applic [place] BID PRN PRN Reason: Pain, moderate (4-7) Last Admin: 12/30/16 08:31 Dose: 1 applic Olanzapine (Zyprexa Zydis) 5 mg PO DAILY [facility] Last Admin: 01/14/17 09:19 Dose: 5 mg - Labs Labs: 01/06/17 05:20 01/06/17 05:20 PT 13.8 Seconds (9.8-13.1) H 12/07/16 14:22 INR 1.2 (0.9-1.2) 12/07/16 14:22 APTT 29.8 Seconds (25.6-37.1) 12/06/16 18:58 - Constitutional Appears: Non-toxic, No Acute Distress, Agitated (at times ) - Head Exam Head Exam: ATRAUMATIC, NORMOCEPHALIC - Eye Exam Eye Exam: EOMI, PERRL - ENT Exam ENT Exam: Mucous Membranes Moist, Normal Exam - Neck Exam Neck Exam: Full ROM, Normal Inspection - Respiratory Exam Respiratory Exam: Clear to Ausculation Bilateral, NORMAL BREATHING PATTERN. absent: Rales, Rhonchi, Wheezes - Cardiovascular Exam Cardiovascular Exam: REGULAR RHYTHM, RRR, +S1, +S2. absent: JVD - GI/Abdominal Exam GI & Abdominal Exam: Soft, Hernia (left ventral hernia), Normal Bowel Sounds. absent: Distended, Tenderness, Rebound - Rectal Exam Rectal Exam: Deferred - Extremities Exam Extremities Exam: Normal Capillary Refill, Normal Inspection. absent: Calf Tenderness, Pedal Edema - Back Exam Back Exam: NORMAL INSPECTION - Neurological Exam Neurological Exam: Alert, Awake, CN II-XII Intact, Oriented x3 (oriented to place, person , date) Additional comments: with cognitive impairment - Psychiatric Exam Psychiatric exam: Agitated - Skin Skin Exam: Dry, Normal Color, Warm Assessment and Plan - Assessment and Plan (Free Text) Assessment: 56 y/o female with PMHx significant for cognitive decline due to prior CVA - 5 years ago, hearing problems recent admission for psychosis and persecutory delusions ( her family wants to hurt her),brought in by family for intentional tylenol overdose. She was immediately brought in, activated charcoal was given, and acetadote was started as per poison control. At present patient is medically stable. Psychiatry consulted and recommended involuntary admission since patient cannot consent for voluntary admission. As per [facility] Crisis eval patient does not need psych admission but supervision.Patient refusing to take meds at times . Psych on consult helping with management Patient is medically and neurologically cleared for discharge. SW/Case Mgt consulted for Safe discharge planning.At present family can not provide 24 hour supervision for patient and 3 of the children are underage. Patient has cognitive impairment with behavioral problems, delusions and needs more psychiatric management . Family needs to pursue getting legal POA on basis that patient is not competent and cannot make decisions for self Social hold until safe discharge planning . 1. Cognitive / psychiatric disorder /Suicidal / behavioral problems maintain 1:1 for safety psychiatry on consult patient is not competent to make her own decisions unsafe discharge since family cannot provide 24 hour supervision Continue Haldol IM pRN , increased Depakote dose and changed seroquel to Zydis Family informed of need to get POA 2. History CVA in the past with cognitive problems, hearing loss vascular dementia with hearing, speech and cognitive problems since the stroke 5 years ago No new neuro deficits Neurology consulted and case discussed. Patient is neurologically stable No imaging is necessary 3. Ventral hernia reducible Surgery consulted- Dr Mckeon- rec outpt ff up for elective repair Wound care for wound over hernia Abd binder ordered however pt refused to wear it 4. Anemia most likely anemia of chronic disease continue monitoring 5. Rectal Bleed likely sec to Hemorrhoids resolved , H& H stable GI consulted- bleed likely secondary to hemorrhoids 6. Diarrhea resolved C diff negative Imodium prn 7. Tylenol overdose was treated [facility] acetadote, IVF 8.DVT prophylaxis SCD
[2017-01-15] MEDS: OLANZapine 5 mg Disintegrating Tab PO SCH (09:10)
[2017-01-15] MEDS: Divalproex 125 mg Sprinkle Capsule PO SCH ×3 (09:11→18:16)
--- NOTE | 2017-01-15 11:57 | CP.PCM.PN ---
Subjective - Date & Time of Evaluation Date of Evaluation: 01/15/17 Time of Evaluation: 11:30 - Subjective Subjective: Pt noted ambulating in the unit tolerating PO diet no N/V no abd pain no CP no SOB pt is alert, oriented wants me to call her niece Jeanna Objective - Vital Signs/Intake and Output Vital Signs (last 24 hours): Temp Pulse Resp BP Pulse Ox 98.5 F 60 18 150/75 100 01/15/17 01:00 01/15/17 01:00 01/15/17 01:00 01/15/17 01:00 01/15/17 01:00 - Medications Medications: Current Medications Acetaminophen (Tylenol 325mg Tab) 650 mg PO Q6 PRN PRN Reason: Pain, moderate (4-7) Last Admin: 01/14/17 20:04 Dose: 650 mg Divalproex Sodium (Depakote Sprinkles) 250 mg PO TID [facility] Last Admin: 01/15/17 09:11 Dose: 250 mg Haloperidol (Haldol) 5 mg PO Q6 PRN PRN Reason: Agitation Last Admin: 01/10/17 17:09 Dose: 5 mg Haloperidol Lactate (Haldol) 5 mg IM Q6 PRN PRN Reason: agitation/refusing oral meds Hydrocortisone (Anusol-Hc) 1 applic [place] BID PRN PRN Reason: Pain, moderate (4-7) Last Admin: 12/30/16 08:31 Dose: 1 applic Olanzapine (Zyprexa Zydis) 5 mg PO DAILY [facility] Last Admin: 01/15/17 09:10 Dose: 5 mg - Labs Labs: 01/06/17 05:20 01/06/17 05:20 PT 13.8 Seconds (9.8-13.1) H 12/07/16 14:22 INR 1.2 (0.9-1.2) 12/07/16 14:22 APTT 29.8 Seconds (25.6-37.1) 12/06/16 18:58 Assessment and Plan - Assessment and Plan (Free Text) Assessment: - Constitutional Appears: No Acute Distress - Head Exam Head Exam: ATRAUMATIC, NORMAL INSPECTION, NORMOCEPHALIC - Eye Exam Eye Exam: EOMI, Normal appearance, PERRL Pupil Exam: NORMAL ACCOMODATION - ENT Exam ENT Exam: Mucous Membranes Moist, Normal External Ear Exam Additional comments: decreased hearing acuity - Neck Exam Neck Exam: Full ROM. absent: Meningismus - Respiratory Exam Respiratory Exam: NORMAL BREATHING PATTERN. absent: Rales, Wheezes, Respiratory Distress - Cardiovascular Exam Cardiovascular Exam: REGULAR RHYTHM, +S1, +S2 - GI/Abdominal Exam GI & Abdominal Exam: Soft, Normal Bowel Sounds. absent: Tenderness Additional comments: large ventral hernia, nontender, reducible, no signs of incarceration - Extremities Exam Extremities Exam: Full ROM, Normal Capillary Refill. absent: Calf Tenderness, Pedal Edema - Back Exam Back Exam: Full ROM. absent: CVA tenderness (L), CVA tenderness (R) - Neurological Exam Neurological Exam: Alert, Awake, CN II-XII Intact, Normal Gait Neuro motor strength exam: Left Upper Extremity: 5, Right Upper Extremity: 5, Left Lower Extremity: 5, Right Lower Extremity: 5 follows simple commands oriented to person and place - Psychiatric Exam Psychiatric exam: Normal Affect, Normal Mood answers simple questions appropriately - Skin no active skin lesions, dry Assessment and Plan - Assessment and Plan (Free Text) Assessment: 56 y/o female with PMHx significant for cognitive decline due to prior CVA - 5 years ago, hearing problems recent admission for psychosis and persecutory delusions ( her family wants to hurt her),brought in by family for intentional tylenol overdose. She was immediately brought in, activated charcoal was given, and acetadote was started as per poison control. At present patient is medically stable. Psychiatry consulted and recommended involuntary admission since patient cannot consent for voluntary admission. [place] [facility] [place] patient does not need psych admission but supervision.Patient refusing to take meds at times . Psych on consult helping with management Patient is medically and neurologically cleared for discharge. SW/Case Mgt consulted for Safe discharge planning.At present family can not provide 24 hour supervision for patient and 3 of the children are underage. Patient has cognitive impairment with behavioral problems, delusions and needs more psychiatric management . Family needs to pursue getting legal POA on basis that patient is not competent and cannot make decisions for self Social hold until safe discharge planning . 1. Cognitive / psychiatric disorder /Suicidal / behavioral problems maintain 1:1 for safety psychiatry on consult patient is not competent to make her own decisions unsafe discharge since family cannot provide 24 hour supervision Continue Haldol IM pRN , increased Depakote dose and changed seroquel to Zydis Family informed of need to get POA 2. History CVA in the past with cognitive problems, hearing loss vascular dementia with hearing, speech and cognitive problems since the stroke 5 years ago No new neuro deficits Neurology consulted and case discussed. Patient is neurologically stable No imaging is necessary 3. Ventral hernia reducible Surgery consulted- Dr Mckeon- rec outpt ff up for elective repair Wound care for wound over hernia Abd binder ordered however pt refused to wear it 4. Anemia most likely anemia of chronic disease continue monitoring 5. Rectal Bleed likely sec to Hemorrhoids resolved , H& H stable GI consulted- bleed likely secondary to hemorrhoids 6. Diarrhea resolved C diff negative Imodium prn 7. Tylenol overdose was treated [facility] acetadote, IVF 8.DVT prophylaxis SCD
[2017-01-16 07:27] LABS: HEMOGLOBIN 10.2 g/dL (12.0-16.0); MEAN CELL VOLUME 97.7 fl (81.0-99.0); MEAN CORPUSCULAR HEMOGLOBIN 32.4 pg (27.0-31.0); MEAN CORPUSCULAR HGB CONC 33.2 g/dL (33.0-37.0); RBC 3.15 Mil/uL (3.80-5.20); RED CELL DISTRIBUTION WIDTH 14.8 % (11.5-14.5); WHITE BLOOD COUNT 5.7 K/uL (4.8-10.8)
[2017-01-16 07:46] LABS: BLOOD UREA NITROGEN 12 mg/dl (7-17); CALCIUM 8.9 mg/dL (8.4-10.2); GFR AFRICAN-AMERICAN > 60; GFR NON-AFRICAN AMERICAN > 60
[2017-01-16] MEDS: OLANZapine 5 mg Disintegrating Tab PO SCH (08:45)
[2017-01-16] MEDS: Divalproex 125 mg Sprinkle Capsule PO SCH ×3 (08:46→17:28)
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
[2017-01-17] MEDS: Divalproex 125 mg Sprinkle Capsule PO SCH ×3 (09:12→17:36)
[2017-01-17] MEDS: OLANZapine 5 mg Disintegrating Tab PO SCH (09:13)
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
[2017-01-18] MEDS: OLANZapine 5 mg Disintegrating Tab PO SCH (09:22)
[2017-01-18] MEDS: Divalproex 125 mg Sprinkle Capsule PO SCH ×3 (09:22→16:20)
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
--- NOTE | 2017-01-19 08:39 | PCM.PYCHPN ---
Psychiatric Progress Note - Psychiatric Progress Note Patient seen today, length of contact: Patient evaluated Patient Chief Complaint: Psychiatry consult called to re-evaluate for capacity CC:"Melanieravinder johnson" Problems Identified/Issues Discussed: Sprinkler Irrigation Equipment Mechanic spoke to the patient in [place] and also used paper to write down questions for the patient. Patient was oriented to "hospital" but could not specify which one. She could tell the date by reading it off the wall. She can not explain why she is in the hospital, just states that she has a hernia. When asked about medications, she reports that she takes tylenol, but could not understand which medications she takes or why when the internal communications writer attempted to explain it to her. She could not state what lead to her hospitalization, nor could she express a choice in what her preference is. During the interview, she pointed to her phone or a paper with information given to her by one of the doctors because she was not able to answer the questions. -Patient does NOT have capacity to make medical decisions or to sign into a voluntary psychiatry unit; she will not meet criteria for involuntary admission -Patient can NOT understand why she is the hospital, she can NOT comprehend new information that is explained to her, she can NOT communicate what choices she has with regards to treatment, she can NOT weigh the risks and benefits of treatment; patient being oriented to place or time does NOT equal having capacity to make medical decisions -Patient does NOT have capacity to leave AMA -Patient does not need recurrent evaluations for capacity if there are no significant improvements in her cognitive function -Would recommend calling a psychology consult to perform testing to determine the level of cognitive function Diagnostic Results: 12/22/16- VPA 11.5 Medication Change: No Medical Record Reviewed: Yes Mental Status Examination - Cognitive Function Orientation: Person, Place ("Hospital"), Time Memory: Impaired Attention: Poor Concentration: Poor Association: Loose Fund of Knowledge: Poor Decription of patient's judgement and insights: Poor insight/judgment - Mood Mood: Neutral - Affect Affect: Constricted - Speech Speech: Stammering - Formal Thought Process Formal Thought Process: Loosening of associations Psychotic Thoughts and Behaviors: NO AH/VH/paranoia reported, patient not observed to internally preoccupied - Suicidal Ideation Suicidal Ideation: No - Homicidal Ideation Homicidal Ideation: No Goal/Treatment Plan - Goal/Treatment Plan Need for Continued Stay: Severe functional impairment Progress Toward Problem(s) and Goals/Treatment Plan: 56 yo female w/ severe neurocognitive impairment. -Patient does NOT have capacity to make medical decisions or to sign into a voluntary psychiatry unit; she will not meet criteria for involuntary admission -Patient can NOT understand why she is the hospital, she can NOT comprehend new information that is explained to her, she can NOT communicate what choices she has with regards to treatment, she can NOT weigh the risks and benefits of treatment; patient being oriented to place or time does NOT equal having capacity to make medical decisions -Patient does NOT have capacity to leave AMA -Patient does not need recurrent evaluations for capacity if there are no significant improvements in her cognitive function -Would recommend calling a psychology consult to perform testing to determine the level of cognitive function
[2017-01-19] MEDS: OLANZapine 5 mg Disintegrating Tab PO SCH (09:21)
[2017-01-19] MEDS: Divalproex 125 mg Sprinkle Capsule PO SCH ×3 (09:21→17:31)
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
[2017-01-20] MEDS: Divalproex 125 mg Sprinkle Capsule PO SCH ×3 (08:44→16:19)
[2017-01-20] MEDS: OLANZapine 5 mg Disintegrating Tab PO SCH (08:44)
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
[2017-01-21] MEDS: Divalproex 125 mg Sprinkle Capsule PO SCH ×2 (09:40→17:39)
[2017-01-21] MEDS: OLANZapine 5 mg Disintegrating Tab PO SCH (09:41)
--- NOTE | 2017-01-21 13:23 | PCM.PYCHPN ---
Psychiatric Progress Note - Psychiatric Progress Note Patient seen today, length of contact: Case discussed with team Problems Identified/Issues Discussed: Patient has been calmer and less agitated as per staff report. At times she is non-compliant with medications, but has been compliant for the past several days. At this time would recommend tapering her medications to see if patient can tolerate lower doses to reduce risk of adverse effects. If patient becomes agitated or has mood dysregulation following tapering of the medication, will re -titrate medicines. -Lower Depakote to 250 mg PO BID -Lower Zyprexa to 2.5 mg PO HS -Check VPA level on 01/25/17 Diagnostic Results: 12/22/16- VPA 11.5 Medication Change: Yes (Lower Depakote to 250 mg PO BID, Zyprexa 2.5 mg PO HS) Medical Record Reviewed: Yes Goal/Treatment Plan - Goal/Treatment Plan Need for Continued Stay: Severe functional impairment Progress Toward Problem(s) and Goals/Treatment Plan: 56 yo female w/ severe neurocognitive impairment. -Lower Zyprexa to 2.5 mg PO HS -Lower Depakote to 250 mg PO BID -Check VPA level 01/25/17
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
[2017-01-22] MEDS: Divalproex 125 mg Sprinkle Capsule PO SCH ×2 (11:13→17:50)
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
[2017-01-23] MEDS: Divalproex 125 mg Sprinkle Capsule PO SCH ×2 (09:00→17:35)
--- NOTE | 2017-01-23 10:13 | CP.PCM.PN ---
Subjective - Date & Time of Evaluation Date of Evaluation: 01/23/17 Time of Evaluation: 09:45 - Subjective Subjective: Niece Jeanna at bedside visiting No fever Pt denies CP no SOB no abd pain tolerating PO diet Ambulatory Objective - Vital Signs/Intake and Output Vital Signs (last 24 hours): Temp Pulse Resp BP Pulse Ox 98.0 F 64 20 126/73 100 01/23/17 08:02 01/23/17 08:02 01/23/17 08:02 01/23/17 08:02 01/23/17 08:02 - Medications Medications: Current Medications Acetaminophen (Tylenol 325mg Tab) 650 mg PO Q6 PRN PRN Reason: Pain, moderate (4-7) Last Admin: 01/23/17 01:23 Dose: 650 mg Divalproex Sodium (Depakote Sprinkles) 250 mg PO BID [facility] Last Admin: 01/23/17 09:00 Dose: 250 mg Haloperidol (Haldol) 2 mg PO Q6 PRN PRN Reason: Agitation Haloperidol Lactate (Haldol) 2 mg IM Q6 PRN PRN Reason: Agitation Hydrocortisone (Anusol-Hc) 1 applic [place] BID PRN PRN Reason: Pain, moderate (4-7) Last Admin: 12/30/16 08:31 Dose: 1 applic Olanzapine (Zyprexa) 2.5 mg PO HS [facility] Last Admin: 01/22/17 23:04 Dose: 2.5 mg - Labs Labs: 01/16/17 05:30 01/16/17 05:30 PT 13.8 Seconds (9.8-13.1) H 12/07/16 14:22 INR 1.2 (0.9-1.2) 12/07/16 14:22 APTT 29.8 Seconds (25.6-37.1) 12/06/16 18:58 - Constitutional Appears: No Acute Distress - Head Exam Head Exam: ATRAUMATIC, NORMAL INSPECTION, NORMOCEPHALIC - Eye Exam Eye Exam: EOMI, Normal appearance, PERRL Pupil Exam: NORMAL ACCOMODATION - ENT Exam ENT Exam: Mucous Membranes Moist, Normal External Ear Exam Additional comments: decreased hearing acuity - Neck Exam Neck Exam: Full ROM. absent: Meningismus - Respiratory Exam Respiratory Exam: NORMAL BREATHING PATTERN. absent: Rales, Wheezes, Respiratory Distress - Cardiovascular Exam Cardiovascular Exam: REGULAR RHYTHM, +S1, +S2 - GI/Abdominal Exam GI & Abdominal Exam: Soft, Normal Bowel Sounds. absent: Tenderness Additional comments: large ventral hernia, nontender, reducible, no signs of incarceration - Extremities Exam Extremities Exam: Full ROM, Normal Capillary Refill. absent: Calf Tenderness, Pedal Edema - Back Exam Back Exam: Full ROM. absent: CVA tenderness (L), CVA tenderness (R) - Neurological Exam Neurological Exam: Alert, Awake, CN II-XII Intact, Normal Gait Neuro motor strength exam: Left Upper Extremity: 5, Right Upper Extremity: 5, Left Lower Extremity: 5, Right Lower Extremity: 5 follows simple commands oriented to person and place - Psychiatric Exam Psychiatric exam: Normal Affect, Normal Mood answers simple questions appropriately - Skin no active skin lesions, dry Assessment and Plan - Assessment and Plan (Free Text) Assessment: 56 y/o female with PMHx significant for cognitive decline due to prior CVA - 5 years ago, hearing problems recent admission for psychosis , brought in by family for intentional Tylenol overdose. She was immediately brought in, activated charcoal was given, and Acetadote was started as per poison control. At present patient is medically stable. Psychiatry consulted and recommended involuntary admission since patient cannot consent for voluntary admission. [place] [facility] [place] patient does not need psych admission but supervision. Psych on consult has been helping with her management. Patient is hard on hearing so the appropriate way to communicate with her is by writing down all the questions Patient is medically and neurologically cleared for discharge. Psychiatry and psychology consulted to assess patient capacity to make decisions - she was found NOT to have capacity . SW/Case Mgt following for Safe discharge planning. Her 18 year old daughter will need to get legal guardianship for patient Social hold until safe discharge planning. 1. Cognitive / psychiatric disorder? /Suicidal / behavioral problems patient initially admitted after overdosing on Tylenol [facility] [place] and they felt that patient's condition is not psychiatric and does not require Involuntary Psych admission but she needs supervision. Psychiatry consulted - deemed pt has no capacity to make decisions for herself. That is why family was contacted and counselled to ask for legal guardianship . At present patient is off 1:1 for 3 weeks . Ambulating in unit freely , gets frustrated and anxious when asking physician to let her go home and discharge her. Re evaluation done By Dr Mireles - pt still was found NOT to have capacity to make medical decisions. Rec to decrease Depakote, check levels and also to decrease Zyprexa dose Psychology eval for cognitive impairment appreciated . As per psychologist patient has no capacity . Application for Guardianship in progress 2. History CVA in the past with cognitive problems, hearing loss vascular dementia with hearing, speech and cognitive problems since the stroke 5 years ago No new neuro deficits Neurology consulted and case discussed. Patient is neurologically stable 3. Ventral hernia reducible Surgery consulted- Dr Mckeon- rec outpt ff up for elective repair Abd binder ordered however pt refused to wear it 4. Anemia most likely anemia of chronic disease continue monitoring 5. Rectal Bleed likely sec to Hemorrhoids resolved , H& H stable GI consulted- bleed likely secondary to hemorrhoids 6. Diarrhea resolved C diff negative Imodium prn 7. Tylenol overdose was treated with acetadote, IVF 8.DVT prophylaxis SCD
[2017-01-24] MEDS: Divalproex 125 mg Sprinkle Capsule PO SCH ×2 (08:32→17:06)
--- NOTE | 2017-01-24 11:12 | CP.PCM.PN ---
Subjective - Date & Time of Evaluation Date of Evaluation: 01/24/17 Time of Evaluation: 11:00 - Subjective Subjective: No fevr no abd pain no N/V tolerating PO diet no CP no SOB ambulating around the unit oriented to person and place and also knows its [facility] ( showed me date on her cell phone when i asked) Objective - Vital Signs/Intake and Output Vital Signs (last 24 hours): Temp Pulse Resp BP Pulse Ox 97.9 F 83 20 114/76 97 01/24/17 09:24 01/24/17 09:24 01/24/17 09:24 01/24/17 09:24 01/24/17 09:24 - Medications Medications: Current Medications Acetaminophen (Tylenol 325mg Tab) 650 mg PO Q6 PRN PRN Reason: Pain, moderate (4-7) Last Admin: 01/24/17 06:40 Dose: 650 mg Divalproex Sodium (Depakote Sprinkles) 250 mg PO BID [facility] Last Admin: 01/24/17 08:32 Dose: 250 mg Haloperidol (Haldol) 2 mg PO Q6 PRN PRN Reason: Agitation Haloperidol Lactate (Haldol) 2 mg IM Q6 PRN PRN Reason: Agitation Hydrocortisone (Anusol-Hc) 1 applic [place] BID PRN PRN Reason: Pain, moderate (4-7) Last Admin: 12/30/16 08:31 Dose: 1 applic Olanzapine (Zyprexa) 2.5 mg PO [facility] Last Admin: 01/23/17 21:11 Dose: 2.5 mg - Labs Labs: 01/16/17 05:30 01/16/17 05:30 PT 13.8 Seconds (9.8-13.1) H 12/07/16 14:22 INR 1.2 (0.9-1.2) 12/07/16 14:22 APTT 29.8 Seconds (25.6-37.1) 12/06/16 18:58 - Constitutional Appears: No Acute Distress - Head Exam Head Exam: ATRAUMATIC, NORMAL INSPECTION, NORMOCEPHALIC - Eye Exam Eye Exam: EOMI, Normal appearance, PERRL Pupil Exam: NORMAL ACCOMODATION - ENT Exam ENT Exam: Mucous Membranes Moist, Normal External Ear Exam Additional comments: decreased hearing acuity - Neck Exam Neck Exam: Full ROM. absent: Meningismus - Respiratory Exam Respiratory Exam: NORMAL BREATHING PATTERN. absent: Rales, Wheezes, Respiratory Distress - Cardiovascular Exam Cardiovascular Exam: REGULAR RHYTHM, +S1, +S2 - GI/Abdominal Exam GI & Abdominal Exam: Soft, Normal Bowel Sounds. absent: Tenderness Additional comments: large ventral hernia, nontender, reducible, no signs of incarceration - Extremities Exam Extremities Exam: Full ROM, Normal Capillary Refill. absent: Calf Tenderness, Pedal Edema - Back Exam Back Exam: Full ROM. absent: CVA tenderness (L), CVA tenderness (R) - Neurological Exam Neurological Exam: Alert, Awake, CN II-XII Intact, Normal Gait Neuro motor strength exam: Left Upper Extremity: 5, Right Upper Extremity: 5, Left Lower Extremity: 5, Right Lower Extremity: 5 follows simple commands oriented to person and place - Psychiatric Exam Psychiatric exam: Normal Affect, Normal Mood answers simple questions appropriately - Skin no active skin lesions, dry Assessment and Plan - Assessment and Plan (Free Text) Assessment: 56 y/o female with PMHx significant for cognitive decline due to prior CVA - 5 years ago, hearing problems recent admission for psychosis , brought in by family for intentional Tylenol overdose. She was immediately brought in, activated charcoal was given, and Acetadote was started as per poison control. At present patient is medically stable. Psychiatry consulted and recommended involuntary admission since patient cannot consent for voluntary admission. [place] [facility] [place] does not need psych admission but supervision. Psych on consult has been helping with her management. Patient is hard on hearing so the appropriate way to communicate with her is by writing down all the questions Patient is medically and neurologically cleared for discharge. Psychiatry and psychology consulted to assess patient capacity to make decisions - she was found NOT to have capacity . SW/Case Mgt following for Safe discharge planning. Her 18 year old daughter will need to get legal guardianship for patient Social hold until safe discharge planning. 1. Cognitive / psychiatric disorder? /Suicidal / behavioral problems patient initially admitted after overdosing on Tyl[place]ol [facility] [place] pt and they felt that patient's condition is not psychiatric and does not require Involuntary Psych admission but she needs supervision. Psychiatry consulted - deemed pt has no capacity to make decisions for herself. That is why family was contacted and counselled to ask for legal guardianship . At present patient is off 1:1 for 3 weeks . Ambulating in unit freely , gets frustrated and anxious when asking physician to let her go home and discharge her. Re evaluation done By Dr Mireles - pt still was found NOT to have capacity to make medical decisions. Rec to decrease Depakote, check levels and also to decrease Zyprexa dose Psychology eval for cognitive impairment appreciated . As per psychologist patient has no capacity . Application for Guardianship in progress 2. History CVA in the past with cognitive problems, hearing loss vascular dementia with hearing, speech and cognitive problems since the stroke 5 years ago No new neuro deficits Neurology consulted and case discussed. Patient is neurologically stable 3. Ventral hernia reducible Surgery consulted- Dr Mckeon- rec outpt ff up for elective repair Abd binder ordered however pt refused to wear it 4. Anemia most likely anemia of chronic disease continue monitoring 5. Rectal Bleed likely sec to Hemorrhoids resolved , H& H stable GI consulted- bleed likely secondary to hemorrhoids 6. Diarrhea resolved C diff negative 7. Tylenol overdose was treated with acetadote, IVF 8.DVT prophylaxis SCD
[2017-01-24] MEDS: Bacitracin OINT 15GM TOP SCH (17:13)
[2017-01-25 07:11] LABS: HEMOGLOBIN 10.7 g/dL (12.0-16.0); MEAN CELL VOLUME 97.3 fl (81.0-99.0); MEAN CORPUSCULAR HEMOGLOBIN 32.1 pg (27.0-31.0); RBC 3.34 Mil/uL (3.80-5.20); RED CELL DISTRIBUTION WIDTH 15.9 % (11.5-14.5); WHITE BLOOD COUNT 5.5 K/uL (4.8-10.8)
[2017-01-25 07:30] LABS: BLOOD UREA NITROGEN 17 mg/dl (7-17); GFR AFRICAN-AMERICAN > 60; GFR NON-AFRICAN AMERICAN > 60
--- NOTE | 2017-01-25 07:32 | CP.PCM.PN ---
Subjective - Date & Time of Evaluation Date of Evaluation: 01/25/17 Time of Evaluation: 10:00 - Subjective Subjective: Patient seen in the floor. Ambulating with steady gait. Hemodynamically stable, afebrile No acute issues overnight. Asking to go home and gets agitated . Objective - Vital Signs/Intake and Output Vital Signs (last 24 hours): Temp Pulse Resp BP Pulse Ox 98.2 F 98 H 20 110/69 98 01/25/17 00:57 01/25/17 00:57 01/25/17 00:57 01/25/17 00:57 01/25/17 00:57 - Medications Medications: Current Medications Acetaminophen (Tylenol 325mg Tab) 650 mg PO Q6 PRN PRN Reason: Pain, moderate (4-7) Last Admin: 01/24/17 20:40 Dose: 650 mg Bacitracin (Bacitracin Oint) 1 applic [place] BID [facility] Last Admin: 01/24/17 17:13 Dose: 1 applic Divalproex Sodium (Depakote Sprinkles) 250 mg PO BID [facility] Last Admin: 01/24/17 17:06 Dose: 250 mg Haloperidol (Haldol) 2 mg PO Q6 PRN PRN Reason: Agitation Haloperidol Lactate (Haldol) 2 mg IM Q6 PRN PRN Reason: Agitation Olanzapine (Zyprexa) 2.5 mg PO HS [facility] Last Admin: 01/24/17 21:28 Dose: 2.5 mg - Labs Labs: 01/25/17 06:40 01/16/17 05:30 PT 13.8 Seconds (9.8-13.1) H 12/07/16 14:22 INR 1.2 (0.9-1.2) 12/07/16 14:22 APTT 29.8 Seconds (25.6-37.1) 12/06/16 18:58 - Constitutional Appears: Non-toxic, No Acute Distress - Head Exam Head Exam: ATRAUMATIC, NORMOCEPHALIC - Eye Exam Eye Exam: EOMI, Normal appearance, PERRL Pupil Exam: NORMAL ACCOMODATION - ENT Exam ENT Exam: Mucous Membranes Moist, Normal Exam - Neck Exam Neck Exam: Full ROM, Normal Inspection - Respiratory Exam Respiratory Exam: Clear to Ausculation Bilateral, NORMAL BREATHING PATTERN. absent: Accessory Muscle Use, Respiratory Distress - Cardiovascular Exam Cardiovascular Exam: REGULAR RHYTHM, RRR, +S1, +S2. absent: JVD - GI/Abdominal Exam GI & Abdominal Exam: Soft, Hernia (LLQ ventral hernia), Normal Bowel Sounds. absent: Distended, Tenderness - Rectal Exam Rectal Exam: Deferred - Extremities Exam Extremities Exam: Full ROM, Normal Inspection. absent: Pedal Edema - Back Exam Back Exam: NORMAL INSPECTION - Neurological Exam Neurological Exam: Alert, Awake Additional comments: dysarthria hard on hearing - Psychiatric Exam Psychiatric exam: Agitated, Anxious, Flat Affect - Skin Skin Exam: Dry, Warm Assessment and Plan - Assessment and Plan (Free Text) Assessment: 56 y/o female with PMHx significant for cognitive decline due to prior CVA - 5 years ago, hearing problems recent admission for psychosis , brought in by family for intentional Tylenol overdose. She was immediately brought in, activated charcoal was given, and Acetadote was started as per poison control. At present patient is medically stable. Psychiatry consulted and recommended involuntary admission since patient cannot consent for voluntary admission. As per [facility] [place] patient does not need psych admission but supervision. Psych on consult has been helping with her management. Patient is hard on hearing so the appropriate way to communicate with her is by writing down all the questions Patient is medically and neurologically cleared for discharge. Psychiatry and psychology consulted to assess patient capacity to make decisions - she was found NOT to have capacity . SW/Case Mgt following for Safe discharge planning. Her 18 year old daughter will need to get legal guardianship for patient Social hold until safe discharge planning. 1. Cognitive / psychiatric disorder? /Suicidal / behavioral problems patient initially admitted after overdosing on Tylenol [facility] [place] to eval pt and they felt that patient's condition is not psychiatric and does not require Involuntary Psych admission but she needs supervision. Psychiatry consulted - deemed pt has no capacity to make decisions for herself. That is why family was contacted and counselled to ask for legal guardianship . At present patient is off 1:1 for 3 weeks . Ambulating in unit freely , gets frustrated and anxious when asking physician to let her go home and discharge her. Re evaluation done By Dr Mireles - pt still was found NOT to have capacity to make medical decisions. Rec to decrease Depakote, check levels and also to decrease Zyprexa dose Psychology eval for cognitive impairment appreciated . As per psychologist patient has no capacity . Application for Guardianship in progress 2. History CVA in the past with cognitive problems, hearing loss vascular dementia with hearing, speech and cognitive problems since the stroke 5 years ago No new neuro deficits Neurology consulted and case discussed. Patient is neurologically stable 3. Ventral hernia reducible Surgery consulted- Dr Mckeon- rec outpt ff up for elective repair Abd binder ordered however pt refused to wear it 4. Anemia most likely anemia of chronic disease continue monitoring 5. Rectal Bleed likely sec to Hemorrhoids resolved , H& H stable GI consulted- bleed likely secondary to hemorrhoids 6. Diarrhea resolved C diff negative 7. Tylenol overdose was treated with acetadote, IVF 8.DVT prophylaxis SCD
[2017-01-25] MEDS: Bacitracin OINT 15GM TOP SCH ×2 (08:24→16:38)
[2017-01-25] MEDS: Divalproex 125 mg Sprinkle Capsule PO SCH ×2 (08:24→16:38)
[2017-01-26] MEDS: Divalproex 125 mg Sprinkle Capsule PO SCH ×2 (08:51→16:45)
[2017-01-26] MEDS: Bacitracin OINT 15GM TOP SCH ×2 (08:55→16:45)
--- NOTE | 2017-01-26 17:05 | CP.PCM.PN ---
Subjective - Date & Time of Evaluation Date of Evaluation: 01/26/17 Time of Evaluation: 17:30 - Subjective Subjective: Patient seen in the unit. Ambulating with steady gait , hemodynamically stable, afebrile. No acute issues overnight Asking to go home Objective - Vital Signs/Intake and Output Vital Signs (last 24 hours): Temp Pulse Resp BP Pulse Ox 98 F 58 L 18 147/63 100 01/26/17 16:04 01/26/17 16:04 01/26/17 16:04 01/26/17 16:04 01/26/17 16:04 - Medications Medications: Current Medications Acetaminophen (Tylenol 325mg Tab) 650 mg PO Q6 PRN PRN Reason: Pain, moderate (4-7) Last Admin: 01/26/17 08:53 Dose: 650 mg Bacitracin (Bacitracin Oint) 1 applic TOP BID [facility] Last Admin: 01/26/17 16:45 Dose: 1 applic Divalproex Sodium (Depakote Sprinkles) 250 mg PO BID [facility] Last Admin: 01/26/17 16:45 Dose: 250 mg Haloperidol (Haldol) 2 mg PO Q6 PRN PRN Reason: Agitation Haloperidol Lactate (Haldol) 2 mg IM Q6 PRN PRN Reason: Agitation Olanzapine (Zyprexa) 2.5 mg PO HS [facility] Last Admin: 01/25/17 21:07 Dose: 2.5 mg - Labs Labs: 01/25/17 06:40 01/25/17 06:40 PT 13.8 Seconds (9.8-13.1) H 12/07/16 14:22 INR 1.2 (0.9-1.2) 12/07/16 14:22 APTT 29.8 Seconds (25.6-37.1) 12/06/16 18:58 - Constitutional Appears: Non-toxic, No Acute Distress - Head Exam Head Exam: ATRAUMATIC, NORMOCEPHALIC - Eye Exam Eye Exam: EOMI, PERRL Pupil Exam: NORMAL ACCOMODATION - ENT Exam ENT Exam: Mucous Membranes Moist, Normal Exam - Neck Exam Neck Exam: Full ROM, Normal Inspection - Respiratory Exam Respiratory Exam: Clear to Ausculation Bilateral, NORMAL BREATHING PATTERN. absent: Rales, Rhonchi, Wheezes - Cardiovascular Exam Cardiovascular Exam: REGULAR RHYTHM, RRR, +S1, +S2. absent: JVD - GI/Abdominal Exam GI & Abdominal Exam: Soft, Hernia (LLQ ), Normal Bowel Sounds. absent: Distended, Guarding, Rebound - Rectal Exam Rectal Exam: Deferred - Extremities Exam Extremities Exam: Full ROM, Normal Capillary Refill, Normal Inspection - Back Exam Back Exam: NORMAL INSPECTION - Neurological Exam Neurological Exam: Alert, Awake Additional comments: oriented to person , time and place with dysarthria hard on hearing - Psychiatric Exam Psychiatric exam: Anxious - Skin Skin Exam: Dry, Normal Color, Warm Assessment and Plan - Assessment and Plan (Free Text) Assessment: 56 y/o female with PMHx significant for cognitive decline due to prior CVA - 5 years ago, hearing problems recent admission for psychosis , brought in by family for intentional Tylenol overdose. She was immediately brought in, activated charcoal was given, and Acetadote was started as per poison control. At present patient is medically stable. Psychiatry consulted and recommended involuntary admission since patient cannot consent for voluntary admission. As per [facility] [place] [place] Crisis eval patient does not need psych admission but supervision. Psych on consult has been helping with her management. Patient is hard on hearing so the appropriate way to communicate with her is by writing down all the questions Patient is medically and neurologically cleared for discharge. Psychiatry and psychology consulted to assess patient capacity to make decisions - she was found NOT to have capacity . SW/Case Mgt following for Safe discharge planning. Her 18 year old daughter will need to get legal guardianship for patient Social hold until safe discharge planning. 1. Cognitive / psychiatric disorder? /Suicidal / behavioral problems patient initially admitted after overdosing on Tylenol [facility] [place] [place] crisis came to eval pt and they felt that patient's condition is not psychiatric and does not require Involuntary Psych admission but she needs supervision. Psychiatry consulted - deemed pt has no capacity to make decisions for herself. That is why family was contacted and counselled to ask for legal guardianship . At present patient is off 1:1 for 3 weeks . Ambulating in unit freely , gets frustrated and anxious when asking physician to let her go home and discharge her. Re evaluation done By Dr Mireles - pt still was found NOT to have capacity to make medical decisions. Rec to decrease Depakote, check levels and also to decrease Zyprexa dose Psychology eval for cognitive impairment appreciated . As per psychologist patient has no capacity . Application for Guardianship in progress 2. History CVA in the past with cognitive problems, hearing loss vascular dementia with hearing, speech and cognitive problems since the stroke 5 years ago No new neuro deficits Neurology consulted and case discussed. Patient is neurologically stable 3. Ventral hernia reducible Surgery consulted- Dr Mckeon- rec outpt ff up for elective repair Abd binder ordered however pt refused to wear it 4. Anemia most likely anemia of chronic disease continue monitoring 5. Rectal Bleed likely sec to Hemorrhoids resolved , H& H stable GI consulted- bleed likely secondary to hemorrhoids 6. Diarrhea resolved C diff negative 7. Tylenol overdose was treated with acetadote, IVF 8.DVT prophylaxis SCD
[2017-01-27] MEDS: Bacitracin OINT 15GM TOP SCH ×2 (09:06→16:38)
[2017-01-27] MEDS: Divalproex 125 mg Sprinkle Capsule PO SCH ×2 (09:10→16:37)
--- NOTE | 2017-01-27 11:01 | CP.PCM.PN ---
Subjective - Date & Time of Evaluation Date of Evaluation: 01/27/17 Time of Evaluation: 12:30 - Subjective Subjective: Patient seen ambulating in unit. hemodynamically stable, afebrile. No acute issues overnight Awake, alert oriented to place, person and place. Wants to go home Calm , following directions Had family meeting today with SW , 2 daughters and cousin Jeanna. Plan to discharge patient home on Wednesday with family Family advised to make home arrangements in preparation for patient going home. Daughters reinforced what patient had said during this admission that her 17 year old son Darryl that lives with them is very aggressive toward his mom and violent,making her feel scared and paranoid. Counselled family to reach out for help with [facility],outpatient mental health , behavioral therapy ,APC or police department if needed APC and [facility] with be informed by KRZYSZTOF before patient is discharged home to make a home assessment Objective - Vital Signs/Intake and Output Vital Signs (last 24 hours): Temp Pulse Resp BP Pulse Ox 97.7 F 54 L 20 110/69 100 01/27/17 07:41 01/27/17 07:41 01/27/17 07:41 01/27/17 07:41 01/27/17 07:41 - Medications Medications: Current Medications Acetaminophen (Tylenol 325mg Tab) 650 mg PO Q6 PRN PRN Reason: Pain, moderate (4-7) Last Admin: 01/26/17 22:38 Dose: 650 mg Bacitracin (Bacitracin Oint) 1 applic TOP BID [facility] Last Admin: 01/27/17 09:06 Dose: 1 applic Divalproex Sodium (Depakote Sprinkles) 250 mg PO BID [facility] Last Admin: 01/27/17 09:10 Dose: Not Given Haloperidol (Haldol) 2 mg PO Q6 PRN PRN Reason: Agitation Haloperidol Lactate (Haldol) 2 mg IM Q6 PRN PRN Reason: Agitation Olanzapine (Zyprexa) 2.5 mg PO [facility] Last Admin: 01/26/17 21:18 Dose: 2.5 mg - Labs Labs: 01/25/17 06:40 01/25/17 06:40 PT 13.8 Seconds (9.8-13.1) H 12/07/16 14:22 INR 1.2 (0.9-1.2) 12/07/16 14:22 APTT 29.8 Seconds (25.6-37.1) 12/06/16 18:58 - Constitutional Appears: Non-toxic, No Acute Distress - Head Exam Head Exam: ATRAUMATIC, NORMOCEPHALIC - Eye Exam Eye Exam: EOMI, PERRL Pupil Exam: NORMAL ACCOMODATION - ENT Exam ENT Exam: Normal Exam - Neck Exam Neck Exam: Full ROM, Normal Inspection - Respiratory Exam Respiratory Exam: Clear to Ausculation Bilateral, NORMAL BREATHING PATTERN. absent: Wheezes - Cardiovascular Exam Cardiovascular Exam: REGULAR RHYTHM, +S1, +S2. absent: JVD - GI/Abdominal Exam GI & Abdominal Exam: Soft, Hernia (LLQ ventral hernia), Normal Bowel Sounds. absent: Distended, Guarding, Tenderness, Rebound - Rectal Exam Rectal Exam: Deferred - Extremities Exam Extremities Exam: Full ROM, Normal Capillary Refill, Normal Inspection. absent : Calf Tenderness, Pedal Edema - Back Exam Back Exam: NORMAL INSPECTION - Neurological Exam Neurological Exam: Alert, Awake, Oriented x3 Additional comments: hard on hearing Dysarthria - Psychiatric Exam Psychiatric exam: Anxious - Skin Skin Exam: Dry, Normal Color, Warm Assessment and Plan - Assessment and Plan (Free Text) Assessment: 56 y/o female with PMHx significant for cognitive decline due to prior CVA - 5 years ago, hearing problems recent admission for psychosis , brought in by family for intentional Tylenol overdose. She was immediately brought in, activated charcoal was given, and Acetadote was started as per poison control. At present patient is medically stable. Psychiatry consulted and recommended involuntary admission since patient cannot consent for voluntary admission. As per [facility] [facility] eval patient does not need psych admission but supervision. Psych and psychologist consulted and declared patient not to have capacity to make medical decisions Patient is hard on hearing with dysarthria so the appropriate way to communicate with her is by writing down all the questions Patient is medically and neurologically cleared for discharge. SW/Case t has been following closely for Safe discharge planning getting in touch with family [facility] and [facility]. Patient wants to go home. She is AAO3, knows that she is in hospital , knows all family members , names , birthdays, ages and their phone numbers by memory.She has a very nice hand writing and spends her days writing on papers her family members information , addresses and their phone numbers.She ambulates in unit with stable gait, follows directions properly, calm ( gets anxious when asking to go home ), performs by herself all her ADL-s She is able to use an Iphone and communicates with her family by calling them and texting Had family meeting today with SW , 2 daughters and cousin Jeanna. Plan to discharge patient home on Wednesday with family. As per daughters their father has been informed Family advised to make home arrangements in preparation for patient going home by eliminating any pills or dangerous items Daughters reinforced what patient had said during this admission that her 17 year old son Darryl that lives with them is very aggressive towards his mom and violent,making her feel scared and paranoid. Counselled family to reach out for help with [facility],outpatient mental health , behavioral therapy ,APC or police department if needed APC and [facility] will be informed by SW before patient is discharged home to make a home assessment Counselled daughter to continue with guardianship application to facilitate any future medical management or intervention . 1. Cognitive / psychiatric disorder? /Suicidal / behavioral problems patient initially admitted after overdosing on Tylenol [facility] crisis came to eval pt and they felt that patient's condition is not psychiatric and does not require Involuntary Psych admission but she needs supervision. Psychiatry consulted - deemed pt has no capacity to make decisions for herself. That is why family was contacted and counselled to ask for legal guardianship . At present patient is off 1:1 for 3 weeks . Ambulating in unit freely , gets frustrated and anxious when asking physician to let her go home and discharge her. Re evaluation done By Dr Mireles - pt still was found NOT to have capacity to make medical decisions. Rec to decrease Depakote, check levels and also to decrease Zyprexa dose Psychology eval for cognitive impairment appreciated . As per psychologist patient has no capacity . Application for Guardianship in progress 2. History CVA in the past with cognitive problems, hearing loss vascular dementia with hearing, speech and cognitive problems since the stroke 5 years ago Patient is neurologically stable 3. Ventral hernia reducible Surgery consulted- Dr Mckeon- rec outpt ff up for elective repair Abd binder ordered however pt refused to wear it 4. Anemia most likely anemia of chronic disease continue monitoring 5. Rectal Bleed likely sec to Hemorrhoids resolved , H& H stable GI consulted- bleed likely secondary to hemorrhoids 6. Diarrhea resolved C diff negative 7. Tylenol overdose was treated with acetadote, IVF 8.DVT prophylaxis SCD
[2017-01-28] MEDS: Bacitracin OINT 15GM TOP SCH ×2 (08:59→16:58)
[2017-01-28] MEDS: Divalproex 125 mg Sprinkle Capsule PO SCH ×2 (08:59→16:59)
--- NOTE | 2017-01-28 09:47 | CP.PCM.PN ---
Subjective - Date & Time of Evaluation Date of Evaluation: 01/28/17 Time of Evaluation: 09:45 - Subjective Subjective: Pt is excited about going home tomorrow . She said she is looking forward to it. Pt is ambulating around the unit no fevr denies pain tolerating PO diet denies CP no SOB alert, oriented x 3 Objective - Vital Signs/Intake and Output Vital Signs (last 24 hours): Temp Pulse Resp BP Pulse Ox 97.8 F 60 18 109/64 100 01/28/17 07:28 01/28/17 07:28 01/28/17 07:28 01/28/17 07:28 01/28/17 07:28 - Medications Medications: Current Medications Acetaminophen (Tylenol 325mg Tab) 650 mg PO Q6 PRN PRN Reason: Pain, moderate (4-7) Last Admin: 01/27/17 22:27 Dose: 650 mg Bacitracin (Bacitracin Oint) 1 applic TOP BID [facility] Last Admin: 01/28/17 08:59 Dose: 1 applic Divalproex Sodium (Depakote Sprinkles) 250 mg PO BID [facility] Last Admin: 01/28/17 08:59 Dose: 250 mg Haloperidol (Haldol) 2 mg PO Q6 PRN PRN Reason: Agitation Haloperidol Lactate (Haldol) 2 mg IM Q6 PRN PRN Reason: Agitation Olanzapine (Zyprexa) 2.5 mg PO [facility] Last Admin: 01/27/17 21:02 Dose: 2.5 mg - Labs Labs: 01/25/17 06:40 01/25/17 06:40 PT 13.8 Seconds (9.8-13.1) H 12/07/16 14:22 INR 1.2 (0.9-1.2) 12/07/16 14:22 APTT 29.8 Seconds (25.6-37.1) 12/06/16 18:58 - Constitutional Appears: No Acute Distress - Head Exam Head Exam: ATRAUMATIC, NORMAL INSPECTION, NORMOCEPHALIC - Eye Exam Eye Exam: EOMI, Normal appearance, PERRL Pupil Exam: NORMAL ACCOMODATION - ENT Exam ENT Exam: Mucous Membranes Moist, Normal External Ear Exam Additional comments: decreased hearing acuity - Neck Exam Neck Exam: Full ROM. absent: Meningismus - Respiratory Exam Respiratory Exam: NORMAL BREATHING PATTERN. absent: Rales, Wheezes, Respiratory Distress - Cardiovascular Exam Cardiovascular Exam: REGULAR RHYTHM, +S1, +S2 - GI/Abdominal Exam GI & Abdominal Exam: Soft, Normal Bowel Sounds. absent: Tenderness Additional comments: large ventral hernia, nontender, reducible, no signs of incarceration - Extremities Exam Extremities Exam: Full ROM, Normal Capillary Refill. absent: Calf Tenderness, Pedal Edema - Back Exam Back Exam: Full ROM. absent: CVA tenderness (L), CVA tenderness (R) - Neurological Exam Neurological Exam: Alert, Awake, CN II-XII Intact, Normal Gait Neuro motor strength exam: Left Upper Extremity: 5, Right Upper Extremity: 5, Left Lower Extremity: 5, Right Lower Extremity: 5 follows simple commands oriented to person and place - Psychiatric Exam Psychiatric exam: Normal Affect, Normal Mood answers simple questions appropriately - Skin no active skin lesions, dry Assessment and Plan - Assessment and Plan (Free Text) Assessment: 56 y/o female with PMHx significant for cognitive decline due to prior CVA - 5 years ago, hearing problems recent admission for psychosis , brought in by family for intentional Tylenol overdose. She was immediately brought in, activated charcoal was given, and Acetadote was started as per poison control. At present patient is medically stable. Psychiatry consulted and recommended involuntary admission since patient cannot consent for voluntary admission. As per [facility] eval patient does not need psych admission but supervision. Psych and psychologist consulted and declared patient not to have capacity to make medical decisions Patient is hard on hearing with dysarthria so the appropriate way to communicate with her is by writing down all the questions Patient is medically and neurologically cleared for discharge. KRZYSZTOF/Donal Mgsandra has been following closely for Safe discharge planning getting in touch with family [facility] and [facility]. Patient wants to go home. She is AAO3, knows that she is in hospital , knows all family members , names , birthdays, ages and their phone numbers by memory. She has a very nice hand writing and spends her days writing on papers her family members information , addresses and their phone numbers. She ambulates in unit with stable gait, follows directions properly, calm ( gets anxious when asking to go home ), performs by herself all her ADL-s She is able to use an Iphone and communicates with her family by calling them and texting Dr Lozada had family meeting yesterday with SW , 2 daughters and cousin Jeanna. Plan to discharge patient home tomorrow with family. As per daughters their father has been informed. They were informed that pt would need 24 hour care. Family advised to make home arrangements in preparation for patient going home by eliminating any pills or dangerous items Daughters reinforced what patient had said during this admission that her 17 year old son Darryl that lives with them is very aggressive towards his mom and violent,making her feel scared and paranoid. Family to reach out for help with [facility] ,outpatient mental health , behavioral therapy ,APC or police department if needed [facility] and [facility] will be informed by KRZYSZTOF before patient is discharged home to make a home assessment Counseled daughter to continue with guardianship application to facilitate any future medical management or intervention . 1. Cognitive / psychiatric disorder? /Suicidal / behavioral problems patient initially admitted after overdosing on Tylenol [facility] crisis came to eval pt and they felt that patient's condition is not psychiatric and does not require Involuntary Psych admission but she needs supervision. Psychiatry consulted - deemed pt has no capacity to make decisions for herself. That is why family was contacted and counselled to ask for legal guardianship . At present patient is off 1:1 for 3 weeks . Ambulating in unit freely , gets frustrated and anxious when asking physician to let her go home and discharge her. Re evaluation done By Dr Mireles - pt still was found NOT to have capacity to make medical decisions. Rec to decrease Depakote, check levels and also to decrease Zyprexa dose Psychology eval for cognitive impairment appreciated . As per psychologist patient has no capacity . Application for Guardianship in progress Plan for d/c in am with family . [facility] and [facility] will be informed of pt's discharge 2. History CVA in the past with cognitive problems, hearing loss vascular dementia with hearing, speech and cognitive problems since the stroke 5 years ago Patient is neurologically stable 3. Ventral hernia reducible Surgery consulted- Dr Mckeon- rec outpt ff up for elective repair Abd binder ordered however pt refused to wear it 4. Anemia most likely anemia of chronic disease continue monitoring 5. Rectal Bleed likely sec to Hemorrhoids resolved , H& H stable GI consulted- bleed likely secondary to hemorrhoids 6. Diarrhea resolved C diff negative 7. Tylenol overdose was treated with acetadote, IVF 8.DVT prophylaxis SCD
[2017-01-28 16:19] VITALS: RESP 20
--- NOTE | 2017-01-29 07:41 | CP.PCM.DIS ---
Provider - Provider Date of Admission: 12/06/16 19:24 Attending physician: Parvez Daly MD Consults: Psychiatry : Dr Mireles Surgery: Dr Mckeon GI: Dr Arteaga Time Spent in preparation of Discharge (in minutes): 30 Diagnosis - Discharge Diagnosis (1) Acetaminophen overdose Status: Acute (2) Dementia, unspecified, with behavioral disturbance Status: Chronic (3) Suicide attempt Status: Acute (4) HTN (hypertension) Status: Chronic (5) History of CVA (cerebrovascular accident) Status: Chronic (6) Ventral hernia Status: Chronic Hospital Course - Lab Results Lab Results: Micro Results 12/27/16 15:43 Stool Stool Culture - Final NO SALMONELLA, SHIGELLA OR CAMPYLOBACTER ISOLATED. 12/27/16 15:43 Stool Ova and Parasite Concentrate Exam - Final 12/08/16 07:00 Naris MRSA Culture (Admit) - Final MRSA NOT DETECTED Most Recent Lab Values WBC 5.5 K/uL (4.8-10.8) 01/25/17 06:40 RBC 3.34 Mil/uL (3.80-5.20) L 01/25/17 06:40 Hgb 10.7 g/dL (12.0-16.0) L 01/25/17 06:40 Hct 32.5 % (34.0-47.0) L 01/25/17 06:40 MCV 97.3 fl (81.0-99.0) 01/25/17 06:40 MCH 32.1 pg (27.0-31.0) H 01/25/17 06:40 MCHC 33.0 g/dL (33.0-37.0) 01/25/17 06:40 RDW 15.9 % (11.5-14.5) H 01/25/17 06:40 Plt Count 218 K/uL (130-400) 01/25/17 06:40 MPV 8.5 fl (7.2-11.7) 12/23/16 11:50 Neut % (Auto) 56.9 % (50.0-75.0) 12/23/16 11:50 Lymph % (Auto) 31.9 % (20.0-40.0) 12/23/16 11:50 [place] % (Auto) 9.5 % (0.0-10.0) 12/23/16 11:50 Eos % (Auto) 1.0 % (0.0-4.0) 12/23/16 11:50 Baso % (Auto) 0.7 % (0.0-2.0) 12/23/16 11:50 Neut # 3.0 K/uL (1.8-7.0) 12/23/16 11:50 Lymph # 1.7 K/uL (1.0-4.3) 12/23/16 11:50 [place] # 0.5 K/uL (0.0-0.8) 12/23/16 11:50 Eos # 0.1 K/uL (0.0-0.7) 12/23/16 11:50 Baso # 0.0 K/uL (0.0-0.2) 12/23/16 11:50 PT 13.8 Seconds (9.8-13.1) H 12/07/16 14:22 INR 1.2 (0.9-1.2) 12/07/16 14:22 APTT 29.8 Seconds (25.6-37.1) 12/06/16 18:58 pO2 64 mm/Hg (30-55) H 12/06/16 18:00 VBG pH 7.35 (7.32-7.43) 12/06/16 18:00 VBG pCO2 32 mmHg (40-60) L 12/06/16 18:00 VBG HCO3 19.4 mmol/L 12/06/16 18:00 VBG Total CO2 18.7 mmol/L (22-28) L 12/06/16 18:00 VBG O2 Sat (Calc) 96.9 % (40-65) H 12/06/16 18:00 VBG Base Excess -6.8 mmol/L (0.0-2.0) L 12/06/16 18:00 VBG Potassium 3.2 mmol/L (3.6-5.2) L 12/06/16 18:00 Sodium 142.0 mmol/L (132-148) 12/06/16 18:00 Chloride 115.0 mmol/L (98-107) H 12/06/16 18:00 Glucose 121 mg/dL (65-105) H 12/06/16 18:00 Lactate 2.4 mmol/L (0.7-2.1) H 12/06/16 18:00 FiO2 21.0 % 12/06/16 18:00 Sodium 144 mmol/l (132-148) 01/25/17 06:40 Potassium 4.4 MMOL/L (3.6-5.0) 01/25/17 06:40 Chloride 111 mmol/L (98-107) H 01/25/17 06:40 Carbon Dioxide 21 mmol/L (22-30) L 01/25/17 06:40 Anion Gap 16 (10-20) 01/25/17 06:40 BUN 17 mg/dl (7-17) 01/25/17 06:40 Creatinine 0.8 mg/dL (0.7-1.2) 01/25/17 06:40 Est GFR ( Amer) > 60 01/25/17 06:40 Est GFR (Non-Af Amer) > 60 01/25/17 06:40 POC Glucose (mg/dL) 78 mg/dL (65-110) 12/22/16 05:57 Random Glucose 75 mg/dL (65-105) 01/25/17 06:40 Calcium 9.0 mg/dL (8.4-10.2) 01/25/17 06:40 Total Bilirubin 0.4 mg/dl (0.2-1.3) 12/23/16 11:50 AST 46 U/L (14-36) H 12/23/16 11:50 ALT 48 U/L (9-52) 12/23/16 11:50 Alkaline Phosphatase 116 U/L (38-126) 12/23/16 11:50 Total Protein 9.1 G/DL (6.3-8.2) H 12/23/16 11:50 Albumin 4.7 g/dL (3.5-5.0) 12/23/16 11:50 Globulin 4.5 gm/dL (2.2-3.9) H 12/23/16 11:50 Albumin/Globulin Ratio 1.0 (1.0-2.1) 12/23/16 11:50 Venous Blood Potassium 3.2 mmol/L (3.6-5.2) L 12/06/16 18:00 Urine Color Yellow (YELLOW) 12/06/16 17:45 Urine Clarity Slighty-cloudy (Clear) 12/06/16 17:45 Urine pH 6.0 (5.0-8.0) 12/06/16 17:45 Ur Specific [place] 1.017 (1.003-1.030) 12/06/16 17:45 Urine Protein 100 mg/dL (NEGATIVE) 12/06/16 17:45 Urine Glucose (UA) Neg mg/dL (Normal) 12/06/16 17:45 Urine Ketones Negative mg/dL (NEGATIVE) 12/06/16 17:45 Urine Blood Small (NEGATIVE) 12/06/16 17:45 Urine Nitrate Negative (NEGATIVE) 12/06/16 17:45 Urine Bilirubin Negative (NEGATIVE) 12/06/16 17:45 Urine Urobilinogen 0.2-1.0 mg/dL (0.2-1.0) 12/06/16 17:45 Ur Leukocyte Esterase Neg Jani/uL (Negative) 12/06/16 17:45 Urine RBC (Auto) 6 /hpf (0-3) H 12/06/16 17:45 Urine Microscopic WBC 3 /hpf (0-5) 12/06/16 17:45 Ur Squamous Epith Cells 3 /hpf (0-5) 12/06/16 17:45 Calcium Oxalate Crystal Few /hpf (<OCC) H 12/06/16 17:45 Urine Bacteria Rare (<OCC) 12/06/16 17:45 Stool Leukocytes, Qual Negative (NEGATIVE) 12/27/16 18:54 Salicylates < 1.0 mg/dl 12/06/16 17:55 Urine Opiates Screen Negative (NEGATIVE) 12/06/16 17:45 Urine Methadone Screen Negative (NEGATIVE) 12/06/16 17:45 Acetaminophen < 10.0 ug/ml (10.0-30.0) L 12/07/16 14:22 Ur Barbiturates Screen Negative (NEGATIVE) 12/06/16 17:45 Valproic Acid 13.2 ug/mL (50.0-100.0) L 01/25/17 06:40 Ur Phencyclidine Scrn Negative (NEGATIVE) 12/06/16 17:45 Ur Amphetamines Screen Negative (NEGATIVE) 12/06/16 17:45 U Benzodiazepines Scrn Negative (NEGATIVE) 12/06/16 17:45 U Oth Cocaine Metabols Negative (NEGATIVE) 12/06/16 17:45 U Cannabinoids Screen Negative (NEGATIVE) 12/06/16 17:45 Alcohol, Quantitative < 10 mg/dl (0-10) 12/06/16 17:55 C. difficile Ag & Toxin Negative (NEGATIVE) 12/21/16 08:00 - Hospital Course Hospital Course: 56 y/o female with PMHx significant for cognitive decline due to prior CVA - 5 years ago, hearing problems recent admission for psychosis , brought in by family for intentional Tylenol overdose. She was immediately brought in, activated charcoal was given, and Acetadote was started as per poison control. At present patient is medically stable. Psychiatry consulted and recommended involuntary admission since patient cannot consent for voluntary admission. As per [facility] eval patient does not need psych admission but supervision. Psych and psychologist consulted and declared patient not to have capacity to make medical decisions Patient is hard on hearing with dysarthria so the appropriate way to communicate with her is by writing down all the questions Patient is medically and neurologically cleared for discharge. KRZYSZTOF/Donal Wu has been following closely for Safe discharge planning getting in touch with family [employer] and [facility]. Patient wants to go home. She is AAO3, knows that she is in hospital , knows all family members , names , birthdays, ages and their phone numbers by memory. She has a very nice hand writing and spends her days writing on papers her family members information , addresses and their phone numbers. She ambulates in unit with stable gait, follows directions properly, calm ( gets anxious when asking to go home ), performs by herself all her ADL-s She is able to use an Iphone and communicates with her family by calling them and texting Dr Lozada had family meeting yesterday with KRZYSZTOF , 2 daughters and cousin Jeanna. Plan to discharge patient home tomorrow with family. As per daughters their father has been informed. They were informed that pt would need 24 hour care. Family advised to make home arrangements in preparation for patient going home by eliminating any pills or dangerous items Daughters reinforced what patient had said during this admission that her 17 year old son Darryl that lives with them is very aggressive towards his mom and violent,making her feel scared and paranoid. Family to reach out for help with DyFS ,outpatient mental health , behavioral therapy ,[facility]C or police department if needed [facility] and [facility] will be informed by SW before patient is discharged home to make a home assessment Counseled daughter to continue with guardianship application to facilitate any future medical management or intervention . 1. Vascular Dementia with Cognitive / behavioral problems patient initially admitted after overdosing on Tylenol [facility] crisis came to eval pt and they felt that patient's condition is not psychiatric and does not require Involuntary Psych admission but she needs supervision. Psychiatry consulted - deemed pt has no capacity to make decisions for herself. That is why family was contacted and counselled to ask for legal guardianship . Has been off 1:1 x 1 month . Ambulating in unit freely Re evaluation done By Dr Mireles - pt still was found NOT to have capacity to make medical decisions. Rec to decrease Depakote, check levels and also to decrease Zyprexa dose Psychology eval for cognitive impairment appreciated . As per psychologist patient has no capacity . Application for Guardianship in progress Plan for d/c with family who will provide 24 hr care for the pt. APC and [facility] referral done 2. History CVA in the past with cognitive problems, hearing loss vascular dementia with hearing, speech and cognitive problems since the stroke 5 years ago Patient is neurologically stable 3. Ventral hernia reducible Surgery consulted- Dr Mckeon- rec outpt ff up for elective repair Abd binder ordered however pt refused to wear it 4. Anemia most likely anemia of chronic disease continue monitoring 5. Rectal Bleed likely sec to Hemorrhoids resolved , H& H stable GI consulted- bleed likely secondary to hemorrhoids 6. Diarrhea resolved C diff negative 7. Tylenol overdose was treated with acetadote, IVF 8.DVT prophylaxis SCD Discharge Exam - Head Exam Head Exam: ATRAUMATIC, NORMOCEPHALIC - Eye Exam Eye Exam: EOMI. absent: Normal appearance Pupil Exam: NORMAL ACCOMODATION - ENT Exam ENT Exam: Mucous Membranes Moist - Neck Exam Neck exam: Full Rom - Respiratory Exam Respiratory Exam: NORMAL BREATHING PATTERN. absent: Rales, Wheezes, Respiratory Distress - Cardiovascular Exam Cardiovascular Exam: REGULAR RHYTHM, +S1, +S2 - GI/Abdominal Exam GI & Abdominal Exam: Normal Bowel Sounds, Soft. absent: Tenderness Additional comments: abdominal hernia - Extremities Exam Extremities exam: full ROM, normal capillary refill, pedal pulses present Additional comments: no calf tenderness - Back Exam Back exam: FULL ROM. absent: CVA tenderness (L), CVA tenderness (R) - Neurological Exam Neurological exam: Alert, CN II-XII Intact, Oriented x3, Reflexes Normal Additional comments: ambulatory - Psychiatric Exam Psychiatric exam: Normal Affect, Normal Mood - Skin Skin Exam: Dry, Normal Color, Warm Discharge Plan - Discharge Medications Prescriptions: Bacitracin OINT 1 applic TOP BID #1 Divalproex [Depakote Sprinkles] 250 mg PO BID #120 OLANZapine [Zyprexa] 2.5 mg PO HS #30 tab - Follow Up Plan Condition: GOOD Disposition: HOME/ ROUTINE Instructions: Hearing Loss (DC), Acetaminophen Overdose (DC) Additional Instructions: Referral to [facility] [phone] family to prepare home for patient's safety by removing any pills or dangerous items from apartment APS,DYFS referral Dyfs legal department can help with guardianship application: [phone] 18/01 Home supervision by family appt FP clinic in 1 wk Outpt Surgery clinic appt in 2wks for Outpt Hernia repair Referrals: [facility] [Outside] [facility] [Outside]
[2017-01-29 08:21] VITALS: BP 120/74; PULSE 57; TEMP 98.2; O2SAT 100
[2017-01-29] MEDS: Bacitracin OINT 15GM TOP SCH (08:42)
[2017-01-29] MEDS: Divalproex 125 mg Sprinkle Capsule PO SCH ×2 (08:42→09:22)
== END 2017-01-29 11:32 | disposition home health service (06) | DRG 449 ==
LOC: H.ER 16:39 → H.ERHOLD 19:24 → H.ICU/CCU 21:30 → H.MEDSURG1 12-08 01:28
PROVIDERS: ADMIT Internal Medicine; ATTEND Internal Medicine
DX: T39.1X2A Poisoning by 4-Aminophenol derivatives, intentional self-harm, initial encounter (principal); E87.6 Hypokalemia; F01.51 Vascular dementia, unspecified severity, with behavioral disturbance; E11.9 Type 2 diabetes mellitus without complications; D63.8 Anemia in other chronic diseases classified elsewhere; I10 Essential (primary) hypertension; F20.9 Schizophrenia, unspecified; F29 Unspecified psychosis not due to a substance or known physiological condition; F09 Unspecified mental disorder due to known physiological condition; Y92.009 Unspecified place in unspecified non-institutional (private) residence as the place of occurrence of the external cause; F22 Delusional disorders; H91.90 Unspecified hearing loss, unspecified ear; I69.920 Aphasia following unspecified cerebrovascular disease; I69.992 Facial weakness following unspecified cerebrovascular disease; I69.928 Other speech and language deficits following unspecified cerebrovascular disease; K43.9 Ventral hernia without obstruction or gangrene; Z91.14 Patient's other noncompliance with medication regimen; R19.7 Diarrhea, unspecified; K64.4 Residual hemorrhoidal skin tags